=== PATIENT | female | born 1935 | race Caucasian/White ===

== ENCOUNTER → 2016-10-26 | Outpatient (CLI) | payer MEDICARE ==
[2016-10-26 09:16] LABS: Basophils # (A) 0.1 k/uL (0-0.2); Basophils % (A) 1 %; CH 28.6; CHCM 34.1; Eosinophils # (A) 0.2 k/uL (0-0.7); Eosinophils % (A) 4 %; HCT 35.1 % (34.0-46.0); HDW 2.93; Luc % (Auto) 4; Lymphocytes # (A) 0.8 k/uL (1.0-4.8); Lymphocytes % (A) 17 %; MCH 28.6 pg (25.0-35.0); MCHC 34.1 g/dL (31.0-37.0); Monocytes # (A) 0.3 k/uL (0-1.0); Monocytes % (A) 6 %; Neutrophils # (A) 3.3 k/uL (1.3-7.7); Neutrophils % (A) 68 %; RBC 4.18 m/uL (3.80-5.40); RDW 14.1 % (11.5-15.5); WBC 4.9 k/uL (3.8-10.6); WBC (Perox) 5.14
[2016-10-26 10:02] LABS: ALT 26 U/L (9-52); AST 24 U/L (14-36); Alkaline Phosphatase 62 U/L (38-126); Anion Gap 10 mmol/L; Blood Urea Nitrogen 30 mg/dL (7-17); Calcium 9.3 mg/dL (8.4-10.2); Carbon Dioxide 32 mmol/L (22-30); Chloride 98 mmol/L (98-107); Cholesterol 134 mg/dL (<200); Glucose 157 mg/dL (74-99); HDL Cholesterol 42 mg/dL (40-60); Non-African American GFR(MDRD) 50 (>60 ml/min/1.73 sqM); Potassium 3.7 mmol/L (3.5-5.1); Sodium 140 mmol/L (137-145); Total Bilirubin 0.8 mg/dL (0.2-1.3); Total Protein 6.8 g/dL (6.3-8.2); Triglycerides 137 mg/dL (<150)
[2016-10-26 13:01] LABS: Hemoglobin A1C 6.2 % (4.2-6.1)
== END ==
LOC: LABWHC1 08:35
PROVIDERS: ATTEND Internal Medicine Critical Care Medicine
DX: J45.909 Unspecified asthma, uncomplicated (principal)
CPT/HCPCS: 36415; 80053; 80061; 82306; 83036; 84439; 84443; 84481; 85025

== ENCOUNTER → 2016-12-30 | Outpatient (CLI) | payer MEDICARE ==
--- NOTE | 2016-12-30 17:18 | CT ---
EXAMINATION TYPE: CT brain wo/w con DATE OF EXAM: 12/30/2016 COMPARISON: 12/01/2015 HISTORY: Hearing loss and dizziness x [address] DLP: 2268.00 mGycm Automated exposure control for dose reduction was used. CONTRAST: CT scan of the head is performed with IV Contrast, patient injected with 80 mL of Visipaque 320. FINDINGS: There is a 2 cm wedge-shaped area of hypodensity in the right parietal lobe convexity. There is no ma ss effect nor midline shift. There is no sign of intracranial hemorrhage. There is no pathologic enha ncement. Ventricles of normal size. Calvarium is intact. 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 No acute intracranial abnormality. No change.
--- NOTE | 2016-12-30 17:24 | CT ---
EXAMINATION TYPE: CT iac w con DATE OF EXAM: 12/30/2016 COMPARISON: NONE HISTORY: Hearing loss and dizziness x [address] DLP: 217.03 mGycm Automated exposure control for dose reduction was used. CONTRAST: CT scan of the IACs is performed with IV Contrast, patient injected with 80 mL of Visipaque 320. FINDINGS: External auditory canals are within normal limits. There is normal aeration of the epitympa anderson recess bilaterally. There is normal aeration of the middle ear cavity. Semicircular canals appear normal. The cochlea appear normal. I see no focal bone destruction. There is fairly normal aeration of the mastoid air cells. Temporomandibular joints appear normal. Internal auditory canals appear normal. There is no sign of cerebellopontine angle mass. Fourth ventr icle appears normal. There is no pathologic enhancement. There is some atherosclerotic vascular calci fication. IMPRESSION: Negative CT scan of the temporal bones. No demonstrated abnormality.
== END | disposition home or self-care (01) ==
LOC: RADCTMAIN 15:05
PROVIDERS: ATTEND Otolaryngology
DX: I63.9 Cerebral infarction, unspecified (principal); H91.92 Unspecified hearing loss, left ear; H93.3X2 Disorders of left acoustic nerve
CPT/HCPCS: 82565; 84520; 70481; 70470; 36415; Q9967

== ENCOUNTER 2017-08-01 15:23 | Inpatient (IN) | payer MEDICARE ==
[2017-08-01] MEDS ORDERED: ASPIRIN 81 MG PO STA (15:35)
--- NOTE | 2017-08-01 15:56 | ED ---
Dizziness HPI - General Chief Complaint: Dizziness Stated Complaint: off balance Time Seen by Provider: 08/01/17 15:34 Source: patient Mode of arrival: wheelchair Limitations: no limitations - History of Present Illness Initial Comments: Patient complains of trouble walking. She states that she is having some episodes of walking sideways. She has no chest pain, shortness of breath, belly or back pain. She has no lightheadedness, dizziness, vertigo. She has no palpitations. She has no pain or swelling in the arms or legs. Nothing makes her symptoms better or worse. She was not doing anything when this began. Her symptoms are getting worse on their own. She has taken no medication for this. She has no loss of bowel or bladder continence. She has no urinary retention. - Related Data Home Medications Medication Instructions Recorded Confirmed Hydrochlorothiazide [Hydrodiuril] 25 mg PO BID 01/31/14 05/06/17 Montelukast [Singulair] 10 mg PO HS 01/31/14 05/06/17 Nitroglycerin Sl Tabs [Nitrostat] 0.4 mg SUBLINGUAL Q5M PRN 01/31/14 05/06/17 amLODIPine BESYLATE [Norvasc] 5 mg PO DAILY 01/31/14 05/06/17 hydrALAZINE HCL [Apresoline] 100 mg PO BID 12/25/14 05/06/17 ALPRAZolam [Xanax] 0.25 mg PO TID PRN 11/15/15 05/06/17 Metoprolol Tartrate [Lopressor] 50 mg PO BID 11/15/15 05/06/17 Apixaban [Eliquis] 2.5 mg PO BID 05/06/17 05/06/17 Levofloxacin [Levaquin] 250 mg PO DAILY 05/06/17 05/06/17 Lisinopril [Zestril] 10 mg PO QAM 05/06/17 05/06/17 Lisinopril [Zestril] 20 mg PO HS 05/06/17 05/06/17 Zolpidem Tartrate [Ambien Cr] 6.25 mg PO HS 05/06/17 05/06/17 Previous Rx's Medication Instructions Recorded Atorvastatin [Lipitor] 80 mg PO DAILY #30 tab 11/17/15 Allergies Allergy/AdvReac Type Severity Reaction Status Date / Time Penicillins Allergy Unknown Verified 05/06/17 16:32 Childhood Sulfa (Sulfonamide Allergy Unknown Verified 05/06/17 16:32 Antibiotics) Childhood Review of Systems ROS Statement: Those systems with pertinent positive or pertinent negative responses have been documented in the HPI. ROS Other: All systems not noted in ROS Statement are negative. Past Medical History Past Medical History: Atrial Fibrillation, Chest Pain / Angina, CVA/TIA, Hypertension, Osteoarthritis (OA) Additional Past Medical History / Comment(s): Atrial fibrillation, paroxysmal, sick sinus syndrome status post dual-chamber pacemaker insertion, hypertension, diverticulosis, borderline diabetes mellitus type 2, cataracts, degenerative arthritis History of Any Multi-Drug Resistant Organisms: None Reported Past Surgical History: Hysterectomy, Pacemaker Additional Past Surgical History / Comment(s): cataract surgery bilateral eyes. rhinoplasty. colonoscopy, d&c, rt wrist carpal tunnel, laser eye sx for cataracts Past Anesthesia/Blood Transfusion Reactions: No Reported Reaction Type of Cardiac Device: Permanent Pacemaker Device Placement Date:: 02/26/15 Past Psychological History: No Psychological Hx Reported Smoking Status: Never smoker Past Alcohol Use History: None Reported Past Drug Use History: None Reported - Past Family History Mother Family Medical History: CVA/TIA, Hypertension Additional Family Medical History / Comment(s): cataract surgery, of cardiac aneurysm Sister(s) Family Medical History: Cancer, Hypertension Additional Family Medical History / Comment(s): breast cancer General Exam Limitations: no limitations General appearance: alert, in no apparent distress Head exam: Present: atraumatic, normocephalic, normal inspection Eye exam: Present: normal appearance, PERRL, EOMI. Absent: scleral icterus, conjunctival injection, periorbital swelling ENT exam: Present: normal exam, mucous membranes moist Neck exam: Present: normal inspection. Absent: tenderness, meningismus, lymphadenopathy Respiratory exam: Present: normal lung sounds bilaterally. Absent: respiratory distress, wheezes, rales, rhonchi, stridor Cardiovascular Exam: Present: regular rate, normal rhythm, normal heart sounds. Absent: systolic murmur, diastolic murmur, rubs, gallop, clicks GI/Abdominal exam: Present: soft, normal bowel sounds. Absent: distended, tenderness, guarding, rebound, rigid Extremities exam: Present: normal inspection, full ROM, normal capillary refill. Absent: tenderness, pedal edema, joint swelling, calf tenderness Back exam: Present: normal inspection Neurological exam: Present: alert, oriented X3, CN II-XII intact, abnormal gait Psychiatric exam: Present: normal affect, normal mood Skin exam: Present: warm, dry, intact, normal color. Absent: rash Course Vital Signs 08/01/17 08/01/17 15:31 16:12 Temperature 99.0 F Pulse Rate 70 74 Respiratory 20 17 Rate Blood Pressure 128/73 116/61 O2 Sat by Pulse 98 97 Oximetry EKG Findings - EKG Comments: EKG Findings:: Twelve-lead EKG interpreted by me showing ventricular rate 74 bpm , there are atrial pacer spikes, with no P waves present, no ST elevation or depression, interpreted by me as atrial paced rhythm without acute ischemia. Medical Decision Making - Medical Decision Making Patient presents with trouble walking. I'm unable to get her to ambulate properly. Her CT does not show an acute stroke, but she has evidence of old infarct. Patient will be admitted to the hospital. I will consult neurology. - Lab Data Result diagrams: 08/01/17 15:50 08/01/17 15:50 Lab Results 08/01/17 08/01/17 08/01/17 Range/Units 15:50 15:50 15:50 WBC 7.1 (3.8-10.6) k/uL RBC 4.26 (3.80-5.40) m/uL Hgb 11.5 (11.4-16.0) gm/dL Hct 33.5 L (34.0-46.0) % MCV 78.7 L (80.0-100.0) fL MCH 27.1 (25.0-35.0) pg MCHC 34.4 (31.0-37.0) g/dL RDW 14.4 (11.5-15.5) % Plt Count 296 (150-450) k/uL Neutrophils % 74 % Lymphocytes % 13 % Monocytes % 5 % Eosinophils % 4 % Basophils % 1 % Neutrophils # 5.2 (1.3-7.7) k/uL Lymphocytes # 0.9 L (1.0-4.8) k/uL Monocytes # 0.4 (0-1.0) k/uL Eosinophils # 0.3 (0-0.7) k/uL Basophils # 0.1 (0-0.2) k/uL PT 9.9 (9.0-12.0) sec INR 1.0 (<1.2) APTT 33.6 H (22.0-30.0) sec Sodium 137 (137-145) mmol/L Potassium 3.8 (3.5-5.1) mmol/L Chloride 94 L (98-107) mmol/L Carbon Dioxide 32 H (22-30) mmol/L Anion Gap 11 mmol/L BUN 24 H (7-17) mg/dL Creatinine 1.01 (0.52-1.04) mg/dL Est GFR (CKD-EPI)AfAm 60 (>60 ml/min/1.73 sqM) Est GFR (CKD-EPI)NonAf 52 (>60 ml/min/1.73 sqM) Glucose 109 H (74-99) mg/dL Calcium 9.3 (8.4-10.2) mg/dL Magnesium 1.6 (1.6-2.3) mg/dL Total Bilirubin 0.6 (0.2-1.3) mg/dL AST 19 (14-36) U/L ALT 23 (9-52) U/L Alkaline Phosphatase 79 (38-126) U/L Total Protein 6.8 (6.3-8.2) g/dL Albumin 3.7 (3.5-5.0) g/dL Lipase 116 (23-300) U/L Disposition Clinical Impression: Dizziness Disposition: ADMITTED IP TO THIS [facility] Condition: Fair Referrals: Phoenix Manzo DO [Primary Care Provider] - 1-2 days Time of Disposition: 16:19
[2017-08-01 16:00] LABS: Basophils # (A) 0.1 k/uL (0-0.2); Basophils % (A) 1 %; Eosinophils # (A) 0.3 k/uL (0-0.7); Eosinophils % (A) 4 %; HCT 33.5 % (34.0-46.0); HGB 11.5 gm/dL (11.4-16.0); Lymphocytes # (A) 0.9 k/uL (1.0-4.8); Lymphocytes % (A) 13 %; MCH 27.1 pg (25.0-35.0); MCHC 34.4 g/dL (31.0-37.0); MCV 78.7 fL (80.0-100.0); Mean Platelet Volume 6.7; Monocytes # (A) 0.4 k/uL (0-1.0); Monocytes % (A) 5 %; Neutrophils # (A) 5.2 k/uL (1.3-7.7); Neutrophils % (A) 74 %; Platelet Count 296 k/uL (150-450); RBC 4.26 m/uL (3.80-5.40); RDW 14.4 % (11.5-15.5); WBC 7.1 k/uL (3.8-10.6)
[2017-08-01 16:06] LABS: Partial Thromboplastin Time 33.6 sec (22.0-30.0); Prothrombin Time 9.9 sec (9.0-12.0)
--- NOTE | 2017-08-01 16:06 | CT ---
EXAMINATION TYPE: CT brain wo con DATE OF EXAM: 08/01/2017 COMPARISON: Prior head CT 12/30/2016 HISTORY: Unsteady gait x3 days CT DLP: 973.4 mGycm Automated exposure control for dose reduction was used. Helical acquisition through the brain FINDINGS: Cerebral vascular calcifications are present. There is no hemorrhage or hydrocephalus. Mild cortical atrophy again noted. Periventricular white matter low-attenuation, brain density is stable. Calvarium is intact. Paranasal sinuses show only mild mucosal disease in the maxillary sinus. Some inflammator y change present in the mastoids on the left. IMPRESSION: STABLE EXAM, NO ACUTE ABNORMALITY. Suspect chronic small vessel ischemia, age related atrophy. Correl ate for mastoiditis, additional findings above.
--- NOTE | 2017-08-01 16:07 | XR ---
EXAMINATION TYPE: XR chest 2V DATE OF EXAM: 08/01/2017 COMPARISON: Prior chest x-ray 11/14/2015 HISTORY: Chest pain TECHNIQUE: Frontal and lateral views of the chest are obtained. FINDINGS: There is no focal air space opacity, pleural effusion, or pneumothorax seen. The cardiac silhouette size is stable. Pacemaker is unchanged, leads are present in the right atrium and ventricl e, generator in the left pectoral region, patient is rotated The osseous structures are intact. IMPRESSION: No acute cardiopulmonary process.
[2017-08-01 16:15] LABS: Albumin 3.7 g/dL (3.5-5.0); Calcium 9.3 mg/dL (8.4-10.2); Magnesium 1.6 mg/dL (1.6-2.3); Potassium 3.8 mmol/L (3.5-5.1); Total Bilirubin 0.6 mg/dL (0.2-1.3); Total Protein 6.8 g/dL (6.3-8.2)
[2017-08-01] MEDS ORDERED: NALOXONE 0.4 MG/ML 1 ML VIAL IV PRN (16:19)
[2017-08-01] MEDS ORDERED: ONDANSETRON 4 MG/2 ML VIAL IVP PRN (16:19)
[2017-08-01 18:28] VITALS: BMI 31.4
[2017-08-01] MEDS: LISINOPRIL 20 MG TAB PO SCH (19:59)
[2017-08-01] MEDS: HYDROCHLOROTHIAZIDE 25 MG TAB PO SCH (19:59)
[2017-08-01] MEDS: METOPROLOL TARTRATE 50 MG TAB PO SCH (19:59)
[2017-08-01] MEDS: APIXABAN 2.5 MG TABLET PO SCH (19:59)
[2017-08-01] MEDS: FAMOTIDINE 20 MG TAB PO SCH (20:00)
[2017-08-01] MEDS: MONTELUKAST 10 MG TAB PO SCH (20:00)
[2017-08-01] MEDS ORDERED: MECLIZINE 12.5 MG TAB PO PRN (20:10)
--- NOTE | 2017-08-01 20:11 | P.CNNES ---
History of Present Illness Consult date: 08/01/17 Reason for Consult: Patient admitted with gait dysfunction and dizziness. History of Present Illness: This patient is a pleasant 82-year-old right-handed white female who states that about 2 weeks ago she was outdoors and was attempting to remove a sign that was in the ground. 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 She struck the back of her head quite hard onto the rope. She was close to the edge of the driveway in the road when she had fell and had clearly fallen backwards and struck the back of her head. She was able to get up and slowly was able to get into her car and was able to return home. She did not experience any contusion or laceration to the scalp or head region. She does have a history of having suffered a right hemispheric stroke in 2010. She also has a history of underlying atrial fibrillation and is currently taking Eliquis for long-term anticoagulation. 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 Apparently on Monday she was having great deal of difficulty at home ambulating from room to room. She states that she had to hold onto the sung to get from place to place. She went into work this morning and her colleagues noticed that she was having a great deal of difficulty. She decided to go to the ENT clinic but did not have an appointment for 2 weeks. The patient was quite concerned with her symptoms as she was becoming worse in terms of her balance. She decided to go to the emergency room today for further evaluation. The patient was seen in the ER by Dr. Mtz. She apparently still was very unsteady in her gait. She required assistance to even come into the emergency room with the help of a security tech. The patient was evaluated and had evidence of unsteady gait and unable to ambulate. She was sent for a computed tomography scan of the brain which revealed stable exam with no acute abnormality. Suspect chronic small vessel ischemia and age-related atrophy. Correlation for mastoiditis was noted. There was no evidence of acute stroke. Due to her inability to ambulate she was admitted to hospital for further evaluation. Patient does have a history of atrial fibrillation and paroxysmal 6 sinus syndrome and has a dual-chamber pacemaker. Apparently she did not experience any abnormalities with her heart rate during this recent fall and subsequent symptoms. As noted she does take her anticoagulant medication on a daily basis. The patient states she did not experience any true vertigo or dizziness. She was subsequently admitted to the hospital today. She is examined today in her room and does not show any evidence of horizontal or vertical nystagmus. She has no focal motor weakness on exam. When attempt was made to have her stand she becomes very ataxic. The patient is unable to go for MRI of the brain as she does have the Rubio maker. Her clinical findings at this time suggest possibility of posterior fossa infarct. We have recommended a repeat CAT scan of the brain to be done tomorrow. We will also obtain a consultation with Dr. Mathews for ENT evaluation for postconcussive labyrinthitis. Once again she does seem to demonstrate evidence of truncal ataxia when standing. We will get a repeat computed tomography scan tomorrow to monitor for any changes. Would also recommend a physical therapy consultation as well as cardiology consultation. We'll obtain a carotid Doppler to rule out carotid artery stenosis as well. Depending on physical therapy's recommendations she may be a candidate for short -term rehabilitation with Dr. Warren. The patient states that she feels very unsteady even when trying to stand. We will await further evaluation from ENT for this patient. She does not appear to show evidence consistent with acute vertigo as there is no evidence of nystagmus on gaze testing. We will continue close neurological follow-up for this patient. Neurology is now been consulted for further evaluation and recommendations. Review of Systems Constitutional: Denies chills, Denies fever Eyes: denies blurred vision, denies pain, denies loss of vision Ears, nose, mouth and throat: Reports sinus pressure, Reports vertigo, Denies headache, Denies sore throat Cardiovascular: Reports irregular heart beat, Reports lightheadedness, Denies chest pain, Denies shortness of breath Respiratory: Denies cough Gastrointestinal: Denies abdominal pain, Denies diarrhea, Denies nausea, Denies vomiting Genitourinary: Denies dysuria, Denies hematuria Musculoskeletal: Denies myalgias Integumentary: Denies pruritus, Denies rash Neurological: Reports ataxia, Reports balance difficulties, Reports gait dysfunction, Reports lack of coordination, Reports motor disturbance, Reports vertigo, Denies numbness, Denies weakness Psychiatric: Denies anxiety, Denies depression Endocrine: Denies fatigue, Denies weight change Past Medical History Past Medical History: Atrial Fibrillation, Chest Pain / Angina, CVA/TIA, Hypertension, Osteoarthritis (OA) Additional Past Medical History / Comment(s): Atrial fibrillation, paroxysmal, sick sinus syndrome status post dual-chamber pacemaker insertion, hypertension, diverticulosis, borderline diabetes mellitus type 2, cataracts, degenerative arthritis History of Any Multi-Drug Resistant Organisms: None Reported Past Surgical History: Hysterectomy, Pacemaker Additional Past Surgical History / Comment(s): cataract surgery bilateral eyes. rhinoplasty. 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) Past Drug Use History: None Reported - Past Family History Mother Family Medical History: CVA/TIA, Hypertension Additional Family Medical History / Comment(s): cataract surgery, of cardiac aneurysm Sister(s) Family Medical History: Cancer, Hypertension Additional Family Medical History / Comment(s): breast cancer Medications and Allergies Home Medications Medication Instructions Recorded Confirmed Type Hydrochlorothiazide [Hydrodiuril] 25 mg PO BID 01/31/14 08/01/17 History Montelukast [Singulair] 10 mg PO HS 01/31/14 08/01/17 History Nitroglycerin Sl Tabs [Nitrostat] 0.4 mg SUBLINGUAL Q5M PRN 01/31/14 08/01/17 History amLODIPine BESYLATE [Norvasc] 5 mg PO DAILY 01/31/14 08/01/17 History hydrALAZINE HCL [Apresoline] 100 mg PO BID 12/25/14 08/01/17 History Metoprolol Tartrate [Lopressor] 50 mg PO BID 11/15/15 08/01/17 History Apixaban [Eliquis] 2.5 mg PO BID 05/06/17 08/01/17 History Lisinopril [Zestril] 10 mg PO QAM 05/06/17 08/01/17 History Lisinopril [Zestril] 20 mg PO HS 05/06/17 08/01/17 History Aspirin [Adult Low Dose Aspirin EC] 81 mg PO DAILY@1200 08/01/17 08/01/17 History Allergies Allergy/AdvReac Type Severity Reaction Status Date / Time Penicillins Allergy Unknown Verified 08/01/17 16:28 Childhood Sulfa (Sulfonamide Allergy Unknown Verified 08/01/17 16:28 Antibiotics) Childhood Physical Examination - Vital Signs Vital Signs: Vital Signs Temp Pulse Pulse Resp BP BP BP 08/01/17 18:31 73 16 08/01/17 17:14 98.7 F 70 17 146/69 08/01/17 16:50 97.6 F 73 18 151/75 151/75 08/01/17 16:12 74 17 116/61 08/01/17 15:31 99.0 F 70 20 128/73 BP BP Pulse Ox 08/01/17 18:31 08/01/17 17:14 100 08/01/17 16:50 149/91 121/62 95 08/01/17 16:12 97 08/01/17 15:31 98 Intake and Output 08/01/17 08/01/17 08/01/17 06:59 14:59 22:59 Other: Weight 91 kg Patient Weight 08/02/17 06:59 Weight 91 kg - Constitutional General appearance: average body habitus, cooperative - EENT EENT: PERRL, mucous membranes moist - Respiratory Respiratory: lungs clear, normal breath sounds - Cardiovascular Cardiovascular: normal S1, normal S2 Extremities: no peripheral edema bilaterally - Gastrointestinal Gastrointestinal: normoactive bowel sounds - Integumentary Integumentary: normal - Neurologic Cranial nerve examination: PERRL, EOMI, VFF, V1/V2/V3 grossly intact, face symmetric, tongue midline, intact gag reflex, intact corneal reflex, normal palatal elevation Speech examination: intact Sensorimotor examination: intact Motor examination - right side: 4/5: biceps, triceps, wrist flexion, wrist extension, animal assisted therapist, hip flexors, knee extensors, dorsiflexion, toe extension (EHL) , plantarflexion Motor examination - left side: 4/5: biceps, triceps, wrist flexion, wrist extension, animal assisted therapist, hip flexors, knee extensors, dorsiflexion, toe extension (EHL) , plantarflexion Detailed sensory examination: intact Posture: other (Patient has evidence of truncal ataxia when standing.) Reflex and gait examination: ataxic gate Reflexes: 1+: ankle, bicep, knee, tricep Cerebellar examination: ataxia (Patient has evidence of truncal ataxia when standing.) - Musculoskeletal Musculoskeletal: no pain - Psychiatric Psychiatric: mood/affect appropriate, cooperative Results - Laboratory Findings CBC and BMP: 08/01/17 15:50 08/01/17 15:50 Abnormal Lab Findings: Abnormal Labs 08/01/17 08/01/17 08/01/17 15:50 15:50 15:50 Hct 33.5 L MCV 78.7 L Lymphocytes # 0.9 L APTT 33.6 H Chloride 94 L Carbon Dioxide 32 H BUN 24 H Glucose 109 H Assessment and Plan (1) Truncal ataxia Current Visit: Yes Status: Acute Code(s): R27.8 - OTHER LACK OF COORDINATION SNOMED Code(s): 006303135 (2) History of stroke Current Visit: Yes Status: Acute Code(s): Z86.73 - PRSNL HX OF TIA (TIA), AND CEREB INFRC W/O RESID DEFICITS SNOMED Code(s): 086490103 (3) Dizziness Current Visit: Yes Status: Acute Code(s): R42 - DIZZINESS AND GIDDINESS SNOMED Code(s): 752833799 (4) Acute ischemic stroke Current Visit: No Status: Acute Onset Date: 11/14/15 Code(s): I63.9 - CEREBRAL INFARCTION, UNSPECIFIED SNOMED Code(s): 086022675 (5) Labyrinthitis Current Visit: Yes Status: Acute Code(s): H83.09 - LABYRINTHITIS, UNSPECIFIED EAR SNOMED Code(s): 12163446 (6) AF (paroxysmal atrial fibrillation) Current Visit: No Status: Acute Code(s): I48.0 - PAROXYSMAL ATRIAL FIBRILLATION SNOMED Code(s): 034983742 Plan: This patient is a pleasant 82-year-old right-handed white female who was admitted to hospital today with symptoms of unsteady gait and ataxia. She was unable to ambulate at home since Monday of this past week. She had sustained a fall 2 weeks prior on ice and struck the back of her head. She did not seek any medical attention as she seemed to recover from this. On Monday she was holding onto the sung to ambulate at home. 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 She was unable to walk very far without some assistance. Her colleague recommended she go to the emergency room. She was seen in the ER today by Dr. Mtz and subsequently admitted to Hospital. She underwent a computed tomography scan of the brain the results of which are noted above. The patient was unable to ambulate even in the emergency room. Her clinical history is shows evidence of truncal ataxia. This would suggest possibility of posterior circulation stroke. She is unable to go for MRI of the brain as she has a pacemaker. We will obtain a repeat computed tomography scan of the brain tomorrow. Would recommend ENT consultation for evaluation of postconcussive labyrinthitis for this patient as well. She has a history of previous stroke in 2010 and is currently being treated for paroxysmal atrial fibrillation. She is to be maintained on Eliquis was for long-term anticoagulation. We will obtain a routine carotid Doppler to rule out carotid artery stenosis. She will require PT OT consultation. The patient is being treated for TIA and stroke prevention with her current anticoagulant. As noted we will have a repeat CAT scan of the brain done for further assessment. Patient may also benefit from evaluation from Dr. Warren for possible more aggressive inpatient rehabilitation and therapy. Case was discussed at length today with the patient. All of her questions were answered. We will continue close neurological follow-up for the patient during this admission. Time with Patient: Greater than 30
[2017-08-02 04:18] LABS: Basophils # (A) 0.1 k/uL (0-0.2); Basophils % (A) 1 %; Eosinophils # (A) 0.3 k/uL (0-0.7); Eosinophils % (A) 5 %; HCT 29.9 % (34.0-46.0); Lymphocytes # (A) 0.9 k/uL (1.0-4.8); Lymphocytes % (A) 15 %; MCH 26.6 pg (25.0-35.0); MCHC 33.4 g/dL (31.0-37.0); MCV 79.7 fL (80.0-100.0); Monocytes # (A) 0.4 k/uL (0-1.0); Monocytes % (A) 7 %; Neutrophils # (A) 4.1 k/uL (1.3-7.7); Neutrophils % (A) 70 %; Platelet Count 249 k/uL (150-450); RBC 3.75 m/uL (3.80-5.40); RDW 14.5 % (11.5-15.5); WBC 5.9 k/uL (3.8-10.6)
--- NOTE | 2017-08-02 04:21 | HP ---
HISTORY AND PHYSICAL DATE OF SERVICE: 08/01/2017 CHIEF COMPLAINTS: Dizziness. HISTORY OF PRESENT ILLNESS: This 80-year-old woman with a past medical history of multiple medical problems , acute stroke, history of carotid stenosis, atrial fibrillation, history of sick sinus syndrome, CVA/TIA, DJD being followed by Dr. Manzo in the outpatient setting was complaining of dizziness today. The patient had some trouble walking and while the patient was walking, the patient was tending to fall to one side. The patient also history of falling on ice about 2 weeks ago and hitting the head on the posterior part of the head. The patient had a CT scan of the brain on admission which is stable and suspect chronic small vessel ischemia and age-related atrophy. Neurology evaluation in progress at this time. Otherwise, MRI could not be done because the patient had a pacemaker. Apparently could not be done because of pacemaker. The troponins are negative at this time. There is no history of fever, rigors or chills. No history of any headache, loss of consciousness or seizures at this time. PAST MEDICAL HISTORY: History of atrial fibrillation, CVA, TIA, hypertension, history of DJD, history of paroxysmal atrial fibrillation, history of hysterectomy, history of pacemaker. MEDICATIONS: Prior to admission include home medications: 1. Nitrostat 0.4 mg p.r.n. 2. Singulair 10 mg p.o. q.h.s. 3. Zestril 20 mg p.o. q.h.s. 4. Aspirin 81 mg. 6. Norvasc 5 mg. 7. Lopressor 50 mg p.o. daily. 8. HydroDIURIL 25 mg p.o. b.i.d. 9. Eliquis 2.5 mg p.o. b.i.d. ALLERGIES: PENICILLIN AND SULFA. FAMILY HISTORY: History of CVA, TIA, hypertension, cataract surgery, cardiac aneurysm. SOCIAL HISTORY: No history of smoking, no history of alcohol. REVIEW OF SYSTEMS: ENT as mentioned earlier. Cardiovascular: No angina or palpitations. Respiratory: There is no cough or hemoptysis. GI mentioned earlier. no dysuria. Nervous system: As mentioned earlier. Allergy/Immunology: No asthma or hayfever. Musculoskeletal as mentioned earlier. Hematology/Oncology: No history of anemia. Endocrine: No history of diabetes or hypothyroidism. Constitutional: As mentioned earlier. Dermatology: Negative. Rheumatology: Negative. Psychiatric: As mentioned earlier. PHYSICAL EXAM: Patient is alert, oriented x3. Pulse is 71, blood pressure 118/63, respiration 18, temperature 98.6, pulse ox 97% on room air. HEENT: Conjunctivae normal. Neck: No jugular venous distention. Cardiovascular system: S1, S2 muffled. Respiratory : Breath sounds diminished in the bases. No rhonchi. No crackles. ABDOMEN: Soft, nontender. No mass. Legs no edema no swelling. NERVOUS SYSTEM: Higher functions as mentioned earlier. Cranial nerves, there is no nystagmus, no diplopia. Otherwise the power is normal. Minimal incoordination of the left finger-nose noted. Otherwise some gait ataxia and also Romberg sign is positive. Otherwise, skin no ulcer, rash, bleeding. Lymphatics: No lymph nodes palpable in the neck, axillae or groin. Joints no active deforming arthropathy. LABS: WBC 7.8, hemoglobin 11.5, sodium 139, potassium 3.8 and glucose 109. ASSESSMENT: 1. Dizziness and gait ataxia, truncal ataxia for evaluation possibly. 2. Vertebrobasilar stroke versus transient ischemic attack. 3. History of previous stroke involving the right posterior temporal area and lacunar infarcts. 4. History of previous left carotid stenosis. 5. History of paroxysmal atrial fibrillation. 6. History of sick sinus syndrome bradycardia with dual-chamber pacemaker implantation. 7. Hypertension. 8. History of cerebrovascular accident, transient ischemic attack. 9. History of degenerative joint disease. 10.History of cardiomyopathy. 11.History of diverticulitis. 12.History of cataracts. 13.History of borderline diabetes type 2 previously. 14.History of colonoscopy. RECOMMENDATIONS AND DISCUSSION: In this 82-year-old woman who presented with multiple complex medical issues, we will monitor the patient closely, continue the current management. Neuro checks. Neurovascular workup. Neurology evaluation. I would also recommend Cardiology consultation as well. Otherwise resume the home medications, symptomatic treatment will be provided. Prognosis guarded. Discussed with the patient who understands and agrees. Further recommendations to follow. Blood pressure seems to be controlled at this time. We will monitor the patient closely. See orders for details. As mentioned earlier MRI could not be done. Discussed with Dr. Jean-Pierre Cobian who recommends repeat CT scan and continue monitoring. Further recommendations to follow. MMODL / IJN: [id number] / ILANA
[2017-08-02 04:36] LABS: Calcium 9.2 mg/dL (8.4-10.2); Potassium 3.6 mmol/L (3.5-5.1)
[2017-08-02 06:33] LABS: Appearance,Urine Clear (Clear); Bilirubin,Urine Negative (Negative); Blood,Urine Trace (Negative); Color,Urine Light Yellow; Glucose,Urine (UA) Negative (Negative); Ketones,Urine Negative (Negative); Leukocyte Esterase,Urine Negative (Negative); Nitrite,Urine Negative (Negative); Protein,Urine Negative (Negative); RBC,Urine 8 /hpf (0-5); Specific Gravity,Urine 1.009 (1.001-1.035); Urobilinogen,Urine <2.0 mg/dL (<2.0); WBC,Urine 1 /hpf (0-5)
--- NOTE | 2017-08-02 08:24 | CT ---
EXAMINATION TYPE: CT brain wo con DATE OF EXAM: 08/02/2017 COMPARISON: 08/01/2017 HISTORY: 82-year-old female Dizziness, truncal ataxia, rule out cerebellar stroke TECHNIQUE: Examination was done in axial plane without intravenous contrast. Coronal and sagittal r econstructions performed. CT DLP: 1017.9 mGycm Automated exposure control for dose reduction was used. FINDINGS: There is no evidence of acute intracranial hemorrhage, acute ischemic changes, mass, mass-effect, or extra-axial fluid collection. There is no effacement of cerebral sulci or basal subarachnoid cister ns. There is no hydrocephalus. There is no midline shift. Farley-white matter distinction is preserv ed. Old right parietal infarct. Moderate patchy white matter hypodensities in both cerebral hemispheres u nchanged. Similar partial opacification of the bilateral mastoid air cells. Paranasal sinuses well pneumatized. Orbits and globes appear intact. IMPRESSION: 1. No evident posterior cranial fossa infarct by CT. Skull base artifact limitations. Consider MRI fo r more sensitive evaluation. 2. Stable moderate patchy changes of chronic small vessel ischemic disease and old right parietal inf arct. 3. Similar fluid in the bilateral mastoid air cells. Correlate for any mastoid pain to exclude mastoi ditis.
[2017-08-02] MEDS: ASPIRIN 81 MG PO SCH (09:05)
[2017-08-02] MEDS: APIXABAN 2.5 MG TABLET PO SCH ×2 (09:05→20:42)
[2017-08-02] MEDS: MECLIZINE 12.5 MG TAB PO SCH ×3 (09:05→20:43)
[2017-08-02] MEDS: FAMOTIDINE 20 MG TAB PO SCH (09:05)
[2017-08-02] MEDS: amLODIPine 5 MG TAB PO SCH (09:05)
[2017-08-02] MEDS: ATORVASTATIN 80 MG TAB PO SCH (09:05)
[2017-08-02] MEDS: HYDROCHLOROTHIAZIDE 25 MG TAB PO SCH ×2 (09:06→20:42)
[2017-08-02] MEDS: METOPROLOL TARTRATE 50 MG TAB PO SCH ×2 (09:06→20:42)
[2017-08-02] MEDS: THIAMINE 100 MG TAB PO SCH (09:06)
[2017-08-02] MEDS: LISINOPRIL 10 MG TAB PO SCH (09:06)
[2017-08-02] MEDS: FOLIC ACID 1 MG TAB PO SCH (09:06)
[2017-08-02] MEDS: MULTIVITAMINS, THERA 1 EACH TAB PO SCH (09:06)
--- NOTE | 2017-08-02 10:03 | US ---
EXAMINATION TYPE: US carotid duplex BILAT DATE OF EXAM: 08/02/2017 COMPARISON: CLINICAL HISTORY: Patient with ataxia and history of stroke.. Hx of stroke 2011, HTN EXAM MEASUREMENTS: RIGHT: Peak Systolic Velocity (PSV) cm/sec ----- Right CCA: 64.7 ----- Right ICA: 81.4 ----- Right ECA: 74.1 ICA/CCA ratio: 1.3 RIGHT: End Diastole cm/sec ----- Right CCA: 13.1 ----- Right ICA: 21.9 ----- Right ECA: 5.1 LEFT: Peak Systolic Velocity (PSV) cm/sec ----- Left CCA: 69.2 ----- Left ICA: 64.7 ----- Left ECA: 112.9 ICA/CCA ratio: 0.9 LEFT: End Diastole cm/sec ----- Left CCA: 19.7 ----- Left ICA: 24.1 ----- Left ECA: 14.4 VERTEBRALS (direction of flow): Right Vertebral: Antegrade Left Vertebral: Antegrade Rhythm: Normal No significant stenosis or elevated velocity. Plaque seen in posterior right bulb. Bilateral wall t hickening. IMPRESSION: Mild atheromatous plaquing without significant flow-limiting stenosis. Criteria for Assigning % of Stenosis / Diameter reduction (Estimation based on the indirect measurements of the internal carotid artery velocities (ICA PSV). 1. Normal (no stenosis)=ICA PSV < 125 cm/s: ratio < 2.0: ICA EDV<40 cm/s. 2. Less than 50% stenosis=ICA PSV < 125 cm/s: ratio < 2.0: ICA EDV<40 cm/s. 3. 50 to 69% stenosis=ICA PSV of 125 to 230 cm/s: ration 2.0 ? 4.0: ICA EDV 40-100 cm/s. 4. Greater than 70% stenosis to near occlusion= ICA PSV > 230 cm/s: ratio > 4.0: ICA EDV > 100 cm/s. 5. Near occlusion= ICA PSV velocities may be low or undetectable: variable ratio and ICA EDV. 6. Total occlusion=unable to detect flow.
--- NOTE | 2017-08-02 11:08 | P.CRDCN ---
History of Present Illness History of present illness: Patient interviewed and examined. History of a recent fall and she hit the back of her head as she fell on her back on slippery ice. Since then she's had dizzy spells and ataxia. No subdural hematoma on CT of the head From a cardiac standpoint the pacemaker is functioning normally she is atrial paced. No bradycardia is noted. Blood pressure 124/70 mmHg heart sounds normal. From a cardiac standpoint is no further workup at this point. Further management per by al medical team and neurology and follow-up with Dr. Crocker as an outpatient See full dictation by nurse practitioner Past Medical History Past Medical History: Atrial Fibrillation, Chest Pain / Angina, CVA/TIA, Hypertension, Osteoarthritis (OA) Additional Past Medical History / Comment(s): Atrial fibrillation, paroxysmal, sick sinus syndrome status post dual-chamber pacemaker insertion, hypertension, diverticulosis, borderline diabetes mellitus type 2, cataracts, degenerative arthritis History of Any Multi-Drug Resistant Organisms: None Reported Past Surgical History: Hysterectomy, Pacemaker Additional Past Surgical History / Comment(s): cataract surgery bilateral eyes. rhinoplasty. 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) Past Drug Use History: None Reported - Past Family History Mother Family Medical History: CVA/TIA, Hypertension Additional Family Medical History / Comment(s): cataract surgery, of cardiac aneurysm Sister(s) Family Medical History: Cancer, Hypertension Additional Family Medical History / Comment(s): breast cancer Medications and Allergies Home Medications Medication Instructions Recorded Confirmed Type Hydrochlorothiazide [Hydrodiuril] 25 mg PO BID 01/31/14 08/01/17 History Montelukast [Singulair] 10 mg PO HS 01/31/14 08/01/17 History Nitroglycerin Sl Tabs [Nitrostat] 0.4 mg SUBLINGUAL Q5M PRN 01/31/14 08/01/17 History amLODIPine BESYLATE [Norvasc] 5 mg PO DAILY 01/31/14 08/01/17 History hydrALAZINE HCL [Apresoline] 100 mg PO BID 12/25/14 08/01/17 History Metoprolol Tartrate [Lopressor] 50 mg PO BID 11/15/15 08/01/17 History Apixaban [Eliquis] 2.5 mg PO BID 05/06/17 08/01/17 History Lisinopril [Zestril] 10 mg PO QAM 05/06/17 08/01/17 History Lisinopril [Zestril] 20 mg PO HS 05/06/17 08/01/17 History Aspirin [Adult Low Dose Aspirin EC] 81 mg PO DAILY@1200 08/01/17 08/01/17 History Allergies Allergy/AdvReac Type Severity Reaction Status Date / Time Penicillins Allergy Unknown Verified 08/01/17 16:28 Childhood Sulfa (Sulfonamide Allergy Unknown Verified 08/01/17 16:28 Antibiotics) Childhood Physical Exam Vitals: Vital Signs Temp Pulse Pulse Resp BP BP BP 08/02/17 04:00 98.1 F 70 18 08/01/17 23:56 71 18 08/01/17 23:53 98.6 F 71 18 08/01/17 20:00 97.7 F 70 18 08/01/17 18:31 73 16 08/01/17 17:14 98.7 F 70 17 146/69 08/01/17 16:50 97.6 F 73 18 151/75 151/75 08/01/17 16:12 74 17 116/61 08/01/17 15:31 99.0 F 70 20 128/73 BP BP Pulse Ox 08/02/17 04:00 124/70 08/01/17 23:56 08/01/17 23:53 118/66 08/01/17 20:00 134/69 96 08/01/17 18:31 08/01/17 17:14 100 08/01/17 16:50 149/91 121/62 95 08/01/17 16:12 97 08/01/17 15:31 98 Intake and Output 08/01/17 08/02/17 08/02/17 22:59 06:59 14:59 Intake Total 180 Output Total 700 Balance -700 180 Intake: Oral 180 Output: Urine 700 Other: # Voids 3 Weight 91 kg 99.5 kg Results 08/02/17 03:18 08/02/17 03:18 Cardiac Enzymes 08/01/17 08/01/17 08/01/17 Range/Units 15:50 15:50 22:04 AST 19 (14-36) U/L Troponin I <0.012 <0.012 (0.000-0.034) ng/mL 08/02/17 Range/Units 03:18 AST (14-36) U/L Troponin I <0.012 (0.000-0.034) ng/mL Coagulation 08/01/17 Range/Units 15:50 PT 9.9 (9.0-12.0) sec APTT 33.6 H (22.0-30.0) sec CBC 08/01/17 08/02/17 Range/Units 15:50 03:18 WBC 7.1 5.9 (3.8-10.6) k/uL RBC 4.26 3.75 L (3.80-5.40) m/uL Hgb 11.5 10.0 L D (11.4-16.0) gm/dL Hct 33.5 L 29.9 L (34.0-46.0) % Plt Count 296 249 (150-450) k/uL Comprehensive Metabolic Panel 08/01/17 08/02/17 Range/Units 15:50 03:18 Sodium 137 138 (137-145) mmol/L Potassium 3.8 3.6 (3.5-5.1) mmol/L Chloride 94 L 95 L (98-107) mmol/L Carbon Dioxide 32 H 33 H (22-30) mmol/L BUN 24 H 21 H (7-17) mg/dL Creatinine 1.01 0.98 (0.52-1.04) mg/dL Glucose 109 H 132 H (74-99) mg/dL Calcium 9.3 9.2 (8.4-10.2) mg/dL AST 19 (14-36) U/L ALT 23 (9-52) U/L Alkaline Phosphatase 79 (38-126) U/L Total Protein 6.8 (6.3-8.2) g/dL Albumin 3.7 (3.5-5.0) g/dL Current Medications Generic Name Dose Route Start Last Admin Trade Name Freq PRN Reason Stop Dose Admin Amlodipine Besylate 5 mg 08/02/17 09:00 08/02/17 09:05 Norvasc PO 5 mg DAILY LORI Administration Apixaban 2.5 mg 08/01/17 21:00 08/02/17 09:05 Eliquis PO 2.5 mg BID LORI Administration Aspirin 81 mg 08/02/17 09:00 08/02/17 09:05 Aspirin PO 81 mg DAILY LORI Administration Atorvastatin Calcium 80 mg 08/02/17 09:00 08/02/17 09:05 Lipitor PO 80 mg DAILY LORI Administration Famotidine 20 mg 08/01/17 21:00 08/02/17 09:05 Pepcid PO 20 mg BID LORI Administration Folic Acid 1 mg 08/02/17 12:00 08/02/17 09:06 Folic Acid PO 1 mg DAILY@1200 LORI Administration Hydrochlorothiazide 25 mg 08/01/17 21:00 08/02/17 09:06 Hydrodiuril PO 25 mg BID LORI Administration Lisinopril 10 mg 08/02/17 09:00 08/02/17 09:06 Zestril PO 10 mg QAM LORI Administration Lisinopril 20 mg 08/01/17 21:00 08/01/17 19:59 Zestril PO 20 mg HS LORI Administration Meclizine HCl 12.5 mg 08/02/17 09:00 08/02/17 09:05 Antivert PO 12.5 mg TID LORI Administration Metoprolol Tartrate 50 mg 08/01/17 21:00 08/02/17 09:06 Lopressor PO 50 mg BID LORI Administration Montelukast Sodium 10 mg 08/01/17 21:00 08/01/17 20:00 Singulair PO 10 mg HS LORI Administration Multivitamins 1 each 08/02/17 12:00 08/02/17 09:06 Theragran PO 1 each DAILY@1200 LORI Administration Naloxone HCl 0.2 mg 08/01/17 16:19 Narcan IV Q2M PRN Opioid Reversal Ondansetron HCl 4 mg 08/01/17 16:19 Zofran IVP Q8HR PRN Nausea And Vomiting Thiamine HCl 100 mg 08/02/17 12:00 08/02/17 09:06 Vitamin B-1 PO 100 mg DAILY@1200 LORI Administration Intake and Output 08/01/17 08/02/17 08/02/17 22:59 06:59 14:59 Intake Total 180 Output Total 700 Balance -700 180 Intake: Oral 180 Output: Urine 700 Other: # Voids 3 Weight 91 kg 99.5 kg 08/02/17 03:18 08/02/17 03:18
--- NOTE | 2017-08-02 12:41 | P.CNPUL ---
<Crystal Fuentes - Last Filed: 08/02/17 12:22> History of Present Illness Consult date: 08/02/17 Requesting physician: Aj Cobb Reason for consult: other Chief complaint: Unsteady gait History of present illness: This is a very pleasant 82-year-old female patient who follows with Dr. Manzo as her primary care physician. She has a history of atrial fibrillation status post dual-chamber permanent pacemaker implantation, anticoagulated with Eliquis. She has a history of previous CVA/TIA, diverticulosis, borderline diabetes mellitus type 2, angina, osteoarthritis. 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 The sign was deep in the snow and she stepped into some ice and fell backwards hitting her head on the pavement. She is unclear if she lost consciousness at that time. She was able to get herself up. She got an intercurrent dropped to the salon and had her hair done. After that she return to work and had no real difficulties until recently. 5 days ago she started noticing problems with her balance and had an unsteady gait. She felt that may be related to her years she recently gotten hearing aids. She was to be seen by ENT in 2 weeks. Yesterday however the unsteadiness was more noticeable even by her coworkers were encouraged her to come to the emergency room. A computed tomography scan of the brain revealed no cranial infarct or fractures. There is some moderate patchy changes of chronic small vessel ischemic disease and an old right parietal infarct. There is also some fluid in the bilateral mastoids suggestive of possible mastoiditis. Carotid Dopplers revealed no significant stenosis. Troponins are negative 3. No UTI noted. No underlying infection. No leukocytosis. Hemoglobin 10.0. The patient is seen today in consultation on the selective care unit. She is awake and alert in no acute distress. No chest pain, shortness of breath, cough or congestion. She denies any headache, dizziness, visual changes. No noted weakness on either side. No slurred speech. She has been up ambulating with assistance and is still unsteady on her feet and leaning somewhat towards the right. She is maintaining good O2 saturations in the mid 90s on room air. She's been afebrile. Hemodynamically stable. Review of Systems Constitutional: Reports weakness Eyes: denies blurred vision, denies decreased vision Ears: bilateral: decreased hearing, deny: tinnitus Ears, nose, mouth and throat: Denies headache, Denies sore throat Cardiovascular: Denies chest pain, Denies shortness of breath Respiratory: Denies cough Gastrointestinal: Denies abdominal pain, Denies diarrhea, Denies nausea, Denies vomiting Genitourinary: Denies dysuria, Denies hematuria Musculoskeletal: Reports muscle weakness Neurological: Reports balance difficulties, Reports gait dysfunction, Reports lack of coordination Psychiatric: Denies anxiety, Denies depression Endocrine: Denies fatigue, Denies weight change Past Medical History Past Medical History: Atrial Fibrillation, Chest Pain / Angina, CVA/TIA, Hypertension, Osteoarthritis (OA) Additional Past Medical History / Comment(s): Atrial fibrillation, paroxysmal, sick sinus syndrome status post dual-chamber pacemaker insertion, hypertension, diverticulosis, borderline diabetes mellitus type 2, cataracts, degenerative arthritis History of Any Multi-Drug Resistant Organisms: None Reported Past Surgical History: Hysterectomy, Pacemaker Additional Past Surgical History / Comment(s): cataract surgery bilateral eyes. rhinoplasty. 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) Past Drug Use History: None Reported - Past Family History Mother Family Medical History: CVA/TIA, Hypertension Additional Family Medical History / Comment(s): cataract surgery, of cardiac aneurysm Sister(s) Family Medical History: Cancer, Hypertension Additional Family Medical History / Comment(s): breast cancer Medications and Allergies Home Medications Medication Instructions Recorded Confirmed Type Hydrochlorothiazide [Hydrodiuril] 25 mg PO BID 01/31/14 08/01/17 History Montelukast [Singulair] 10 mg PO HS 01/31/14 08/01/17 History Nitroglycerin Sl Tabs [Nitrostat] 0.4 mg SUBLINGUAL Q5M PRN 01/31/14 08/01/17 History amLODIPine BESYLATE [Norvasc] 5 mg PO DAILY 01/31/14 08/01/17 History hydrALAZINE HCL [Apresoline] 100 mg PO BID 12/25/14 08/01/17 History Metoprolol Tartrate [Lopressor] 50 mg PO BID 11/15/15 08/01/17 History Apixaban [Eliquis] 2.5 mg PO BID 05/06/17 08/01/17 History Lisinopril [Zestril] 10 mg PO QAM 05/06/17 08/01/17 History Lisinopril [Zestril] 20 mg PO HS 05/06/17 08/01/17 History Aspirin [Adult Low Dose Aspirin EC] 81 mg PO DAILY@1200 08/01/17 08/01/17 History Allergies Allergy/AdvReac Type Severity Reaction Status Date / Time Penicillins Allergy Unknown Verified 08/01/17 16:28 Childhood Sulfa (Sulfonamide Allergy Unknown Verified 08/01/17 16:28 Antibiotics) Childhood Physical Exam Vitals: Vital Signs Temp Pulse Pulse Resp BP BP BP 08/02/17 11:28 98.5 F 71 18 08/02/17 08:00 98.7 F 77 18 08/02/17 04:00 98.1 F 70 18 08/01/17 23:56 71 18 08/01/17 23:53 98.6 F 71 18 08/01/17 20:00 97.7 F 70 18 08/01/17 18:31 73 16 08/01/17 17:14 98.7 F 70 17 146/69 08/01/17 16:50 97.6 F 73 18 151/75 151/75 08/01/17 16:12 74 17 116/61 08/01/17 15:31 99.0 F 70 20 128/73 BP BP Pulse Ox 08/02/17 11:28 119/59 95 08/02/17 08:00 122/75 95 08/02/17 04:00 124/70 08/01/17 23:56 08/01/17 23:53 118/66 08/01/17 20:00 134/69 96 08/01/17 18:31 08/01/17 17:14 100 08/01/17 16:50 149/91 121/62 95 08/01/17 16:12 97 03/06/18 15:31 98 Intake and Output 08/01/17 08/02/17 08/02/17 22:59 06:59 14:59 Intake Total 180 Output Total 700 Balance -700 180 Intake: Oral 180 Output: Urine 700 Other: # Voids 3 Weight 91 kg 99.5 kg GENERAL EXAM: Alert, active, comfortable in no apparent distress. HEAD: Normocephalic. EYES: Normal reaction of pupils, equal size. NOSE: Clear with pink turbinates. THROAT: No erythema or exudates. NECK: No masses, no JVD. CHEST: No chest wall deformity. LUNGS: Equal air entry with no crackles, wheeze, rhonchi or dullness. CVS: S1 and S2 normal with no audible murmur, regular rhythm. ABDOMEN: No hepatosplenomegaly, normal bowel sounds, no guarding or rigidity. SPINE: No scoliosis or deformity SKIN: No rashes CENTRAL NERVOUS SYSTEM: No focal deficits, tone is normal in all 4 extremities. Issues with gait dysfunction. EXTREMITIES: There is no peripheral edema. No clubbing, no cyanosis. Peripheral pulses are intact. Results - Laboratory Findings CBC and BMP: 08/02/17 03:18 08/02/17 03:18 PT/INR, D-dimer PT 9.9 sec (9.0-12.0) 08/01/17 15:50 INR 1.0 (<1.2) 08/01/17 15:50 Abnormal lab findings: Abnormal Labs 08/01/17 08/01/17 08/01/17 15:50 15:50 15:50 RBC Hgb Hct 33.5 L MCV 78.7 L Lymphocytes # 0.9 L APTT 33.6 H Chloride 94 L Carbon Dioxide 32 H BUN 24 H Glucose 109 H Urine Blood Urine RBC 08/02/17 08/02/17 08/02/17 03:18 03:18 05:52 RBC 3.75 L Hgb 10.0 L D Hct 29.9 L MCV 79.7 L Lymphocytes # 0.9 L APTT Chloride 95 L Carbon Dioxide 33 H BUN 21 H Glucose 132 H Urine Blood Trace H Urine RBC 8 H Assessment and Plan Assessment: Impression: #1 Gait dysfunction of unclear etiology. The patient did sustain a fall approximately 2 weeks ago hitting her head on the pavement and questionable loss of consciousness. Computed tomography scan of the brain revealed no evidence of infarct or fracture. There was stable moderate patchy changes of chronic small vessel ischemic disease and an old right parietal infarct. There is also fluid in the bilateral mastoids, mastoiditis in the differential. Posterior circulation stroke is within the differential. Repeat computed tomography scan is pending. Post concussive labyrinthitis is in the differential as well. ENT consult is pending. #2 Previous history of CVA/TIA. #3 Atrial fibrillation, status post permanent pacemaker implantation. Anticoagulated with Eliquis. #4 History of angina. #5 Hypertension. #6 Degenerative arthritis. #7 Borderline diabetes mellitus type 2. Plan: The patient was seen and evaluated by Dr. Ha. Her CT scan, labs and carotid Dopplers were reviewed. We'll await follow-up computed tomography scan results. Neurology has been consulted. ENT has been consulted. No pulmonary issues currently. We will increase her activity as tolerable with assistance. We'll continue to follow and make further recommendations based on her clinical status. I, the cosigning physician, performed a history & physical examination of the patient. Lungs sounds are clear. Maintaining good O2 saturations in the 90s on room air. I discussed the assessment and plan of care with my nurse practitioner, Crystal Fuentes. I attest to the above note as dictated by her. Time with Patient: Greater than 30 <Adan Ha - Last Filed: 08/02/17 16:47> Physical Exam Vitals: Vital Signs Temp Pulse Pulse Resp BP BP BP 08/02/17 15:44 98.6 F 139/74 08/02/17 15:43 98.6 F 70 18 08/02/17 11:28 98.5 F 71 18 08/02/17 08:00 98.7 F 77 18 08/02/17 04:00 98.1 F 70 18 08/01/17 23:56 71 18 08/01/17 23:53 98.6 F 71 18 08/01/17 20:00 97.7 F 70 18 08/01/17 18:31 73 16 08/01/17 17:14 98.7 F 70 17 146/69 08/01/17 16:50 97.6 F 73 18 151/75 151/75 BP BP Pulse Ox 08/02/17 15:44 152/76 131/78 08/02/17 15:43 131/78 96 08/02/17 11:28 119/59 95 08/02/17 08:00 122/75 95 08/02/17 04:00 124/70 08/01/17 23:56 08/01/17 23:53 118/66 08/01/17 20:00 134/69 96 08/01/17 18:31 08/01/17 17:14 100 08/01/17 16:50 149/91 121/62 95 Intake and Output 08/02/17 08/02/17 08/02/17 06:59 14:59 22:59 Intake Total 416 Output Total 700 Balance -700 416 Intake: Oral 416 Output: Urine 700 Other: # Voids 3 2 Weight 99.5 kg Results - Laboratory Findings CBC and BMP: 08/02/17 03:18 08/02/17 03:18 PT/INR, D-dimer PT 9.9 sec (9.0-12.0) 08/01/17 15:50 INR 1.0 (<1.2) 08/01/17 15:50 Abnormal lab findings: Abnormal Labs 08/01/17 08/01/17 08/01/17 15:50 15:50 15:50 RBC Hgb Hct 33.5 L MCV 78.7 L Lymphocytes # 0.9 L APTT 33.6 H Chloride 94 L Carbon Dioxide 32 H BUN 24 H Glucose 109 H Urine Blood Urine RBC 08/02/17 08/02/17 08/02/17 03:18 03:18 05:52 RBC 3.75 L Hgb 10.0 L D Hct 29.9 L MCV 79.7 L Lymphocytes # 0.9 L APTT Chloride 95 L Carbon Dioxide 33 H BUN 21 H Glucose 132 H Urine Blood Trace H Urine RBC 8 H Assessment and Plan Assessment: This is a joint evaluation that was done along with a nurse practitioner. I interviewed this patient. Milton the workup that some progress. Awaiting ENT evaluation regarding her gait dysfunction and dizziness. Continue anticoagulation. Fall precautions. Her current rhythm is sinus. No significant arrhythmias noted. Pacemaker has been implanted for sick sinus syndrome. The patient follows up with Dr. Crocker. We'll continue to follow.
--- NOTE | 2017-08-02 16:51 | ECHOF ---
Referral Reason:tia?? MEASUREMENTS -------- HEIGHT: 170.2 cm WEIGHT: 90.7 kg BP: 124/76 RVIDd: 3.5 cm (< 3.3) IVSd: 1.9 cm (0.6 - 1.1) LVIDd: 4.1 cm (3.9 - 5.3) LVPWd: 1.9 cm (0.6 - 1.1) IVSs: 2.2 cm LVIDs: 2.6 cm LVPWs: 2.0 cm LAESV Index (A-L): 45.63 ml/m Ao Diam: 3.0 cm (2.0 - 3.7) AV Cusp: 1.6 cm (1.5 - 2.6) LA Diam: 4.3 cm (2.7 - 3.8) MV E Thuan: 0.55 m/s MV DecT: 336 ms MV A Thuan: 0.85 m/s MV E/A Ratio: 0.65 RAP: 5.00 mmHg RVSP: 32.74 mmHg FINDINGS -------- Paced rhythm. This was a technically adequate study. The left ventricular size is normal. There is severe concentric left ventricular hypertrophy. Ove rall left ventricular systolic function is normal with, an EF between 55 - 60 %. The right ventricle is mildly enlarged. LA is severely dilated >40 ml/m2 Electronic pacemaker lead seen in the right ventricular cavity. RA appears enlarged. Aortic valve is trileaflet and is mildly thickened. There is no evidence of aortic regurgitation. There is no evidence of aortic stenosis. Mild mitral annular calcification present. Mild mitral regurgitation is present. Mild tricuspid regurgitation present. Right ventricular systolic pressure is normal at < 35 mmHg. There is no evidence of pulmonary hypertension. Trace/mild (physiologic) pulmonic regurgitation. The aortic root size is normal. IVC Not well visulized. There is a small pericardial effusion located near the left ventricle. CONCLUSIONS -------- 1. Paced rhythm. 2. This was a technically adequate study. 3. The left ventricular size is normal. 4. There is severe concentric left ventricular hypertrophy. 5. Overall left ventricular systolic function is normal with, an EF between 55 - 60 %. 6. The right ventricle is mildly enlarged. 7. LA is severely dilated >40 ml/m2 8. Electronic pacemaker lead seen in the right ventricular cavity. 9. RA appears enlarged. 10. Aortic valve is trileaflet and is mildly thickened. 11. Mild mitral annular calcification present. 12. Mild mitral regurgitation is present. 13. Mild tricuspid regurgitation present. 14. Right ventricular systolic pressure is normal at < 35 mmHg. 15. There is no evidence of pulmonary hypertension. 16. Trace/mild (physiologic) pulmonic regurgitation. 17. The aortic root size is normal. 18. IVC Not well visulized. 19. There is a small pericardial effusion located near the left ventricle. PEST CONTROL PILOT: Didier Lindsey RDCS
--- NOTE | 2017-08-02 17:07 | CONS ---
CONSULTATION DATE OF SERVICE: 08/02/2017. REASON FOR CONSULTATION: Vertigo. HISTORY: This is an 82-year-old white female who has had difficulties for 4 days with walking. She noticed when she was walking starting Monday acutely she would veer toward the right. She has had actually no other symptoms such as headache, spinning vertigo, focal neurologic symptoms, passing out or fainting, or visual changes. She does recall falling about 2 weeks ago, hitting the back of her head. She did have a CT scan in the ER, which did not show any acute changes, but was kept in the hospital due to her symptoms and previous medical history. She has not had symptoms like this previously. From last night to today, she is greatly improved already, including by this morning without meclizine, although she was placed on meclizine this morning. She has had neurology consultation, cardiology consultation, and pulmonary consultation. REVIEW OF SYSTEMS: She has had no chest pain or shortness of breath. She has had no hearing change or tinnitus, although does have hearing loss and does have binaural hearing aids through our office. She did have on her CT some mastoid fluid, but has no pain or change in hearing and no tenderness in the postauricular area. HOME MEDICATIONS: HydroDIURIL, singular, Nitrostat, Norvasc, Apresoline, Xanax, Lopressor, Eliquis, lisinopril, Ambien. ALLERGIES: PENICILLIN, SULFA. MEDICAL HISTORY: Positive for atrial fibrillation, angina, CVA/TIA, hypertension, osteoarthritis, sick sinus syndrome, hypertension, diverticulosis, arthritis. PAST SURGICAL HISTORY: Hysterectomy, pacemaker, rhinoplasty, cataract surgery, carpal tunnel surgery, colonoscopy, dilatation and curettage. SOCIAL HISTORY: She does not smoke or drink alcohol. FAMILY HISTORY: Noncontributory. REVIEW OF SYSTEMS: Noncontributory other than as above. PHYSICAL EXAMINATION: GENERAL: A well-developed adult white female in no acute distress. She is conversant. She is alert, awake, and oriented x3. HEENT. Head is normocephalic and atraumatic. Ears bilaterally canals have mild to moderate cerumen, but otherwise unremarkable. Tympanic membranes are well visualized and are unremarkable and mobile. Nose shows no drainage or obstruction. Mouth and throat show no abnormal masses or lesions. Neck is supple without adenopathy. No tenderness. Neurologic, cranial nerves 2-12 are grossly intact. Gait is steady, although does use a cane presently. Negative Jesús-Hallpike testing or nystagmus with rapid head turning. ASSESSMENT: Ataxia. PLAN: The patient does have some ataxia, which may be labyrinthine in nature, although due to the that other etiologies have been ruled out by neurology consult and CT scan, although is rapidly improving. Whether or not this has any anything to do with the previous head trauma is unknown, although it is certainly not classic for a benign positional vertigo as she has no symptomatology with head turning or rolling in bed. Would recommend current continued supportive treatment including with meclizine up to 3 times a day as needed, however, would taper this as soon as possible as, if she is improving spontaneously which it appear she is, this may slow compensation. Fall precautions reviewed with the patient today. She will follow up in our office for audiogram, hearing aid check, and possible ENG if she has persistent symptoms. I reviewed this with her today. If there are questions or concerns regarding this consultation, please feel free to contact me. 30 minutes were spent on consultation with over 50% of this on counseling. MMODL / IJN: [id number] /
--- NOTE | 2017-08-02 18:31 | P.PN ---
Subjective Progress Note Date: 08/02/17 Progress note being dictated for Dr. Cobb. Interval history: This is an 82-year-old female admitted with dizziness, gait ataxia, truncal ataxia, possible vertebrovasilar stroke versus tia, and multiple other medical issues, status post fall 2 weeks ago, hitting back of head. CT and repeat CT failed to report acute stroke. Patient has a pacemaker therefore MRI unable to be performed. Follow-up CT he reports similar fluid in the bilateral mastoid air cells, possible mastoiditis. Patient recently started using hearing aids but states even her hearing is worse. Neuro workup in progress as per Dr. Modi. Evaluation in progress as per ENT, Dr. Dickson. Denies chest pain, palpitations or increasing shortness of breath. Maintain on meclizine, reports improving but continues veering off when walking, to either side. Denies lightheadedness dizziness or focal deficits. Denies headache, blurred vision or focal deficits. Negative for orthostatic hypotension. Objective - Vital Signs Vital signs: Vital Signs Temp 98.6 F 08/02/17 15:44 Pulse 70 08/02/17 15:43 Resp 18 08/02/17 15:43 BP 131/78 08/02/17 15:44 Pulse Ox 96 08/02/17 15:43 Intake & Output 08/01/17 08/02/17 08/02/17 18:59 06:59 18:59 Intake Total 416 Output Total 700 Balance -700 416 Weight 91 kg 99.5 kg Intake: Oral 416 Output: Urine 700 Other: # Voids 3 1 - Exam PHYSICAL EXAM: VITAL SIGNS: As above GENERAL: Sitting up in bed, no acute distress HEENT: Conjunctivae normal. eyes normal. Oral mucosa moist NECK: No JVD. No thyroid enlargement. No LNs CARDIOVASCULAR: S1, S2 muffled. No murmur RESPIRATION: Breath sounds diminished in the bases. No rhonchi or crackles. No bronchial breathing. ABDOMEN: Soft, nontender . No guarding. no masses palpable. Bowel sounds heard. LEGS: No edema. no swelling PSYCHIATRY: Alert and oriented -3, mood and affect normal. NERVOUS SYSTEM: Cranial N 2-12 grossly normal. Moves all 4 limbs. Diffuse weakness, No focal deficits. Speech fluent and appropriate, no nystagmus, no diplopia, some gait ataxia present, positive Romberg sign,. Skin: no ulcer no rash Joints: No active swelling. No inflammation. Lymphatic system. No LN neck axilla or groin. - Labs CBC & Chem 7: 08/02/17 03:18 08/02/17 03:18 Labs: Abnormal Lab Results - Last 24 Hours (Table) 08/02/17 08/02/17 08/02/17 Range/Units 03:18 03:18 05:52 RBC 3.75 L (3.80-5.40) m/uL Hgb 10.0 L D (11.4-16.0) gm/dL Hct 29.9 L (34.0-46.0) % MCV 79.7 L (80.0-100.0) fL Lymphocytes # 0.9 L (1.0-4.8) k/uL Chloride 95 L (98-107) mmol/L Carbon Dioxide 33 H (22-30) mmol/L BUN 21 H (7-17) mg/dL Glucose 132 H (74-99) mg/dL Urine Blood Trace H (Negative) Urine RBC 8 H (0-5) /hpf Assessment and Plan Assessment: 1. Dizziness, gait Ataxia, truncal ataxia, for evaluation ,status post recent fall hitting head, 2. Vertebrobasilar stroke versus TIA, in a patient with history of prior stroke involving right posterior temporal area and lacunar infarcts. Possible Status post concussive labyrinthitis 3. Previous left carotid stenosis 4. Proximal atrial fibrillation, anticoagulated with Eliquis 5. History of sick sinus syndrome bradycardia with dual-chamber pacemaker implantation 6. Hypertension Plan: Continue on current medication regime ,monitoring and symptomatic treatment. PT/OT. Increase ambulation as tolerated with assistance. Orthostatic vital signs every shift. GI and DVT prophylaxis in place. Follow closely with multiple consults.Discharge planning in progress for tomorrow, pending clinical improvement. Further recommendations to follow. The impression and plan of care has been dictated as directed. : I performed a history and examination of this patient, discussed the same with the dictator. I agree with the dictator's note ,documented as a scribe. Any additional findings or plans will be noted.
[2017-08-02] MEDS: LISINOPRIL 20 MG TAB PO SCH (20:42)
[2017-08-02] MEDS: MONTELUKAST 10 MG TAB PO SCH (20:43)
[2017-08-02] MEDS ORDERED: BISACODYL 5 MG TABLET.DR PO PRN (20:43)
[2017-08-02] MEDS ORDERED: MELATONIN 5 MG TABLET PO SCH (21:00)
--- NOTE | 2017-08-03 00:45 | P.PN ---
Subjective Progress Note Date: 08/02/17 This patient is a 82-year-old female who was admitted to hospital yesterday for evaluation of unsteady gait and gait ataxia. Patient had sustained a fall 2 weeks ago and struck the back of her head. Following this she has been having increasing and worsening symptoms of truncal ataxia. She was seen in neurology consultation yesterday and there was concern for possibility of brainstem ischemia involving the posterior circulation. She did have a initial computed tomography scan yesterday which was negative for any acute findings for stroke. 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 She has a history of paroxysmal atrial fibrillation and is currently taking Elquis. She had a repeat computed tomography scan of the brain today which is also negative for any evidence of acute stroke. She is unable to have MRI of the brain as she has a pacemaker for treatment of sick sinus syndrome. Patient was seen by ENT today and recommendations have been noted. Patient had negative Jesús-Hallpike testing with no nystagmus. ENT feels her symptomatology and gait ataxia may be labyrinthine in nature. They have recommended supportive treatment for the patient and have prescribed meclizine which she is now taking and has noted some improvement today with her gait. Would recommend to continue with this treatment for at least 2 weeks with slow tapering. We reviewed the results of the CAT scan today with the patient. She does not show as much truncal ataxia today as yesterday. We will wait to see if she would require subacute rehab for gait training if necessary. We have reviewed all of the test results today with the patient. She is feeling somewhat better and may continue to show improvement over the next few days. We will continue to follow her progress closely. Objective - Vital Signs Vital signs: Vital Signs Temp 97.6 F 08/02/17 20:00 Pulse 73 08/02/17 20:00 Resp 18 08/02/17 20:00 BP 119/86 08/02/17 20:00 Pulse Ox 96 08/02/17 20:00 Intake & Output 08/02/17 08/02/17 08/03/17 06:59 18:59 06:59 Intake Total 652 Output Total 700 Balance -700 652 Weight 99.5 kg Intake: Oral 652 Output: Urine 700 Other: # Voids 3 1 - Exam Physical examination: PHYSICAL EXAMINATION: Patient is resting comfortably in bed. VITAL SIGNS: Blood pressure is [155/76]. Heart rate is [68]. Respiration is [17] . Temperature is [98.0]. HEENT: Head is atraumatic, neck is supple, there were no carotid bruits. CHEST: Lungs are clear to auscultation and percussion. CARDIAC: S1, S2 normal rate and rhythm. There is no murmur. ABDOMEN: Soft and nontender. Bowel sounds are present. EXTREMITIES: There is no pedal edema. Peripheral pulses are present. Neurological examination: Patient has a nonfocal neurological exam today. - Labs CBC & Chem 7: 08/02/17 03:18 08/02/17 03:18 Labs: Abnormal Lab Results - Last 24 Hours (Table) 08/02/17 08/02/17 08/02/17 Range/Units 03:18 03:18 05:52 RBC 3.75 L (3.80-5.40) m/uL Hgb 10.0 L D (11.4-16.0) gm/dL Hct 29.9 L (34.0-46.0) % MCV 79.7 L (80.0-100.0) fL Lymphocytes # 0.9 L (1.0-4.8) k/uL Chloride 95 L (98-107) mmol/L Carbon Dioxide 33 H (22-30) mmol/L BUN 21 H (7-17) mg/dL Glucose 132 H (74-99) mg/dL Urine Blood Trace H (Negative) Urine RBC 8 H (0-5) /hpf Assessment and Plan (1) Truncal ataxia Current Visit: Yes Status: Acute Code(s): R27.8 - OTHER LACK OF COORDINATION SNOMED Code(s): 528620202 (2) History of stroke Current Visit: Yes Status: Acute Code(s): Z86.73 - PRSNL HX OF TIA (TIA), AND CEREB INFRC W/O RESID DEFICITS SNOMED Code(s): 769118329 (3) Dizziness Current Visit: Yes Status: Acute Code(s): R42 - DIZZINESS AND GIDDINESS SNOMED Code(s): 459854466 (4) Acute ischemic stroke Current Visit: No Status: Acute Onset Date: 11/14/15 Code(s): I63.9 - CEREBRAL INFARCTION, UNSPECIFIED SNOMED Code(s): 378434036 (5) Labyrinthitis Current Visit: Yes Status: Acute Code(s): H83.09 - LABYRINTHITIS, UNSPECIFIED EAR SNOMED Code(s): 13364395 (6) AF (paroxysmal atrial fibrillation) Current Visit: No Status: Acute Code(s): I48.0 - PAROXYSMAL ATRIAL FIBRILLATION SNOMED Code(s): 155199731 Plan: This patient is a pleasant 82-year-old female who was admitted to hospital with increasing gait ataxia and truncal ataxia over the last several days at home. Patient had history of a fall about 2 weeks ago and struck the back of her head. Her symptoms suggest possibility of posttraumatic vertigo. She was seen by ENT today and Dr. Singh has given recommendations. She has been started on Antivert for a short course of treatment. She is feeling better on the medication and we have encouraged her to continue to increase activity as tolerates. She did have a repeat computed tomography scan of the brain today which is negative for any evidence of posterior fossa stroke. We will continue close neurological follow-up the patient. Anticipate discharge home in the next day or so. Patient may follow-up in the outpatient neurology clinic in 2- 3 weeks.
[2017-08-03 06:52] LABS: Basophils % (A) 1 %; Eosinophils # (A) 0.3 k/uL (0-0.7); Eosinophils % (A) 5 %; HCT 30.6 % (34.0-46.0); HGB 10.5 gm/dL (11.4-16.0); Lymphocytes % (A) 17 %; MCH 26.6 pg (25.0-35.0); MCHC 34.3 g/dL (31.0-37.0); MCV 77.6 fL (80.0-100.0); Mean Platelet Volume 6.8; Monocytes # (A) 0.4 k/uL (0-1.0); Monocytes % (A) 6 %; Neutrophils # (A) 4.1 k/uL (1.3-7.7); Neutrophils % (A) 69 %; Platelet Count 253 k/uL (150-450); RBC 3.94 m/uL (3.80-5.40); RDW 13.9 % (11.5-15.5)
[2017-08-03 07:19] LABS: Calcium 8.8 mg/dL (8.4-10.2); Potassium 3.4 mmol/L (3.5-5.1)
[2017-08-03] MEDS: amLODIPine 5 MG TAB PO SCH (08:31)
[2017-08-03] MEDS: APIXABAN 2.5 MG TABLET PO SCH (08:31)
[2017-08-03] MEDS: LISINOPRIL 10 MG TAB PO SCH (08:32)
[2017-08-03] MEDS: HYDROCHLOROTHIAZIDE 25 MG TAB PO SCH (08:32)
[2017-08-03] MEDS: ASPIRIN 81 MG PO SCH (08:32)
[2017-08-03] MEDS: MECLIZINE 12.5 MG TAB PO SCH ×2 (08:32→15:47)
[2017-08-03] MEDS: METOPROLOL TARTRATE 50 MG TAB PO SCH (08:32)
[2017-08-03] MEDS: ATORVASTATIN 80 MG TAB PO SCH (08:32)
--- NOTE | 2017-08-03 08:56 | CONS ---
CONSULTATION This is a very pleasant 82-year-old female, who follows regularly with Dr. Crocker in the office. She has a known history of paroxysmal atrial fibrillation, on Eliquis for anticoagulation. The patient also has history of permanent pacemaker implantation. History of prior CVA, borderline diabetes, hyperlipidemia, diverticulosis. Approximately 2 weeks ago, the patient was adjusting a yard sign. 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 She does feel that she blacked out after hitting her head for a brief period of time. She was able to get herself up from that. Subsequently, patient was able to return to work with no difficulties until approximately 5 days ago. She started noticing problems with her balance, she also had an unsteady gait. For this reason, she came to the emergency room for further evaluation. Patient denies having any dizziness or lightheadedness, no chest discomfort, no shortness of breath. Blood pressure on arrival here 119/59 with a heart rate in the 70s, respirations 18, she is 95% on room air. Carotid Doppler was performed which did not reveal any significant stenosis, troponins were negative x3. No UTI noted. No underlying infection. CT of the brain was performed which did not reveal any acute changes. REVIEW OF SYSTEMS: Constitutional, the patient reports weakness. Eyes: Denies blurred vision, denies decreased vision, ears bilateral decreased hearing, tinnitus. CARDIOVASCULAR: S1 and S2. No murmur or gallop heard. RESPIRATORY: Denies cough. GI denies abdominal pain. No diarrhea. No nausea, no vomiting. Musculoskeletal, reports generalized muscle weakness. PAST MEDICAL HISTORY: As listed. PHYSICAL EXAMINATION: General exam: Alert, active, comfortable, in no apparent distress. HEAD: Normocephalic. Eyes normal reaction. Pupils equal size. Nose clear with pink turbinates. Throat: No erythema or exudates. Neck no elevated jugular venous pressure. CHEST: Lungs are clear to auscultation with no evident crackles or wheezes noted. Cardiac S1, S2. No murmur or gallop heard. ABDOMEN: Soft. Bowel sounds heard. Extremities 2+ peripheral pulses with no evidence of any peripheral edema. LABORATORY DATA: Was reviewed, hemoglobin 10.0, white blood cell count normal, platelet count 249. Sodium 138, potassium 3.6, BUN 21, creatinine 0.9. Troponins negative x3. BNP level 946. His EKG on arrival here showed an atrial paced rhythm with underlying normal sinus rhythm. ASSESSMENT AND PLAN: IMPRESSION: 1. Gait dysfunction of unclear etiology. The patient did sustain a fall approximately 2 weeks ago, hitting her head on the pavement and questionable loss of consciousness. CT scan of the brain revealed no evidence of infarct or fracture. 2. History of cerebrovascular accident. 3. Paroxysmal atrial fibrillation. 4. Prior pacemaker implantation. 5. Hypertension. 6. Borderline diabetes. PLAN: From cardiology's perspective, we will follow this patient along with you on an as- needed basis only, no current cardiac issues. We will make a followup appointment for the patient to see Dr. Crocker in the office 1-2 weeks post discharge. Thank you for the consultation. I performed a History & Physical Examination of the patient and discussed their management with nurse practitioner. I reviewed the nurse practitioner's note and agree with the documented findings and plan of care. MMODL / CAMILLEN: [id number] /
[2017-08-03] MEDS ORDERED: FAMOTIDINE 20 MG TAB PO SCH (09:00)
[2017-08-03] MEDS ORDERED: Potassium Replacement Protocol 1 EACH MISC MISCELLANE PRN (09:15)
[2017-08-03] MEDS ORDERED: Magnesium Replacement Protocol 1 EACH MISC MISCELLANE PRN (09:15)
[2017-08-03 10:04] VITALS: RESP 16
[2017-08-03] MEDS: MULTIVITAMINS, THERA 1 EACH TAB PO SCH (12:55)
[2017-08-03] MEDS: THIAMINE 100 MG TAB PO SCH (12:55)
[2017-08-03] MEDS: FOLIC ACID 1 MG TAB PO SCH (12:55)
[2017-08-03 13:19] VITALS: BP 118/58; PULSE 67; TEMP 98
[2017-08-03 15:00] LABS: Cholesterol 73 mg/dL (<200); HDL Cholesterol 31 mg/dL (40-60); LDL Cholesterol,Calculated 27 mg/dL (0-99); Triglycerides 76 mg/dL (<150)
--- NOTE | 2017-08-03 20:50 | DS ---
DISCHARGE SUMMARY FINAL DIAGNOSES: 1. Dizziness and truncal ataxia, possibly transient ischemic attack of posterior circulation . 2. History of recent fall and possible concussion. 3. Previous history of right sided temporal lobe stroke and lacunar infarct. 4. Paroxysmally atrial fibrillation, anticoagulated with Eliquis. 5. History of sick sinus syndrome, bradycardia with dual chamber pacemaker implantation. 6. Hypertension. DISCHARGE DISPOSITION: The patient is being discharged in stable condition with guarded prognosis. Patient's discharge cleared by Neurology. HISTORY OF PRESENT ILLNESS: This 82-year-old with a past medical history of multiple medical problems is being followed by Dr. Manzo in the outpatient setting, was admitted with features of dizziness. The patient was treated symptomatically. Neuro workup was basically negative. Carotid Doppler did not show any acute abnormality. MRA could not be done because of pacemaker. Neurology, Dr. Wagner Cobian and Cardiology saw the patient and the patient improved significantly. On exam, vital signs are stable. Cardiovascular: S1, S2. Abdomen: Soft. Nervous system: No focal deficits. Minimal gait dysfunction present. Otherwise the home PT OT is being arranged at this time. DISCHARGE ADVICE: 1. Diet is cardiac. 2. Activity limited until followup. 3. Follow up with Dr. Manzo in 2-3 days. 4. Follow up with ENT and Dr. Cobian as advised. MEDICATIONS: 1. Norvasc 5 mg p.o. daily. 2. Eliquis 2.5 mg p.o. b.i.d. 3. Ecotrin 81 mg p.o. daily. 4. Lipitor 20 mg q.h.s. 5. Folic acid 1 mg p.o. daily. 6. HydroDIURIL 25 mg p.o. b.i.d. 7. Zestril 20 mg p.o. q.h.s. and 10 mg q.a.m. 8. Antivert 12.5 mg b.i.d. for 5 days and then p.r.n. 9. Lopressor 50 mg p.o. b.i.d. 10.Singular 10 mg q.h.s. 11.Multivitamins 1 p.o. daily. 12.Nitrostat 0.4 mg p.r.n. 13.Protonix 40 mg. 14.Thiamine 100 mg p.o. daily. 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 MMODL / IJN: [id number] / MTDWagner
== END 2017-08-03 16:30 | DRG 69 ==
LOC: EC 15:23 → OBSVTOIN 16:19 → 6SEL 16:19
PROVIDERS: ADMIT Hospitalist; ATTEND Hospitalist
DX: G45.9 Transient cerebral ischemic attack, unspecified (principal); I42.9 Cardiomyopathy, unspecified; H70.90 Unspecified mastoiditis, unspecified ear; I48.0 Paroxysmal atrial fibrillation; E11.9 Type 2 diabetes mellitus without complications; E78.5 Hyperlipidemia, unspecified; H83.09 Labyrinthitis, unspecified ear; I10 Essential (primary) hypertension; M19.90 Unspecified osteoarthritis, unspecified site; K57.90 Diverticulosis of intestine, part unspecified, without perforation or abscess without bleeding; Z79.01 Long term (current) use of anticoagulants; Z79.82 Long term (current) use of aspirin; Z79.899 Other long term (current) drug therapy; Z88.0 Allergy status to penicillin; Z88.2 Allergy status to sulfonamides; Z86.73 Personal history of transient ischemic attack (TIA), and cerebral infarction without residual deficits; Z90.710 Acquired absence of both cervix and uterus; Z95.0 Presence of cardiac pacemaker; Z91.81 History of falling; Z82.49 Family history of ischemic heart disease and other diseases of the circulatory system
CPT/HCPCS: 36415; 70450; 71046; 80048; 80053; 80061; 81001; 83690; 83735; 83880; 84484; 85025; 85610; 85730; 93005; 93306; 93880; 99285

== ENCOUNTER → 2017-08-08 | Outpatient (CLI) | payer MEDICARE ==
[2017-08-08 09:09] LABS: Calcium 8.8 mg/dL (8.4-10.2); Potassium 3.9 mmol/L (3.5-5.1)
[2017-08-08 09:19] LABS: Basophils # (A) 0.1 k/uL (0-0.2); Basophils % (A) 1 %; Eosinophils # (A) 0.2 k/uL (0-0.7); Eosinophils % (A) 2 %; HCT 34.2 % (34.0-46.0); HGB 11.6 gm/dL (11.4-16.0); Lymphocytes # (A) 0.9 k/uL (1.0-4.8); Lymphocytes % (A) 8 %; MCH 26.7 pg (25.0-35.0); MCV 78.7 fL (80.0-100.0); Mean Platelet Volume 6.6; Monocytes # (A) 0.6 k/uL (0-1.0); Monocytes % (A) 6 %; Neutrophils # (A) 9.2 k/uL (1.3-7.7); Neutrophils % (A) 82 %; Platelet Count 328 k/uL (150-450); RBC 4.34 m/uL (3.80-5.40); WBC 11.2 k/uL (3.8-10.6)
== END | disposition home or self-care (01) ==
LOC: LABWHC1 08:16
PROVIDERS: ATTEND Nurse Practitioner
DX: I48.0 Paroxysmal atrial fibrillation (principal); R42 Dizziness and giddiness
CPT/HCPCS: 36415; 80048; 85025

== ENCOUNTER → 2017-08-25 | Outpatient (CLI) | payer MEDICARE ==
[2017-08-25 11:42] LABS: Basophils # (A) 0.1 k/uL (0-0.2); Basophils % (A) 1 %; Eosinophils # (A) 0.3 k/uL (0-0.7); Eosinophils % (A) 5 %; HCT 32.7 % (34.0-46.0); HGB 10.7 gm/dL (11.4-16.0); Lymphocytes # (A) 0.8 k/uL (1.0-4.8); Lymphocytes % (A) 11 %; MCH 25.7 pg (25.0-35.0); MCHC 32.8 g/dL (31.0-37.0); MCV 78.4 fL (80.0-100.0); Mean Platelet Volume 7.2; Monocytes # (A) 0.3 k/uL (0-1.0); Monocytes % (A) 4 %; Neutrophils # (A) 5.1 k/uL (1.3-7.7); Neutrophils % (A) 75 %; Platelet Count 368 k/uL (150-450); Poikilocytosis Slight; RBC 4.17 m/uL (3.80-5.40); WBC 6.7 k/uL (3.8-10.6)
[2017-08-25 12:18] LABS: Calcium 9.2 mg/dL (8.4-10.2); Potassium 4.4 mmol/L (3.5-5.1)
== END | disposition home or self-care (01) ==
LOC: LABWHC1 11:20
PROVIDERS: ATTEND Internal Medicine Critical Care Medicine
DX: D64.9 Anemia, unspecified (principal); J45.909 Unspecified asthma, uncomplicated; I42.9 Cardiomyopathy, unspecified; I63.9 Cerebral infarction, unspecified
CPT/HCPCS: 36415; 80048; 85025

== ENCOUNTER → 2018-07-12 | Outpatient (CLI) | payer MEDICARE ==
[2018-07-12 10:24] LABS: Basophils # (A) 0.1 k/uL (0-0.2); Basophils % (A) 1 %; Eosinophils # (A) 0.3 k/uL (0-0.7); Eosinophils % (A) 6 %; Lymphocytes % (A) 19 %; MCH 28.4 pg (25.0-35.0); MCHC 33.3 g/dL (31.0-37.0); MCV 85.5 fL (80.0-100.0); Mean Platelet Volume 6.7; Monocytes # (A) 0.3 k/uL (0-1.0); Monocytes % (A) 6 %; Neutrophils # (A) 3.5 k/uL (1.3-7.7); Neutrophils % (A) 67 %; Platelet Count 194 k/uL (150-450); RBC 4.91 m/uL (3.80-5.40); RDW 13.5 % (11.5-15.5); WBC 5.3 k/uL (3.8-10.6)
[2018-07-12 16:19] LABS: Albumin 4.1 g/dL (3.80-4.90); Albumin/Globulin Ratio 2.16 (1.60-3.17); Anion Gap 9.4 mmol/L (4.00-12.00); Calcium 9.1 mg/dL (8.7-10.3); Carbon Dioxide 31.6 mmol/L (21.6-31.8); Globulin 1.9 g/dL (1.6-3.3); Potassium 4.1 mmol/L (3.5-5.5); Total Bilirubin 0.7 mg/dL (0.2-1.2)
[2018-07-12 16:26] LABS: T4, Free (Free Thyroxine) 1.2 ng/dL (0.80-1.80)
== END | disposition home or self-care (01) ==
LOC: LABWHC1 09:08
PROVIDERS: ATTEND Internal Medicine Critical Care Medicine
DX: I10 Essential (primary) hypertension (principal); J45.909 Unspecified asthma, uncomplicated; I49.5 Sick sinus syndrome; M19.90 Unspecified osteoarthritis, unspecified site; I42.9 Cardiomyopathy, unspecified; Z95.0 Presence of cardiac pacemaker
CPT/HCPCS: 36415; 80053; 80061; 82306; 83036; 84439; 84443; 85025

== ENCOUNTER → 2018-09-18 | Outpatient (CLI) | payer MEDICARE ==
[2018-09-18 14:19] VITALS: BMI 36.8
== END ==
LOC: LABWHC1 12:49
PROVIDERS: ATTEND Internal Medicine Critical Care Medicine
DX: R73.03 Prediabetes (principal)
CPT/HCPCS: 97802

== ENCOUNTER → 2020-04-07 | Outpatient (CLI) | payer MEDICARE ==
[2020-04-07 10:20] LABS: Basophils # (A) 0.1 k/uL (0-0.2); Basophils % (A) 1 %; Eosinophils # (A) 0.1 k/uL (0-0.7); Eosinophils % (A) 2 %; HCT 41.2 % (34.0-46.0); HGB 14.2 gm/dL (11.4-16.0); Lymphocytes # (A) 1.1 k/uL (1.0-4.8); Lymphocytes % (A) 20 %; MCH 30.1 pg (25.0-35.0); MCHC 34.4 g/dL (31.0-37.0); MCV 87.4 fL (80.0-100.0); Mean Platelet Volume 7.5; Monocytes # (A) 0.2 k/uL (0-1.0); Monocytes % (A) 5 %; Neutrophils # (A) 3.6 k/uL (1.3-7.7); Neutrophils % (A) 69 %; Platelet Count 188 k/uL (150-450); RBC 4.72 m/uL (3.80-5.40); RDW 12.8 % (11.5-15.5); WBC 5.2 k/uL (3.8-10.6)
[2020-04-07 15:42] LABS: African American GFR (CKD) 48.1 (60.0-200.0); Albumin 4.1 g/dL (3.80-4.90); Albumin/Globulin Ratio 2.16 (1.60-3.17); Anion Gap 10.6 mmol/L (4.00-12.00); BUN/Creat Ratio 23.33 Ratio (12.00-20.00); Calcium 8.8 mg/dL (8.7-10.3); Carbon Dioxide 27.4 mmol/L (21.6-31.8); Chol/HDL Ratio 4.18; Globulin 1.9 g/dL (1.6-3.3); LDL Cholesterol,Calculated 67.6 mg/dL (0.0-131.0); Non-African American GFR(CKD) 41.5 (60.0-200.0); Total Bilirubin 0.8 mg/dL (0.3-1.2); VLDL Calculation 40.4 mg/dL (5.00-40.00)
[2020-04-07 15:49] LABS: T4, Free (Free Thyroxine) 1.1 ng/dL (0.80-1.80)
[2020-04-07 16:16] LABS: Hemoglobin A1C 7.6 % (4.0-6.0)
== END | disposition home or self-care (01) ==
LOC: LABWHC1 08:21
PROVIDERS: ATTEND Internal Medicine Critical Care Medicine
DX: I42.9 Cardiomyopathy, unspecified (principal); I49.5 Sick sinus syndrome; I63.9 Cerebral infarction, unspecified; J45.909 Unspecified asthma, uncomplicated; M19.90 Unspecified osteoarthritis, unspecified site; Z95.0 Presence of cardiac pacemaker
CPT/HCPCS: 36415; 80053; 80061; 82306; 83036; 84439; 84443; 85025

== ENCOUNTER → 2020-08-25 | Outpatient (CLI) | payer MEDICARE ==
--- NOTE | 2020-08-26 14:49 | MM ---
Reason for exam: screening (asymptomatic). Last mammogram was performed 6 years and 3 months ago. History: Patient is postmenopausal. Family history of breast cancer in sister at age 82. Took estrogen for 10 years. Physical Findings: A clinical breast exam by your physician is recommended on an annual basis and results should be correlated with mammographic findings. MG 3D Screening Mammo W/Cad Bilateral CC and MLO view(s) were taken. Prior study comparison: June 11, 2014, mammogram, performed at [facility]. There are scattered fibroglandular densities. There is no discrete abnormality. No significant changes when compared with prior studies. ASSESSMENT: Negative, BI-RAD 1 RECOMMENDATION: Routine screening mammogram of both breasts in 1 year.
== END | disposition home or self-care (01) ==
LOC: RADMAMWWP 09:21
PROVIDERS: ATTEND Obstetrics & Gynecology
DX: Z12.31 Encounter for screening mammogram for malignant neoplasm of breast (principal)
CPT/HCPCS: 77063; 77067

== ENCOUNTER 2020-10-14 09:51 | Inpatient (IN) | payer MEDICARE ==
--- NOTE | 2020-10-14 10:15 | ED ---
General Adult HPI - General Chief complaint: Arrhythmia/Palpitations Stated complaint: altered mental status Time Seen by Provider: 10/14/20 10:01 Source: patient, family Mode of arrival: wheelchair Limitations: no limitations - History of Present Illness Initial comments: Dictation was produced using [employer] dictation software. please excuse any gr ammatical, word or spelling errors. This patient was cared for during a federal and state declared state of emergency secondary to Covid 19 Chief Complaint: 85-year-old female with past medical history of pacemaker, A. fib, hypertension presents to the emergency department for palpitations, generalized weakness and presyncope History of Present Illness: 85-year-old female she has past medical history of A. fib. She takes medications for this prescribed by her manager beauty. She has an AICD. She forgot to take her medications on Monday and Monday. She received a call from cardiology showing that patient was having abnormal findings on her AICD. Patient began taking her medications again. Today she felt very weak. She does not know the exact name of the medications she takes. She states that she is on and accordingly she medications. Chart review was performed. Patient takes metoprolol, apixaban, blood pressure meds. The ROS documented in this emergency department record has been reviewed and confirmed by me. Those systems with pertinent positive or negative responses have been documented in the HPI. All other systems are other negative and/or noncontributory. PHYSICAL EXAM: General Impression: Alert and oriented x3, not in acute distress HEENT: Normocephalic atraumatic, extra-ocular movements intact, pupils equal and reactive to light bilaterally, mucous membranes moist. Cardiovascular: Irregularly irregular Chest: Able to complete full sentences, no retractions, no tachypnea Abdomen: abdomen soft, non-tender, non-distended, no organomegaly Musculoskeletal: Pulses present and equal in all extremities, no peripheral edema Motor: no focal deficits noted Neurological: CN II-XII grossly intact, no focal motor or sensory deficits noted Skin: Intact with no visualized rashes Psych: Normal affect and mood ED course: 85-year-old male presents with dysrhythmia, weakness and presyncope. Upon arrival shows 92% on room air, rest of vital signs within acceptable limits. EKG interpretation: Ventricular rate 20, A. fib with RVR, QRS 110, QTc 519. No SC prolongation, no QTC prolongation, no ST or T-wave changes noted. EKG compared to 08/01/2017 showing no changes. Overall, this EKG is unremarkable EKG showed A. fib with RVR with rates measuring into the 130s. Patient's blood pressure is stable. Patient given metoprolol IV push is for rate control. Laboratory evaluation obtained. CBC is unremarkable. Coag panel is negative. Metabolic panel shows mild dehydration. Troponin is elevated at 0.049. Patient given a dose of aspirin. Slightly rate dependent cardiac ischemia. Repeat vital signs are improved after metoprolol. Patient given an oral dose. Patient be admitted with cardiology consultation. Case discussed with Dr. Duarte who will accept patient's care. - Related Data Home Medications Medication Instructions Recorded Confirmed Montelukast [Singulair] 10 mg PO HS 01/31/14 10/14/20 Nitroglycerin Sl Tabs [Nitrostat] 0.4 mg SUBLINGUAL Q5M PRN 01/31/14 10/14/20 amLODIPine BESYLATE [Norvasc] 5 mg PO DAILY 01/31/14 10/14/20 Apixaban [Eliquis] 2.5 mg PO BID 05/06/17 10/14/20 Aspirin [Adult Low Dose Aspirin EC] 81 mg PO DAILY 08/01/17 10/14/20 ALPRAZolam [Xanax] 0.25 mg PO BID PRN 10/14/20 10/14/20 Flecainide [Tambocor] 50 mg PO Q12HR 10/14/20 10/14/20 Metoprolol Succinate (ER) [Toprol 100 mg PO DAILY 10/14/20 10/14/20 Xl] lisinopriL 40 mg PO DAILY 10/14/20 10/14/20 Allergies Allergy/AdvReac Type Severity Reaction Status Date / Time Penicillins Allergy Unknown Verified 10/14/20 10:59 Childhood Sulfa (Sulfonamide Allergy Unknown Verified 10/14/20 10:59 Antibiotics) Childhood Review of Systems ROS Statement: Those systems with pertinent positive or pertinent negative responses have been documented in the HPI. ROS Other: All systems not noted in ROS Statement are negative. Past Medical History Past Medical History: Atrial Fibrillation, Chest Pain / Angina, CVA/TIA, Hypertension, Osteoarthritis (OA) Additional Past Medical History / Comment(s): Atrial fibrillation, paroxysmal, sick sinus syndrome status post dual-chamber pacemaker insertion, hypertension, diverticulosis, borderline diabetes mellitus type 2, cataracts, degenerative arthritis History of Any Multi-Drug Resistant Organisms: None Reported Past Surgical History: Hysterectomy, Pacemaker Additional Past Surgical History / Comment(s): cataract surgery bilateral eyes. rhinoplasty. colonoscopy, d&c, rt wrist carpal tunnel, laser eye sx for cataracts Past Anesthesia/Blood Transfusion Reactions: No Reported Reaction Type of Cardiac Device: Permanent Pacemaker Device Placement Date:: 02/26/15 Past Psychological History: No Psychological Hx Reported Smoking Status: Never smoker Past Alcohol Use History: None Reported Past Drug Use History: None Reported - Past Family History Mother Family Medical History: CVA/TIA, Hypertension Additional Family Medical History / Comment(s): cataract surgery, of cardiac aneurysm Sister(s) Family Medical History: Cancer, Hypertension Additional Family Medical History / Comment(s): breast cancer General Exam Limitations: no limitations Course Vital Signs 10/14/20 10/14/20 10/14/20 09:53 11:09 11:33 Temperature 98.3 F Pulse Rate 64 137 H 144 H Respiratory 18 20 20 Rate Blood Pressure 126/69 126/92 132/93 O2 Sat by Pulse 92 L 94 L Oximetry Medical Decision Making - Lab Data Result diagrams: 10/14/20 10:16 10/14/20 10:16 Lab Results 10/14/20 10/14/20 10/14/20 Range/Units 10:16 10:16 10:16 WBC 8.7 (3.8-10.6) k/uL RBC 4.74 (3.80-5.40) m/uL Hgb 13.4 (11.4-16.0) gm/dL Hct 40.9 (34.0-46.0) % MCV 86.2 (80.0-100.0) fL MCH 28.3 (25.0-35.0) pg MCHC 32.8 (31.0-37.0) g/dL RDW 13.9 (11.5-15.5) % Plt Count 249 (150-450) k/uL MPV 7.3 Neutrophils % 80 % Lymphocytes % 10 % Monocytes % 6 % Eosinophils % 2 % Basophils % 0 % Neutrophils # 7.0 (1.3-7.7) k/uL Lymphocytes # 0.8 L (1.0-4.8) k/uL Monocytes # 0.6 (0-1.0) k/uL Eosinophils # 0.1 (0-0.7) k/uL Basophils # 0.0 (0-0.2) k/uL PT 10.9 (9.0-12.0) sec INR 1.0 (<1.2) APTT 28.9 (22.0-30.0) sec Sodium 140 (137-145) mmol/L Potassium 3.8 (3.5-5.1) mmol/L Chloride 103 (98-107) mmol/L Carbon Dioxide 26 (22-30) mmol/L Anion Gap 11 mmol/L BUN 20 H (7-17) mg/dL Creatinine 0.90 (0.52-1.04) mg/dL Est GFR (CKD-EPI)AfAm 68 (>60 ml/min/1.73 sqM) Est GFR (CKD-EPI)NonAf 59 (>60 ml/min/1.73 sqM) Glucose 211 H (74-99) mg/dL Calcium 9.0 (8.4-10.2) mg/dL Magnesium 1.4 L (1.6-2.3) mg/dL Total Bilirubin 1.6 H (0.2-1.3) mg/dL AST 39 H (14-36) U/L ALT 71 H (4-34) U/L Alkaline Phosphatase 72 (38-126) U/L Troponin I (0.000-0.034) ng/mL Total Protein 6.1 L (6.3-8.2) g/dL Albumin 3.6 (3.5-5.0) g/dL 10/14/20 Range/Units 10:16 WBC (3.8-10.6) k/uL RBC (3.80-5.40) m/uL Hgb (11.4-16.0) gm/dL Hct (34.0-46.0) % MCV (80.0-100.0) fL MCH (25.0-35.0) pg MCHC (31.0-37.0) g/dL RDW (11.5-15.5) % Plt Count (150-450) k/uL MPV Neutrophils % % Lymphocytes % % Monocytes % % Eosinophils % % Basophils % % Neutrophils # (1.3-7.7) k/uL Lymphocytes # (1.0-4.8) k/uL Monocytes # (0-1.0) k/uL Eosinophils # (0-0.7) k/uL Basophils # (0-0.2) k/uL PT (9.0-12.0) sec INR (<1.2) APTT (22.0-30.0) sec Sodium (137-145) mmol/L Potassium (3.5-5.1) mmol/L Chloride (98-107) mmol/L Carbon Dioxide (22-30) mmol/L Anion Gap mmol/L BUN (7-17) mg/dL Creatinine (0.52-1.04) mg/dL Est GFR (CKD-EPI)AfAm (>60 ml/min/1.73 sqM) Est GFR (CKD-EPI)NonAf (>60 ml/min/1.73 sqM) Glucose (74-99) mg/dL Calcium (8.4-10.2) mg/dL Magnesium (1.6-2.3) mg/dL Total Bilirubin (0.2-1.3) mg/dL AST (14-36) U/L ALT (4-34) U/L Alkaline Phosphatase (38-126) U/L Troponin I 0.049 H* (0.000-0.034) ng/mL Total Protein (6.3-8.2) g/dL Albumin (3.5-5.0) g/dL Disposition Clinical Impression: Afib Disposition: ADMITTED IP TO THIS [facility] Condition: Fair Referrals: Phoenix Manzo DO [Primary Care Provider] - 1-2 days Decision Time: 11:44
[2020-10-14] MEDS ORDERED: SODIUM CHLORIDE 0.9% 1,000 ML IV STA (10:20)
[2020-10-14 10:46] LABS: Partial Thromboplastin Time 28.9 sec (22.0-30.0); Prothrombin Time 10.9 sec (9.0-12.0)
[2020-10-14 10:47] LABS: Basophils % (A) 0 %; Eosinophils # (A) 0.1 k/uL (0-0.7); Eosinophils % (A) 2 %; HCT 40.9 % (34.0-46.0); HGB 13.4 gm/dL (11.4-16.0); Lymphocytes # (A) 0.8 k/uL (1.0-4.8); Lymphocytes % (A) 10 %; MCH 28.3 pg (25.0-35.0); MCHC 32.8 g/dL (31.0-37.0); MCV 86.2 fL (80.0-100.0); Mean Platelet Volume 7.3; Monocytes # (A) 0.6 k/uL (0-1.0); Monocytes % (A) 6 %; Neutrophils % (A) 80 %; Platelet Count 249 k/uL (150-450); RBC 4.74 m/uL (3.80-5.40); RDW 13.9 % (11.5-15.5); WBC 8.7 k/uL (3.8-10.6)
--- NOTE | 2020-10-14 10:47 | XR ---
EXAMINATION TYPE: XR chest 2V DATE OF EXAM: 10/14/2020 COMPARISON: 08/01/2017 HISTORY: Dysrhythmia TECHNIQUE: Frontal and lateral views of the chest are obtained. FINDINGS: Low lung volumes. Left infraclavicular generator device with 2 leads. Heart size is enlarg ed. Atherosclerotic aorta. Perihilar and right basilar interstitial airspace opacities suggestive of edema or developing pneumonia. Probable trace pleural effusions. No pneumothorax. IMPRESSION: 1. Patchy perihilar and right basilar interstitial airspace opacities may represent developing pneumo rajendra or edema. Probable trace pleural effusions. 2. Cardiomegaly.
[2020-10-14 10:50] LABS: Albumin 3.6 g/dL (3.5-5.0); Magnesium 1.4 mg/dL (1.6-2.3); Potassium 3.8 mmol/L (3.5-5.1); Total Bilirubin 1.6 mg/dL (0.2-1.3); Total Protein 6.1 g/dL (6.3-8.2)
[2020-10-14] MEDS: METOPROLOL TARTRATE 5 MG/5 ML VIAL IVP SCH ×3 (10:50→11:34)
[2020-10-14] MEDS ORDERED: ASPIRIN 81 MG PO STA (11:17)
[2020-10-14] MEDS ORDERED: NALOXONE 0.4 MG/ML 1 ML VIAL IV PRN (11:27)
[2020-10-14] MEDS ORDERED: ONDANSETRON 4 MG/2 ML VIAL IVP PRN (11:27)
[2020-10-14] MEDS ORDERED: NITROGLYCERIN SL TABS 0.4 MG TAB SUBLINGUAL PRN (11:37)
[2020-10-14] MEDS ORDERED: METOPROLOL TARTRATE 25 MG TAB PO STA (11:42)
[2020-10-14] MEDS: SODIUM CHLORIDE 0.9% 1,000 ML IV SCH (12:18)
[2020-10-14] MEDS: MAGNESIUM SULFATE-D5W PMX 1 GM in DEXTROSE/WATER 1 100ML.BAG IVPB SCH ×3 (12:24→15:58)
--- NOTE | 2020-10-14 15:09 | P.CNPUL ---
History of Present Illness Consult date: 10/14/20 Requesting physician: Phoenix Manzo Reason for consult: dyspnea, chest pain, hypoxemia, abnormal CXR/CT Chief complaint: Rapid heartbeat, dizziness, shortness of breath. History of present illness: Pulmonary consult dated 10/14/2020. 85-year-old female, well-known to me, as I service her primary care physician, with a past medical history of status post pacemaker insertion, chronic atrial fibrillation, asthma, and hypertension. The patient states that she forgot to take her medications for the last 2 days beginning on Monday and Monday. On Monday, she started not feeling well, including shortness of breath, heaviness in her chest, palpitations, and dizziness. She continued to work, and finally decided to go to the doctor today, October 14, at 9:00 in the morning. She was seen by Dr. Saravia, in the emergency room. She was found have atrial fibrillation with rapid ventricular response, and also congestive heart failure. She complained of weakness, and dizziness, and lightheadedness. She also had some pressure in her chest. She denies any fever or chills. Her medical history includes atrial fibrillation, angina, CVA, hypertension, DJD, and asthma. She also has type 2 diabetes, cataracts, arthritis, and status post dual-chamber pacemaker insertion for sick sinus syndrome. She is a lifelong nonsmoker. Laboratory data includes a white count 8.7, hemoglobin 13.4, hematocrit 40.9, platelet count 249,000. PT INR and PTT are all normal. Electrolytes look normal as well. Her troponin is 0.049, and her N-terminal proBNP is elevated at 6430. Chest x-ray in my opinion shows cardiomegaly with trace pleural effusions and fluid overload. Review of Systems REVIEW OF SYSTEMS: CONSTITUTIONAL: Weakness. NEUROLOGIC: Lightheadedness, dizziness. HEENT: [ Negative.] CARDIAC: Chest pressure, palpitations, rapid heartbeat. PULMONARY: Shortness of breath. GI: [Negative.] : [Negative.] RHEUMATOLOGIC: [ Negative.] IMMUNOLOGIC: [ Negative.] ENDOCRINE: [Negative. ] DERMATOLOGIC: [Negative.] Past Medical History Past Medical History: Atrial Fibrillation, Chest Pain / Angina, CVA/TIA, Hypertension, Osteoarthritis (OA) Additional Past Medical History / Comment(s): Atrial fibrillation, paroxysmal, sick sinus syndrome status post dual-chamber pacemaker insertion, hypertension, diverticulosis, borderline diabetes mellitus type 2, cataracts, degenerative arthritis History of Any Multi-Drug Resistant Organisms: None Reported Past Surgical History: Hysterectomy, Pacemaker Additional Past Surgical History / Comment(s): cataract surgery bilateral eyes. rhinoplasty. colonoscopy, d&c, rt wrist carpal tunnel, laser eye sx for cataracts Past Anesthesia/Blood Transfusion Reactions: No Reported Reaction Type of Cardiac Device: Permanent Pacemaker Device Placement Date:: 02/26/15 Past Psychological History: No Psychological Hx Reported Smoking Status: Never smoker Past Alcohol Use History: None Reported Past Drug Use History: None Reported - Past Family History Mother Family Medical History: CVA/TIA, Hypertension Additional Family Medical History / Comment(s): cataract surgery, of cardiac aneurysm Sister(s) Family Medical History: Cancer, Hypertension Additional Family Medical History / Comment(s): breast cancer Medications and Allergies Home Medications Medication Instructions Recorded Confirmed Type Montelukast [Singulair] 10 mg PO HS 01/31/14 10/14/20 History Nitroglycerin Sl Tabs [Nitrostat] 0.4 mg SUBLINGUAL Q5M PRN 01/31/14 10/14/20 History amLODIPine BESYLATE [Norvasc] 5 mg PO DAILY 01/31/14 10/14/20 History Apixaban [Eliquis] 2.5 mg PO BID 05/06/17 10/14/20 History Aspirin [Adult Low Dose Aspirin EC] 81 mg PO DAILY 08/01/17 10/14/20 History ALPRAZolam [Xanax] 0.25 mg PO BID PRN 10/14/20 10/14/20 History Flecainide [Tambocor] 50 mg PO Q12HR 10/14/20 10/14/20 History Metoprolol Succinate (ER) [Toprol 100 mg PO DAILY 10/14/20 10/14/20 History Xl] lisinopriL 40 mg PO DAILY 10/14/20 10/14/20 History Allergies Allergy/AdvReac Type Severity Reaction Status Date / Time Penicillins Allergy Unknown Verified 10/14/20 10:59 Childhood Sulfa (Sulfonamide Allergy Unknown Verified 10/14/20 10:59 Antibiotics) Childhood Physical Exam Osteopathic Statement: *. No significant issues noted on an osteopathic structural exam other than those noted in the History and Physical/Consult. Vitals: Vital Signs Temp Pulse Resp BP Pulse Ox 10/14/20 13:53 120 H 22 101/78 95 10/14/20 12:31 123 H 20 135/89 93 L 10/14/20 11:33 144 H 20 132/93 94 L 10/14/20 11:09 137 H 20 126/92 10/14/20 09:53 98.3 F 64 18 126/69 92 L Intake and Output 10/13/20 10/14/20 10/14/20 22:59 06:59 14:59 Other: Weight 100.698 kg No acute distress, oriented 3. Saturations are 95% on 3 L. HEENT examination is grossly unremarkable. Neck supple. Full range of motion. No adenopathy thyromegaly or neck vein distention. Cardiovascular examination reveals an irregular rhythm and rate. S1-S2 normal. No S3 or S4. No discernible murmur noted. Heart rate is 123 bpm. Lungs reveal scattered rhonchi and basilar crackles. Breath sounds equal bilaterally. No wheezes. Abdomen soft bowel sounds are heard. No masses or tenderness. Extremities are intact. No cyanosis clubbing or edema. Skin is without rash or lesion. Neurologic examination is brief but nonfocal. Results - Laboratory Findings CBC and BMP: 10/14/20 10:16 10/14/20 10:16 PT/INR, D-dimer PT 10.9 sec (9.0-12.0) 10/14/20 10:16 INR 1.0 (<1.2) 10/14/20 10:16 Abnormal lab findings: Abnormal Labs 10/14/20 10/14/20 10/14/20 10:16 10:16 10:16 Lymphocytes # 0.8 L BUN 20 H Glucose 211 H Magnesium 1.4 L Total Bilirubin 1.6 H AST 39 H ALT 71 H Troponin I 0.049 H* Total Protein 6.1 L - Diagnostic Findings Chest x-ray: image reviewed Assessment and Plan Assessment: Shortness of breath, and chest pressure, secondary to atrial fibrillation with rapid ventricular response. Elevated troponin, rule out myocardial ischemia, versus supply/demand mismatch secondary to A. fib/RVR. History of diabetes mellitus. History of CVA. History of mild chronic bronchial asthma. Status post dual-chamber pacemaker insertion for sick sinus syndrome. History of cataracts. History of arthritis. History of diverticulosis. History of hypertension. Plan: Plan dated 10/14/2020. Currently, the patient is on flecainide, metoprolol, sublingual nitroglycerin, saline IV at 20 mL an hour, Eliquis, and Xanax. Her asthma is inactive. Her chest x-ray shows findings of CHF. Cardiology has been consulted. The patient is counseled about the importance of taking her medications as prescribed. She apparently did not take any of her medications on Monday or Monday. Her daughters in the room with her. Additional recommendations and suggestions are forthcoming. We will continue to follow. Time with Patient: Greater than 30
--- NOTE | 2020-10-14 16:25 | P.HPIM ---
History of Present Illness 85-year-old female came in with complaints of generalized weakness tiredness and lightheadedness and found to have atrial fibrillation patient also has an AICD. Patient did miss metoprolol last few days. She also takes flecainide and patient is on Eliquis. Patient denied any fever chills, chest x-ray was read as a right basilar interstitial airspace of pastries patient doesn't have any cough doesn't have any leukocytosis no fever. No evidence of any other infection at this time. Patient blood glucoses bit elevated Review of Systems REVIEW OF SYSTEMS: CONSTITUTIONAL: No fever. HEENT: No recent visual problems or hearing problems. Denied any sore throat. CARDIOVASCULAR: No chest pain, orthopnea, PND, no palpitations, no syncope. PULMONARY: No shortness of breath, no cough, no hemoptysis. GASTROINTESTINAL: No diarrhea, no nausea, no vomiting, no abdominal pain. NEUROLOGICAL: No headaches, no weakness, no numbness. HEMATOLOGICAL: Denies any bleeding or petechiae. GENITOURINARY: Denies any burning micturition, frequency, or urgency. MUSCULOSKELETAL/RHEUMATOLOGICAL: Denies any joint pain, swelling, or any muscle pain. ENDOCRINE: Denies any polyuria or polydipsia. The rest of the 14-point review of systems is negative. Past Medical History Past Medical History: Atrial Fibrillation, Chest Pain / Angina, CVA/TIA, Hypertension, Osteoarthritis (OA) Additional Past Medical History / Comment(s): Atrial fibrillation, paroxysmal, sick sinus syndrome status post dual-chamber pacemaker insertion, hypertension, diverticulosis, borderline diabetes mellitus type 2, cataracts, degenerative arthritis History of Any Multi-Drug Resistant Organisms: None Reported Past Surgical History: Hysterectomy, Pacemaker Additional Past Surgical History / Comment(s): cataract surgery bilateral eyes. rhinoplasty. colonoscopy, d&c, rt wrist carpal tunnel, laser eye sx for cataracts Past Anesthesia/Blood Transfusion Reactions: No Reported Reaction Additional Past Anesthesia/Blood Transfusion Reaction / Comment(s): Clausterphobia Type of Cardiac Device: Permanent Pacemaker Device Placement Date:: 02/26/15 Past Psychological History: No Psychological Hx Reported Smoking Status: Never smoker Past Alcohol Use History: None Reported Past Drug Use History: None Reported - Past Family History Mother Family Medical History: CVA/TIA, Hypertension Additional Family Medical History / Comment(s): cataract surgery, of cardiac aneurysm Sister(s) Family Medical History: Cancer, Hypertension Additional Family Medical History / Comment(s): breast cancer Medications and Allergies Home Medications Medication Instructions Recorded Confirmed Type Montelukast [Singulair] 10 mg PO HS 01/31/14 10/14/20 History Nitroglycerin Sl Tabs [Nitrostat] 0.4 mg SUBLINGUAL Q5M PRN 01/31/14 10/14/20 History amLODIPine BESYLATE [Norvasc] 5 mg PO DAILY 01/31/14 10/14/20 History Apixaban [Eliquis] 2.5 mg PO BID 05/06/17 10/14/20 History Aspirin [Adult Low Dose Aspirin EC] 81 mg PO DAILY 08/01/17 10/14/20 History ALPRAZolam [Xanax] 0.25 mg PO BID PRN 10/14/20 10/14/20 History Flecainide [Tambocor] 50 mg PO Q12HR 10/14/20 10/14/20 History Metoprolol Succinate (ER) [Toprol 100 mg PO DAILY 10/14/20 10/14/20 History Xl] lisinopriL 40 mg PO DAILY 10/14/20 10/14/20 History Allergies Allergy/AdvReac Type Severity Reaction Status Date / Time Penicillins Allergy Unknown Verified 10/14/20 10:59 Childhood Sulfa (Sulfonamide Allergy Unknown Verified 10/14/20 10:59 Antibiotics) Childhood Physical Exam Vitals: Vital Signs Temp Pulse Pulse Resp BP BP Pulse Ox 10/14/20 15:26 97.0 F L 111 H 18 133/84 95 10/14/20 13:53 120 H 22 101/78 95 10/14/20 12:31 123 H 20 135/89 93 L 10/14/20 11:33 144 H 20 132/93 94 L 10/14/20 11:09 137 H 20 126/92 10/14/20 09:53 98.3 F 64 18 126/69 92 L Intake and Output 10/14/20 10/14/20 10/14/20 06:59 14:59 22:59 Other: Weight 100.698 kg 100.698 kg PHYSICAL EXAMINATION: GENERAL: The patient is alert and oriented x3, not in any acute distress. Well developed, well nourished. HEENT: Pupils are round and equally reacting to light. EOMI. No scleral icterus. No conjunctival pallor. Normocephalic, atraumatic. No pharyngeal erythema. No thyromegaly. CARDIOVASCULAR: S1 and S2 present. No murmurs, rubs, or gallops. Irregularly irregular rhythm PULMONARY: Chest is clear to auscultation, no wheezing or crackles. ABDOMEN: Soft, nontender, nondistended, normoactive bowel sounds. No palpable organomegaly. MUSCULOSKELETAL: No joint swelling or deformity. EXTREMITIES: No cyanosis, clubbing, or pedal edema. NEUROLOGICAL: Gross neurological examination did not reveal any focal deficits. SKIN: No rashes. Results CBC & Chem 7: 10/14/20 10:16 10/14/20 10:16 Labs: Abnormal Lab Results - Last 24 Hours (Table) 10/14/20 10/14/20 10/14/20 Range/Units 10:16 10:16 10:16 Lymphocytes # 0.8 L (1.0-4.8) k/uL BUN 20 H (7-17) mg/dL Glucose 211 H (74-99) mg/dL Magnesium 1.4 L (1.6-2.3) mg/dL Total Bilirubin 1.6 H (0.2-1.3) mg/dL AST 39 H (14-36) U/L ALT 71 H (4-34) U/L Troponin I 0.049 H* (0.000-0.034) ng/mL Total Protein 6.1 L (6.3-8.2) g/dL Thrombosis Risk Factor Assmnt - Choose All That Apply Any of the Below Risk Factors Present?: Yes Each Factor Represents 1 point: Obesity (BMI >25) Other Risk Factors: Yes Each Risk Factor Represents 3 Points: Age 75 years or older Other congenital or acquired thrombophilia - If yes, enter type in comment: No Thrombosis Risk Factor Assessment Total Risk Factor Score: 4 Thrombosis Risk Factor Assessment Level: Moderate Risk Assessment and Plan Plan: -Atrial fibrillation with rapid ventricular rate: Patient will be continued on anticoagulation patient was given 3 doses of IV metoprolol in ER patient was resumed on metoprolol sustained release heart rate doesn't come down may need to be started on Cardizem patient had a normal ejection fraction the past. Patient dizziness and generalized tiredness and weakness is secondary to A. fib no evidence of pneumonia clinically. -Mildly elevated troponin secondary to atrial fibrillation with rapid unclear rate -Type 2 diabetes mellitus -6 has another syndrome for which patient has a dual-chamber pacemaker -Hypertension -History of CVA in the past. -Hypomagnesemia magnesium will be replaced
[2020-10-14 17:22] LABS: Glucose,Whole Blood 200 mg/dL (75-99)
[2020-10-14 20:19] LABS: Glucose,Whole Blood 275 mg/dL (75-99)
[2020-10-14] MEDS: APIXABAN 2.5 MG TABLET PO SCH (20:56)
[2020-10-14] MEDS: FLECAINIDE 50 MG TAB PO SCH (20:56)
[2020-10-14] MEDS: ALPRAZolam 0.25 MG TAB PO PRN (21:06)
[2020-10-15 01:47] LABS: Potassium 3.8 mmol/L (3.5-5.1)
[2020-10-15] MEDS ORDERED: METOPROLOL TARTRATE 5 MG/5 ML VIAL IVP ONE (04:45)
[2020-10-15 06:52] LABS: Glucose,Whole Blood 178 mg/dL (75-99)
[2020-10-15 07:44] LABS: Albumin 3.5 g/dL (3.5-5.0); Calcium 8.4 mg/dL (8.4-10.2); Potassium 3.7 mmol/L (3.5-5.1); Total Bilirubin 1.2 mg/dL (0.2-1.3); Total Protein 5.9 g/dL (6.3-8.2)
[2020-10-15 08:32] LABS: Magnesium 1.9 mg/dL (1.6-2.3)
[2020-10-15] MEDS: METOPROLOL SUCCINATE (ER) 100 MG TAB.ER.24H PO SCH (08:40)
[2020-10-15] MEDS: FUROSEMIDE 10 MG/ML 4 ML VIAL IV SCH ×2 (08:40→21:23)
[2020-10-15] MEDS: APIXABAN 2.5 MG TABLET PO SCH (08:40)
[2020-10-15] MEDS: FLECAINIDE 50 MG TAB PO SCH (08:40)
[2020-10-15] MEDS ORDERED: HEPARIN SODIUM 1,000 UN/ML (10ML VL) IV ONE (08:42)
[2020-10-15] MEDS ORDERED: HEPARIN SODIUM 1,000 UN/ML (10ML VL) IV PRN (08:42)
[2020-10-15] MEDS ORDERED: HEPARIN SOD,PORK IN 0.45% NACL 25,000 UNIT in 0.45% NACL 1 250ML.BAG IV SCH (08:45)
--- NOTE | 2020-10-15 10:01 | ECHOF ---
Referral Reason:cp, sob MEASUREMENTS -------- HEIGHT: 170.2 cm WEIGHT: 103.9 kg BP: RVIDd: 3.4 cm (< 3.3) IVSd: 2.0 cm (0.6 - 1.1) LVIDd: 4.0 cm (3.9 - 5.3) LVPWd: 1.7 cm (0.6 - 1.1) IVSs: 2.4 cm LVIDs: 2.6 cm LVPWs: 2.2 cm LAESV Index (A-L): 55.19 ml/m Ao Diam: 3.2 cm (2.0 - 3.7) AV Cusp: 2.0 cm (1.5 - 2.6) LA Diam: 4.1 cm (2.7 - 3.8) RAP: 5.00 mmHg RVSP: 32.45 mmHg FINDINGS -------- Atrial fibrillation. This was a technically good study. The left ventricular size is normal. There is moderate concentric left ventricular hypertrophy. O verall left ventricular systolic function is low-normal with, an EF between 50 - 55 %. Left ventric ular fillimg pressure cannot be estimated due to Atrial fibrillation. The right ventricle is normal in size. LA is severely dilated >40 ml/m2 The right atrial size is normal. The aortic valve is trileaflet and appears structurally normal. The mitral valve is normal. There is trace mitral regurgitation. The tricuspid valve appears structurally normal. Trace tricuspid regurgitation present. Right jeffrey tricular systolic pressure is normal at < 35 mmHg. There is no pulmonic regurgitation present. The aortic root size is normal. Normal inferior vena cava with normal inspiratory collapse consistent with estimated right atrial pre ssure of 5 mmHg. There is no pericardial effusion. CONCLUSIONS -------- 1. The left ventricular size is normal. 2. There is moderate concentric left ventricular hypertrophy. 3. Overall left ventricular systolic function is low-normal with, an EF between 50 - 55 %. 4. Left ventricular fillimg pressure cannot be estimated due to Atrial fibrillation. 5. LA is severely dilated >40 ml/m2 6. There is trace mitral regurgitation. 7. Trace tricuspid regurgitation present. 8. There is no pericardial effusion. QA SOFTWARE TEST ENGINEER: Sophie Mg RDCS
--- NOTE | 2020-10-15 10:14 | P.CRDCN ---
History of Present Illness History of present illness: HISTORY OF PRESENTING ILLNESS This is a pleasant 85-year-old female past medical history significant for paroxysmal atrial fibrillation on long-term anticoagulation, permanent pace maker implantation secondary to complete heart block, history of CVA status post thrombolytic therapy 2010, hypertension and diabetes mellitus. She follows in the office with Dr. Crocker. We have been asked to see in consultation for afib with RVR and elevated troponin. She states over the weekend she had not taken her medications Monday morning or evening. She just forgot because they weren't in the usual place in her house. She did start taking them again on Monday. The office did get a notification that she was having frequent episodes of afib with RVR. They made contact with her and discussed what was going on with her medications. She initially said she didn't have any specific symptoms. On Monday evening she started noticing she was more weak and fatigued than usual. 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 However, on Monday she started noticing she was also feeling some shortness of breath and chest tightness at times. She was having difficulty getting comfortable and couldn't sleep. She denies feeling dizzy or having any significant palpitations. DIAGNOSTICS EKG reveals atrial fibrillation with rapid ventricular response, right axis and non-specific changes. Telemetry tracings indicate atrial fibrillation with runs of aberrantly conducted beats. Chest xray patchy perihilar alert interstitial airspace opacity is with underlying edema. Laboratory reviewed, CBC unremarkable, sodium 140, potassium 3.7, creatinine 0.9, magnesium on admission 1. 4 repeat today 1.9, troponin 0.049, 0.026, 0.019, NT proBNP 6430 and TSH 2.97. Current cardiac medications include Eliquis 2.5 mg twice a day, aspirin 81 mg daily, flecainide 50 mg twice a day, Toprol 100 mg daily, amlodipine 5 mg daily and lisinopril 40 mg daily. Recent echocardiogram obtained in the office July 2019 reveals preserved LV systolic function with ejection fraction 55%, severe concentric LVH, normal diastolic function, mild to moderate tricuspid regurgitation with an RVSP of 30 mmHg. Most recent stress test performed in the office July 2019 revealed a small motion artifact defect in the mid lateral wall, no evidence of reversibility. She underwent cardiac catheterization 2011 revealing normal coronary arteries. REVIEW OF SYSTEMS At the time of my exam: CONSTITUTIONAL: Denies fever or chills. CARDIOVASCULAR: Complains of shortness of breath, PND and orthopnea. Denies chest pain or palpitations. RESPIRATORY: Denies cough. GASTROINTESTINAL: Denies abdominal pain, diarrhea, constipation, nausea or vomiting. MUSCULOSKELETAL: Denies myalgias. NEUROLOGIC: Denies numbness, tingling, headacbe or weakness. ENDOCRINE: Denies fatigue, weight change, polydipsia or polyurina. GENITOURINARY: Denies burning, hematuria or urgency with micturation. HEMATOLOGIC: Denies history of anemia or bleeding. PHYSICAL EXAMINATION Blood pressure 119/58 heart rate 110 afebrile and maintaining oxygen saturation on nasal cannula. CONSTITUTIONAL: No apparent distress. HEENT: Head is normocephalic. Pupils are equal, round. Sclerae anicteric. Mucous membranes of the mouth are moist. No JVD. No carotid bruit. CHEST EXAMINATION: Faint bibasilar rales. No wheezes or rhonchi. No chest wall tenderness is noted on palpation or with deep breathing. HEART EXAMINATION: Irregular rate and rhythm. S1, S2 heard. No murmurs, gallops or rub. ABDOMEN: Soft, nontender. Positive bowel sounds. EXTREMITIES: 2+ peripheral pulses, no lower extremity edema and no calf tenderness. NEUROLOGIC EXAMINATION: Patient is awake, alert and oriented x3. ASSESSMENT Paroxysmal atrial fibrillation with rapid ventricular rate Acute diastolic heart failure Hypomagnesemia Troponin leak secondary to A. fib with RVR Hypertension Permanent pacemaker secondary to complete heart block Diabetes mellitus, currently diet controlled PLAN Heart failure likely secondary to afib, will attempt cardioversion after 24 hours of diuresis. Repeat 2D echocardigram and doppler study to assess cardiac structure and function. Magnesium replaced per protocol. Initiate diuresis, lasix 40 mg IV BID. Document accurate intake and output along with daily weights. Follow renal function and electrolytes in the morning. Continue eliquis. Plan for cardioversion tomorrow morning with Dr. Crocker. Further recommendations to follow based on clinical course. Thank you kindly for this consultation. Nurse Practitioner note has been reviewed, I agree with a documented findings and plan of care. Patient was seen and examined. Past Medical History Past Medical History: Atrial Fibrillation, Chest Pain / Angina, CVA/TIA, Hypertension, Osteoarthritis (OA) Additional Past Medical History / Comment(s): Atrial fibrillation, paroxysmal, sick sinus syndrome status post dual-chamber pacemaker insertion, hypertension, diverticulosis, borderline diabetes mellitus type 2, cataracts, degenerative arthritis History of Any Multi-Drug Resistant Organisms: None Reported Past Surgical History: Hysterectomy, Pacemaker Additional Past Surgical History / Comment(s): cataract surgery bilateral eyes. rhinoplasty. colonoscopy, d&c, rt wrist carpal tunnel, laser eye sx for cataracts Past Anesthesia/Blood Transfusion Reactions: No Reported Reaction Additional Past Anesthesia/Blood Transfusion Reaction / Comment(s): Clausterphobia Type of Cardiac Device: Permanent Pacemaker Device Placement Date:: 02/26/15 Past Psychological History: No Psychological Hx Reported Smoking Status: Never smoker Past Alcohol Use History: None Reported Past Drug Use History: None Reported - Past Family History Mother Family Medical History: CVA/TIA, Hypertension Additional Family Medical History / Comment(s): cataract surgery, of cardiac aneurysm Sister(s) Family Medical History: Cancer, Hypertension Additional Family Medical History / Comment(s): breast cancer Medications and Allergies Home Medications Medication Instructions Recorded Confirmed Type Montelukast [Singulair] 10 mg PO HS 01/31/14 10/14/20 History Nitroglycerin Sl Tabs [Nitrostat] 0.4 mg SUBLINGUAL Q5M PRN 01/31/14 10/14/20 History amLODIPine BESYLATE [Norvasc] 5 mg PO DAILY 01/31/14 10/14/20 History Apixaban [Eliquis] 2.5 mg PO BID 05/06/17 10/14/20 History Aspirin [Adult Low Dose Aspirin EC] 81 mg PO DAILY 08/01/17 10/14/20 History ALPRAZolam [Xanax] 0.25 mg PO BID PRN 10/14/20 10/14/20 History Flecainide [Tambocor] 50 mg PO Q12HR 10/14/20 10/14/20 History Metoprolol Succinate (ER) [Toprol 100 mg PO DAILY 10/14/20 10/14/20 History Xl] lisinopriL 40 mg PO DAILY 10/14/20 10/14/20 History Allergies Allergy/AdvReac Type Severity Reaction Status Date / Time Penicillins Allergy Unknown Verified 10/14/20 10:59 Childhood Sulfa (Sulfonamide Allergy Unknown Verified 10/14/20 10:59 Antibiotics) Childhood Physical Exam Vitals: Vital Signs Temp Pulse Pulse Resp BP BP Pulse Ox 10/15/20 04:00 98.3 F 107 H 20 128/75 98 10/15/20 02:00 109 H 16 10/15/20 00:00 98.1 F 109 H 16 167/90 93 L 10/14/20 20:00 97.6 F 104 H 20 125/78 95 10/14/20 15:26 97.0 F L 111 H 18 133/84 95 10/14/20 13:53 120 H 22 101/78 95 10/14/20 12:31 123 H 20 135/89 93 L 10/14/20 11:33 144 H 20 132/93 94 L 10/14/20 11:09 137 H 20 126/92 10/14/20 09:53 98.3 F 64 18 126/69 92 L Intake and Output 10/14/20 10/15/20 10/15/20 22:59 06:59 14:59 Intake Total 780 Output Total 500 Balance 280 Intake: Oral 780 Output: Urine 500 Other: Voiding Method Toilet Toilet # Voids 3 Weight 100.698 kg 104.2 kg Results 10/14/20 10:16 10/15/20 06:24 Cardiac Enzymes 10/14/20 10/14/20 10/14/20 Range/Units 10:16 10:16 17:04 AST 39 H (14-36) U/L Troponin I 0.049 H* 0.026 (0.000-0.034) ng/mL 10/14/20 10/15/20 Range/Units 19:54 06:24 AST 28 (14-36) U/L Troponin I 0.019 (0.000-0.034) ng/mL Coagulation 10/14/20 Range/Units 10:16 PT 10.9 (9.0-12.0) sec APTT 28.9 (22.0-30.0) sec CBC 10/14/20 Range/Units 10:16 WBC 8.7 (3.8-10.6) k/uL RBC 4.74 (3.80-5.40) m/uL Hgb 13.4 (11.4-16.0) gm/dL Hct 40.9 (34.0-46.0) % Plt Count 249 (150-450) k/uL Comprehensive Metabolic Panel 10/14/20 10/15/20 10/15/20 Range/Units 10:16 00:51 06:24 Sodium 140 140 (137-145) mmol/L Potassium 3.8 3.8 3.7 (3.5-5.1) mmol/L Chloride 103 103 (98-107) mmol/L Carbon Dioxide 26 28 (22-30) mmol/L BUN 20 H 19 H (7-17) mg/dL Creatinine 0.90 0.90 (0.52-1.04) mg/dL Glucose 211 H 172 H (74-99) mg/dL Calcium 9.0 8.4 (8.4-10.2) mg/dL AST 39 H 28 (14-36) U/L ALT 71 H 59 H (4-34) U/L Alkaline Phosphatase 72 67 (38-126) U/L Total Protein 6.1 L 5.9 L (6.3-8.2) g/dL Albumin 3.6 3.5 (3.5-5.0) g/dL Current Medications Generic Name Dose Route Start Last Admin Trade Name Freq PRN Reason Stop Dose Admin Alprazolam 0.25 mg 10/14/20 11:37 10/14/20 21:06 Alprazolam 0.25 Mg Tab PO 0.25 mg BID PRN Administration Anxiety Apixaban 2.5 mg 10/14/20 21:00 10/14/20 20:56 Apixaban 2.5 Mg Tablet PO 2.5 mg BID LORI Administration Flecainide Acetate 50 mg 10/14/20 21:00 10/14/20 20:56 Flecainide 50 Mg Tab PO 50 mg Q12HR LORI Administration Sodium Chloride 1,000 mls @ 20 mls/hr 10/14/20 11:30 10/14/20 12:18 Saline 0.9% IV 20 mls/hr .Q24H LORI Administration Metoprolol Succinate 100 mg 10/15/20 09:00 Metoprolol Succinate (Er) 100 Mg Tab.Er.24h PO DAILY LORI Naloxone HCl 0.2 mg 10/14/20 11:27 Naloxone 0.4 Mg/Ml 1 Ml Vial IV Q2M PRN Opioid Reversal Nitroglycerin 0.4 mg 10/14/20 11:37 Nitroglycerin Sl Tabs 0.4 Mg Tab SUBLINGUAL Q5M PRN Chest Pain Ondansetron HCl 4 mg 10/14/20 11:27 Ondansetron 4 Mg/2 Ml Vial IVP Q8HR PRN Nausea And Vomiting Intake and Output 10/14/20 10/15/20 10/15/20 22:59 06:59 14:59 Intake Total 780 Output Total 500 Balance 280 Intake: Oral 780 Output: Urine 500 Other: Voiding Method Toilet Toilet # Voids 3 Weight 100.698 kg 104.2 kg 10/14/20 10:16 10/15/20 06:24
[2020-10-15 11:43] LABS: Glucose,Whole Blood 248 mg/dL (75-99)
--- NOTE | 2020-10-15 12:35 | P.PN ---
Subjective Progress Note Date: 10/15/20 Principal diagnosis: Atrial fibrillation with rapid ventricular response 85-year-old female, well-known to me, as I service her primary care physician, with a past medical history of status post pacemaker insertion, chronic atrial fibrillation, asthma, and hypertension. The patient states that she forgot to take her medications for the last 2 days beginning on Monday and Monday. On Monday, she started not feeling well, including shortness of breath, heaviness in her chest, palpitations, and dizziness. She continued to work, and finally decided to go to the doctor today, October 14, at 9:00 in the morning. She was seen by Dr. Saravia, in the emergency room. She was found have atrial fibrillation with rapid ventricular response, and also congestive heart failure. She complained of weakness, and dizziness, and lightheadedness. She also had some pressure in her chest. She denies any fever or chills. Her medical history includes atrial fibrillation, angina, CVA, hypertension, DJD, and asthma. She also has type 2 diabetes, cataracts, arthritis, and status post dual-chamber pacemaker insertion for sick sinus syndrome. She is a lifelong nonsmoker. Laboratory data includes a white count 8.7, hemoglobin 13.4, hematocrit 40.9, platelet count 249,000. PT INR and PTT are all normal. Electrolytes look normal as well. Her troponin is 0.049, and her N-terminal proBNP is elevated at 6430. Chest x-ray in my opinion shows cardiomegaly with trace pleural effusions and fluid overload. The patient is seen today 10/15/2020 in follow-up on the selective care unit. She is currently sitting up in a chair at the bedside. Awake and alert in no acute distress. She denies any worsening shortness of breath, cough or congestion. Maintaining O2 saturations in the high 90s on 3 L/m per nasal cannula. No chest pain or palpitations. She does remain in atrial fibrillation with varying ventricular response. Sodium 140. Potassium 3.7. Chloride 103. Bicarb 28. Creatinine 0.90. Glucose 172. TSH 2.97. She remains on Lasix 40 IV every 12 hours, beta blockers, Eliquis. Echocardiogram reveals preserved left ventricular systolic function with ejection fraction 50-55%. Objective - Vital Signs Vital signs: Vital Signs Temp 97.7 F 10/15/20 08:00 Pulse 93 10/15/20 11:33 Resp 18 10/15/20 11:33 BP 137/75 10/15/20 11:33 Pulse Ox 93 L 10/15/20 11:33 Intake & Output 10/14/20 10/15/20 10/15/20 18:59 06:59 18:59 Intake Total 180 600 780 Output Total 500 400 Balance 180 100 380 Weight 100.698 kg 104.2 kg Intake: Oral 180 600 780 Output: Urine 500 400 Other: Voiding Method Toilet # Voids 3 - Exam GENERAL EXAM: Alert, active, very pleasant 85-year-old female, on 3 L nasal cannula, comfortable in no apparent distress. HEAD: Normocephalic. EYES: Normal reaction of pupils, equal size. NOSE: Clear with pink turbinates. THROAT: No erythema or exudates. NECK: No masses, no JVD. CHEST: No chest wall deformity. LUNGS: Equal air entry with faint crackles in the posterior bases. CVS: S1 and S2 normal with no audible murmur, irregular rhythm. ABDOMEN: No hepatosplenomegaly, normal bowel sounds, no guarding or rigidity. SPINE: No scoliosis or deformity SKIN: No rashes CENTRAL NERVOUS SYSTEM: No focal deficits, tone is normal in all 4 extremities. EXTREMITIES: There is no peripheral edema. No clubbing, no cyanosis. Peripheral pulses are intact. - Labs CBC & Chem 7: 10/14/20 10:16 10/15/20 06:24 Labs: Abnormal Lab Results - Last 24 Hours (Table) 10/14/20 10/14/20 10/15/20 Range/Units 16:58 20:15 06:24 BUN 19 H (7-17) mg/dL Glucose 172 H (74-99) mg/dL POC Glucose (mg/dL) 200 H 275 H (75-99) mg/dL ALT 59 H (4-34) U/L Total Protein 5.9 L (6.3-8.2) g/dL 10/15/20 10/15/20 Range/Units 06:50 11:39 BUN (7-17) mg/dL Glucose (74-99) mg/dL POC Glucose (mg/dL) 178 H 248 H (75-99) mg/dL ALT (4-34) U/L Total Protein (6.3-8.2) g/dL Assessment and Plan Assessment: 1 Acute hypoxic respiratory failure, and chest pressure, secondary to atrial fibrillation with rapid ventricular response. 2 Elevated troponin, rule out myocardial ischemia, versus supply/demand mismatch secondary to A. fib/RVR. 3 History of diabetes mellitus. 4 History of CVA. 5 History of mild chronic bronchial asthma. 6 Status post dual-chamber pacemaker insertion for sick sinus syndrome. 7 History of cataracts. 8 History of arthritis. 9 History of diverticulosis. 10 History of hypertension. Plan: The patient was seen and evaluated by Dr. Manzo Currently stable from the pulmonary standpoint Continue the current treatment plan Possible cardioversion tomorrow We will continue to follow I, the cosigning physician, performed a history & physical examination of the patient. Lungs sounds with faint crackles in the posterior bases. Maintaining good O2 saturations in the 90s on 3 L/m per nasal cannula. I discussed the assessment and plan of care with my nurse practitioner, Crystal Fuentes. I attest to the above note as dictated by her.
[2020-10-15] MEDS: SODIUM CHLORIDE 0.9% 1,000 ML IV SCH (13:28)
--- NOTE | 2020-10-15 13:49 | P.PN ---
Subjective 85-year-old female came in with complaints of generalized weakness tiredness and lightheadedness and found to have atrial fibrillation patient also has an AICD. Patient did miss metoprolol last few days. She also takes flecainide and patient is on Eliquis. Patient denied any fever chills, chest x-ray was read as a right basilar interstitial airspace of pastries patient doesn't have any cough doesn't have any leukocytosis no fever. No evidence of any other infection at this time. Patient blood glucoses bit elevated. 10/15/2020 Patient converted to sinus rhythm patient is presently on Toprol-XL 100 by mouth daily, Eliquis. chest x-ray showing pulmonary edema patient was started on IV Lasix patient had a normal ejection fraction. Constitutional: Denied any fatigue denied any fever. Cardio vascular: denied any chest pain, palpitations Gastrointestinal denied any nausea vomiting Pulmonary: Denied any shortness of breath cough Neurologic denied any new focal deficits All inpatient medications were reviewed and appropriate changes in these medications as dictated in the interval history and assessment and plan. Objective - Vital Signs Vital signs: Vital Signs Temp 97.7 F 10/15/20 08:00 Pulse 93 10/15/20 11:33 Resp 18 10/15/20 11:33 BP 137/75 10/15/20 11:33 Pulse Ox 93 L 10/15/20 11:33 Intake & Output 10/14/20 10/15/20 10/15/20 18:59 06:59 18:59 Intake Total 180 600 780 Output Total 500 400 Balance 180 100 380 Weight 100.698 kg 104.2 kg Intake: Oral 180 600 780 Output: Urine 500 400 Other: Voiding Method Toilet # Voids 3 - Exam PHYSICAL EXAMINATION: GENERAL: The patient is alert and oriented x3, not in any acute distress. Well developed, well nourished. HEENT: Pupils are round and equally reacting to light. EOMI. No scleral icterus. No conjunctival pallor. Normocephalic, atraumatic. No pharyngeal erythema. No thyromegaly. CARDIOVASCULAR: S1 and S2 present. No murmurs, rubs, or gallops. PULMONARY: Chest is clear to auscultation, no wheezing or crackles. ABDOMEN: Soft, nontender, nondistended, normoactive bowel sounds. No palpable organomegaly. MUSCULOSKELETAL: No joint swelling or deformity. EXTREMITIES: No cyanosis, clubbing, or pedal edema. NEUROLOGICAL: Gross neurological examination did not reveal any focal deficits. SKIN: No rashes. - Labs CBC & Chem 7: 10/14/20 10:16 10/15/20 06:24 Labs: Abnormal Lab Results - Last 24 Hours (Table) 10/14/20 10/14/20 10/15/20 Range/Units 16:58 20:15 06:24 BUN 19 H (7-17) mg/dL Glucose 172 H (74-99) mg/dL POC Glucose (mg/dL) 200 H 275 H (75-99) mg/dL ALT 59 H (4-34) U/L Total Protein 5.9 L (6.3-8.2) g/dL 10/15/20 10/15/20 Range/Units 06:50 11:39 BUN (7-17) mg/dL Glucose (74-99) mg/dL POC Glucose (mg/dL) 178 H 248 H (75-99) mg/dL ALT (4-34) U/L Total Protein (6.3-8.2) g/dL Assessment and Plan Plan: -Atrial fibrillation with rapid ventricular rate: Patient will be continued on anticoagulation. Patient presently converted to sinus rhythm -Cut his heart failure chronic diastolic dysfunction with acute exacerbation CHF exacerbation is probably secondary to A. fib patient was started on IV Lasix. -Mildly elevated troponin secondary to atrial fibrillation with rapid unclear rate -Type 2 diabetes mellitus -sick sinus syndrome for which patient has a dual-chamber pacemaker -Hypertension -History of CVA in the past. -Hypomagnesemia magnesium was replaced
[2020-10-15] MEDS ORDERED: AMIODARONE 360 MG in DEXTROSE 5% IN WATER 200 ML IV ONE ×2 (14:32)
[2020-10-15] MEDS ORDERED: DEXTROSE 5% IN WATER 100 ML with AMIODARONE 150 MG IV ONE (14:32)
[2020-10-15 16:46] LABS: Glucose,Whole Blood 252 mg/dL (75-99)
[2020-10-15 19:59] LABS: Glucose,Whole Blood 203 mg/dL (75-99)
[2020-10-15] MEDS: APIXABAN 5 MG TAB PO SCH (21:23)
[2020-10-15] MEDS: AMIODARONE 450 MG in DEXTROSE 5% IN WATER 250 ML IV SCH ×2 (22:33)
[2020-10-15] MEDS: ALPRAZolam 0.25 MG TAB PO PRN (23:16)
[2020-10-16 06:10] LABS: Glucose,Whole Blood 196 mg/dL (75-99)
[2020-10-16 08:23] LABS: Basophils % (A) 1 %; Eosinophils # (A) 0.2 k/uL (0-0.7); Eosinophils % (A) 4 %; HCT 37.9 % (34.0-46.0); HGB 12.8 gm/dL (11.4-16.0); Lymphocytes # (A) 0.9 k/uL (1.0-4.8); Lymphocytes % (A) 14 %; MCH 28.7 pg (25.0-35.0); MCHC 33.7 g/dL (31.0-37.0); MCV 84.9 fL (80.0-100.0); Mean Platelet Volume 7.2; Monocytes # (A) 0.5 k/uL (0-1.0); Monocytes % (A) 8 %; Neutrophils # (A) 4.4 k/uL (1.3-7.7); Neutrophils % (A) 71 %; Platelet Count 218 k/uL (150-450); RBC 4.46 m/uL (3.80-5.40); RDW 13.6 % (11.5-15.5); WBC 6.2 k/uL (3.8-10.6)
[2020-10-16] MEDS: METOPROLOL SUCCINATE (ER) 100 MG TAB.ER.24H PO SCH (08:23)
[2020-10-16] MEDS: APIXABAN 5 MG TAB PO SCH ×2 (08:23→20:10)
[2020-10-16] MEDS: FUROSEMIDE 10 MG/ML 4 ML VIAL IV SCH ×2 (08:25→20:10)
[2020-10-16 08:30] LABS: INR 1.1 (<1.2); Prothrombin Time 11.6 sec (9.0-12.0)
[2020-10-16 08:37] LABS: Calcium 8.3 mg/dL (8.4-10.2); Magnesium 1.4 mg/dL (1.6-2.3); Potassium 3.2 mmol/L (3.5-5.1)
[2020-10-16] MEDS: lisinopriL 20 MG TAB PO SCH (09:51)
[2020-10-16] MEDS: SODIUM CHLORIDE 0.9% 1,000 ML IV SCH (09:51)
[2020-10-16] MEDS: amLODIPine 5 MG TAB PO SCH (09:51)
[2020-10-16] MEDS ORDERED: Magnesium Replacement Protocol 1 EACH MISC MISCELLANE PRN (10:20)
[2020-10-16] MEDS ORDERED: POTASSIUM CHLORIDE ER 20 MEQ TAB.ER PO STA (10:23)
[2020-10-16] MEDS: MAGNESIUM SULFATE-D5W PMX 1 GM in DEXTROSE/WATER 1 100ML.BAG IVPB SCH ×3 (11:00→13:37)
[2020-10-16] MEDS: AMIODARONE 450 MG in DEXTROSE 5% IN WATER 250 ML IV SCH ×2 (11:29)
[2020-10-16 11:55] LABS: Glucose,Whole Blood 230 mg/dL (75-99)
--- NOTE | 2020-10-16 11:56 | P.PN ---
Subjective HISTORY OF PRESENTING ILLNESS This is a pleasant 85-year-old female past medical history significant for paroxysmal atrial fibrillation on long-term anticoagulation, permanent pacemaker implantation secondary to complete heart block, history of CVA status post thrombolytic therapy 2010, hypertension and diabetes mellitus. She follows in the office with Dr. Crocker. We have been asked to see in consultation for afib with RVR and elevated troponin. She states over the weekend she had not taken her medications Monday morning or evening. She just forgot because they weren't in the usual place in her house. She did start taking them again on Monday. The office did get a notification that she was having frequent episodes of afib with RVR. They made contact with her and discussed what was going on with her medications. She initially said she didn't have any specific symptoms. On Monday evening she started noticing she was more weak and fatigued than usual. 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 However, on Monday she started noticing she was also feeling some shortness of breath and chest tightness at times. She was having difficulty getting comfortable and couldn't sleep. She denies feeling dizzy or having any significant palpitations. 10/16/2020 Patient seen and examined resting comfortably lying flat in bed in no acute distress. Yesterday afternoon she converted spontaneously to sinus mechanism. She states her symptoms of shortness of breath and chest discomfort seemed to have spontaneously resolved when she converted. Amiodarone infusion was i nitiated to hopefully help her maintain sinus rhythm. However last evening around 2:30 in the morning she went back into A. fib with RVR heart rates in the 140s. She states she instantly started feeling uneasy, short of breath, uncomfortable and unable to sit still. This morning she was seen and examined resting comfortably in bed in no acute distress in sinus rhythm. However shortly thereafter nursing staff called and indicated she again went back into A. fib with RVR. Current rates 100-130. Echocardiogram obtained reveals preserved LV systolic function with ejection fraction 50-55%, severely dilated left atrium. Blood pressure 167/79. Laboratory data reviewed, CBC unremarkable, sodium 140, potassium 3.2, creatinine 0.96 and magnesium 1.4. PHYSICAL EXAMINATION CONSTITUTIONAL: No apparent distress. HEENT: Head is normocephalic. Pupils are equal, round. Sclerae anicteric. Mucous membranes of the mouth are moist. No JVD. No carotid bruit. CHEST EXAMINATION: Faint bibasilar rales. No wheezes or rhonchi. No chest wall tenderness is noted on palpation or with deep breathing. HEART EXAMINATION: Irregular rate and rhythm. S1, S2 heard. No murmurs, gallops or rub. EXTREMITIES: 2+ peripheral pulses, no lower extremity edema and no calf tenderness. ASSESSMENT Paroxysmal atrial fibrillation with rapid ventricular rate Acute diastolic heart failure Hypomagnesemia Hypokalemia Troponin leak secondary to A. fib with RVR Hypertension Permanent pacemaker secondary to complete heart block Diabetes mellitus, currently diet controlled PLAN Continue amiodarone infusion. Consult requested with Dr. Boogie for recommendations regarding possible ablation. Replace magnesium and potassium. Continue eliquis for thromboembolic protection. Further recommendations to follow based on clinical course. Nurse Practitioner note has been reviewed, I agree with a documented findings and plan of care. Patient was seen and examined. Objective - Vital Signs Vital signs: Vital Signs Temp 97.5 F L 10/16/20 08:00 Pulse 73 10/16/20 08:00 Resp 20 10/16/20 08:00 BP 167/79 10/16/20 08:00 Pulse Ox 92 L 10/16/20 08:00 Intake & Output 10/15/20 10/16/20 10/16/20 18:59 06:59 18:59 Intake Total 1680 0 Output Total 1000 Balance 680 0 Weight 98.5 kg Intake: Oral 1680 0 Output: Urine 1000 Other: Voiding Method Toilet Toilet # Voids 4 - Labs CBC & Chem 7: 10/16/20 08:01 10/16/20 08:01 Labs: Abnormal Lab Results - Last 24 Hours (Table) 10/15/20 10/15/20 10/15/20 Range/Units 11:39 16:45 19:58 Lymphocytes # (1.0-4.8) k/uL Potassium (3.5-5.1) mmol/L Carbon Dioxide (22-30) mmol/L BUN (7-17) mg/dL Glucose (74-99) mg/dL POC Glucose (mg/dL) 248 H 252 H 203 H (75-99) mg/dL Calcium (8.4-10.2) mg/dL Magnesium (1.6-2.3) mg/dL 10/16/20 10/16/20 10/16/20 Range/Units 06:08 08:01 08:01 Lymphocytes # 0.9 L (1.0-4.8) k/uL Potassium 3.2 L (3.5-5.1) mmol/L Carbon Dioxide 32 H (22-30) mmol/L BUN 21 H (7-17) mg/dL Glucose 208 H (74-99) mg/dL POC Glucose (mg/dL) 196 H (75-99) mg/dL Calcium 8.3 L (8.4-10.2) mg/dL Magnesium 1.4 L (1.6-2.3) mg/dL
--- NOTE | 2020-10-16 13:05 | P.PN ---
Subjective Progress Note Date: 10/16/20 Principal diagnosis: Atrial fibrillation with rapid ventricular response 85-year-old female, well-known to me, as I service her primary care physician, with a past medical history of status post pacemaker insertion, chronic atrial fibrillation, asthma, and hypertension. The patient states that she forgot to take her medications for the last 2 days beginning on Monday and Monday. On Monday, she started not feeling well, including shortness of breath, heaviness in her chest, palpitations, and dizziness. She continued to work, and finally decided to go to the doctor today, October 14, at 9:00 in the morning. She was seen by Dr. Saravia, in the emergency room. She was found have atrial fibrillation with rapid ventricular response, and also congestive heart failure. She complained of weakness, and dizziness, and lightheadedness. She also had some pressure in her chest. She denies any fever or chills. Her medical history includes atrial fibrillation, angina, CVA, hypertension, DJD, and asthma. She also has type 2 diabetes, cataracts, arthritis, and status post dual-chamber pacemaker insertion for sick sinus syndrome. She is a lifelong nonsmoker. Laboratory data includes a white count 8.7, hemoglobin 13.4, hematocrit 40.9, platelet count 249,000. PT INR and PTT are all normal. Electrolytes look normal as well. Her troponin is 0.049, and her N-terminal proBNP is elevated at 6430. Chest x-ray in my opinion shows cardiomegaly with trace pleural effusions and fluid overload. The patient is seen today 10/15/2020 in follow-up on the selective care unit. She is currently sitting up in a chair at the bedside. Awake and alert in no acute distress. She denies any worsening shortness of breath, cough or congestion. Maintaining O2 saturations in the high 90s on 3 L/m per nasal cannula. No chest pain or palpitations. She does remain in atrial fibrillation with varying ventricular response. Sodium 140. Potassium 3.7. Chloride 103. Bicarb 28. Creatinine 0.90. Glucose 172. TSH 2.97. She remains on Lasix 40 IV every 12 hours, beta blockers, Eliquis. Echocardiogram reveals preserved left ventricular systolic function with ejection fraction 50-55%. Patient is seen today 10/16/2020 in follow-up on the selective care unit. She is currently sitting up in bed. Awake and alert in no acute distress. She is maintaining O2 saturations in the 80s on room air. She is feeling quite weak and tired today. She was to undergo cardioversion but that was canceled due to her intermittent episodes of sinus rhythm. She is quite sensitive to the atrial fibrillation. She gets anxious and short of breath and an uneasy feeling. She is currently on amiodarone drip at 0.5 mg/m. She is anticoagulated with Eliquis. Magnesium and potassium are being replaced. She remains on Lasix 40 mg IV every 12 hours. White count 6.2. Hemoglobin 12.8. Sodium 140. Potassium 3.2. Creatinine 0.96. Objective - Vital Signs Vital signs: Vital Signs Temp 97.6 F 10/16/20 11:03 Pulse 95 10/16/20 11:03 Resp 18 10/16/20 11:03 BP 137/94 10/16/20 11:03 Pulse Ox 93 L 10/16/20 11:03 Intake & Output 10/15/20 10/16/20 10/16/20 18:59 06:59 18:59 Intake Total 1680 215.56 Output Total 1000 Balance 680 215.56 Weight 98.5 kg Intake: Intake, IV Titration 215.56 Amount Amiodarone 450 mg In 215.56 Dextrose 5% in Water 250 ml @ 0.5 MG/MIN 16.667 mls/hr IV .Q15H [facility] Rx#: [id number] Oral 1680 0 Output: Urine 1000 Other: Voiding Method Toilet Toilet # Voids 4 - Exam GENERAL EXAM: Alert, active, very pleasant 85-year-old female, comfortable in no apparent distress. HEAD: Normocephalic. EYES: Normal reaction of pupils, equal size. NOSE: Clear with pink turbinates. THROAT: No erythema or exudates. NECK: No masses, no JVD. CHEST: No chest wall deformity. LUNGS: Equal air entry with faint crackles in the posterior bases. CVS: S1 and S2 normal with no audible murmur, irregular rhythm. ABDOMEN: No hepatosplenomegaly, normal bowel sounds, no guarding or rigidity. SPINE: No scoliosis or deformity SKIN: No rashes CENTRAL NERVOUS SYSTEM: No focal deficits, tone is normal in all 4 extremities. EXTREMITIES: There is no peripheral edema. No clubbing, no cyanosis. Peripheral pulses are intact. - Labs CBC & Chem 7: 10/16/20 08:01 10/16/20 08:01 Labs: Abnormal Lab Results - Last 24 Hours (Table) 10/15/20 10/15/20 10/16/20 Range/Units 16:45 19:58 06:08 Lymphocytes # (1.0-4.8) k/uL Potassium (3.5-5.1) mmol/L Carbon Dioxide (22-30) mmol/L BUN (7-17) mg/dL Glucose (74-99) mg/dL POC Glucose (mg/dL) 252 H 203 H 196 H (75-99) mg/dL Calcium (8.4-10.2) mg/dL Magnesium (1.6-2.3) mg/dL 10/16/20 10/16/20 10/16/20 Range/Units 08:01 08:01 11:54 Lymphocytes # 0.9 L (1.0-4.8) k/uL Potassium 3.2 L (3.5-5.1) mmol/L Carbon Dioxide 32 H (22-30) mmol/L BUN 21 H (7-17) mg/dL Glucose 208 H (74-99) mg/dL POC Glucose (mg/dL) 230 H (75-99) mg/dL Calcium 8.3 L (8.4-10.2) mg/dL Magnesium 1.4 L (1.6-2.3) mg/dL Assessment and Plan Assessment: 1 Acute hypoxic respiratory failure, and chest pressure, secondary to atrial fibrillation with rapid ventricular response with acute diastolic congestive heart failure 2 Elevated troponin, rule out myocardial ischemia, versus supply/demand mismatch secondary to A. fib/RVR. 3 History of diabetes mellitus. 4 History of CVA. 5 History of mild chronic bronchial asthma. 6 Status post dual-chamber pacemaker insertion for sick sinus syndrome. 7 History of cataracts. 8 History of arthritis. 9 History of diverticulosis. 10 History of hypertension. Plan: The patient was seen and evaluated by Dr. Manzo Cardioversion canceled today Having breakthrough sinus rhythm but currently in A. fib Initiated on amiodarone drip Remains on Eliquis Remains on IV diuretics EP consult pending Follow up chest x-ray in a.m. We will continue to follow I, the cosigning physician, performed a history & physical examination of the patient. Lungs sounds with faint crackles in the posterior bases. Maintaining good O2 saturations in the 90s on room air. I discussed the assessment and plan of care with my nurse practitioner, Crystal Fuentes. I attest to the above note as dictated by her.
--- NOTE | 2020-10-16 13:06 | P.PN ---
Subjective 85-year-old female came in with complaints of generalized weakness tiredness and lightheadedness and found to have atrial fibrillation patient also has an AICD. Patient did miss metoprolol last few days. She also takes flecainide and patient is on Eliquis. Patient denied any fever chills, chest x-ray was read as a right basilar interstitial airspace of pastries patient doesn't have any cough doesn't have any leukocytosis no fever. No evidence of any other infection at this time. Patient blood glucoses bit elevated. 10/15/2020 Patient converted to sinus rhythm patient is presently on Toprol-XL 100 by mouth daily, Eliquis. chest x-ray showing pulmonary edema patient was started on IV Lasix patient had a normal ejection fraction. 10/16/2020 Patient is in and out of A. fib because of which etiology is according evaluation by EP. A she remains on IV Lasix patient is fairly euvolemic at this time. Patient's potassium and magnesium are are low which are being replaced at this time. Constitutional: Denied any fatigue denied any fever. Cardio vascular: denied any chest pain, palpitations Gastrointestinal denied any nausea vomiting Pulmonary: Denied any shortness of breath cough Neurologic denied any new focal deficits All inpatient medications were reviewed and appropriate changes in these medications as dictated in the interval history and assessment and plan. Objective - Vital Signs Vital signs: Vital Signs Temp 97.6 F 10/16/20 11:03 Pulse 95 10/16/20 11:03 Resp 18 10/16/20 11:03 BP 137/94 10/16/20 11:03 Pulse Ox 93 L 10/16/20 11:03 Intake & Output 10/15/20 10/16/20 10/16/20 18:59 06:59 18:59 Intake Total 1680 215.56 Output Total 1000 Balance 680 215.56 Weight 98.5 kg Intake: Intake, IV Titration 215.56 Amount Amiodarone 450 mg In 215.56 Dextrose 5% in Water 250 ml @ 0.5 MG/MIN 16.667 mls/hr IV .Q15H [facility] Rx#: [id number] Oral 1680 0 Output: Urine 1000 Other: Voiding Method Toilet Toilet # Voids 4 - Exam PHYSICAL EXAMINATION: GENERAL: The patient is alert and oriented x3, not in any acute distress. Well developed, well nourished. HEENT: Pupils are round and equally reacting to light. EOMI. No scleral icterus. No conjunctival pallor. Normocephalic, atraumatic. No pharyngeal erythema. No thyromegaly. CARDIOVASCULAR: S1 and S2 present. No murmurs, rubs, or gallops. She is tachycardic irregularly irregular rhythm PULMONARY: Chest is clear to auscultation, no wheezing or crackles. ABDOMEN: Soft, nontender, nondistended, normoactive bowel sounds. No palpable o rganomegaly. MUSCULOSKELETAL: No joint swelling or deformity. EXTREMITIES: No cyanosis, clubbing, or pedal edema. NEUROLOGICAL: Gross neurological examination did not reveal any focal deficits. SKIN: No rashes. - Labs CBC & Chem 7: 10/16/20 08:01 10/16/20 08:01 Labs: Abnormal Lab Results - Last 24 Hours (Table) 10/15/20 10/15/20 10/16/20 Range/Units 16:45 19:58 06:08 Lymphocytes # (1.0-4.8) k/uL Potassium (3.5-5.1) mmol/L Carbon Dioxide (22-30) mmol/L BUN (7-17) mg/dL Glucose (74-99) mg/dL POC Glucose (mg/dL) 252 H 203 H 196 H (75-99) mg/dL Calcium (8.4-10.2) mg/dL Magnesium (1.6-2.3) mg/dL 10/16/20 10/16/20 10/16/20 Range/Units 08:01 08:01 11:54 Lymphocytes # 0.9 L (1.0-4.8) k/uL Potassium 3.2 L (3.5-5.1) mmol/L Carbon Dioxide 32 H (22-30) mmol/L BUN 21 H (7-17) mg/dL Glucose 208 H (74-99) mg/dL POC Glucose (mg/dL) 230 H (75-99) mg/dL Calcium 8.3 L (8.4-10.2) mg/dL Magnesium 1.4 L (1.6-2.3) mg/dL Assessment and Plan Plan: -Atrial fibrillation with rapid ventricular rate: Patient will be continued on anticoagulation. Patient isn't in and out of atrial fibrillation did possible EP evaluation for ablation. -Congestive heart failure chronic diastolic dysfunction with acute exacerbation CHF exacerbation is probably secondary to A. fib patient continues to be on IV Lasix -Mildly elevated troponin secondary to atrial fibrillation with rapid unclear rate -Type 2 diabetes mellitus -sick sinus syndrome for which patient has a dual-chamber pacemaker -Hypertension -History of CVA in the past. -Hypomagnesemia magnesium was replaced
[2020-10-16] MEDS ORDERED: SENNOSIDES 8.6 MG TAB PO PRN (14:04)
[2020-10-16 17:04] LABS: Glucose,Whole Blood 190 mg/dL (75-99)
[2020-10-16 20:08] LABS: Glucose,Whole Blood 240 mg/dL (75-99)
[2020-10-16] MEDS ORDERED: AMIODARONE 200 MG TAB PO SCH (21:00)
[2020-10-16] MEDS: ALPRAZolam 0.25 MG TAB PO PRN (21:15)
[2020-10-17] MEDS ORDERED: AMIODARONE 360 MG in DEXTROSE 5% IN WATER 200 ML IV ONE ×2 (00:21)
[2020-10-17 06:11] LABS: Glucose,Whole Blood 236 mg/dL (75-99)
[2020-10-17] MEDS ORDERED: AMIODARONE 450 MG in DEXTROSE 5% IN WATER 250 ML IV SCH ×2 (06:30)
[2020-10-17 08:13] LABS: Calcium 8.4 mg/dL (8.4-10.2); Potassium 3.5 mmol/L (3.5-5.1)
[2020-10-17] MEDS: METOPROLOL SUCCINATE (ER) 100 MG TAB.ER.24H PO SCH (08:14)
[2020-10-17] MEDS: APIXABAN 5 MG TAB PO SCH ×2 (08:17→21:16)
[2020-10-17] MEDS: POTASSIUM CHLORIDE ER 20 MEQ TAB.ER PO SCH (08:17)
[2020-10-17] MEDS: amLODIPine 5 MG TAB PO SCH (08:17)
[2020-10-17] MEDS: lisinopriL 20 MG TAB PO SCH (10:09)
[2020-10-17] MEDS: FUROSEMIDE 10 MG/ML 4 ML VIAL IV SCH (11:04)
[2020-10-17] MEDS: SODIUM CHLORIDE 0.9% 1,000 ML IV SCH (11:58)
--- NOTE | 2020-10-17 12:09 | P.PN ---
Subjective Progress Note Date: 10/17/20 Principal diagnosis: Atrial fibrillation with rapid ventricular response 85-year-old female, well-known to me, as I service her primary care physician, with a past medical history of status post pacemaker insertion, chronic atrial fibrillation, asthma, and hypertension. The patient states that she forgot to take her medications for the last 2 days beginning on Monday and Monday. On Monday, she started not feeling well, including shortness of breath, heaviness in her chest, palpitations, and dizziness. She continued to work, and finally decided to go to the doctor today, October 14, at 9:00 in the morning. She was seen by Dr. Saravia, in the emergency room. She was found have atrial fibrillation with rapid ventricular response, and also congestive heart failure. She complained of weakness, and dizziness, and lightheadedness. She also had some pressure in her chest. She denies any fever or chills. Her medical history includes atrial fibrillation, angina, CVA, hypertension, DJD, and asthma. She also has type 2 diabetes, cataracts, arthritis, and status post dual-chamber pacemaker insertion for sick sinus syndrome. She is a lifelong nonsmoker. Laboratory data includes a white count 8.7, hemoglobin 13.4, hematocrit 40.9, platelet count 249,000. PT INR and PTT are all normal. Electrolytes look normal as well. Her troponin is 0.049, and her N-terminal proBNP is elevated at 6430. Chest x-ray in my opinion shows cardiomegaly with trace pleural effusions and fluid overload. The patient is seen today 10/15/2020 in follow-up on the selective care unit. She is currently sitting up in a chair at the bedside. Awake and alert in no acute distress. She denies any worsening shortness of breath, cough or congestion. Maintaining O2 saturations in the high 90s on 3 L/m per nasal cannula. No chest pain or palpitations. She does remain in atrial fibrillation with varying ventricular response. Sodium 140. Potassium 3.7. Chloride 103. Bicarb 28. Creatinine 0.90. Glucose 172. TSH 2.97. She remains on Lasix 40 IV every 12 hours, beta blockers, Eliquis. Echocardiogram reveals preserved left ventricular systolic function with ejection fraction 50-55%. Patient is seen today 10/16/2020 in follow-up on the selective care unit. She is currently sitting up in bed. Awake and alert in no acute distress. She is maintaining O2 saturations in the 80s on room air. She is feeling quite weak and tired today. She was to undergo cardioversion but that was canceled due to her intermittent episodes of sinus rhythm. She is quite sensitive to the atrial fibrillation. She gets anxious and short of breath and an uneasy feeling. She is currently on amiodarone drip at 0.5 mg/m. She is anticoagulated with Eliquis. Magnesium and potassium are being replaced. She remains on Lasix 40 mg IV every 12 hours. White count 6.2. Hemoglobin 12.8. Sodium 140. Potassium 3.2. Creatinine 0.96. Patient is seen today 10/17/2020 in follow-up on the selective care unit. She is awake and alert in no acute distress. Resting comfortably in bed. Ma intaining O2 saturations in the mid 90s on room air. She's afebrile. She had converted back to sinus rhythm again yesterday approximately 3 PM and amiodarone drip was discontinued. She is having ongoing issues with A. fib RVR. Current rate 110. She is back on amiodarone at 0.5 mg/m. 0.9 normal saline at 20 ML's per hour. Sodium 139. Potassium 3.5. Bicarb 33. Creatinine 1.14. Glucose 209. Magnesium 1.8. Anticoagulated with Eliquis. Remains on IV diuretics. Objective - Vital Signs Vital signs: Vital Signs Temp 96.8 F L 10/17/20 07:57 Pulse 110 H 10/17/20 10:08 Resp 18 10/17/20 07:57 BP 121/81 10/17/20 10:08 Pulse Ox 96 10/17/20 07:57 Intake & Output 10/16/20 10/17/20 10/17/20 18:59 06:59 18:59 Intake Total 848.56 Balance 848.56 Weight 101.5 kg Intake: IV 515 0.9 80 Amiodarone 450 mg In 135 Dextrose 5% in Water 250 ml @ 0.5 MG/MIN 16.667 mls/hr IV .Q15H [facility] Rx#: [id number] Magnesium Sulfate-D5w Pmx 300 1 gm In Dextrose/Water 1 100ml.bag @ 100 mls/hr IVPB Q1H [facility] Rx#: [id number] Intake, IV Titration 215.56 Amount Amiodarone 450 mg In 215.56 Dextrose 5% in Water 250 ml @ 0.5 MG/MIN 16.667 mls/hr IV .Q15H [facility] Rx#: [id number] Oral 118 Other: Voiding Method Toilet Toilet Toilet - Exam GENERAL EXAM: Alert, active, very pleasant 85-year-old female, on room air, comfortable in no apparent distress. HEAD: Normocephalic. EYES: Normal reaction of pupils, equal size. NOSE: Clear with pink turbinates. THROAT: No erythema or exudates. NECK: No masses, no JVD. CHEST: No chest wall deformity. LUNGS: Equal air entry with faint crackles in the posterior bases. CVS: S1 and S2 normal with no audible murmur, irregular rhythm. ABDOMEN: No hepatosplenomegaly, normal bowel sounds, no guarding or rigidity. SPINE: No scoliosis or deformity SKIN: No rashes CENTRAL NERVOUS SYSTEM: No focal deficits, tone is normal in all 4 extremities. EXTREMITIES: There is no peripheral edema. No clubbing, no cyanosis. Peripheral pulses are intact. - Labs CBC & Chem 7: 10/16/20 08:01 10/17/20 07:30 Labs: Abnormal Lab Results - Last 24 Hours (Table) 10/16/20 10/16/20 10/17/20 Range/Units 17:03 20:07 06:10 Chloride (98-107) mmol/L Carbon Dioxide (22-30) mmol/L BUN (7-17) mg/dL Creatinine (0.52-1.04) mg/dL Glucose (74-99) mg/dL POC Glucose (mg/dL) 190 H 240 H 236 H (75-99) mg/dL 10/17/20 Range/Units 07:30 Chloride 97 L (98-107) mmol/L Carbon Dioxide 33 H (22-30) mmol/L BUN 28 H (7-17) mg/dL Creatinine 1.14 H (0.52-1.04) mg/dL Glucose 209 H (74-99) mg/dL POC Glucose (mg/dL) (75-99) mg/dL Assessment and Plan Assessment: 1 Acute hypoxic respiratory failure, and chest pressure, secondary to atrial fibrillation with rapid ventricular response with acute diastolic congestive heart failure 2 Elevated troponin, rule out myocardial ischemia, versus supply/demand mismatch secondary to A. fib/RVR. 3 History of diabetes mellitus. 4 History of CVA. 5 History of mild chronic bronchial asthma. 6 Status post dual-chamber pacemaker insertion for sick sinus syndrome. 7 History of cataracts. 8 History of arthritis. 9 History of diverticulosis. 10 History of hypertension. Plan: The patient was seen and evaluated by Dr. Jovany Godinez from the pulmonary standpoint, on room air Remains on amiodarone drip Remains on Eliquis We will discontinue IV diuretics and placed on by mouth EP consult pending Follow up chest x-ray in a.m. We will continue to follow I, the cosigning physician, performed a history & physical examination of the patient. Lungs sounds with faint crackles in the posterior bases. Maintaining good O2 saturations in the 90s on room air. I discussed the assessment and plan of care with my nurse practitioner, Crystal Fuentes. I attest to the above note as dictated by her.
[2020-10-17 12:24] LABS: Glucose,Whole Blood 175 mg/dL (75-99)
[2020-10-17] MEDS: DILTIAZEM ORAL 30 MG TAB PO SCH ×2 (13:05→21:15)
--- NOTE | 2020-10-17 13:08 | P.PN ---
Subjective Progress Note Date: 10/17/20 HISTORY OF PRESENT ILLNESS: This is a pleasant 85-year-old female past medical history significant for paroxysmal atrial fibrillation on long-term anticoagulation, permanent pacemaker implantation secondary to complete heart block, history of CVA status post thrombolytic therapy 2010, hypertension and diabetes mellitus. She follows in the office with Dr. Crocker. We have been asked to see in consultation for afib with RVR and elevated troponin. She states over the weekend she had not taken her medications Monday morning or evening. She just forgot because they weren't in the usual place in her house. She did start taking them again on Monday. The office did get a notification that she was having frequent episodes of afib with RVR. They made contact with her and discussed what was going on with her medications. She initially said she didn't have any specific symptoms. On Monday evening she started noticing she was more weak and fatigued than usual. 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 However, on Monday she started noticing she was also feeling some shortness of breath and chest tightness at times. She was having difficulty getting comfortable and couldn't sleep. She denies feeling diz zy or having any significant palpitations. 10/16/2020 Patient seen and examined resting comfortably lying flat in bed in no acute distress. Yesterday afternoon she converted spontaneously to sinus mechanism. She states her symptoms of shortness of breath and chest discomfort seemed to have spontaneously resolved when she converted. Amiodarone infusion was initiated to hopefully help her maintain sinus rhythm. However last evening around 2:30 in the morning she went back into A. fib with RVR heart rates in the 140s. She states she instantly started feeling uneasy, short of breath, uncom fortable and unable to sit still. This morning she was seen and examined resting comfortably in bed in no acute distress in sinus rhythm. However shortly thereafter nursing staff called and indicated she again went back into A. fib with RVR. Current rates 100-130. Echocardiogram obtained reveals preserved LV systolic function with ejection fraction 50-55%, severely dilated left atrium. Blood pressure 167/79. Laboratory data reviewed, CBC unremarkable, sodium 140, potassium 3.2, creatinine 0.96 and magnesium 1.4. 10/17/2020 Patient examined this morning at the bedside. Patient went back into A. fib with RVR overnight. She was started on an amiodarone drip. Heart rates remain mildly uncontrolled. She reports feeling palpitations. She denies shortness of breath. She denies chest pain or pressure. PHYSICAL EXAM: VITAL SIGNS: Reviewed. GENERAL: Well-developed in no acute distress. NECK: Supple. No JVD or thyromegaly LUNGS: Respirations even and unlabored. Lungs essentially clear to auscultation bilaterally. HEART: Tachycardic. Irregular rate and rhythm. S1 and S2 heard. EXTREMITIES: Normal range of motion. No clubbing or cyanosis. Peripheral pulses intact. No lower extremity edema ASSESSMENT: Paroxysmal atrial fibrillation with rapid ventricular rate Acute diastolic heart failure Hypomagnesemia Hypokalemia Troponin leak secondary to A. fib with RVR Hypertension Permanent pacemaker secondary to complete heart block Diabetes mellitus, currently diet controlled PLAN: Discontinue IV amiodarone Begin oral amiodarone 400 mg twice a day Discontinue Norvasc Begin Cardizem oral 30 mg 3 times a day Continue metoprolol Continue anticoagulation with Eliquis Patient transitioned to oral Lasix per pulmonary Dr. Boogie consulted for possible ablation. Await evaluation Nurse practitioner note has been reviewed by physician. Signing provider agrees with the documented findings, assessment, and plan of care. Objective - Vital Signs Vital signs: Vital Signs Temp 96.8 F L 10/17/20 07:57 Pulse 118 H 10/17/20 12:27 Resp 18 10/17/20 12:27 BP 123/71 10/17/20 12:27 Pulse Ox 95 10/17/20 12:27 Intake & Output 10/16/20 10/17/20 10/17/20 18:59 06:59 18:59 Intake Total 848.56 Balance 848.56 Weight 101.5 kg Intake: IV 515 0.9 80 Amiodarone 450 mg In 135 Dextrose 5% in Water 250 ml @ 0.5 MG/MIN 16.667 mls/hr IV .Q15H [facility] Rx#: [id number] Magnesium Sulfate-D5w Pmx 300 1 gm In Dextrose/Water 1 100ml.bag @ 100 mls/hr IVPB Q1H [facility] Rx#: [id number] Intake, IV Titration 215.56 Amount Amiodarone 450 mg In 215.56 Dextrose 5% in Water 250 ml @ 0.5 MG/MIN 16.667 mls/hr IV .Q15H [facility] Rx#: [id number] Oral 118 Other: Voiding Method Toilet Toilet Toilet - Labs CBC & Chem 7: 10/16/20 08:01 10/17/20 07:30 Labs: Abnormal Lab Results - Last 24 Hours (Table) 10/16/20 10/16/20 10/17/20 Range/Units 17:03 20:07 06:10 Chloride (98-107) mmol/L Carbon Dioxide (22-30) mmol/L BUN (7-17) mg/dL Creatinine (0.52-1.04) mg/dL Glucose (74-99) mg/dL POC Glucose (mg/dL) 190 H 240 H 236 H (75-99) mg/dL 10/17/20 10/17/20 Range/Units 07:30 12:01 Chloride 97 L (98-107) mmol/L Carbon Dioxide 33 H (22-30) mmol/L BUN 28 H (7-17) mg/dL Creatinine 1.14 H (0.52-1.04) mg/dL Glucose 209 H (74-99) mg/dL POC Glucose (mg/dL) 175 H (75-99) mg/dL
[2020-10-17] MEDS: AMIODARONE 200 MG TAB PO SCH ×2 (14:50→21:16)
--- NOTE | 2020-10-17 15:45 | P.PN ---
Subjective Progress Note Date: 10/17/20 85-year-old female came in with complaints of generalized weakness tiredness and lightheadedness and found to have atrial fibrillation patient also has an AICD. Patient did miss metoprolol last few days. She also takes flecainide and patient is on Eliquis. Patient denied any fever chills, chest x-ray was read as a right basilar interstitial airspace of pastries patient doesn't have any cough doesn't have any leukocytosis no fever. No evidence of any other infection at this time. Patient blood glucoses bit elevated. 10/15/2020 Patient converted to sinus rhythm patient is presently on Toprol-XL 100 by mouth daily, Eliquis. chest x-ray showing pulmonary edema patient was started on IV Lasix patient had a normal ejection fraction. 10/16/2020 Patient is in and out of A. fib because of which etiology is according evaluation by EP. A she remains on IV Lasix patient is fairly euvolemic at this time. Patient's potassium and magnesium are are low which are being replaced at this time. 10/17/2020 Patient seen on follow-up, creatinine 1.1 for today, Lasix is being held. Blood pressure is stable. Patient is a bit forgetful, unable to recall details from conversation she hadn't attending physician yesterday, but is not outright confused. Heart rate is currently in the 110s, blood pressure 124/71. Potassium 3.5, being replaced. Constitutional: Denied any fatigue denied any fever. Cardio vascular: denied any chest pain, palpitations Gastrointestinal denied any nausea vomiting Pulmonary: Denied any shortness of breath cough Neurologic denied any new focal deficits Objective - Vital Signs Vital signs: Vital Signs Temp 96.8 F L 10/17/20 07:57 Pulse 118 H 10/17/20 12:27 Resp 18 10/17/20 12:27 BP 123/71 10/17/20 12:27 Pulse Ox 95 10/17/20 12:27 Intake & Output 10/16/20 10/17/20 10/17/20 18:59 06:59 18:59 Intake Total 848.56 Balance 848.56 Weight 101.5 kg Intake: IV 515 0.9 80 Amiodarone 450 mg In 135 Dextrose 5% in Water 250 ml @ 0.5 MG/MIN 16.667 mls/hr IV .Q15H LORI Rx#: [id number] Magnesium Sulfate-D5w Pmx 300 1 gm In Dextrose/Water 1 100ml.bag @ 100 mls/hr IVPB Q1H LORI Rx#: [id number] Intake, IV Titration 215.56 Amount Amiodarone 450 mg In 215.56 Dextrose 5% in Water 250 ml @ 0.5 MG/MIN 16.667 mls/hr IV .Q15H LORI Rx#: [id number] Oral 118 Other: Voiding Method Toilet Toilet Toilet - Exam PHYSICAL EXAMINATION: GENERAL: The patient is alert and oriented x3, not in any acute distress. Well developed, well nourished. HEENT: Pupils are round and equally reacting to light. EOMI. No scleral icterus. No conjunctival pallor. Normocephalic, atraumatic. No pharyngeal erythema. No thyromegaly. CARDIOVASCULAR: S1 and S2 present. No murmurs, rubs, or gallops. She is tachycardic irregularly irregular rhythm PULMONARY: Chest is clear to auscultation, no wheezing or crackles. ABDOMEN: Soft, nontender, nondistended, normoactive bowel sounds. No palpable organomegaly. MUSCULOSKELETAL: No joint swelling or deformity. EXTREMITIES: No cyanosis, clubbing, or pedal edema. NEUROLOGICAL: A&Ox 3, short term memory deficits, no focal deficits SKIN: No rashes. - Labs CBC & Chem 7: 10/16/20 08:01 10/17/20 07:30 Labs: Abnormal Lab Results - Last 24 Hours (Table) 10/16/20 10/16/20 10/17/20 Range/Units 17:03 20:07 06:10 Chloride (98-107) mmol/L Carbon Dioxide (22-30) mmol/L BUN (7-17) mg/dL Creatinine (0.52-1.04) mg/dL Glucose (74-99) mg/dL POC Glucose (mg/dL) 190 H 240 H 236 H (75-99) mg/dL 10/17/20 10/17/20 Range/Units 07:30 12:01 Chloride 97 L (98-107) mmol/L Carbon Dioxide 33 H (22-30) mmol/L BUN 28 H (7-17) mg/dL Creatinine 1.14 H (0.52-1.04) mg/dL Glucose 209 H (74-99) mg/dL POC Glucose (mg/dL) 175 H (75-99) mg/dL Assessment and Plan Assessment: -Atrial fibrillation with rapid ventricular rate: Patient will be continued on anticoagulation. Patient is in and out of atrial fibrillation EP consulted for possible ablation. -Congestive heart failure chronic diastolic dysfunction with acute exacerbation CHF exacerbation is probably secondary to A. fib: Holding Lasix today -Acute kidney injury: Most probably prerenal secondary to diuresis, holding Lasix today -Mildly elevated troponin secondary to atrial fibrillation with rapid unclear rate -Type 2 diabetes mellitus -sick sinus syndrome for which patient has a dual-chamber pacemaker -Hypertension -History of CVA in the past. -Hypomagnesemia magnesium was replaced
[2020-10-17] MEDS: FUROSEMIDE 40 MG TAB PO SCH (16:12)
[2020-10-17 17:21] LABS: Glucose,Whole Blood 228 mg/dL (75-99)
[2020-10-17 20:12] LABS: Glucose,Whole Blood 173 mg/dL (75-99)
[2020-10-17] MEDS: ALPRAZolam 0.25 MG TAB PO PRN (23:22)
[2020-10-18 06:04] LABS: Glucose,Whole Blood 181 mg/dL (75-99)
--- NOTE | 2020-10-18 07:01 | XR ---
EXAMINATION TYPE: XR chest 1V portable DATE OF EXAM: 10/18/2020 CLINICAL HISTORY: Difficulty breathing and CHF progress study. TECHNIQUE: Single AP portable upright view of the chest is obtained. COMPARISON: Chest x-ray from 4 days earlier and older studies FINDINGS: Persistent cardiomegaly with dual lead pacemaker. Chronic parenchymal changes with improve d aeration right lung. No new focal airspace opacity, pleural effusion, or pneumothorax seen bilatera lly. Degenerative changes left glenohumeral joint. IMPRESSION: Cardiomegaly and chronic parenchymal changes with improved aeration right central lung. N o new infiltrates seen.
[2020-10-18] MEDS: APIXABAN 5 MG TAB PO SCH ×2 (07:57→21:32)
[2020-10-18] MEDS: AMIODARONE 200 MG TAB PO SCH ×2 (07:57→21:32)
[2020-10-18 07:58] LABS: Calcium 8.7 mg/dL (8.4-10.2); Potassium 4.1 mmol/L (3.5-5.1)
[2020-10-18] MEDS: DILTIAZEM ORAL 30 MG TAB PO SCH ×3 (07:58→21:32)
[2020-10-18] MEDS: METOPROLOL SUCCINATE (ER) 100 MG TAB.ER.24H PO SCH (07:58)
[2020-10-18] MEDS: lisinopriL 20 MG TAB PO SCH (07:58)
[2020-10-18] MEDS: FUROSEMIDE 40 MG TAB PO SCH (07:58)
[2020-10-18] MEDS: POTASSIUM CHLORIDE ER 20 MEQ TAB.ER PO SCH (07:58)
--- NOTE | 2020-10-18 08:18 | P.EPCON ---
Electrophysiology Consult - EP Consult Electrophysiology Consult: This is Dr. Boogie dictating a consult on this patient The patient was interviewed and examined IMPRESSION / ASSESSMENT: Recurrent paroxysmal atrial fibrillation, very symptomatic with tiredness and fatigue Breakthrough episodes on flecainide Hypertension Sick sinus syndrome status post permanent pacemaker Left ventricular hypertrophy Severe LAE PLAN: As a detailed discussion with the patient regarding further management of atrial fibrillation. She is now on oral amiodarone and she is having less episodes of atrial fibrillation However she continues to have A. fib with RVR. She was treated with IV amiodarone and now is on 400 mg twice daily Plan is to proceed with an A. fib ablation. I discussed atrial fibrillation with her and her daughter I will schedule her for procedure tomorrow on Monday with PVI of the pulmonary veins and possible linear ablation HPI the patient was admitted because of shortness of breath and weakness and inability to function for the last several days However on more detailed questioning she says that this been going on for about a month While she does not describe palpitations she doesn't describe being short of breath and fatigued and having to stop doing what she is doing because she feels somewhat disoriented and short of breath and is unable to function Interrogation of the pacemaker wires Jody had revealed a recurrent episodes of A. fib with RVR despite flecainide 50 mg twice daily ROS: No fever chills or rigors, no cough, phlegm or expectoration, no nausea, vomiting or diarrhea, no hematuria, dysuria, no musculoskeletal complaints, no strokes or seizures, no skin lesions. 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
[2020-10-18] MEDS: SODIUM CHLORIDE 0.9% 1,000 ML IV SCH ×2 (09:14→09:15)
--- NOTE | 2020-10-18 11:18 | P.PN ---
Subjective Progress Note Date: 10/18/20 HISTORY OF PRESENT ILLNESS: This is a pleasant 85-year-old female past medical history significant for paroxysmal atrial fibrillation on long-term anticoagulation, permanent pacemaker implantation secondary to complete heart block, history of CVA status post thrombolytic therapy 2010, hypertension and diabetes mellitus. She follows in the office with Dr. Crocker. We have been asked to see in consultation for afib with RVR and elevated troponin. She states over the weekend she had not taken her medications Monday morning or evening. She just forgot because they weren't in the usual place in her house. She did start taking them again on Monday. The office did get a notification that she was having frequent episodes of afib with RVR. They made contact with her and discussed what was going on with her medications. She initially said she didn't have any specific symptoms. On Monday evening she started noticing she was more weak and fatigued than usual. 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 However, on Monday she started noticing she was also feeling some shortness of breath and chest tightness at times. She was having difficulty getting comfortable and couldn't sleep. She denies feeling diz zy or having any significant palpitations. 10/16/2020 Patient seen and examined resting comfortably lying flat in bed in no acute distress. Yesterday afternoon she converted spontaneously to sinus mechanism. She states her symptoms of shortness of breath and chest discomfort seemed to have spontaneously resolved when she converted. Amiodarone infusion was initiated to hopefully help her maintain sinus rhythm. However last evening around 2:30 in the morning she went back into A. fib with RVR heart rates in the 140s. She states she instantly started feeling uneasy, short of breath, uncom fortable and unable to sit still. This morning she was seen and examined resting comfortably in bed in no acute distress in sinus rhythm. However shortly thereafter nursing staff called and indicated she again went back into A. fib with RVR. Current rates 100-130. Echocardiogram obtained reveals preserved LV systolic function with ejection fraction 50-55%, severely dilated left atrium. Blood pressure 167/79. Laboratory data reviewed, CBC unremarkable, sodium 140, potassium 3.2, creatinine 0.96 and magnesium 1.4. 10/17/2020 Patient examined this morning at the bedside. Patient went back into A. fib with RVR overnight. She was started on an amiodarone drip. Heart rates remain mildly uncontrolled. She reports feeling palpitations. She denies shortness of breath. She denies chest pain or pressure. 10/18/2020 Patient was evaluated by Dr. Boogie this morning. She is scheduled for cardiac ablation tomorrow. She remains in atrial fibrillation with controlled ventricular rate. She denies chest pain or pressure. Denies shortness of breath. She is anticoagulated with Eliquis. Blood pressure 130/90. She is on room air with oxygen saturations greater than 92%. PHYSICAL EXAM: VITAL SIGNS: Reviewed. GENERAL: Well-developed in no acute distress. NECK: Supple. No JVD or thyromegaly LUNGS: Respirations even and unlabored. Lungs essentially clear to auscultation bilaterally. HEART: Irregular rate and rhythm. S1 and S2 heard. EXTREMITIES: Normal range of motion. No clubbing or cyanosis. Peripheral pulses intact. No lower extremity edema ASSESSMENT: Paroxysmal atrial fibrillation with rapid ventricular rate Acute diastolic heart failure Hypomagnesemia, resolved Hypokalemia, resolved Troponin leak secondary to A. fib with RVR Hypertension Permanent pacemaker secondary to complete heart block Diabetes mellitus, currently diet controlled PLAN: Continue current cardiac medications including amiodarone, Eliquis, Cardizem, Lasix, lisinopril, and metoprolol Continue telemetry monitoring Patient scheduled for a. fib ablation tomorrow with Dr. Boogie Further recommendations pending patient course Nurse practitioner note has been reviewed by physician. Signing provider agrees with the documented findings, assessment, and plan of care. Objective - Vital Signs Vital signs: Vital Signs Temp 97.4 F L 10/18/20 04:00 Pulse 60 10/18/20 08:00 Resp 18 10/18/20 08:00 BP 130/90 10/18/20 07:47 Pulse Ox 100 10/18/20 07:47 Intake & Output 10/17/20 10/18/20 10/18/20 18:59 06:59 18:59 Intake Total 250 360 Balance 250 360 Weight 97.5 kg Intake: Oral 250 360 Other: Voiding Method Toilet Toilet Toilet # Voids 1 - Labs CBC & Chem 7: 10/16/20 08:01 10/18/20 07:08 Labs: Abnormal Lab Results - Last 24 Hours (Table) 10/17/20 10/17/20 10/17/20 Range/Units 12:01 16:57 20:10 Chloride (98-107) mmol/L Carbon Dioxide (22-30) mmol/L BUN (7-17) mg/dL Creatinine (0.52-1.04) mg/dL Glucose (74-99) mg/dL POC Glucose (mg/dL) 175 H 228 H 173 H (75-99) mg/dL 10/18/20 10/18/20 Range/Units 06:03 07:08 Chloride 97 L (98-107) mmol/L Carbon Dioxide 36 H (22-30) mmol/L BUN 34 H (7-17) mg/dL Creatinine 1.32 H (0.52-1.04) mg/dL Glucose 191 H (74-99) mg/dL POC Glucose (mg/dL) 181 H (75-99) mg/dL
[2020-10-18 12:07] LABS: Glucose,Whole Blood 230 mg/dL (75-99)
--- NOTE | 2020-10-18 13:41 | P.PN ---
Subjective Progress Note Date: 10/18/20 Principal diagnosis: Atrial fibrillation with rapid ventricular response 85-year-old female, well-known to me, as I service her primary care physician, with a past medical history of status post pacemaker insertion, chronic atrial fibrillation, asthma, and hypertension. The patient states that she forgot to take her medications for the last 2 days beginning on Monday and Monday. On Monday, she started not feeling well, including shortness of breath, heaviness in her chest, palpitations, and dizziness. She continued to work, and finally decided to go to the doctor today, October 14, at 9:00 in the morning. She was seen by Dr. Saravia, in the emergency room. She was found have atrial fibrillation with rapid ventricular response, and also congestive heart failure. She complained of weakness, and dizziness, and lightheadedness. She also had some pressure in her chest. She denies any fever or chills. Her medical history includes atrial fibrillation, angina, CVA, hypertension, DJD, and asthma. She also has type 2 diabetes, cataracts, arthritis, and status post dual-chamber pacemaker insertion for sick sinus syndrome. She is a lifelong nonsmoker. Laboratory data includes a white count 8.7, hemoglobin 13.4, hematocrit 40.9, platelet count 249,000. PT INR and PTT are all normal. Electrolytes look normal as well. Her troponin is 0.049, and her N-terminal proBNP is elevated at 6430. Chest x-ray in my opinion shows cardiomegaly with trace pleural effusions and fluid overload. The patient is seen today 10/15/2020 in follow-up on the selective care unit. She is currently sitting up in a chair at the bedside. Awake and alert in no acute distress. She denies any worsening shortness of breath, cough or congestion. Maintaining O2 saturations in the high 90s on 3 L/m per nasal cannula. No chest pain or palpitations. She does remain in atrial fibrillation with varying ventricular response. Sodium 140. Potassium 3.7. Chloride 103. Bicarb 28. Creatinine 0.90. Glucose 172. TSH 2.97. She remains on Lasix 40 IV every 12 hours, beta blockers, Eliquis. Echocardiogram reveals preserved left ventricular systolic function with ejection fraction 50-55%. Patient is seen today 10/16/2020 in follow-up on the selective care unit. She is currently sitting up in bed. Awake and alert in no acute distress. She is maintaining O2 saturations in the 80s on room air. She is feeling quite weak and tired today. She was to undergo cardioversion but that was canceled due to her intermittent episodes of sinus rhythm. She is quite sensitive to the atrial fibrillation. She gets anxious and short of breath and an uneasy feeling. She is currently on amiodarone drip at 0.5 mg/m. She is anticoagulated with Eliquis. Magnesium and potassium are being replaced. She remains on Lasix 40 mg IV every 12 hours. White count 6.2. Hemoglobin 12.8. Sodium 140. Potassium 3.2. Creatinine 0.96. Patient is seen today 10/17/2020 in follow-up on the selective care unit. She is awake and alert in no acute distress. Resting comfortably in bed. Ma intaining O2 saturations in the mid 90s on room air. She's afebrile. She had converted back to sinus rhythm again yesterday approximately 3 PM and amiodarone drip was discontinued. She is having ongoing issues with A. fib RVR. Current rate 110. She is back on amiodarone at 0.5 mg/m. 0.9 normal saline at 20 ML's per hour. Sodium 139. Potassium 3.5. Bicarb 33. Creatinine 1.14. Glucose 209. Magnesium 1.8. Anticoagulated with Eliquis. Remains on IV diuretics. The patient is seen today 10/18/2020 in follow-up on the selective care unit. She is currently sitting up in a chair at the bedside. Awake and alert in no acute distress. Maintaining good O2 saturations in the 90s on room air. Chest x-ray reveals cardiomegaly with chronic parenchymal changes with improved aeration of the right central lung. No new infiltrates. Sodium 140. Potassium 4.1. Creatinine 1.32. Glucose 191. She remains on metoprolol, Cardizem and Cordarone. Anticoagulated with Eliquis. Heart rate well controlled. Plan is for EP studies and possible ablation tomorrow. Objective - Vital Signs Vital signs: Vital Signs Temp 97.8 F 10/18/20 12:00 Pulse 74 10/18/20 12:00 Resp 18 10/18/20 12:00 BP 131/97 10/18/20 12:00 Pulse Ox 97 10/18/20 12:00 Intake & Output 10/17/20 10/18/20 10/18/20 18:59 06:59 18:59 Intake Total 250 600 Balance 250 600 Weight 97.5 kg Intake: Oral 250 600 Other: Voiding Method Toilet Toilet Toilet # Voids 1 - Exam GENERAL EXAM: Alert, active, very pleasant 85-year-old female, on room air, comfortable in no apparent distress. HEAD: Normocephalic. EYES: Normal reaction of pupils, equal size. NOSE: Clear with pink turbinates. THROAT: No erythema or exudates. NECK: No masses, no JVD. CHEST: No chest wall deformity. LUNGS: Equal air entry with faint crackles in the posterior bases. CVS: S1 and S2 normal with no audible murmur, irregular rhythm. ABDOMEN: No hepatosplenomegaly, normal bowel sounds, no guarding or rigidity. SPINE: No scoliosis or deformity SKIN: No rashes CENTRAL NERVOUS SYSTEM: No focal deficits, tone is normal in all 4 extremities. EXTREMITIES: There is no peripheral edema. No clubbing, no cyanosis. Peripheral pulses are intact. - Labs CBC & Chem 7: 10/16/20 08:01 10/18/20 07:08 Labs: Abnormal Lab Results - Last 24 Hours (Table) 10/17/20 10/17/20 10/18/20 Range/Units 16:57 20:10 06:03 Chloride (98-107) mmol/L Carbon Dioxide (22-30) mmol/L BUN (7-17) mg/dL Creatinine (0.52-1.04) mg/dL Glucose (74-99) mg/dL POC Glucose (mg/dL) 228 H 173 H 181 H (75-99) mg/dL 10/18/20 10/18/20 Range/Units 07:08 11:53 Chloride 97 L (98-107) mmol/L Carbon Dioxide 36 H (22-30) mmol/L BUN 34 H (7-17) mg/dL Creatinine 1.32 H (0.52-1.04) mg/dL Glucose 191 H (74-99) mg/dL POC Glucose (mg/dL) 230 H (75-99) mg/dL Assessment and Plan Assessment: 1 Acute hypoxic respiratory failure, and chest pressure, secondary to atrial fibrillation with rapid ventricular response with acute diastolic congestive heart failure 2 Elevated troponin, rule out myocardial ischemia, versus supply/demand mismatch secondary to A. fib/RVR. 3 History of diabetes mellitus. 4 History of CVA. 5 History of mild chronic bronchial asthma. 6 Status post dual-chamber pacemaker insertion for sick sinus syndrome. 7 History of cataracts. 8 History of arthritis. 9 History of diverticulosis. 10 History of hypertension. Plan: The patient was seen and evaluated by Dr. Manzo Chest x-ray and labs reviewed Stable from the pulmonary standpoint, on room air Remains on amiodarone, metoprolol, Cardizem Remains on Eliquis Plan is for EPS and possible ablation tomorrow We will continue to follow I, the cosigning physician, performed a history & physical examination of the patient. Lungs sounds with faint crackles in the posterior bases. Maintaining good O2 saturations in the 90s on room air. I discussed the assessment and plan of care with my nurse practitioner, Crystal Fuentes. I attest to the above note as dictated by her.
--- NOTE | 2020-10-18 14:50 | P.PN ---
Subjective Progress Note Date: 10/18/20 85-year-old female came in with complaints of generalized weakness tiredness and lightheadedness and found to have atrial fibrillation patient also has an AICD. Patient did miss metoprolol last few days. She also takes flecainide and patient is on Eliquis. Patient denied any fever chills, chest x-ray was read as a right basilar interstitial airspace of pastries patient doesn't have any cough doesn't have any leukocytosis no fever. No evidence of any other infection at this time. Patient blood glucoses bit elevated. 10/15/2020 Patient converted to sinus rhythm patient is presently on Toprol-XL 100 by mouth daily, Eliquis. chest x-ray showing pulmonary edema patient was started on IV Lasix patient had a normal ejection fraction. 10/16/2020 Patient is in and out of A. fib because of which etiology is according evaluation by EP. A she remains on IV Lasix patient is fairly euvolemic at this time. Patient's potassium and magnesium are are low which are being replaced at this time. 10/17/2020 Patient seen on follow-up, creatinine 1.1 for today, Lasix is being held. Blood pressure is stable. Patient is a bit forgetful, unable to recall details from conversation she hadn't attending physician yesterday, but is not outright confused. Heart rate is currently in the 110s, blood pressure 124/71. Potassium 3.5, being replaced. 10/18/2020 Patient seen on reevaluation, heart rate is currently controlled rate in the 70s. Lab work today shows creatinine up to 1.3 she did receive a.m. dose of Lasix which we have since discontinued. She is continued on oral Cardizem, metoprolol, amiodarone and anticoagulated with Eliquis. Chest x-ray today showing chronic changes with improved aeration right central lung. Currently on room air saturating above 90%. Constitutional: Denied any fatigue denied any fever. Cardio vascular: denied any chest pain, palpitations Gastrointestinal denied any nausea vomiting Pulmonary: Denied any shortness of breath cough Neurologic denied any new focal deficits Objective - Vital Signs Vital signs: Vital Signs Temp 97.8 F 10/18/20 12:00 Pulse 74 10/18/20 12:00 Resp 18 10/18/20 12:00 BP 131/97 10/18/20 12:00 Pulse Ox 97 10/18/20 12:00 Intake & Output 10/17/20 10/18/20 10/18/20 18:59 06:59 18:59 Intake Total 250 600 Balance 250 600 Weight 97.5 kg Intake: Oral 250 600 Other: Voiding Method Toilet Toilet Toilet # Voids 1 - Exam PHYSICAL EXAMINATION: GENERAL: The patient is alert and oriented x3, not in any acute distress. Well developed, well nourished. HEENT: Pupils are round and equally reacting to light. EOMI. No scleral icterus. No conjunctival pallor. Normocephalic, atraumatic. No pharyngeal erythema. No thyromegaly. CARDIOVASCULAR: S1 and S2 present. No murmurs, rubs, or gallops. irregularly irregular rhythm PULMONARY: Chest is clear to auscultation, no wheezing or crackles. ABDOMEN: Soft, nontender, nondistended, normoactive bowel sounds. No palpable organomegaly. MUSCULOSKELETAL: No joint swelling or deformity. EXTREMITIES: No cyanosis, clubbing, or pedal edema. NEUROLOGICAL: A&Ox 3, short term memory deficits, no focal deficits SKIN: No rashes. - Labs CBC & Chem 7: 10/16/20 08:01 10/18/20 07:08 Labs: Abnormal Lab Results - Last 24 Hours (Table) 10/17/20 10/17/20 10/18/20 Range/Units 16:57 20:10 06:03 Chloride (98-107) mmol/L Carbon Dioxide (22-30) mmol/L BUN (7-17) mg/dL Creatinine (0.52-1.04) mg/dL Glucose (74-99) mg/dL POC Glucose (mg/dL) 228 H 173 H 181 H (75-99) mg/dL 10/18/20 10/18/20 Range/Units 07:08 11:53 Chloride 97 L (98-107) mmol/L Carbon Dioxide 36 H (22-30) mmol/L BUN 34 H (7-17) mg/dL Creatinine 1.32 H (0.52-1.04) mg/dL Glucose 191 H (74-99) mg/dL POC Glucose (mg/dL) 230 H (75-99) mg/dL Assessment and Plan Assessment: -Atrial fibrillation with rapid ventricular rate: In and out of atrial fibrillation continued on metoprolol, oral amiodarone, and Cardizem, EP is following possible ablation tomorrow. -Congestive heart failure chronic diastolic dysfunction with acute exacerbation CHF exacerbation is probably secondary to A. fib: Holding Lasix today -Acute kidney injury: Most probably prerenal secondary to diuresis, creatinine 1.3 to we will discontinue Lasix -Mildly elevated troponin secondary to atrial fibrillation with rapid unclear rate -Type 2 diabetes mellitus -sick sinus syndrome for which patient has a dual-chamber pacemaker -Hypertension -History of CVA in the past. -Hypomagnesemia magnesium was replaced
[2020-10-18 17:00] LABS: Glucose,Whole Blood 203 mg/dL (75-99)
[2020-10-18 20:52] LABS: Glucose,Whole Blood 244 mg/dL (75-99)
[2020-10-18] MEDS: ALPRAZolam 0.25 MG TAB PO PRN (21:32)
[2020-10-19 06:24] LABS: Glucose,Whole Blood 189 mg/dL (75-99)
[2020-10-19 08:05] LABS: Calcium 8.5 mg/dL (8.4-10.2); Potassium 3.9 mmol/L (3.5-5.1)
[2020-10-19] MEDS: AMIODARONE 200 MG TAB PO SCH (08:19)
[2020-10-19] MEDS: POTASSIUM CHLORIDE ER 20 MEQ TAB.ER PO SCH (08:19)
[2020-10-19] MEDS: lisinopriL 20 MG TAB PO SCH (08:19)
[2020-10-19] MEDS: DILTIAZEM ORAL 30 MG TAB PO SCH (08:19)
[2020-10-19] MEDS: METOPROLOL SUCCINATE (ER) 100 MG TAB.ER.24H PO SCH (08:19)
[2020-10-19] MEDS: APIXABAN 5 MG TAB PO SCH ×2 (08:19→20:57)
[2020-10-19 08:25] VITALS: TEMP 97.4
[2020-10-19 12:19] LABS: Glucose,Whole Blood 149 mg/dL (75-99)
--- NOTE | 2020-10-19 12:38 | P.PN ---
Subjective Progress Note Date: 10/19/20 85-year-old female, well-known to me, as I service her primary care physician, with a past medical history of status post pacemaker insertion, chronic atrial fibrillation, asthma, and hypertension. The patient states that she forgot to take her medications for the last 2 days beginning on Monday and Monday. On Monday, she started not feeling well, including shortness of breath, heaviness in her chest, palpitations, and dizziness. She continued to work, and finally decided to go to the doctor today, October 14, at 9:00 in the morning. She was seen by Dr. Saravia, in the emergency room. She was found have atrial fibrillation with rapid ventricular response, and also congestive heart failure. She complained of weakness, and dizziness, and lightheadedness. She also had some pressure in her chest. She denies any fever or chills. Her medical history includes atrial fibrillation, angina, CVA, hypertension, DJD, and asthma. She also has type 2 diabetes, cataracts, arthritis, and status post dual-chamber pacemaker insertion for sick sinus syndrome. She is a lifelong nonsmoker. Laboratory data includes a white count 8.7, hemoglobin 13.4, hematocrit 40.9, platelet count 249,000. PT INR and PTT are all normal. Electrolytes look normal as well. Her troponin is 0.049, and her N-terminal proBNP is elevated at 6430. Chest x-ray in my opinion shows cardiomegaly with trace pleural effusions and fluid overload. The patient is seen today 10/15/2020 in follow-up on the selective care unit. She is currently sitting up in a chair at the bedside. Awake and alert in no acute distress. She denies any worsening shortness of breath, cough or congestion. Maintaining O2 saturations in the high 90s on 3 L/m per nasal cannula. No chest pain or palpitations. She does remain in atrial fibrillation with varying ventricular response. Sodium 140. Potassium 3.7. Chloride 103. Bicarb 28. Creatinine 0.90. Glucose 172. TSH 2.97. She remains on Lasix 40 IV every 12 hours, beta blockers, Eliquis. Echocardiogram reveals preserved left ventricular systolic function with ejection fraction 50-55%. Patient is seen today 10/16/2020 in follow-up on the selective care unit. She is currently sitting up in bed. Awake and alert in no acute distress. She is maintaining O2 saturations in the 80s on room air. She is feeling quite weak and tired today. She was to undergo cardioversion but that was canceled due to her intermittent episodes of sinus rhythm. She is quite sensitive to the atrial fibrillation. She gets anxious and short of breath and an uneasy feeling. She is currently on amiodarone drip at 0.5 mg/m. She is anticoagulated with Eliquis. Magnesium and potassium are being replaced. She remains on Lasix 40 mg IV every 12 hours. White count 6.2. Hemoglobin 12.8. Sodium 140. Potassium 3.2. Creatinine 0.96. Patient is seen today 10/17/2020 in follow-up on the selective care unit. She is awake and alert in no acute distress. Resting comfortably in bed. Maintaining O2 saturations in the mid 90s on room air. She's afebrile. She had converted back to sinus rhythm again yesterday approximately 3 PM and amiodarone drip was discontinued. She is having ongoing issues with A. fib RVR. Current rate 110. She is back on amiodarone at 0.5 mg/m. 0.9 normal saline at 20 ML's per hour. Sodium 139. Potassium 3.5. Bicarb 33. Creatinine 1.14. Glucose 20 9. Magnesium 1.8. Anticoagulated with Eliquis. Remains on IV diuretics. The patient is seen today 10/18/2020 in follow-up on the selective care unit. She is currently sitting up in a chair at the bedside. Awake and alert in no acute distress. Maintaining good O2 saturations in the 90s on room air. Chest x-ray reveals cardiomegaly with chronic parenchymal changes with improved aeration of the right central lung. No new infiltrates. Sodium 140. Potassium 4.1. Creatinine 1.32. Glucose 191. She remains on metoprolol, Cardizem and Cordarone. Anticoagulated with Eliquis. Heart rate well controlled. Plan is for EP studies and possible ablation tomorrow. 2020, the patient is comfortable, sitting up on a chair, nevertheless she has failed cardioversion and the patient is still nature fibrillation with a heart rate ranging between 83-120, irregular rhythm consistent with atrial fibrillation. Creatinine is stable at 1.1. Electrolytes are normal. Potassium level is at 3.9. She remains on amiodarone at a dose of 400 mg by mouth twice a day. The patient is also on Cardizem 30 mg 3 times a day and the patient is also on metoprolol 100 mg by mouth daily. The plan is to proceed with ablation of atrial fibrillation today. She is on room air oxygen. She denies having any other new complaints for now. Objective - Vital Signs Vital signs: Vital Signs Temp 97.4 F L 10/19/20 08:00 Pulse 139 H 10/19/20 08:00 Resp 16 10/19/20 08:00 BP 158/93 10/19/20 08:00 Pulse Ox 92 L 10/19/20 08:00 Intake & Output 10/18/20 10/19/20 10/19/20 18:59 06:59 18:59 Intake Total 840 Balance 840 Intake: Oral 840 Other: Voiding Method Toilet Toilet Toilet # Voids 3 - Exam GENERAL EXAM: Alert, active, very pleasant 85-year-old female, on room air, comfortable in no apparent distress. HEAD: Normocephalic. EYES: Normal reaction of pupils, equal size. NOSE: Clear with pink turbinates. THROAT: No erythema or exudates. NECK: No masses, no JVD. CHEST: No chest wall deformity. LUNGS: Equal air entry with faint crackles in the posterior bases. CVS: S1 and S2 normal with no audible murmur, irregular rhythm. ABDOMEN: No hepatosplenomegaly, normal bowel sounds, no guarding or rigidity. SPINE: No scoliosis or deformity SKIN: No rashes CENTRAL NERVOUS SYSTEM: No focal deficits, tone is normal in all 4 extremities. EXTREMITIES: There is no peripheral edema. No clubbing, no cyanosis. Peripheral pulses are intact. - Labs CBC & Chem 7: 10/16/20 08:01 10/19/20 07:21 Labs: Abnormal Lab Results - Last 24 Hours (Table) 10/18/20 10/18/20 10/19/20 Range/Units 16:54 20:51 06:22 Carbon Dioxide (22-30) mmol/L BUN (7-17) mg/dL Creatinine (0.52-1.04) mg/dL Glucose (74-99) mg/dL POC Glucose (mg/dL) 203 H 244 H 189 H (75-99) mg/dL Hemoglobin A1c (4.0-6.0) % 10/19/20 10/19/20 10/19/20 Range/Units 07:21 07:21 11:41 Carbon Dioxide 33 H (22-30) mmol/L BUN 31 H (7-17) mg/dL Creatinine 1.19 H (0.52-1.04) mg/dL Glucose 201 H (74-99) mg/dL POC Glucose (mg/dL) 149 H (75-99) mg/dL Hemoglobin A1c 7.4 H (4.0-6.0) % Assessment and Plan Plan: 1 Acute hypoxic respiratory failure, and chest pressure, secondary to atrial fibrillation with rapid ventricular response with acute diastolic congestive heart failure 2 Elevated troponin, rule out myocardial ischemia, versus supply/demand mismatch secondary to A. fib/RVR. 3 History of diabetes mellitus. 4 History of CVA. 5 History of mild chronic bronchial asthma. 6 Status post dual-chamber pacemaker insertion for sick sinus syndrome. 7 History of cataracts. 8 History of arthritis. 9 History of diverticulosis. 10 History of hypertension. Plan: Patient continues to have difficult to control atrial fibrillation. Failed cardioversion. Being considered for EP studies and possible ablation of atrial fibrillation today. Continue from the pulmonary standpoint, on room air Remains on amiodarone, metoprolol, Cardizem Remains on Eliquis We will continue to follow
[2020-10-19] MEDS ORDERED: PROPOFOL 10 MG/ML 20 ML VIAL IV ONE (12:57)
[2020-10-19] MEDS ORDERED: GLYCOPYRROLATE 0.2 MG/ML 2 ML VIAL ONE (12:57)
[2020-10-19] MEDS ORDERED: MIDAZOLAM 2 MG/2 ML VIAL ONE (12:57)
[2020-10-19] MEDS ORDERED: SUCCINYLCHOLINE CHLORIDE 100 MG/5 ML SYR IV ONE (12:57)
[2020-10-19] MEDS ORDERED: HEPARIN SODIUM,PORCINE 10,000 UNIT/ML 1 ML VIAL ONE (12:57)
[2020-10-19] MEDS ORDERED: IV FLUID CONTINUATION 1,000 ML IV ONE (12:57)
[2020-10-19] MEDS ORDERED: LIDOCAINE 1% INJ 10MG/ML (20 ML MDV) ONE ×3 (12:57→13:10)
[2020-10-19] MEDS ORDERED: fentaNYL (PF) 50 MCG/ML 2 ML AMP ONE (12:57)
[2020-10-19] MEDS ORDERED: PROTAMINE SULFATE 10 MG/ML 5 ML VIAL IV ONE ×2 (12:57→15:32)
[2020-10-19] MEDS ORDERED: NEOSTIGMINE 1 MG/ML 10 ML VIAL ONE (12:57)
[2020-10-19] MEDS ORDERED: ROCURONIUM 10 MG/ML (5 ML VIAL) IV ONE (12:57)
[2020-10-19] MEDS ORDERED: PHENYLEPHRINE-0.9% NACL SYG 1,000 MCG/10 ML SYRINGE ONE (12:57)
[2020-10-19] MEDS: CLINDAMYCIN 600 MG in DEXTROSE 5% IN WATER 50 ML IVPB STA ×4 (13:26→13:28)
[2020-10-19] MEDS ORDERED: LIDOCAINE 1% INJ 10MG/ML (20 ML MDV) SQ ONE (13:37)
[2020-10-19] MEDS ORDERED: HEPARIN SOD,PORK IN 0.45% NACL 25,000 UNIT in 0.45% NACL 1 250ML.BAG IV ONE (13:38)
--- NOTE | 2020-10-19 15:19 | P.PN ---
Subjective 85-year-old female came in with complaints of generalized weakness tiredness and lightheadedness and found to have atrial fibrillation patient also has an AICD. Patient did miss metoprolol last few days. She also takes flecainide and patient is on Eliquis. Patient denied any fever chills, chest x-ray was read as a right basilar interstitial airspace of pastries patient doesn't have any cough doesn't have any leukocytosis no fever. No evidence of any other infection at this time. Patient blood glucoses bit elevated. 10/15/2020 Patient converted to sinus rhythm patient is presently on Toprol-XL 100 by mouth daily, Eliquis. chest x-ray showing pulmonary edema patient was started on IV Lasix patient had a normal ejection fraction. 10/16/2020 Patient is in and out of A. fib because of which etiology is according evaluation by EP. A she remains on IV Lasix patient is fairly euvolemic at this time. Patient's potassium and magnesium are are low which are being replaced at this time. 10/19/2020 Patient will undergo EP procedure and ablation. Patient is otherwise clinically doing well since her creatinine has come down to 1.19. Patient is off Lasix. Constitutional: Denied any fatigue denied any fever. Cardio vascular: denied any chest pain, palpitations Gastrointestinal denied any nausea vomiting Pulmonary: Denied any shortness of breath cough Neurologic denied any new focal deficits All inpatient medications were reviewed and appropriate changes in these medications as dictated in the interval history and assessment and plan. Objective - Vital Signs Vital signs: Vital Signs Temp 97.4 F L 10/19/20 08:00 Pulse 139 H 10/19/20 08:00 Resp 16 10/19/20 08:00 BP 158/93 10/19/20 08:00 Pulse Ox 92 L 10/19/20 08:00 Intake & Output 10/18/20 10/19/20 10/19/20 18:59 06:59 18:59 Intake Total 840 Balance 840 Intake: Oral 840 Other: Voiding Method Toilet Toilet Toilet # Voids 3 - Exam PHYSICAL EXAMINATION: GENERAL: The patient is alert and oriented x3, not in any acute distress. Well developed, well nourished. HEENT: Pupils are round and equally reacting to light. EOMI. No scleral icterus. No conjunctival pallor. Normocephalic, atraumatic. No pharyngeal erythema. No thyromegaly. CARDIOVASCULAR: S1 and S2 present. No murmurs, rubs, or gallops. She is tachycardic irregularly irregular rhythm PULMONARY: Chest is clear to auscultation, no wheezing or crackles. ABDOMEN: Soft, nontender, nondistended, normoactive bowel sounds. No palpable organomegaly. MUSCULOSKELETAL: No joint swelling or deformity. EXTREMITIES: No cyanosis, clubbing, or pedal edema. NEUROLOGICAL: Gross neurological examination did not reveal any focal deficits. SKIN: No rashes. - Labs CBC & Chem 7: 10/16/20 08:01 10/19/20 07:21 Labs: Abnormal Lab Results - Last 24 Hours (Table) 10/18/20 10/18/20 10/19/20 Range/Units 16:54 20:51 06:22 Carbon Dioxide (22-30) mmol/L BUN (7-17) mg/dL Creatinine (0.52-1.04) mg/dL Glucose (74-99) mg/dL POC Glucose (mg/dL) 203 H 244 H 189 H (75-99) mg/dL Hemoglobin A1c (4.0-6.0) % 10/19/20 10/19/20 10/19/20 Range/Units 07:21 07:21 11:41 Carbon Dioxide 33 H (22-30) mmol/L BUN 31 H (7-17) mg/dL Creatinine 1.19 H (0.52-1.04) mg/dL Glucose 201 H (74-99) mg/dL POC Glucose (mg/dL) 149 H (75-99) mg/dL Hemoglobin A1c 7.4 H (4.0-6.0) % Assessment and Plan Plan: -Atrial fibrillation with rapid ventricular rate: Patient will be continued on anticoagulation. Patient will undergo ablation procedure today -Congestive heart failure chronic diastolic dysfunction with acute exacerbation CHF exacerbation is probably secondary to A. fib she is off Lasix. -Acute renal failure secondary to excessive diuresis which is Lasix is being held. -Mildly elevated troponin secondary to atrial fibrillation with rapid unclear ra te -Type 2 diabetes mellitus -sick sinus syndrome for which patient has a dual-chamber pacemaker -Hypertension -History of CVA in the past. -Hypomagnesemia magnesium was replaced
[2020-10-19] MEDS ORDERED: IOPAMIDOL-300 50ML BTL INJ ONE (15:29)
[2020-10-19] MEDS ORDERED: SODIUM CHLORIDE 0.9% 1,000 ML IV ONE (15:30)
[2020-10-19] MEDS ORDERED: ACETAMINOPHEN TAB 325 MG TAB PO PRN (15:40)
[2020-10-19] MEDS ORDERED: HYDROcodone/APAP 5-325MG 1 EACH TAB PO PRN (15:40)
--- NOTE | 2020-10-19 15:48 | P.EPPROC ---
- EP Procedure Note Electrophysiology Procedure Note: PROCEDURE A. fib ablation/pulmonary vein isolation with cryoablation DIAGNOSIS Atrial fibrillation, symptomatic, refractory to therapy with 50 mrem of flecainide twice daily RESULT No left atrial appendage mass seen on intracardiac echo Successful A. fib ablation/pulmonary vein isolation of all veins using cryo- ablation Complete entrance block in all 4 veins confirmed No evidence for phrenic nerve injury Esophageal deflection YES Electrical cardioversion with a synchronized shock across the chest NO PROCEDURE DETAILS Patient was brought to the EP lab in a fasting state. Written informed consent was obtained prior to the procedure. Procedure performed under general anesthesia After initial muscle relaxant use, muscle relaxants were not given thereafter in order to assess phrenic nerve during procedure. Patient prepped and draped as per protocol Full cryo-set up with standard preparation of the cryoablation tools done. Femoral Venous access obtained on the right and left groins Venous and arterial Sheaths placed. Diagnostic catheters for the high right atrium, phrenic nerve stimulation and pacing, His bundle, RV and coronary sinus placed Intracardiac echo catheter placed. Long sheath placed in the right atrium Left and right transseptal catheterization performed under intracardiac echo guidance. Intravenous heparin with aCT above 300 Later, catheter positioning and balloon positioning in the left atrium, under intracardiac echo guidance Diagnostic EP study with Coronary sinus pacing and recording Baseline measurements NV interval 193 ms, QRS 120 ms, QT 45 ms AH 78 and HV 52 ms Transseptal catheterization performed RA pressure 13/6/10 LA pressure 19/5/11 Transseptal catheterization performed with standard sheath. Mechanical termination of atrial fibrillation to sinus rhythm with the transseptal needing when it was in the upper in the atrial septum at or above the upper limbus of the fossa ovalis The cryoablation sheath was then placed with an over the wire exchange without any acute complications. All 4 pulmonary veins were isolated in the following sequence: Left superior followed by left inferior followed by right superior followed by right inferior The cryo-ablation balloon was placed at the os of each vein 1.5 mL of IV dye was injected to confirm an occluded vein Goal during cryoablation was to achieve complete occlusion of the pulmonary vein, achieve -30 degrees C at 30 seconds and achieve -40 degrees C at 60 seconds and a time to effect of less than 60-90 seconds, . If not the balloon was repositioned to obtain this result After completion of Cryoblation with durations from 180-240 seconds, entrance block was confirmed with the Attain circular catheter in a roving fashion around the antrum of the pulmonary veins Phrenic nerve pacing was performed from the SVC, right innominate vein area and diaphragm voltage was monitored. Diaphragmatic contractions were also monitored manually for strength of contraction. Parameter goals for each cryo freeze Complete occlusion of the appropriate vein -30 degrees C by 30 seconds -40 degrees C by 60 seconds Minimum between minus 40-55 degrees C Thaw time greater than 10 seconds Balloon visualized by intracardiac echo The esophagus was intubated. Esophageal Temperature monitoring with a CIRCA catheter formed. Esophageal deflection for hypothermia of the esophagus below 30 degrees C Left superior pulmonary vein Complete isolation, entrance block Left inferior pulmonary vein Complete isolation, entrance block Right superior pulmonary vein, during phrenic nerve pacing Complete isolation, entrance block Right inferior pulmonary vein, during phrenic nerve pacing Complete isolation, entrance block At the end of the procedure the Achieve catheter was once again used to check for entrance block Phrenic nerve stimulation was performed to confirm diaphragmatic stimulation the end of the procedure Cine fluoroscopy was performed at the very end of the procedure to confirm movement of both diaphragms with inspiration and expiration At the end of the procedure the patient was extubated Heparin was reversed Venous sheaths were removed and hemostasis assured PROCEDURES PERFORMED Diagnostic EP study CS pacing and recording Left and right transseptal catheterization Catheter the mapping of the tachycardia (NOT 3D mapping) Intracardiac echocardiography Pulmonary vein isolation with transseptal and comprehensive EPS, [id number]
[2020-10-19] MEDS ORDERED: ACETAMINOPHEN IV (For NPO) 1,000 MG in EMPTY BAG 1 BAG IVPB ONE (16:00)
--- NOTE | 2020-10-19 16:04 | P.PCN ---
Preoperative Diagnosis: Pacemaker was interrogated prior to the study Impedances were noted for atrial and ventricular leads The device was reprogrammed. DDDR 50 PPM Cinefluoroscopy of the leads was performed This was repeated again at the end of the procedure Leads were in stable position at the end of the procedure While transseptal catheterization, care was taken to avoid displacing the atrial lead with the transseptal sheath in the [place] view At the end of the procedure the device was reprogrammed to DDDR 50 to 1:30 bpm Impedances were remeasured and were found to be stable
[2020-10-19 19:58] LABS: Glucose,Whole Blood 211 mg/dL (75-99)
[2020-10-19] MEDS: METOPROLOL SUCCINATE (ER) 50 MG TAB.ER.24H PO SCH (20:57)
[2020-10-19] MEDS: FLECAINIDE 50 MG TAB PO SCH (20:57)
[2020-10-19] MEDS: ALPRAZolam 0.25 MG TAB PO PRN (21:41)
[2020-10-19] MEDS: SODIUM CHLORIDE 0.9% 1,000 ML IV SCH ×2 (21:54)
[2020-10-20 05:58] LABS: Glucose,Whole Blood 273 mg/dL (75-99)
[2020-10-20] MEDS: lisinopriL 20 MG TAB PO SCH (08:37)
[2020-10-20] MEDS: POTASSIUM CHLORIDE ER 20 MEQ TAB.ER PO SCH (08:37)
[2020-10-20] MEDS: METOPROLOL SUCCINATE (ER) 50 MG TAB.ER.24H PO SCH (08:37)
[2020-10-20] MEDS: METOPROLOL SUCCINATE (ER) 100 MG TAB.ER.24H PO SCH (08:38)
[2020-10-20] MEDS: APIXABAN 5 MG TAB PO SCH (08:38)
[2020-10-20] MEDS: FLECAINIDE 50 MG TAB PO SCH (08:38)
[2020-10-20 08:41] VITALS: RESP 16
[2020-10-20] MEDS ORDERED: amLODIPine 5 MG TAB PO SCH (09:15)
--- NOTE | 2020-10-20 09:39 | XR ---
EXAMINATION TYPE: XR chest 1V DATE OF EXAM: 10/20/2020 COMPARISON: Chest x-ray 10/18/2020 HISTORY: Congestive heart failure TECHNIQUE: Single frontal view of the chest is obtained. FINDINGS: There is no focal air space opacity, pleural effusion, or pneumothorax seen. The cardiac silhouette size is stable, likely enlarged. There is a generator in left pectoral region, lead in the right atrium and ventricle. Patient is rotated. The osseous structures are intact. IMPRESSION: No acute process.
--- NOTE | 2020-10-20 11:57 | P.DS ---
Providers Date of admission: 10/14/20 11:27 Attending physician: Jp Duarte Consults: 10/14/20 11:22 Consult Physician Routine Consulting Provider: Macrina Crocker Consult Reason/Comments: afib rvr, positive troponin Do you want consulting provider notified?: Yes 10/16/20 10:19 Consult Physician Routine Consulting Provider: Az Boogie Consult Reason/Comments: afib Do you want consulting provider notified?: Already Contacted Primary care physician: [facility] Course: 85-year-old female came in with complaints of generalized weakness tiredness and lightheadedness and found to have atrial fibrillation patient also has an AICD. Patient did miss metoprolol last few days. She also takes flecainide and patient is on Eliquis. Patient denied any fever chills, chest x-ray was read as a right basilar interstitial airspace of pastries patient doesn't have any cough doesn't have any leukocytosis no fever. No evidence of any other infection at this time. Patient blood glucoses bit elevated. 10/15/2020 Patient converted to sinus rhythm patient is presently on Toprol-XL 100 by mouth daily, Eliquis. chest x-ray showing pulmonary edema patient was started on IV Lasix patient had a normal ejection fraction. 10/16/2020 Patient is in and out of A. fib because of which etiology is according evaluation by EP. A she remains on IV Lasix patient is fairly euvolemic at this time. Patient's potassium and magnesium are are low which are being replaced at this time. 10/19/2020 Patient will undergo EP procedure and ablation. Patient is otherwise clinically doing well since her creatinine has come down to 1.19. Patient is off Lasix. 10/15/2020 Patient is in sinus rhythm patient is status post a cryoablation. Patient is clinically doing well except for some tiredness patient artery disease in 50s patient does have a pacemaker as well. She will not require any Lasix patient doesn't have any pulmonary edema can he function improved after discontinue a dditional for Lasix. PHYSICAL EXAMINATION: GENERAL: The patient is alert and oriented x3, not in any acute distress. Well developed, well nourished. HEENT: Pupils are round and equally reacting to light. EOMI. No scleral icterus. No conjunctival pallor. Normocephalic, atraumatic. No pharyngeal erythema. No thyromegaly. CARDIOVASCULAR: S1 and S2 present. No murmurs, rubs, or gallops. PULMONARY: Chest is clear to auscultation, no wheezing or crackles. ABDOMEN: Soft, nontender, nondistended, normoactive bowel sounds. No palpable organomegaly. MUSCULOSKELETAL: No joint swelling or deformity. EXTREMITIES: No cyanosis, clubbing, or pedal edema. NEUROLOGICAL: Gross neurological examination did not reveal any focal deficits. SKIN: No rashes. Assessment and Plan Plan: -Atrial fibrillation with rapid ventricular rate: Patient will be continued on anticoagulation. Patient had ablation, heart rate is sinus rhythm at this time -Congestive heart failure chronic diastolic dysfunction with acute exacerbation CHF exacerbation is probably secondary to A. fib patient went into renal failure because of Lasix which was discontinued patient most probably will not require Lasix upon discharge. -Acute renal failure secondary to excessive diuresis proved no -Mildly elevated troponin secondary to atrial fibrillation with rapid ventricular rate on admission -Type 2 diabetes mellitus -sick sinus syndrome for which patient has a dual-chamber pacemaker -Hypertension -History of CVA in the past. Patient Condition at Discharge: Fair Plan - Discharge Summary Discharge Rx Participant: No New Discharge Prescriptions: New Metoprolol Succinate [Toprol XL] 50 mg PO DAILY #90 tab Apixaban [Eliquis] 5 mg PO BID #180 tab amLODIPine [Norvasc] 5 mg PO DAILY #30 tab Flecainide [Tambocor] 100 mg PO DAILY #180 tablet Continue Nitroglycerin Sl Tabs [Nitrostat] 0.4 mg SUBLINGUAL Q5M PRN PRN Reason: Chest Pain Montelukast [Singulair] 10 mg PO HS Aspirin [Adult Low Dose Aspirin EC] 81 mg PO DAILY ALPRAZolam [Xanax] 0.25 mg PO BID PRN PRN Reason: Anxiety Metoprolol Succinate (ER) [Toprol XL] 100 mg PO DAILY lisinopriL 40 mg PO DAILY Discontinued amLODIPine BESYLATE [Norvasc] 5 mg PO DAILY Apixaban [Eliquis] 2.5 mg PO BID Flecainide [Tambocor] 50 mg PO Q12HR Discharge Medication List Montelukast [Singulair] 10 mg PO HS 01/31/14 [History] Nitroglycerin Sl Tabs [Nitrostat] 0.4 mg SUBLINGUAL Q5M PRN 01/31/14 [History] Aspirin [Adult Low Dose Aspirin EC] 81 mg PO DAILY 08/01/17 [History] ALPRAZolam [Xanax] 0.25 mg PO BID PRN 10/14/20 [History] Metoprolol Succinate (ER) [Toprol XL] 100 mg PO DAILY 10/14/20 [History] lisinopriL 40 mg PO DAILY 10/14/20 [History] Apixaban [Eliquis] 5 mg PO BID #180 tab 10/19/20 [Rx] Flecainide [Tambocor] 100 mg PO DAILY #180 tablet 10/19/20 [Rx] Metoprolol Succinate [Toprol XL] 50 mg PO DAILY #90 tab 10/19/20 [Rx] amLODIPine [Norvasc] 5 mg PO DAILY #30 tab 10/20/20 [Rx] Follow up Appointment(s)/Referral(s): Phoenix Manzo DO [Primary Care Provider] - 11/13/20 9:15 am Macrina Crocker MD [Family Provider] - 10/27/20 2:30 pm Patient Instructions/Handouts: Cardiac Ablation (DC) Activity/Diet/Wound Care/Special Instructions: Post EP study - Ablation instructions 1. Keep access sites dry for 2 days. 2. No heavy lifting or straining for 2 days. 3. Avoid bending the hips repeatedly for 2 days. 4. You may go up and down stairs slowly Call if the following is noted 1. Bleeding, increasing swelling or pain at the access sites. 2. Increasing chest discomfort, especially upon taking a deep breath. 3. Increasing shortness of breath, at rest or with exertion. 4. Undue cough / phlegm 5. Difficulty or pain while swallowing. 6. Pain or change in color in the extremities. 7. Fever, chills, rigors. 8. Increasing headache or neurologic symptoms. 9. Dizziness, fainting, palpitations Increase flecainide to 100 mg twice daily Increase metoprolol to 100 mg in the morning and 50 mrem in the evening Increase ELIQUIS to 5 mg twice daily Continue other medications Discharge Disposition: HOME SELF-CARE
--- NOTE | 2020-10-20 11:59 | P.PN ---
Subjective HISTORY OF PRESENTING ILLNESS This is a pleasant 85-year-old female past medical history significant for paroxysmal atrial fibrillation on long-term anticoagulation, permanent pacemaker implantation secondary to complete heart block, history of CVA status post thrombolytic therapy 2010, hypertension and diabetes mellitus. She follows in the office with Dr. Crocker. We have been asked to see in consultation for afib with RVR and elevated troponin. She states over the weekend she had not taken her medications Monday morning or evening. She just forgot because they weren't in the usual place in her house. She did start taking them again on Monday. The office did get a notification that she was having frequent episodes of afib with RVR. They made contact with her and discussed what was going on with her medications. She initially said she didn't have any specific symptoms. On Monday evening she started noticing she was more weak and fatigued than usual. 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 However, on Monday she started noticing she was also feeling some shortness of breath and chest tightness at times. She was having difficulty getting comfortable and couldn't sleep. She denies feeling dizzy or having any significant palpitations. 10/16/2020 Patient seen and examined resting comfortably lying flat in bed in no acute distress. She underwent a successful A. fib ablation with pulmonary vein isolation with cryoablation yesterday with Dr. Boogie. She is currently in a paced rhythm. No further evidence of atrial fibrillation on telemetry. Blood pressure 160/80 heart rate 51 afebrile maintaining oxygen saturation on room air. Bilateral groin access sites soft, non-tender PHYSICAL EXAMINATION CONSTITUTIONAL: No apparent distress. HEENT: Head is normocephalic. Pupils are equal, round. Sclerae anicteric. Mucous membranes of the mouth are moist. No JVD. No carotid bruit. CHEST EXAMINATION: Clear to auscultation. No rales, wheezes or rhonchi. No chest wall tenderness is noted on palpation or with deep breathing. HEART EXAMINATION: Regular rate and rhythm. S1, S2 heard. No murmurs, gallops or rub. EXTREMITIES: 2+ peripheral pulses, no lower extremity edema and no calf tenderness. Bilateral groin access sites soft and non-tender. ASSESSMENT Paroxysmal atrial fibrillation with rapid ventricular rate, currently in SR Acute diastolic heart failure, improved Hypomagnesemia Hypokalemia Troponin leak secondary to A. fib with RVR Hypertension Permanent pacemaker secondary to complete heart block Diabetes mellitus, currently diet controlled PLAN Stable for discharge on current medical regimen. Follow up with Dr. Crocker in 1-week. Nurse Practitioner note has been reviewed, I agree with a documented findings and plan of care. Patient was seen and examined. Objective - Vital Signs Vital signs: Vital Signs Temp 97.4 F L 10/19/20 19:36 Pulse 51 L 10/20/20 08:00 Resp 16 10/20/20 08:00 BP 160/80 10/20/20 08:00 Pulse Ox 97 10/20/20 08:00 Intake & Output 10/19/20 10/20/20 10/20/20 18:59 06:59 18:59 Intake Total 878 250 Balance 878 250 Weight 100.834 kg Intake: IV 878 Oral 250 Other: Voiding Method Toilet Toilet Toilet - Labs CBC & Chem 7: 10/16/20 08:01 10/19/20 07:21 Labs: Abnormal Lab Results - Last 24 Hours (Table) 10/19/20 10/19/20 10/19/20 Range/Units 07:21 11:41 19:56 POC Glucose (mg/dL) 149 H 211 H (75-99) mg/dL Hemoglobin A1c 7.4 H (4.0-6.0) % 10/20/20 Range/Units 05:56 POC Glucose (mg/dL) 273 H (75-99) mg/dL Hemoglobin A1c (4.0-6.0) %
[2020-10-20 12:00] LABS: Glucose,Whole Blood 191 mg/dL (75-99)
--- NOTE | 2020-10-20 12:16 | P.PN ---
Subjective Progress Note Date: 10/20/20 85-year-old female, well-known to me, as I service her primary care physician, with a past medical history of status post pacemaker insertion, chronic atrial fibrillation, asthma, and hypertension. The patient states that she forgot to take her medications for the last 2 days beginning on Monday and Monday. On Monday, she started not feeling well, including shortness of breath, heaviness in her chest, palpitations, and dizziness. She continued to work, and finally decided to go to the doctor today, October 14, at 9:00 in the morning. She was seen by Dr. Saravia, in the emergency room. She was found have atrial fibrillation with rapid ventricular response, and also congestive heart failure. She complained of weakness, and dizziness, and lightheadedness. She also had some pressure in her chest. She denies any fever or chills. Her medical history includes atrial fibrillation, angina, CVA, hypertension, DJD, and asthma. She also has type 2 diabetes, cataracts, arthritis, and status post dual-chamber pacemaker insertion for sick sinus syndrome. She is a lifelong nonsmoker. Laboratory data includes a white count 8.7, hemoglobin 13.4, hematocrit 40.9, platelet count 249,000. PT INR and PTT are all normal. Electrolytes look normal as well. Her troponin is 0.049, and her N-terminal proBNP is elevated at 6430. Chest x-ray in my opinion shows cardiomegaly with trace pleural effusions and fluid overload. The patient is seen today 10/15/2020 in follow-up on the selective care unit. She is currently sitting up in a chair at the bedside. Awake and alert in no acute distress. She denies any worsening shortness of breath, cough or congestion. Maintaining O2 saturations in the high 90s on 3 L/m per nasal cannula. No chest pain or palpitations. She does remain in atrial fibrillation with varying ventricular response. Sodium 140. Potassium 3.7. Chloride 103. Bicarb 28. Creatinine 0.90. Glucose 172. TSH 2.97. She remains on Lasix 40 IV every 12 hours, beta blockers, Eliquis. Echocardiogram reveals preserved left ventricular systolic function with ejection fraction 50-55%. Patient is seen today 10/16/2020 in follow-up on the selective care unit. She is currently sitting up in bed. Awake and alert in no acute distress. She is maintaining O2 saturations in the 80s on room air. She is feeling quite weak and tired today. She was to undergo cardioversion but that was canceled due to her intermittent episodes of sinus rhythm. She is quite sensitive to the atrial fibrillation. She gets anxious and short of breath and an uneasy feeling. She is currently on amiodarone drip at 0.5 mg/m. She is anticoagulated with Eliquis. Magnesium and potassium are being replaced. She remains on Lasix 40 mg IV every 12 hours. White count 6.2. Hemoglobin 12.8. Sodium 140. Potassium 3.2. Creatinine 0.96. Patient is seen today 10/17/2020 in follow-up on the selective care unit. She is awake and alert in no acute distress. Resting comfortably in bed. Maintaining O2 saturations in the mid 90s on room air. She's afebrile. She had converted back to sinus rhythm again yesterday approximately 3 PM and amiodarone drip was discontinued. She is having ongoing issues with A. fib RVR. Current rate 110. She is back on amiodarone at 0.5 mg/m. 0.9 normal saline at 20 ML's per hour. Sodium 139. Potassium 3.5. Bicarb 33. Creatinine 1.14. Glucose 20 9. Magnesium 1.8. Anticoagulated with Eliquis. Remains on IV diuretics. The patient is seen today 10/18/2020 in follow-up on the selective care unit. She is currently sitting up in a chair at the bedside. Awake and alert in no acute distress. Maintaining good O2 saturations in the 90s on room air. Chest x-ray reveals cardiomegaly with chronic parenchymal changes with improved aeration of the right central lung. No new infiltrates. Sodium 140. Potassium 4.1. Creatinine 1.32. Glucose 191. She remains on metoprolol, Cardizem and Cordarone. Anticoagulated with Eliquis. Heart rate well controlled. Plan is for EP studies and possible ablation tomorrow. 2020, the patient is comfortable, sitting up on a chair, nevertheless she has failed cardioversion and the patient is still nature fibrillation with a heart rate ranging between 83-120, irregular rhythm consistent with atrial fibrillation. Creatinine is stable at 1.1. Electrolytes are normal. Potassium level is at 3.9. She remains on amiodarone at a dose of 400 mg by mouth twice a day. The patient is also on Cardizem 30 mg 3 times a day and the patient is also on metoprolol 100 mg by mouth daily. The plan is to proceed with ablation of atrial fibrillation today. She is on room air oxygen. She denies having any other new complaints for now. On today's evaluation of 10/19/2020, the patient is post cardiac ablation. The patient underwent A. fib ablation with pulmonary vein isolation and cardio ablation. Currently back into paced rhythm and she is doing well. No complications related to the procedure. The patient is currently on room air oxygen with a pulse ox of 97%. BP is 160/80. Chest x-ray that was done following the procedure and from this morning shows no acute process. No evidence of any airspace disease or any complications related to the procedure. The patient is currently on flecainide 100 mg by mouth twice a day and she is also on metoprolol 100 mg XL once a day and 50 mg once a day. She is on long- term articulation with Eliquis 5 mg by mouth daily. Objective - Vital Signs Vital signs: Vital Signs Temp 97.4 F L 10/19/20 19:36 Pulse 51 L 10/20/20 08:00 Resp 16 10/20/20 08:00 BP 160/80 10/20/20 08:00 Pulse Ox 97 10/20/20 08:00 Intake & Output 10/19/20 10/20/20 10/20/20 18:59 06:59 18:59 Intake Total 878 250 Balance 878 250 Weight 100.834 kg Intake: IV 878 Oral 250 Other: Voiding Method Toilet Toilet Toilet - Exam GENERAL EXAM: Alert, active, very pleasant 85-year-old female, on room air, comfortable in no apparent distress. HEAD: Normocephalic. EYES: Normal reaction of pupils, equal size. NOSE: Clear with pink turbinates. THROAT: No erythema or exudates. NECK: No masses, no JVD. CHEST: No chest wall deformity. LUNGS: Equal air entry with faint crackles in the posterior bases. CVS: S1 and S2 normal with no audible murmur, irregular rhythm. ABDOMEN: No hepatosplenomegaly, normal bowel sounds, no guarding or rigidity. SPINE: No scoliosis or deformity SKIN: No rashes CENTRAL NERVOUS SYSTEM: No focal deficits, tone is normal in all 4 extremities. EXTREMITIES: There is no peripheral edema. No clubbing, no cyanosis. Peripheral pulses are intact. - Labs CBC & Chem 7: 10/16/20 08:01 10/19/20 07:21 Labs: Abnormal Lab Results - Last 24 Hours (Table) 10/19/20 10/19/20 10/19/20 Range/Units 07:21 11:41 19:56 POC Glucose (mg/dL) 149 H 211 H (75-99) mg/dL Hemoglobin A1c 7.4 H (4.0-6.0) % 10/20/20 10/20/20 Range/Units 05:56 11:49 POC Glucose (mg/dL) 273 H 191 H (75-99) mg/dL Hemoglobin A1c (4.0-6.0) % Assessment and Plan Plan: 1 Acute hypoxic respiratory failure, and chest pressure, secondary to atrial f ibrillation with rapid ventricular response with acute diastolic congestive heart failure, this has recovered and the patient is currently on room air oxygen and the chest x-ray is not showing any acute abnormalities. 2 A. fib/RVR post ablation 3 History of diabetes mellitus. 4 History of CVA. 5 History of mild chronic bronchial asthma. 6 Status post dual-chamber pacemaker insertion for sick sinus syndrome. 7 History of cataracts. 8 History of arthritis. 9 History of diverticulosis. 10 History of hypertension. Plan: Patient continues to have difficult to control atrial fibrillation. Failed cardioversion. She is currently post A. fib ablation and she is having a paced rhythm. She is on flecainide. She is on beta blockers with metoprolol and she is also on long-term articulation with Eliquis. Continue from the pulmonary standpoint, on room air Discharge the patient home today We will continue to follow
[2020-10-20 12:54] VITALS: BP 128/68; PULSE 50
--- NOTE | 2020-10-22 09:52 | CDI ---
Documentation Clarification Form Date: 10/22/20 From: Therese Christiansen Admit Date: 10/14/2020 11:27:00 AM Patient Name: Alissa Bergeron Visit Number: [id number] Discharge Date: 10/20/2020 02:08:00 PM ATTENTION: The Clinical Documentation Specialists (CDI) and [facility] Coding Staff appreciate your assistance in clarifying documentation. Please respond to the clarification below the line at the bottom and electronically sign. The CDI & [facility] Coding staff will review the response and follow-up if needed. Please note: Queries are made part of the Legal Health Record. If you have any questions, please contact the author of this message via ITS. Dr. Mac Abarca, Your patient has Troponin level(s) of: 0.049 on 10/14 Please clarify if there is an additional diagnosis and/or clinical significance related to this value. 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 Per your consult "troponin leak secondary to A. fib w RVR". Treatment: Diuresis, 2D echo and Doppler, I&O & daily weights, follow renal function and electrolytes In morning, continue Eliquis, plan cardioversion Is there an additional diagnosis and/or clinical significance related to the above lab result/information? [ ] NSTEMI type 1 [ ] STEMI type 1 [ x] Type 2 [place] due to (specify cause ____) [ ] Troponemia, not clinically significant [ ] Other, please specify [ ] Unable to determine MTDD
== END 2020-10-20 14:08 | disposition home or self-care (01) | DRG 273 ==
LOC: EC 09:51 → 3SCARD 11:27
PROVIDERS: ADMIT Internal Medicine; ATTEND Internal Medicine
PROC: 4A0234Z Measurement of Cardiac Electrical Activity, Percutaneous Approach (ICD-10-PCS; principal; 2020-10-19 12:50)
PROC: 4A023FZ Measurement of Cardiac Rhythm, Percutaneous Approach (ICD-10-PCS; principal; 2020-10-19 12:50)
PROC: 02583ZZ Destruction of Conduction Mechanism, Percutaneous Approach (ICD-10-PCS; principal; 2020-10-19 12:50)
PROC: 02K83ZZ Map Conduction Mechanism, Percutaneous Approach (ICD-10-PCS; principal; 2020-10-19 12:50)
PROC: B24BYZZ Ultrasonography of Heart with Aorta using Other Contrast (ICD-10-PCS; principal; 2020-10-19 12:50)
PROC: 4B02XSZ Measurement of Cardiac Pacemaker, External Approach (ICD-10-PCS; 2020-10-19 12:50)
DX: I48.0 Paroxysmal atrial fibrillation (principal); I50.33 Acute on chronic diastolic (congestive) heart failure; J96.01 Acute respiratory failure with hypoxia; I21.A1 Myocardial infarction type 2; N17.9 Acute kidney failure, unspecified; I44.2 Atrioventricular block, complete; I11.0 Hypertensive heart disease with heart failure; I49.5 Sick sinus syndrome; E11.9 Type 2 diabetes mellitus without complications; Z20.822 Contact with and (suspected) exposure to COVID-19; E83.42 Hypomagnesemia; E86.0 Dehydration; K57.90 Diverticulosis of intestine, part unspecified, without perforation or abscess without bleeding; J45.909 Unspecified asthma, uncomplicated; M19.90 Unspecified osteoarthritis, unspecified site; E87.6 Hypokalemia; I25.9 Chronic ischemic heart disease, unspecified; T50.2X5A Adverse effect of carbonic-anhydrase inhibitors, benzothiadiazides and other diuretics, initial encounter; R77.8 Other specified abnormalities of plasma proteins; Z79.01 Long term (current) use of anticoagulants; Z79.82 Long term (current) use of aspirin; Z79.899 Other long term (current) drug therapy; Z95.810 Presence of automatic (implantable) cardiac defibrillator; Z90.710 Acquired absence of both cervix and uterus; Z98.42 Cataract extraction status, left eye; Z98.41 Cataract extraction status, right eye; Z87.09 Personal history of other diseases of the respiratory system; Z86.73 Personal history of transient ischemic attack (TIA), and cerebral infarction without residual deficits; Z95.0 Presence of cardiac pacemaker; Z98.890 Other specified postprocedural states; Z88.0 Allergy status to penicillin; Z88.2 Allergy status to sulfonamides; Z82.49 Family history of ischemic heart disease and other diseases of the circulatory system; Z80.3 Family history of malignant neoplasm of breast; Z82.3 Family history of stroke; Z83.518 Family history of other specified eye disorder
CPT/HCPCS: 36415; 71045; 71046; 80048; 80053; 83036; 83735; 83880; 84132; 84443; 84484; 85025; 85610; 85730; 87635; 93005; 93306; 93656; 93662; 96361; 96374; 99285

== ENCOUNTER → 2021-05-04 | Outpatient (CLI) | payer MEDICARE ==
[2021-05-04 15:58] LABS: African American GFR (CKD) 59.9 (60.0-200.0); Albumin 4.2 g/dL (3.8-4.9); Albumin/Globulin Ratio 1.95 (1.60-3.17); Anion Gap 13.1 mmol/L (10.00-18.00); BUN/Creat Ratio 19.3 Ratio (12.00-20.00); Blood Urea Nitrogen 19.2 mg/dL (9.0-27.0); Calcium 9.5 mg/dL (8.7-10.3); Carbon Dioxide 28.6 mmol/L (20.0-27.5); Globulin 2.2 g/dL (1.6-3.3); Magnesium 1.7 mg/dL (1.5-2.4); Non-African American GFR(CKD) 51.6 (60.0-200.0); Potassium 3.8 mmol/L (3.5-5.5); Total Bilirubin 0.7 mg/dL (0.30-1.20); Total Protein 6.4 g/dL (6.2-8.2)
== END | disposition home or self-care (01) ==
LOC: LABWHC1 08:28
PROVIDERS: ATTEND Internal Medicine Cardiovascular Disease
DX: I11.0 Hypertensive heart disease with heart failure (principal); I50.9 Heart failure, unspecified
CPT/HCPCS: 36415; 80053; 83735; 83880

== ENCOUNTER → 2021-12-27 | Outpatient (CLI) | payer MEDICARE ==
--- NOTE | 2021-12-28 08:43 | MM ---
Reason for Exam: Screening (asymptomatic). Last mammogram was performed 1 year(s) and 5 month(s) ago. Patient History: Menarche at age 13. First Full-Term at age 24. Left ovary removed at age 38. Right ovary removed at age 38. Hysterectomy at age 38. Postmenopausal. Patient used Estrogen for 10 years. Sister had breast cancer, age 82. Risk Values: Sherice 5 year model risk: 2.5%. NCI Lifetime model risk: 2.5%. Prior Study Comparison: 06/11/2014 Screening Mammogram, [facility]. 08/25/2020 Bilateral Screening Mammogram, [facility]. Tissue Density: The breast tissue is almost entirely fat. Findings: Analyzed By CAD. Benign-appearing calcifications in the rest breast. There is no suspicious group of microcalcifications or new suspicious mass in either breast. Overall Assessment: Negative, BI-RAD 1 Management: Screening Mammogram of both breasts in 1 year. A clinical breast exam by your physician is recommended on an annual basis and results should be correlated with mammographic findings. Electronically signed and approved by: Phoenix Roldan DO
== END | disposition home or self-care (01) ==
LOC: RADMAMWWP 13:58
PROVIDERS: ATTEND Obstetrics & Gynecology
DX: Z12.31 Encounter for screening mammogram for malignant neoplasm of breast (principal)
CPT/HCPCS: 77063; 77067

== ENCOUNTER 2022-08-15 05:46 | Day surgery (SDC) | payer MEDICARE ==
[2022-08-12 09:40] VITALS: BMI 31.6
[2022-08-15] MEDS ORDERED: SODIUM CHLORIDE 0.9% 1,000 ML IV SCH ×2 (05:50)
[2022-08-15] MEDS ORDERED: SODIUM CHLORIDE 0.9% 1,000 ML IV ONE (06:16)
[2022-08-15 06:54] VITALS: RESP 16; TEMP 98.3
[2022-08-15] MEDS ORDERED: CLINDAMYCIN 900 MG in DEXTROSE 5% IN WATER 50 ML IVPB PRN ×2 (07:00)
[2022-08-15] MEDS ORDERED: CLINDAMYCIN 600 MG in SODIUM CHLORIDE 0.9% 250 ML IRRIGATION PRN (07:00)
[2022-08-15] MEDS ORDERED: fentaNYL (PF) 50 MCG/ML 2 ML AMP ONE (07:22)
[2022-08-15] MEDS ORDERED: MIDAZOLAM 2 MG/2 ML VIAL ONE (07:22)
[2022-08-15] MEDS ORDERED: LIDOCAINE 1% INJ 10MG/ML (20 ML MDV) ONE ×2 (07:46)
[2022-08-15] MEDS ORDERED: LIDOCAINE 1% INJ 10MG/ML (20 ML MDV) SQ ONE ×2 (07:55→08:07)
[2022-08-15] MEDS: VANCOMYCIN 1,500 MG in SODIUM CHLORIDE 0.9% 500 ML 500 ML IVPB STA ×2 (08:05→08:08)
--- NOTE | 2022-08-15 08:37 | P.EPPROC ---
- EP Procedure Note Electrophysiology Procedure Note: Diagnosis Bradycardia Atrial fibrillation Status post dual-chamber pacemaker itches on advisory for rapid battery depletion, [employer] Procedure Patient was brought to the EP lab in a fasting state. Written informed consent was obtained prior to the procedure. Cine fluoroscopy of the leads was performed Atrial lead in the right atrial appendage RV lead in the RV apex No fractures or breaks IV antibiotics given. Incision made and carried down to the level of the generator. Generator explanted, [employer] dual-chamber model number L321 serial #[id number] Partial capsulectomy performed New generator implanted Dual-chamber pacemaker model number [id number] [address] DR MIXON Wound closed in 3 layers and dressed per protocol Antibiotic pouch placed in the pocket Result Successful dual-chamber pacemaker implantation for device on advisory from [employer] secondary to rapid artery depletion Underlying bradycardia Persistent atrial fibrillation Cinefluoroscopy did not reveal any fractures or breaks, atrial and ventricular leads in stable position chronic
[2022-08-15] MEDS ORDERED: ACETAMINOPHEN TAB 325 MG TAB PO PRN (08:38)
[2022-08-15] MEDS ORDERED: ACETAMINOPHEN IV (For NPO) 1,000 MG in EMPTY BAG 1 BAG IVPB ONE (08:38)
[2022-08-15] MEDS ORDERED: POTASSIUM CHLORIDE 8 MEQ PO SCH (09:00)
[2022-08-15] MEDS ORDERED: NON FORMULARY DRUG (Aspirin [Adult Low Dose Aspirin Ec] 81 MG Tablet.Dr) PO SCH (09:00)
[2022-08-15] MEDS ORDERED: DILTIAZEM ORAL 60 MG TAB PO SCH (09:00)
[2022-08-15 12:15] VITALS: BP 158/90; PULSE 90
[2022-08-15] MEDS ORDERED: APIXABAN 5 MG TAB PO SCH (21:00)
[2022-08-15] MEDS ORDERED: MONTELUKAST 10 MG TAB PO SCH (21:00)
[2022-08-15] MEDS ORDERED: lisinopriL 20 MG TAB PO SCH (21:00)
[2022-08-16] MEDS ORDERED: METOPROLOL SUCCINATE (ER) 100 MG TAB.ER.24H PO SCH (09:00)
== END 2022-08-15 12:34 | disposition home or self-care (01) ==
LOC: CATHEP 05:46
PROVIDERS: ATTEND Internal Medicine Clinical Cardiac Electrophysiology
DX: I48.19 Other persistent atrial fibrillation (principal)
CPT/HCPCS: 33208; J2250; J3370; J2001; J3010; 33228

== ENCOUNTER 2022-08-27 05:44 | Inpatient (IN) | payer MEDICARE ==
[2022-08-27] MEDS ORDERED: DILTIAZEM 5 MG/ML 5 ML VIAL IVP STA (06:19)
[2022-08-27 06:34] LABS: Basophils % (A) 1 %; Eosinophils # (A) 0.2 k/uL (0-0.7); Eosinophils % (A) 3 %; HCT 39.4 % (34.0-46.0); HGB 13.1 gm/dL (11.4-16.0); Lymphocytes # (A) 0.8 k/uL (1.0-4.8); Lymphocytes % (A) 13 %; MCH 29.3 pg (25.0-35.0); MCHC 33.3 g/dL (31.0-37.0); Mean Platelet Volume 7.9; Monocytes # (A) 0.4 k/uL (0-1.0); Monocytes % (A) 7 %; Neutrophils # (A) 4.5 k/uL (1.3-7.7); Neutrophils % (A) 74 %; Platelet Count 220 k/uL (150-450); RBC 4.48 m/uL (3.80-5.40); RDW 14.5 % (11.5-15.5)
[2022-08-27 06:44] LABS: INR 1.2 (<1.2)
[2022-08-27] MEDS ORDERED: IPRATROPIUM-ALBUTEROL 3 ML NEB INHALATION STA (06:54)
--- NOTE | 2022-08-27 06:56 | ED ---
General Adult HPI - General Chief complaint: Shortness of Breath Stated complaint: AFIB & SOB Time Seen by Provider: 08/27/22 06:00 Source: patient, RN notes reviewed Mode of arrival: wheelchair Limitations: no limitations - History of Present Illness Initial comments: 87-year-old female presents emergency Department with chief complaint of shortness of breath. Patient had a pacemaker placed 2 weeks ago. Patient states that she's been having increasing dyspnea states that her heart has been racing. Patient does have A. fib is on eliquis. Patient was on a diuretic for CHF is not currently on it. They've noticed increasing swelling of the lower extremities, unable to lay flat. Patient denies any back pain states she feels like her abdomen is swollen. - Related Data Home Medications Medication Instructions Recorded Confirmed Montelukast [Singulair] 10 mg PO HS 01/31/14 08/15/22 Nitroglycerin Sl Tabs [Nitrostat] 0.4 mg SUBLINGUAL Q5M PRN 01/31/14 08/15/22 Aspirin [Adult Low Dose Aspirin EC] 81 mg PO DAILY 08/01/17 08/15/22 Metoprolol Succinate (ER) [Toprol 100 mg PO DAILY 10/14/20 08/15/22 XL] lisinopriL 20 mg PO BID 10/14/20 08/15/22 Potassium Chloride [Klor-Con 8] 8 meq PO DAILY 07/23/22 08/15/22 Magnesium Citrate 250 mg PO DAILY 08/12/22 08/15/22 Metformin (New Script) 1 dose PO DAILY 08/12/22 08/15/22 dilTIAZem HCL 60 mg PO TID 08/12/22 08/15/22 Previous Rx's Medication Instructions Recorded Apixaban [Eliquis] 5 mg PO BID #180 tab 10/19/20 Allergies Allergy/AdvReac Type Severity Reaction Status Date / Time Penicillins Allergy Unknown Verified 08/27/22 05:56 Childhood Sulfa (Sulfonamide Allergy Unknown Verified 08/27/22 05:56 Antibiotics) Childhood EKG PATCHES AdvReac Unknown skin red Uncoded 08/27/22 05:56 and sore Review of Systems ROS Statement: Those systems with pertinent positive or pertinent negative responses have been documented in the HPI. ROS Other: All systems not noted in ROS Statement are negative. Past Medical History Past Medical History: Atrial Fibrillation, Chest Pain / Angina, CVA/TIA, Hypertension, Osteoarthritis (OA) Additional Past Medical History / Comment(s): Atrial fibrillation, paroxysmal, sick sinus syndrome status post dual-chamber pacemaker insertion, diverticulosis, borderline diabetes mellitus type 2, degenerative arthritis, legionnaires disease History of Any Multi-Drug Resistant Organisms: None Reported Past Surgical History: Hysterectomy, Pacemaker Additional Past Surgical History / Comment(s): cataract surgery bilateral eyes. rhinoplasty. colonoscopy, d&c, rt wrist carpal tunnel, laser eye sx for cataracts Past Anesthesia/Blood Transfusion Reactions: No Reported Reaction Additional Past Anesthesia/Blood Transfusion Reaction / Comment(s): Clausterphobia Type of Cardiac Device: Permanent Pacemaker Device Placement Date:: 02/26/15 Past Psychological History: No Psychological Hx Reported Smoking Status: Never smoker Past Alcohol Use History: None Reported Past Drug Use History: None Reported - Past Family History Mother Family Medical History: CVA/TIA, Hypertension Additional Family Medical History / Comment(s): of cardiac aneurysm Sister(s) Family Medical History: Cancer, Hypertension Additional Family Medical History / Comment(s): breast cancer General Exam General appearance: alert, in no apparent distress Head exam: Present: atraumatic, normocephalic, normal inspection Eye exam: Present: normal appearance, PERRL, EOMI. Absent: scleral icterus, conjunctival injection, periorbital swelling ENT exam: Present: normal exam, normal oropharynx, mucous membranes moist Neck exam: Present: normal inspection, full ROM. Absent: tenderness, meningismus, lymphadenopathy Respiratory exam: Present: wheezes, rales. Absent: normal lung sounds bilaterally, respiratory distress, rhonchi, stridor Cardiovascular Exam: Present: tachycardia, irregular rhythm, normal heart so unds. Absent: regular rate, normal rhythm, systolic murmur, diastolic murmur, rubs, gallop, clicks Neurological exam: Present: alert, oriented X3, CN II-XII intact, reflexes normal. Absent: motor sensory deficit Course Vital Signs 08/27/22 08/27/22 08/27/22 05:50 06:17 06:20 Temperature 97.7 F Pulse Rate 87 130 H 121 H Respiratory 18 11 L 17 Rate Blood Pressure 151/85 155/93 O2 Sat by Pulse 93 L 94 L 95 Oximetry 04/06/2008/27/22 08/27/22 06:30 06:40 06:45 Temperature Pulse Rate 111 H 92 111 H Respiratory 23 23 12 Rate Blood Pressure 144/96 139/95 151/95 O2 Sat by Pulse 94 L 94 L 95 Oximetry 08/27/22 07:27 Temperature Pulse Rate 93 Respiratory 22 Rate Blood Pressure 156/118 O2 Sat by Pulse 97 Oximetry EKG Findings - EKG Comments: EKG Findings:: EKG performed at 6:06 A. fib with RVR rate of 117 QRS 98 QT/QTC 342/413 - EKG Results: EKG: interpreted by [facility] Medical Decision Making - Medical Decision Making Was pt. sent in by a medical professional or institution (, PA, ENVIRONMENTAL COMPLIANCE OFFICER, urgent care, hospital, or [facility]...) When possible be specific @ -No Did you speak to anyone other than the patient for history (EMS, parent, family, police, friend...)? What history was obtained from this source @ -Family regarding recent past medical history Did you review nursing and triage notes (agree or disagree)? Why? @ -I reviewed and agree with nursing and triage notes Were old charts reviewed (outside hosp., previous admission, EMS record, old EKG, old radiological studies, urgent care reports/EKG's, [facility] records)? Report findings @ -All laboratory studies, recent pacemaker placement Differential Diagnosis (chest pain, altered mental status, abdominal pain women, abdominal pain men, vaginal bleeding, weakness, fever, dyspnea, syncope, headache, dizziness, GI bleed, back pain, seizure, CVA, palpatations, mental health, musculoskeletal)? @ -Differential Dyspnea: Coronary syndrome, arrhythmia, tamponade, asthma, COPD, pulmonary embolism, pneumonia, pneumothorax, pulmonary effusion, anaphylaxis, diabetic ketoacidosis, flailed chest, pulmonary contusion, diaphragmatic rupture, anemia, neuromuscular, this is not meant to be an all-inclusive list. EKG interpreted by me (3pts min.). @ -As above X-rays interpreted by me (1pt min.). @ -Chest x-ray shows pulmonary edema or CHF CT interpreted by me (1pt min.). @ -None done U/S interpreted by me (1pt. min.). @ -None done What testing was considered but not performed or refused? (CT, X-rays, U/S, labs)? Why? @ -None What meds were considered but not given or refused? Why? @ -None Did you discuss the management of the patient with other professionals (professionals i.e. , PA, ENVIRONMENTAL COMPLIANCE OFFICER, lab, RT, psych nurse, social media campaign manager, storage architect, teacher, deck officer, top case assembler)? Give summary @ -[facility] for admission with cardiology consult. Was smoking cessation discussed for >3mins.? @ -No Was critical care preformed (if so, how long)? @ -yes 35 min Were there social determinants of health that impacted care today? How? (Homelessness, low income, unemployed, alcoholism, drug addiction, transportation, low edu. Level, literacy, decrease access to med. care, long term, rehab)? @ -No Was there de-escalation of care discussed even if they declined (Discuss DNR or withdrawal of care, Hospice)? DNR status @ -No What co-morbidities impacted this encounter? (DM, HTN, Smoking, COPD, CAD, Cancer, CVA, ARF, Chemo, Hep., AIDS, mental health diagnosis, sleep apnea, morbid obesity)? @ -None Was patient admitted / discharged? Hospital course, mention meds given and route, prescriptions, significant lab abnormalities, going to OR and other pertinent info. @ -Admitted patient has acute CHF exacerbation, A. fib with. Patient was given Cardizem, Lasix. Patient will be continued on close monitoring, medications. Patient cardiology consult. Undiagnosed new problem with uncertain prognosis? @ -No Drug Therapy requiring intensive monitoring for toxicity (Heparin, Nitro, Insulin, Cardizem)? @ -No Were any procedures done? @ -No Diagnosis/symptom? @ -Acute CHF exacerbation Acute, or Chronic, or Acute on Chronic? @ -Acute Uncomplicated (without systemic symptoms) or Complicated (systemic symptoms)? @ -Complicated Side effects of treatment? @ -No Exacerbation, Progression, or Severe Exacerbation? @ -Exacerbation Poses a threat to life or bodily function? How? (Chest pain, USA, ID, pneumonia, PE, COPD, DKA, ARF, appy, cholecystitis, CVA, Diverticulitis, Homicidal, Suicidal, threat to staff... and all critical care pts) @ -Yes patient is respiratory distress, CHF any respiratory failure, cardiac Diagnosis/symptom? @ -A. fib RVR Acute, or Chronic, or Acute on Chronic? @ -Acute chronic Uncomplicated (without systemic symptoms) or Complicated (systemic symptoms)? @ -Complicated Side effects of treatment? @ -none Exacerbation, Progression, or Severe Exacerbation @ -no Poses a threat to life or bodily function? @ -Yes] - Lab Data Result diagrams: 08/27/22 06:13 08/27/22 06:13 Lab Results 08/27/22 08/27/22 08/27/22 Range/Units 06:13 06:13 06:13 WBC 6.0 (3.8-10.6) k/uL RBC 4.48 (3.80-5.40) m/uL Hgb 13.1 (11.4-16.0) gm/dL Hct 39.4 (34.0-46.0) % MCV 88.0 (80.0-100.0) fL MCH 29.3 (25.0-35.0) pg MCHC 33.3 (31.0-37.0) g/dL RDW 14.5 (11.5-15.5) % Plt Count 220 (150-450) k/uL MPV 7.9 Neutrophils % 74 % Lymphocytes % 13 % Monocytes % 7 % Eosinophils % 3 % Basophils % 1 % Neutrophils # 4.5 (1.3-7.7) k/uL Lymphocytes # 0.8 L (1.0-4.8) k/uL Monocytes # 0.4 (0-1.0) k/uL Eosinophils # 0.2 (0-0.7) k/uL Basophils # 0.0 (0-0.2) k/uL PT 12.0 (9.0-12.0) sec INR 1.2 H (<1.2) APTT 29.0 (22.0-30.0) sec Sodium 144 (137-145) mmol/L Potassium 4.1 (3.5-5.1) mmol/L Chloride 107 (98-107) mmol/L Carbon Dioxide 27 (22-30) mmol/L Anion Gap 10 mmol/L BUN 30 H (7-17) mg/dL Creatinine 1.02 (0.52-1.04) mg/dL Est GFR (CKD-EPI)AfAm 58 (>60 ml/min/1.73 sqM) Est GFR (CKD-EPI)NonAf 50 (>60 ml/min/1.73 sqM) Glucose 190 H (74-99) mg/dL Plasma Lactic Acid Thom (0.7-2.0) mmol/L Calcium 9.5 (8.4-10.2) mg/dL Magnesium 1.7 (1.6-2.3) mg/dL Total Bilirubin 1.3 (0.2-1.3) mg/dL AST 41 H (14-36) U/L ALT 55 H (4-34) U/L Alkaline Phosphatase 68 (38-126) U/L Troponin I (0.000-0.034) ng/mL NT-Pro-B Natriuret Pep pg/mL Total Protein 6.2 L (6.3-8.2) g/dL Albumin 3.8 (3.5-5.0) g/dL 08/27/22 08/27/22 08/27/22 Range/Units 06:13 06:13 06:35 WBC (3.8-10.6) k/uL RBC (3.80-5.40) m/uL Hgb (11.4-16.0) gm/dL Hct (34.0-46.0) % MCV (80.0-100.0) fL MCH (25.0-35.0) pg MCHC (31.0-37.0) g/dL RDW (11.5-15.5) % Plt Count (150-450) k/uL MPV Neutrophils % % Lymphocytes % % Monocytes % % Eosinophils % % Basophils % % Neutrophils # (1.3-7.7) k/uL Lymphocytes # (1.0-4.8) k/uL Monocytes # (0-1.0) k/uL Eosinophils # (0-0.7) k/uL Basophils # (0-0.2) k/uL PT (9.0-12.0) sec INR (<1.2) APTT (22.0-30.0) sec Sodium (137-145) mmol/L Potassium (3.5-5.1) mmol/L Chloride (98-107) mmol/L Carbon Dioxide (22-30) mmol/L Anion Gap mmol/L BUN (7-17) mg/dL Creatinine (0.52-1.04) mg/dL Est GFR (CKD-EPI)AfAm (>60 ml/min/1.73 sqM) Est GFR (CKD-EPI)NonAf (>60 ml/min/1.73 sqM) Glucose (74-99) mg/dL Plasma Lactic Acid Thom 1.3 (0.7-2.0) mmol/L Calcium (8.4-10.2) mg/dL Magnesium (1.6-2.3) mg/dL Total Bilirubin (0.2-1.3) mg/dL AST (14-36) U/L ALT (4-34) U/L Alkaline Phosphatase (38-126) U/L Troponin I <0.012 (0.000-0.034) ng/mL NT-Pro-B Natriuret Pep 5090 pg/mL Total Protein (6.3-8.2) g/dL Albumin (3.5-5.0) g/dL Disposition Clinical Impression: Atrial fibrillation with RVR, CHF exacerbation Disposition: ADMITTED IP TO THIS HOSP Condition: Fair Referrals: Phoenix Manzo DO [Primary Care Provider] - 1-2 days Time of Disposition: 07:26
[2022-08-27 07:02] LABS: Albumin 3.8 g/dL (3.5-5.0); Calcium 9.5 mg/dL (8.4-10.2); Magnesium 1.7 mg/dL (1.6-2.3); Potassium 4.1 mmol/L (3.5-5.1); Total Bilirubin 1.3 mg/dL (0.2-1.3); Total Protein 6.2 g/dL (6.3-8.2)
--- NOTE | 2022-08-27 07:05 | XR ---
EXAMINATION TYPE: XR chest 2V DATE OF EXAM: 08/27/2022 COMPARISON: Chest x-ray July 23, 2022 HISTORY: Difficulty in breathing. TECHNIQUE: Frontal and lateral views of the chest are obtained. FINDINGS: Cardiomegaly with dual lead pacemaker is redemonstrated. New mild to moderate central vascu lar congestion and small to tiny bilateral pleural effusions. Underlying scoliotic curvature is prese nt. IMPRESSION: Findings consistent with CHF exacerbation are present as detailed above.
[2022-08-27] MEDS ORDERED: FUROSEMIDE 10 MG/ML 4 ML VIAL IV STA (07:10)
[2022-08-27] MEDS: DILTIAZEM 125 MG in SODIUM CHLORIDE 0.9% 100 ML IV SCH ×2 (08:14→20:31)
[2022-08-27 12:20] LABS: Glucose,Whole Blood 153 mg/dL (70-110)
[2022-08-27] MEDS ORDERED: NITROGLYCERIN SL TABS 0.4 MG TAB SUBLINGUAL PRN (13:00)
--- NOTE | 2022-08-27 13:14 | P.HPIM ---
History of Present Illness This is a pleasant 87 years old female with past medical history of diabetes mellitus, hypertension, atrial fibrillation on a blood thinner, history of CVA/TIA, osteoarthritis, status post pacemaker She was in the hospital about one month ago for A. 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 She followed up with Dr. Caceres, it looks LIKE flecainide discontinued and Cardizem dose was increased to [address] Caceres last Monday or Monday for routine follow-up and she states there was no change in her medication. Then over the last 3 days she started having worsening shortness of breath, with no associated cough and or chest pain. No change in urine or bowel habits. No fever. No headache dizziness weakness or numbness On admission patient is tachycardic around 114 and tachypneic at 22 breaths per minute Blood pressure is slightly elevated and patient is afebrile. She has unremarkable CBC, INR, BMP, Liver enzymes slightly elevated with AST 41 and ALT 55. Bilirubin is normal. Troponin are negative less than 0.012. chest x-ray: Pulmonary congestion suspicious for CHF ProBNP is elevated 5090. Echocardiogram from 07/23/2022 showing ejection fraction of 50% with moderate pulmonary hypertension In the emergency room patient received IV Lasix 40 mg twice daily and continue the Cardizem drip also she saw her PCP Dr. Gonzalez who started her on metformin Review of Systems Review of systems CONSTITUTIONAL: No fever, no malaise, no fatigue. HEENT: No recent visual problems or hearing problems. Denied any sore throat. CARDIOVASCULAR: No orthopnea, PND, no palpitations, no syncope. PULMONARY: No chest wall tenderness, no hemoptysis. GASTROINTESTINAL: No diarrhea, no nausea, no vomiting, no abdominal pain. Normoactive bowel sounds. NEUROLOGICAL: No headaches, no weakness, no numbness. HEMATOLOGICAL: Denies any bleeding or petechiae. GENITOURINARY: Denies any burning micturition, frequency, or urgency. MUSCULOSKELETAL/RHEUMATOLOGICAL: Denies any joint pain, swelling, or any muscle pain. ENDOCRINE: Denies any polyuria or polydipsia. Chest wall tenderness Past Medical History Past Medical History: Atrial Fibrillation, Chest Pain / Angina, CVA/TIA, Hypertension, Osteoarthritis (OA) Additional Past Medical History / Comment(s): . History of Any Multi-Drug Resistant Organisms: None Reported Past Surgical History: Hysterectomy, Pacemaker Additional Past Surgical History / Comment(s): . Past Anesthesia/Blood Transfusion Reactions: No Reported Reaction Additional Past Anesthesia/Blood Transfusion Reaction / Comment(s): . Type of Cardiac Device: Permanent Pacemaker Device Placement Date:: 02/26/15 Past Psychological History: No Psychological Hx Reported Additional Psychological History / Comment(s): .. 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) Past Drug Use History: None Reported - Past Family History Mother Family Medical History: CVA/TIA, Hypertension Additional Family Medical History / Comment(s): of cardiac aneurysm Sister(s) Family Medical History: Cancer, Hypertension Additional Family Medical History / Comment(s): breast cancer Medications and Allergies Home Medications Medication Instructions Recorded Confirmed Type Montelukast [Singulair] 10 mg PO HS 01/31/14 08/27/22 History Nitroglycerin Sl Tabs [Nitrostat] 0.4 mg SUBLINGUAL Q5M PRN 01/31/14 08/27/22 History Aspirin [Adult Low Dose Aspirin EC] 81 mg PO DAILY 08/01/17 08/27/22 History Metoprolol Succinate (ER) [Toprol 100 mg PO DAILY 10/14/20 08/27/22 History XL] lisinopriL 20 mg PO BID 10/14/20 08/27/22 History Apixaban [Eliquis] 5 mg PO BID #180 tab 10/19/20 08/27/22 Rx Potassium Chloride [Klor-Con 8] 8 meq PO DAILY 07/23/22 08/27/22 History Magnesium Citrate 250 mg PO DAILY 08/12/22 08/27/22 History dilTIAZem HCL 60 mg PO TID 08/12/22 08/27/22 History ALPRAZolam [Xanax] 0.25 mg PO BID PRN 08/27/22 08/27/22 History metFORMIN HCL 500 mg PO DAILY 08/27/22 08/27/22 History Allergies Allergy/AdvReac Type Severity Reaction Status Date / Time Penicillins Allergy Unknown Verified 08/27/22 11:54 Childhood Sulfa (Sulfonamide Allergy Unknown Verified 08/27/22 11:54 Antibiotics) Childhood EKG PATCHES AdvReac Unknown skin red Uncoded 08/27/22 05:56 and sore Physical Exam Vitals: Vital Signs Temp Pulse Pulse Resp BP BP Pulse Ox 08/27/22 12:00 104 H 16 153/107 95 08/27/22 08:14 114 H 18 144/116 97 08/27/22 07:27 93 22 156/118 97 08/27/22 06:45 111 H 12 151/95 95 08/27/22 06:40 92 23 139/95 94 L 08/27/22 06:30 111 H 23 144/96 94 L 08/27/22 06:20 121 H 17 155/93 95 08/27/22 06:17 130 H 11 L 94 L 08/27/22 05:50 97.7 F 87 18 151/85 93 L Intake and Output 08/26/22 08/27/22 08/27/22 22:59 06:59 14:59 Output Total 1100 Balance -1100 Output: Urine 1100 Other: Weight 92.986 kg 92.986 kg GENERAL: The patient is alert and oriented x3, not in any acute distress. Well developed, well nourished. HEENT: Pupils are round and equally reacting to light. EOMI. No scleral icterus. No conjunctival pallor. Normocephalic, atraumatic. No pharyngeal erythema. No thyromegaly. CARDIOVASCULAR: S1 and S2 present. No murmurs, rubs, or gallops. -PULMONARY: Chest is clear to auscultation, no wheezing bilateral basal crepitation Abdomen: Soft, nontender, nondistended, normoactive bowel sounds. No palpable organomegaly. MUSCULOSKELETAL: No joint swelling or deformity. -EXTREMITIES: No cyanosis, clubbing, , bilateral pitting like edema NEUROLOGICAL: Gross neurological examination did not reveal any focal deficits. SKIN: No rashes. no petechiae. Results CBC & Chem 7: 08/27/22 06:13 08/27/22 06:13 Labs: Abnormal Lab Results - Last 24 Hours (Table) 08/27/22 08/27/22 08/27/22 Range/Units 06:13 06:13 06:13 Lymphocytes # 0.8 L (1.0-4.8) k/uL INR 1.2 H (<1.2) BUN 30 H (7-17) mg/dL Glucose 190 H (74-99) mg/dL POC Glucose (mg/dL) (70-110) mg/dL AST 41 H (14-36) U/L ALT 55 H (4-34) U/L Total Protein 6.2 L (6.3-8.2) g/dL 08/27/22 Range/Units 12:19 Lymphocytes # (1.0-4.8) k/uL INR (<1.2) BUN (7-17) mg/dL Glucose (74-99) mg/dL POC Glucose (mg/dL) 153 H (70-110) mg/dL AST (14-36) U/L ALT (4-34) U/L Total Protein (6.3-8.2) g/dL Assessment and Plan Assessment: A. fib with RVR on Eliquis at home History of sick sinus syndrome status post dual-chamber pacemaker Acute and chronic CHF Hypertension Hyperlipidemia History of CVA/TIA History of osteoarthritis Moderate pulmonary hypertension Plan: continue with IV Lasix Monitor input and output and creatinin Cardiology team consult Resume metoprolol (she confirms she did not take it on the day of admission ) Labs and medication were reviewed.. Continue same treatment. Continue with symptomatic treatment. Resume home medication. Monitor labs and vitals. DVT and GI prophylaxis. Further recommendations as per clinical course of the patie nt DVT prophylaxis: Eliquis GI Prophylaxis: Pepcid PT/OT: Pending Prognosis is guarded
[2022-08-27] MEDS: METOPROLOL SUCCINATE (ER) 100 MG TAB.ER.24H PO SCH (16:37)
[2022-08-27 16:53] LABS: Glucose,Whole Blood 240 mg/dL (70-110)
[2022-08-27] MEDS ORDERED: DEXTROSE 50% SYRINGE 50 ML IVP PRN ×2 (17:18)
[2022-08-27] MEDS: INSULIN ASPART (NovoLOG) 100 UNIT/ML VIAL SQ SCH ×2 (18:32→20:23)
[2022-08-27] MEDS ORDERED: ACETAMINOPHEN TAB 325 MG TAB PO PRN (19:15)
[2022-08-27 20:22] LABS: Glucose,Whole Blood 152 mg/dL (70-110)
[2022-08-27] MEDS: MONTELUKAST 10 MG TAB PO SCH (20:32)
[2022-08-27] MEDS: lisinopriL 20 MG TAB PO SCH (20:33)
[2022-08-27] MEDS: FUROSEMIDE 10 MG/ML 4 ML VIAL IV SCH (20:33)
[2022-08-27] MEDS: APIXABAN 5 MG TAB PO SCH (20:33)
[2022-08-28] MEDS: FUROSEMIDE 10 MG/ML 4 ML VIAL IV SCH (06:11)
[2022-08-28 06:27] LABS: Glucose,Whole Blood 170 mg/dL (70-110)
[2022-08-28] MEDS: INSULIN ASPART (NovoLOG) 100 UNIT/ML VIAL SQ SCH ×4 (06:30→20:06)
[2022-08-28] MEDS: ASPIRIN 81 MG PO SCH (07:51)
[2022-08-28] MEDS: METOPROLOL SUCCINATE (ER) 100 MG TAB.ER.24H PO SCH ×2 (07:51→20:08)
[2022-08-28] MEDS: APIXABAN 5 MG TAB PO SCH ×2 (07:51→20:09)
[2022-08-28] MEDS: lisinopriL 20 MG TAB PO SCH ×2 (07:51→20:08)
[2022-08-28] MEDS: DILTIAZEM 125 MG in SODIUM CHLORIDE 0.9% 100 ML IV SCH (07:52)
[2022-08-28] MEDS: metFORMIN 500 MG TAB PO SCH (08:01)
[2022-08-28 09:04] LABS: Basophils # (A) 0.1 k/uL (0-0.2); Basophils % (A) 1 %; Eosinophils # (A) 0.2 k/uL (0-0.7); Eosinophils % (A) 3 %; HCT 39.8 % (34.0-46.0); HGB 13.6 gm/dL (11.4-16.0); Lymphocytes # (A) 0.9 k/uL (1.0-4.8); Lymphocytes % (A) 14 %; MCH 29.4 pg (25.0-35.0); MCHC 34.1 g/dL (31.0-37.0); MCV 86.2 fL (80.0-100.0); Mean Platelet Volume 8.4; Monocytes # (A) 0.4 k/uL (0-1.0); Monocytes % (A) 6 %; Neutrophils # (A) 4.6 k/uL (1.3-7.7); Neutrophils % (A) 72 %; Platelet Count 211 k/uL (150-450); RBC 4.62 m/uL (3.80-5.40); RDW 14.7 % (11.5-15.5); WBC 6.4 k/uL (3.8-10.6)
[2022-08-28 09:31] LABS: African American GFR (CKD) 53 (>60 ml/min/1.73 sqM); Anion Gap 7 mmol/L; Blood Urea Nitrogen 26 mg/dL (7-17); Calcium 8.9 mg/dL (8.4-10.2); Carbon Dioxide 36 mmol/L (22-30); Chloride 96 mmol/L (98-107); Glucose 238 mg/dL (74-99); Non-African American GFR(CKD) 46 (>60 ml/min/1.73 sqM); Potassium 3.2 mmol/L (3.5-5.1); Sodium 139 mmol/L (137-145)
[2022-08-28] MEDS ORDERED: POTASSIUM CHLORIDE ER 20 MEQ TAB.ER PO STA (09:39)
[2022-08-28] MEDS: SPIRONOLACTONE 25 MG TAB PO SCH (10:55)
[2022-08-28] MEDS: AMIODARONE 200 MG TAB PO SCH (10:55)
--- NOTE | 2022-08-28 11:34 | P.CRDCN ---
History of Present Illness Consult date: 08/28/22 Consult reason: atrial fibrillation History of present illness: The patient is an 87-year-old female with extensive cardiac history who follows in the office with Dr. Caceres. The patient has a history of atrial fibrillation ablation as well as failed class I antiarrhythmic drug therapy. The patient presented to the hospital with increased shortness of breath, weakness, and fatigue. She was found to be in A. fib with RVR on arrival. She was started on diltiazem drip. The patient recently underwent pacemaker generator change with Dr. Boogie, which she tolerated well. DIAGNOSTICS: EKG shows A. fib with RVR Chest x-ray shows mild to moderate central vascular congestion with small bilateral pleural effusions Echocardiogram from 07/23/22 shows percent LV function with moderate pulmonary hypertension WBC 6.4, hemoglobin 13.6, hematocrit 39.8, platelet 211, sodium 139, potassium 3.9, BUN 26, creatinine 1.10, hemoglobin A1c 8.0, TSH 1.57 Blood pressure 148/71, pulse 103, respiratory rate 18, SpO2 97% on room air REVIEW OF SYSTEMS: No fever or chills. No cough or expectoration. No diaphoresis. Patient denies headache, dizziness, blurred vision, double vision. Patient denies any stomach discomfort. No nausea, vomiting. No hematochezia. No hematemesis. Denies any black stools or blood in his stools. Denies dysuria or hematuria. No muscle weakness or numbness. Positive for shortness of breath with exertional activity. Positive for weakness and fatigue. PHYSICAL EXAMINATION: This is a 87-year-old female in no apparent distress at the time of my examination. HEENT: Head is atraumatic, normocephalic. Pupils are equal, round. Sclerae anicteric. Conjunctivae are clear. Mucous membranes of the mouth are moist. Neck is supple. There is no jugular venous distention. No carotid bruit is heard. CHEST EXAMINATION: Lungs are diminished to auscultation. No chest wall tenderness is noted on palpation or with deep breathing. HEART EXAMINATION: Irregular rate and rhythm. S1, S2 heard. No murmurs, gallops or rub. ABDOMEN: Soft, nontender. Bowel sounds are heard. No organomegaly noted. EXTREMITIES: 2+ peripheral pulses with no evidence of peripheral edema and no calf tenderness noted. NEUROLOGIC EXAMINATION: Patient is awake, alert and oriented x3. FINAL ASSESSMENT AND PLAN: ALyssa veloz with RVR Previously failed cardioversion and Class I antiarrhythmic therapy Congestive heart failure exacerbation, secondary to the above Recent upper respiratory infection, on antibiotics and steroids Hypertension Hypokalemia Sick sinus syndrome status post permanent pacemaker PLAN: Transition to oral Lasix Maximize beta katelyn Start amiodarone 400 mg daily Cardioversion with primary supervisor beet end Dr. Caceres in 1 month Further recommendations to be based on clinical course I am dictating on behalf of Dr Az Boogie's history/physical and assessment/plan. Past Medical History Past Medical History: Atrial Fibrillation, Chest Pain / Angina, CVA/TIA, Hypertension, Osteoarthritis (OA) Additional Past Medical History / Comment(s): . History of Any Multi-Drug Resistant Organisms: None Reported Past Surgical History: Hysterectomy, Pacemaker Additional Past Surgical History / Comment(s): . Past Anesthesia/Blood Transfusion Reactions: No Reported Reaction Additional Past Anesthesia/Blood Transfusion Reaction / Comment(s): . Type of Cardiac Device: Permanent Pacemaker Device Placement Date:: 02/26/15 Past Psychological History: No Psychological Hx Reported Additional Psychological History / Comment(s): .. 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) Past Drug Use History: None Reported - Past Family History Mother Family Medical History: CVA/TIA, Hypertension Additional Family Medical History / Comment(s): of cardiac aneurysm Sister(s) Family Medical History: Cancer, Hypertension Additional Family Medical History / Comment(s): breast cancer Medications and Allergies Home Medications Medication Instructions Recorded Confirmed Type Montelukast [Singulair] 10 mg PO HS 01/31/14 08/27/22 History Nitroglycerin Sl Tabs [Nitrostat] 0.4 mg SUBLINGUAL Q5M PRN 01/31/14 08/27/22 History Aspirin [Adult Low Dose Aspirin EC] 81 mg PO DAILY 08/01/17 08/27/22 History Metoprolol Succinate (ER) [Toprol 100 mg PO DAILY 10/14/20 08/27/22 History XL] lisinopriL 20 mg PO BID 10/14/20 08/27/22 History Apixaban [Eliquis] 5 mg PO BID #180 tab 10/19/20 08/27/22 Rx Potassium Chloride [Klor-Con 8] 8 meq PO DAILY 07/23/22 08/27/22 History Magnesium Citrate 250 mg PO DAILY 08/12/22 08/27/22 History dilTIAZem HCL 60 mg PO TID 08/12/22 08/27/22 History ALPRAZolam [Xanax] 0.25 mg PO BID PRN 08/27/22 08/27/22 History metFORMIN HCL 500 mg PO DAILY 08/27/22 08/27/22 History Allergies Allergy/AdvReac Type Severity Reaction Status Date / Time Penicillins Allergy Unknown Verified 08/27/22 11:54 Childhood Sulfa (Sulfonamide Allergy Unknown Verified 08/27/22 11:54 Antibiotics) Childhood EKG PATCHES AdvReac Unknown skin red Uncoded 08/27/22 05:56 and sore Physical Exam Vitals: Vital Signs Temp Pulse Resp BP Pulse Ox 08/28/22 08:00 98.2 F 103 H 18 148/71 97 08/28/22 03:52 83 18 133/81 95 08/27/22 23:24 98.1 F 89 18 146/81 96 08/27/22 19:46 97.9 F 84 18 149/83 96 08/27/22 16:00 111 H 16 149/101 97 08/27/22 12:00 104 H 16 153/107 95 Intake and Output 08/27/22 08/28/22 08/28/22 22:59 06:59 14:59 Intake Total 362.833 791.333 Output Total 1100 1100 Balance -737.167 -1100 791.333 Intake: Intake, IV Titration 122.833 131.333 Amount Diltiazem 125 mg In 122.833 131.333 Sodium Chloride 0.9% 100 ml @ 10 MG/HR 10 mls/hr IV .[id number] [facility] Rx#: [id number] Oral 240 660 Output: Urine 1100 1100 Other: Voiding Method Toilet Toilet Toilet # Voids 2 Weight 94.3 kg Results 08/28/22 08:29 08/28/22 08:29 Cardiac Enzymes 08/27/22 Range/Units 12:07 Troponin I <0.012 (0.000-0.034) ng/mL CBC 08/28/22 Range/Units 08:29 WBC 6.4 (3.8-10.6) k/uL RBC 4.62 (3.80-5.40) m/uL Hgb 13.6 (11.4-16.0) gm/dL Hct 39.8 (34.0-46.0) % Plt Count 211 (150-450) k/uL Comprehensive Metabolic Panel 08/28/22 Range/Units 08:29 Sodium 139 (137-145) mmol/L Potassium 3.2 L (3.5-5.1) mmol/L Chloride 96 L (98-107) mmol/L Carbon Dioxide 36 H (22-30) mmol/L BUN 26 H (7-17) mg/dL Creatinine 1.10 H (0.52-1.04) mg/dL Glucose 238 H (74-99) mg/dL Calcium 8.9 (8.4-10.2) mg/dL Current Medications Generic Name Dose Route Start Last Admin Trade Name Freq PRN Reason Stop Dose Admin Acetaminophen 650 mg 08/27/22 19:15 08/28/22 06:10 Acetaminophen Tab 325 Mg Tab PO 650 mg Q4HR PRN Administration Fever and/ or Pain Amiodarone HCl 400 mg 08/28/22 09:45 08/28/22 10:55 Amiodarone 200 Mg Tab PO 400 mg DAILY [facility] Administration Apixaban 5 mg 08/27/22 21:00 08/28/22 07:51 Apixaban 5 Mg Tab PO 5 mg BID [facility] Administration Protocol Aspirin 81 mg 08/28/22 09:00 08/28/22 07:51 Aspirin 81 Mg PO 81 mg DAILY [facility] Administration Dextrose/Water 25 ml 08/27/22 17:18 Dextrose 50% Syringe 50 Ml IVP PER PROTOCOL PRN Hypoglycemia Protocol Dextrose/Water 50 ml 08/27/22 17:18 Dextrose 50% Syringe 50 Ml IVP PER PROTOCOL PRN Hypoglycemia Protocol Furosemide 40 mg 08/29/22 09:00 Furosemide 40 Mg Tab PO DAILY [facility] Diltiazem HCl 125 mg/ Sodium 125 mls @ 5 mls/hr 08/27/22 07:45 08/28/22 09:39 Chloride IV 5 mg/hr .Q24H [facility] 5 mls/hr Infusion 5 MG/HR Insulin Aspart 0 unit 08/27/22 17:30 08/28/22 06:30 Insulin Aspart (Novolog) 100 Unit/Ml Vial SQ Not Given ACHS [facility] Protocol Lisinopril 20 mg 08/27/22 21:00 08/28/22 07:51 Lisinopril 20 Mg Tab PO 20 mg BID [facility] Administration Metformin HCl 500 mg 08/28/22 09:00 08/28/22 08:01 Metformin 500 Mg Tab PO 500 mg DAILY [facility] Administration Metoprolol Succinate 100 mg 08/28/22 21:00 Metoprolol Succinate (Er) 100 Mg Tab.Er.24h PO BID [facility] Montelukast Sodium 10 mg 08/27/22 21:00 08/27/22 20:32 Montelukast 10 Mg Tab PO 10 mg HS [facility] Administration Nitroglycerin 0.4 mg 08/27/22 13:00 Nitroglycerin Sl Tabs 0.4 Mg Tab SUBLINGUAL Q5M PRN Chest Pain Spironolactone 25 mg 08/28/22 09:45 08/28/22 10:55 Spironolactone 25 Mg Tab PO 25 mg DAILY [facility] Administration Intake and Output 08/27/22 08/28/22 08/28/22 22:59 06:59 14:59 Intake Total 362.833 791.333 Output Total 1100 1100 Balance -737.167 -1100 791.333 Intake: Intake, IV Titration 122.833 131.333 Amount Diltiazem 125 mg In 122.833 131.333 Sodium Chloride 0.9% 100 ml @ 10 MG/HR 10 mls/hr IV .[id number] [facility] Rx#: [id number] Oral 240 660 Output: Urine 1100 1100 Other: Voiding Method Toilet Toilet Toilet # Voids 2 Weight 94.3 kg 08/28/22 08:29 08/28/22 08:29
[2022-08-28 12:03] LABS: Glucose,Whole Blood 163 mg/dL (70-110)
[2022-08-28] MEDS ORDERED: Potassium Replacement Protocol 1 EACH MISC MISCELLANE PRN (13:56)
--- NOTE | 2022-08-28 13:59 | P.PN ---
Subjective This is a pleasant 87 years old female with past medical history of diabetes mellitus, hypertension, atrial fibrillation on a blood thinner, history of CVA/TIA, osteoarthritis, status post pacemaker She was in the hospital about one month ago for A. 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 She followed up with Dr. Caceres, it looks LIKE flecainide discontinued and Cardizem dose was increased to [address] Caceres last Monday or Monday for routine follow-up and she states there was no change in her medication. Then over the last 3 days she started having worsening shortness of breath, with no associated cough and or chest pain. No change in urine or bowel habits. No fever. No headache dizziness weakness or numbness On admission patient is tachycardic around 114 and tachypneic at 22 breaths per minute Blood pressure is slightly elevated and patient is afebrile. She has unremarkable CBC, INR, BMP, Liver enzymes slightly elevated with AST 41 and ALT 55. Bilirubin is normal. Troponin are negative less than 0.012. chest x-ray: Pulmonary congestion suspicious for CHF ProBNP is elevated 5090. Echocardiogram from 07/23/2022 showing ejection fraction of 50% with moderate pulmonary hypertension In the emergency room patient received IV Lasix 40 mg twice daily and continue the Cardizem drip also she saw her PCP Dr. Gonzalez who started her on metformin 08/28/2022 is clinically improving, she sitting up in bed and looks comfortable with no chest pain or dyspnea. She is hemodynamically stable. Still mildly tachycardic around 102 Creatinine slightly worse at 1.1 today. Accu-Chek showing sugar is controlled. She remains on Eliquis 5 mg. IV lysis wished oral dose 40 mg today. Also she is on metoprolol 100 mg and amiodarone 400 mg daily. We'll keep monitoring. Objective - Vital Signs Vital signs: Vital Signs Temp 97.5 F L 08/28/22 11:55 Pulse 102 H 08/28/22 11:55 Resp 18 08/28/22 11:55 BP 119/76 08/28/22 11:55 Pulse Ox 94 L 08/28/22 11:55 FiO2 Intake & Output 08/27/22 08/28/22 08/28/22 18:59 06:59 18:59 Intake Total 240 242.833 791.333 Output Total 1100 2200 Balance -860 -1957.167 791.333 Weight 92.986 kg 94.3 kg Intake: Intake, IV Titration 122.833 131.333 Amount Diltiazem 125 mg In 122.833 131.333 Sodium Chloride 0.9% 100 ml @ 5 MG/HR 5 mls/hr IV .Q24H [facility] Rx#:[id number] Oral 240 120 660 Output: Urine 1100 2200 Other: Voiding Method Toilet Toilet # Voids 2 - Exam GENERAL: The patient is alert and oriented x3, not in any acute distress. Well developed, well nourished. HEENT: Pupils are round and equally reacting to light. EOMI. No scleral icterus. No conjunctival pallor. Normocephalic, atraumatic. No pharyngeal erythema. No thyromegaly. CARDIOVASCULAR: S1 and S2 present. No murmurs, rubs, or gallops. PULMONARY: Chest is clear to auscultation, no wheezing or crackles. ABDOMEN: Soft, nontender, nondistended, normoactive bowel sounds. No palpable organomegaly. MUSCULOSKELETAL: No joint swelling or deformity. EXTREMITIES: No cyanosis, clubbing, or pedal edema. NEUROLOGICAL: Gross neurological examination did not reveal any focal deficits. SKIN: No rashes. no petechiae. - Labs CBC & Chem 7: 08/28/22 08:29 08/28/22 08:29 Labs: Abnormal Lab Results - Last 24 Hours (Table) 08/27/22 08/27/22 08/28/22 Range/Units 16:51 20:20 06:26 Lymphocytes # (1.0-4.8) k/uL Potassium (3.5-5.1) mmol/L Chloride (98-107) mmol/L Carbon Dioxide (22-30) mmol/L BUN (7-17) mg/dL Creatinine (0.52-1.04) mg/dL Glucose (74-99) mg/dL POC Glucose (mg/dL) 240 H 152 H 170 H (70-110) mg/dL Hemoglobin A1c (0.0-6.0) % 08/28/22 08/28/2208/28/23 Range/Units 08:29 08:29 08:29 Lymphocytes # 0.9 L (1.0-4.8) k/uL Potassium 3.2 L (3.5-5.1) mmol/L Chloride 96 L (98-107) mmol/L Carbon Dioxide 36 H (22-30) mmol/L BUN 26 H (7-17) mg/dL Creatinine 1.10 H (0.52-1.04) mg/dL Glucose 238 H (74-99) mg/dL POC Glucose (mg/dL) (70-110) mg/dL Hemoglobin A1c 8.0 H (0.0-6.0) % 08/28/22 Range/Units 12:01 Lymphocytes # (1.0-4.8) k/uL Potassium (3.5-5.1) mmol/L Chloride (98-107) mmol/L Carbon Dioxide (22-30) mmol/L BUN (7-17) mg/dL Creatinine (0.52-1.04) mg/dL Glucose (74-99) mg/dL POC Glucose (mg/dL) 163 H (70-110) mg/dL Hemoglobin A1c (0.0-6.0) % Assessment and Plan Assessment: A. fib with RVR on Eliquis at home History of sick sinus syndrome status post dual-chamber pacemaker Acute and chronic CHF Hypertension Hyperlipidemia History of CVA/TIA History of osteoarthritis Moderate pulmonary hypertension Plan: continue with IV Lasix Monitor input and output and creatinin Cardiology team consult Resume metoprolol, continue with amiodarone Labs and medication were reviewed.. Continue same treatment. Continue with symptomatic treatment. Resume home medication. Monitor labs and vitals. DVT and GI prophylaxis. Further recommendations as per clinical course of the patient DVT prophylaxis: Eliquis GI Prophylaxis: Pepcid PT/OT: Pending Prognosis is guarded Oral
[2022-08-28 16:43] LABS: Glucose,Whole Blood 206 mg/dL (70-110)
[2022-08-28 20:02] LABS: Glucose,Whole Blood 181 mg/dL (70-110)
[2022-08-28] MEDS: MONTELUKAST 10 MG TAB PO SCH (20:08)
[2022-08-29 06:16] LABS: Glucose,Whole Blood 185 mg/dL (70-110)
[2022-08-29] MEDS: INSULIN ASPART (NovoLOG) 100 UNIT/ML VIAL SQ SCH ×5 (06:19→20:23)
[2022-08-29] MEDS: DILTIAZEM 125 MG in SODIUM CHLORIDE 0.9% 100 ML IV SCH (06:56)
[2022-08-29 09:25] LABS: Magnesium 1.5 mg/dL (1.6-2.3); Potassium 3.6 mmol/L (3.5-5.1)
[2022-08-29] MEDS ORDERED: Magnesium Replacement Protocol 1 EACH MISC MISCELLANE PRN (09:37)
[2022-08-29] MEDS: AMIODARONE 200 MG TAB PO SCH (09:51)
[2022-08-29] MEDS: METOPROLOL SUCCINATE (ER) 100 MG TAB.ER.24H PO SCH ×2 (09:51→20:24)
[2022-08-29] MEDS: ASPIRIN 81 MG PO SCH (09:51)
[2022-08-29] MEDS: metFORMIN 500 MG TAB PO SCH (09:51)
[2022-08-29] MEDS: lisinopriL 20 MG TAB PO SCH ×2 (09:51→20:24)
[2022-08-29] MEDS: SPIRONOLACTONE 25 MG TAB PO SCH (09:51)
[2022-08-29] MEDS: FUROSEMIDE 40 MG TAB PO SCH (09:51)
[2022-08-29] MEDS: APIXABAN 5 MG TAB PO SCH ×2 (09:51→20:23)
[2022-08-29] MEDS: DILTIAZEM ORAL 60 MG TAB PO SCH ×3 (10:25→21:19)
[2022-08-29] MEDS: MAGNESIUM SULFATE-D5W PMX 1 GM in DEXTROSE/WATER 1 100ML.BAG IVPB SCH ×2 (10:25→11:51)
[2022-08-29 11:48] LABS: Glucose,Whole Blood 209 mg/dL (70-110)
--- NOTE | 2022-08-29 12:26 | P.PN ---
Subjective Progress Note Date: 08/29/22 HISTORY OF PRESENT ILLNESS: The patient is an 87-year-old female with extensive cardiac history who follows in the office with Dr. Caceres. The patient has a history of atrial fibrillation ablation as well as failed class I antiarrhythmic drug therapy. The patient presented to the hospital with increased shortness of breath, weakness, and fatigue. She was found to be in A. fib with RVR on arrival. She was started on diltiazem drip. The patient recently underwent pacemaker generator change with Dr. Boogie, which she tolerated well. DIAGNOSTICS: EKG shows A. fib with RVR Chest x-ray shows mild to moderate central vascular congestion with small bilateral pleural effusions Echocardiogram from 07/23/22 shows percent LV function with moderate pulmonary hypertension WBC 6.4, hemoglobin 13.6, hematocrit 39.8, platelet 211, sodium 139, potassium 3.9, BUN 26, creatinine 1.10, hemoglobin A1c 8.0, TSH 1.57 Blood pressure 148/71, pulse 103, respiratory rate 18, SpO2 97% on room air 08/29/2022 Patient examined this morning at the bedside. She currently denies chest pain or pressure. She denies shortness of breath. Telemetry reveals atrial fibrillation with a heart rate in the 90s. She has been started on oral amiodarone yesterday. Patient was also transitioned to oral Lasix yesterday. PHYSICAL EXAM: VITAL SIGNS: Reviewed. GENERAL: Well-developed in no acute distress. NECK: Supple. No JVD or thyromegaly LUNGS: Respirations even and unlabored. Lungs essentially clear to auscultation bilaterally. HEART: Irregular rate and rhythm. S1 and S2 heard. EXTREMITIES: Normal range of motion. No clubbing or cyanosis. Peripheral pulses intact. No lower extremity edema ASSESSMENT: Persistent atrial fibrillation with RVR History of atrial fibrillation ablation, 2020 Sick sinus syndrome with previous permanent pacemaker implantation Acute on chronic heart failure with preserved ejection fraction Hypertension Hypokalemia PLAN: Continue current cardiac medications Discontinue IV Cardizem Plan for cardioversion in 3-4 weeks Patient to follow up outpatient with Dr. Caceres Nurse practitioner note has been reviewed by physician. Signing provider agrees with the documented findings, assessment, and plan of care. Objective - Vital Signs Vital signs: Vital Signs Temp 97.9 F 08/29/22 12:00 Pulse 103 H 08/29/22 12:00 Resp 18 08/29/22 12:00 BP 129/81 08/29/22 12:00 Pulse Ox 96 08/29/22 12:00 FiO2 Intake & Output 08/28/22 08/29/22 08/29/22 18:59 06:59 18:59 Intake Total 1821.333 106.417 240 Output Total 600 Balance 1221.333 106.417 240 Weight 93.9 kg Intake: Intake, IV Titration 131.333 106.417 Amount Diltiazem 125 mg In 131.333 106.417 Sodium Chloride 0.9% 100 ml @ 5 MG/HR 5 mls/hr IV .Q24H [facility] Rx#:[id number] Oral 1690 240 Output: Urine 600 Other: Voiding Method Toilet Toilet Toilet # Voids 1 1 1 - Labs CBC & Chem 7: 08/28/22 08:29 08/30/22 07:45 Labs: Abnormal Lab Results - Last 24 Hours (Table) 08/28/22 08/28/22 08/29/22 Range/Units 16:41 20:01 06:14 Carbon Dioxide (22-30) mmol/L BUN (7-17) mg/dL Creatinine (0.52-1.04) mg/dL Glucose (74-99) mg/dL POC Glucose (mg/dL) 206 H 181 H 185 H (70-110) mg/dL Magnesium (1.6-2.3) mg/dL 08/29/22 08/29/22 Range/Units 08:46 11:46 Carbon Dioxide 33 H (22-30) mmol/L BUN 31 H (7-17) mg/dL Creatinine 1.07 H (0.52-1.04) mg/dL Glucose 171 H (74-99) mg/dL POC Glucose (mg/dL) 209 H (70-110) mg/dL Magnesium 1.5 L (1.6-2.3) mg/dL
[2022-08-29 16:37] LABS: Glucose,Whole Blood 217 mg/dL (70-110)
--- NOTE | 2022-08-29 16:47 | P.PN ---
Subjective Progress Note Date: 08/29/22 This is a pleasant 87 years old female with past medical history of diabetes mellitus, hypertension, atrial fibrillation on a blood thinner, history of CVA/TIA, osteoarthritis, status post pacemaker She was in the hospital about one month ago for A. 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 She followed up with Dr. Caceres, it looks LIKE flecainide discontinued and Cardizem dose was increased to [address] Caceres last Monday or Monday for routine follow-up and she states there was no change in her medication. Then over the last 3 days she started having worsening shortness of breath, with no associated cough and or chest pain. No change in urine or bowel habits. No fever. No headache dizziness weakness or numbness On admission patient is tachycardic around 114 and tachypneic at 22 breaths per minute Blood pressure is slightly elevated and patient is afebrile. She has unremarkable CBC, INR, BMP, Liver enzymes slightly elevated with AST 41 and ALT 55. Bilirubin is normal. Troponin are negative less than 0.012. chest x-ray: Pulmonary congestion suspicious for CHF ProBNP is elevated 5090. Echocardiogram from 07/23/2022 showing ejection fraction of 50% with moderate pulmonary hypertension In the emergency room patient received IV Lasix 40 mg twice daily and continue the Cardizem drip also she saw her PCP Dr. Gonzalez who started her on metformin 08/28/2022 is clinically improving, she sitting up in bed and looks comfortable with no chest pain or dyspnea. She is hemodynamically stable. Still mildly tachycardic around 102 Creatinine slightly worse at 1.1 today. Accu-Chek showing sugar is controlled. She remains on Eliquis 5 mg. IV lysis wished oral dose 40 mg today. Also she is on metoprolol 100 mg and amiodarone 400 mg daily. We'll keep monitoring. 08/29/2022 Patient is evaluated on stepdown unit. Continues on oral amiodarine and oral metoprolol. Started on oral cardizem today. Heart rate in the low 100s. Has been ambulating, felt her balance was off. Creatinine today of 1.07. Blood glucose in the 200s. Magnesium 1.5 which has been supplemented. Review of Systems Constitutional: Denied any fatigue denied any fever. Cardio vascular: denied any chest pain, palpitations Gastrointestinal: denied any nausea, vomiting, diarrhea Pulmonary: Denied any shortness of breath cough Neurologic denied any new focal deficits All inpatient medications were reviewed and appropriate changes in these medications as dictated in the interval history and assessment and plan. PHYSICAL EXAMINATION: GENERAL: The patient is alert and oriented x3, not in any acute distress. Well developed, well nourished. HEENT: Pupils are round and equally reacting to light. EOMI. No scleral icterus. No conjunctival pallor. Normocephalic, atraumatic. No pharyngeal erythema. No thyromegaly. CARDIOVASCULAR: S1 and S2 present. No murmurs, rubs, or gallops. PULMONARY: Chest is clear to auscultation, no wheezing or crackles. ABDOMEN: Soft, nontender, nondistended, normoactive bowel sounds. No palpable organomegaly. MUSCULOSKELETAL: No joint swelling or deformity. EXTREMITIES: No cyanosis, clubbing, or pedal edema. NEUROLOGICAL: Gross neurological examination did not reveal any focal deficits. SKIN: No rashes. Assessment and Plan Assessment A. fib with RVR on Eliquis at home History of sick sinus syndrome status post dual-chamber pacemaker Acute and chronic CHF Hypertension Hyperlipidemia History of CVA/TIA History of osteoarthritis Moderate pulmonary hypertension GI prophylaxis DVT prophylaxis Plan Continue oral amiodarone, toprol. Started on oral cardizem Continue oral anticoagulation Continue all other supportive care D/C home when cleared by cardiology and heart rate staying below 100 The impression and plan of care has been dictated by Lou Mccarty, Nurse Practitioner as directed. Dr. Felicia MD I have performed a history and physical examination and medical decision making of this patient, discussed the same with the dictator, and agree with the dictators assessment and plan as written, documented as a scribe. Based on total visit time, I have performed more than 50% of this visit. Objective - Vital Signs Vital signs: Vital Signs Temp 97.9 F 08/29/22 12:00 Pulse 103 H 08/29/22 14:00 Resp 18 08/29/22 14:00 BP 129/81 08/29/22 12:00 Pulse Ox 96 08/29/22 12:00 FiO2 Intake & Output 08/28/22 08/29/22 08/29/22 18:59 06:59 18:59 Intake Total 1821.333 106.417 240 Output Total 600 Balance 1221.333 106.417 240 Weight 93.9 kg Intake: Intake, IV Titration 131.333 106.417 Amount Diltiazem 125 mg In 131.333 106.417 Sodium Chloride 0.9% 100 ml @ 5 MG/HR 5 mls/hr IV .Q24H [facility] Rx#:[id number] Oral 1690 240 Output: Urine 600 Other: Voiding Method Toilet Toilet Toilet # Voids 1 1 1 - Labs CBC & Chem 7: 08/28/22 08:29 08/29/22 08:46 Labs: Abnormal Lab Results - Last 24 Hours (Table) 08/28/22 08/28/22 08/29/22 Range/Units 16:41 20:01 06:14 Carbon Dioxide (22-30) mmol/L BUN (7-17) mg/dL Creatinine (0.52-1.04) mg/dL Glucose (74-99) mg/dL POC Glucose (mg/dL) 206 H 181 H 185 H (70-110) mg/dL Magnesium (1.6-2.3) mg/dL 08/29/22 08/29/22 08/29/22 Range/Units 08:46 11:46 16:35 Carbon Dioxide 33 H (22-30) mmol/L BUN 31 H (7-17) mg/dL Creatinine 1.07 H (0.52-1.04) mg/dL Glucose 171 H (74-99) mg/dL POC Glucose (mg/dL) 209 H 217 H (70-110) mg/dL Magnesium 1.5 L (1.6-2.3) mg/dL Assessment and Plan Time with Patient: Less than 30
[2022-08-29] MEDS ORDERED: ALPRAZolam 0.25 MG TAB PO PRN (17:15)
[2022-08-29] MEDS ORDERED: DOCUSATE 100 MG CAP PO SCH (20:00)
[2022-08-29 20:16] LABS: Glucose,Whole Blood 173 mg/dL (70-110)
[2022-08-29] MEDS: MONTELUKAST 10 MG TAB PO SCH (20:24)
[2022-08-29] MEDS ORDERED: INSULIN DETEMIR (LEVEMIR) 100 UNIT/ML SYR SQ SCH (21:00)
[2022-08-29] MEDS: NYSTATIN 100,000 UNIT/GM POWD 15 GM TOPICAL SCH (21:19)
[2022-08-30] MEDS: INSULIN ASPART (NovoLOG) 100 UNIT/ML VIAL SQ SCH ×4 (06:17→12:23)
[2022-08-30 06:18] LABS: Glucose,Whole Blood 125 mg/dL (70-110)
[2022-08-30] MEDS ORDERED: HYDROCORTISONE 1% OINT 28.35 GM TUBE TOPICAL SCH (09:00)
[2022-08-30 09:12] LABS: Calcium 8.7 mg/dL (8.4-10.2); Potassium 3.6 mmol/L (3.5-5.1)
[2022-08-30] MEDS ORDERED: POTASSIUM CHLORIDE ER 20 MEQ TAB.ER PO STA (09:31)
[2022-08-30] MEDS: AMIODARONE 200 MG TAB PO SCH (10:58)
[2022-08-30] MEDS: APIXABAN 5 MG TAB PO SCH (10:58)
[2022-08-30] MEDS: DILTIAZEM ORAL 60 MG TAB PO SCH ×2 (10:59→15:51)
[2022-08-30] MEDS: ASPIRIN 81 MG PO SCH (10:59)
[2022-08-30] MEDS: FUROSEMIDE 40 MG TAB PO SCH (10:59)
[2022-08-30] MEDS: metFORMIN 500 MG TAB PO SCH (11:00)
[2022-08-30] MEDS: lisinopriL 20 MG TAB PO SCH (11:00)
[2022-08-30] MEDS: NYSTATIN 100,000 UNIT/GM POWD 15 GM TOPICAL SCH (11:01)
[2022-08-30] MEDS: METOPROLOL SUCCINATE (ER) 100 MG TAB.ER.24H PO SCH (11:01)
[2022-08-30] MEDS: SPIRONOLACTONE 25 MG TAB PO SCH (11:02)
--- NOTE | 2022-08-30 11:23 | P.PN ---
Subjective Progress Note Date: 08/30/22 HISTORY OF PRESENT ILLNESS: The patient is an 87-year-old female with extensive cardiac history who follows in the office with Dr. Caceres. The patient has a history of atrial fibrillation ablation as well as failed class I antiarrhythmic drug therapy. The patient presented to the hospital with increased shortness of breath, weakness, and fatigue. She was found to be in A. fib with RVR on arrival. She was started on diltiazem drip. The patient recently underwent pacemaker generator change with Dr. Boogie, which she tolerated well. DIAGNOSTICS: EKG shows A. fib with RVR Chest x-ray shows mild to moderate central vascular congestion with small bilateral pleural effusions Echocardiogram from 07/23/22 shows percent LV function with moderate pulmonary hypertension WBC 6.4, hemoglobin 13.6, hematocrit 39.8, platelet 211, sodium 139, potassium 3.9, BUN 26, creatinine 1.10, hemoglobin A1c 8.0, TSH 1.57 Blood pressure 148/71, pulse 103, respiratory rate 18, SpO2 97% on room air 08/29/2022 Patient examined this morning at the bedside. She currently denies chest pain or pressure. She denies shortness of breath. Telemetry reveals atrial fibrillation with a heart rate in the 90s. She has been started on oral amiodarone yesterday. Patient was also transitioned to oral Lasix yesterday. 08/30/2022 Patient examined this morning at bedside. Patient denies chest pain or pressure. She denies shortness of breath. Telemetry reveals atrial fibrill ation with controlled ventricular rate. Vital signs are stable. PHYSICAL EXAM: VITAL SIGNS: Reviewed. GENERAL: Well-developed in no acute distress. NECK: Supple. No JVD or thyromegaly LUNGS: Respirations even and unlabored. Lungs essentially clear to auscultation bilaterally. HEART: Irregular rate and rhythm. S1 and S2 heard. EXTREMITIES: Normal range of motion. No clubbing or cyanosis. Peripheral pulses intact. No lower extremity edema ASSESSMENT: Persistent atrial fibrillation with RVR History of atrial fibrillation ablation, 2020 Sick sinus syndrome with previous permanent pacemaker implantation Acute on chronic heart failure with preserved ejection fraction Hypertension Hypokalemia PLAN: Continue current cardiac medications Plan for cardioversion in 3-4 weeks Patient is stable for discharge home today from a cardiac standpoint Patient to follow up outpatient with Dr. Caceres Nurse practitioner note has been reviewed by physician. Signing provider agrees with the documented findings, assessment, and plan of care. Objective - Vital Signs Vital signs: Vital Signs Temp 98.0 F 08/30/22 08:00 Pulse 93 08/30/22 08:00 Resp 18 08/30/22 08:00 BP 129/91 08/30/22 08:00 Pulse Ox 95 08/30/22 08:47 FiO2 Intake & Output 08/29/22 08/30/22 08/30/22 18:59 06:59 18:59 Intake Total 240 540 240 Balance 240 540 240 Weight 93.7 kg Intake: Oral 240 540 240 Other: Voiding Method Toilet Toilet Toilet # Voids 1 2 - Labs CBC & Chem 7: 08/28/22 08:29 08/30/22 07:45 Labs: Abnormal Lab Results - Last 24 Hours (Table) 08/29/22 08/29/22 08/29/22 Range/Units 11:46 16:35 20:15 Carbon Dioxide (22-30) mmol/L BUN (7-17) mg/dL Creatinine (0.52-1.04) mg/dL Glucose (74-99) mg/dL POC Glucose (mg/dL) 209 H 217 H 173 H (70-110) mg/dL 08/30/22 08/30/22 Range/Units 06:16 07:45 Carbon Dioxide 32 H (22-30) mmol/L BUN 29 H (7-17) mg/dL Creatinine 1.18 H (0.52-1.04) mg/dL Glucose 196 H (74-99) mg/dL POC Glucose (mg/dL) 125 H (70-110) mg/dL
[2022-08-30 11:32] LABS: Glucose,Whole Blood 154 mg/dL (70-110)
[2022-08-30 15:51] VITALS: BP 113/69; PULSE 88; RESP 18; TEMP 98
--- NOTE | 2022-08-30 21:49 | P.DS ---
Providers Date of admission: 08/27/22 07:52 Attending physician: Aj Cobb Consults: 08/27/22 07:26 Consult Physician Routine Consulting Provider: Az Boogie Consult Reason/Comments: afib, chf Do you want consulting provider notified?: Yes Primary care physician: Phoenix Manzo Hospital Course: Final Diagnosis A. fib with RVR now rate controlled anticoagulated with eliquis History of sick sinus syndrome status post dual-chamber pacemaker Acute and chronic CHF with preserved ejection fraction Hypertension Hyperlipidemia Skin excoriation under left breast History of CVA/TIA History of osteoarthritis Moderate pulmonary hypertension Diabetes Mellitus type 2 A1C of 8.0 recently started on metformin outpatient. Discharge Disposition Patient is stable for discharge. Cardiology recommending 1 week follow up. Cardioversion recommended in 3 to 4 weeks. Patient to repeat labs in 2 to 3 days. Recommend to see PCP Dr. Manzo within 5 to 7 days of discharge. Januvia has been added for glycemic control. Hospital Course This is a pleasant 87 years old female with past medical history of diabetes mellitus, hypertension, atrial fibrillation on eliquis, history of CVA/TIA, osteoarthritis, status post pacemaker. She was in the hospital about one month ago for A. fib and RVR. Currently on combination of metoprolol and cardizem outpatient. Had been on flecainide in the past. Patient saw her multiple pressure riveter operator and the three days following that appointment she started having worsening shortness of breath, with no associated cough and or chest pain. No change in urine or bowel habits. No fever. No headache dizziness weakness or numbness. Patient was also recently started on metformin outpatient. Initial work up reveals heart rate of around 114. Chest xray showing pulmonary congestion suspicious for CHF. ProBNP is 5090 on admission. Echocardiogram from 07/23/2022 showing ejection fraction of 50% with moderate pulmonary hypertension. Patient received IV cardizem. She was started on IV lasix. She was monitored. Cardiology evaluated the patient. Patient resumed on home cardiac medications. Heart rate has improved. Cleared for discharge. 08/29/2022 Patient is evaluated today sitting up in bed, No acute events overnight. Has been up ambulating. No shortness of breath reported and no chest pain. Heart rate has improved, lungs are clear. S1 S2 auscultated irregular rhythm. Patient cleared by cardiology. Labs today reveals creatinine of 1.18. Recommend following up with labs outpatient. Patient is afebrile, heart rate 88, blood pressure 113/69, 94% on room air. Please see medication reconciliation for a list of current medication. Thank you for allowing us to participate in the care of this patient. The impression and plan of care has been dictated by Lou Mccarty, Nurse Practitioner as directed. Dr. Felicia MD I have performed a history and physical examination and medical decision making of this patient, discussed the same with the dictator, and agree with the dictators assessment and plan as written, documented as a scribe. Based on total visit time, I have performed more than 50% of this visit. Patient Condition at Discharge: Stable Plan - Discharge Summary Discharge Rx Participant: No New Discharge Prescriptions: New Docusate [Colace] 100 mg PO DAILY@1999 #30 cap sitaGLIPtin [Januvia] 25 mg PO DAILY #30 tablet Hydrocortisone Oint [Hydrocortisone 1% Oint] 1 applic TOPICAL BID each Continue Nitroglycerin Sl Tabs [Nitrostat] 0.4 mg SUBLINGUAL Q5M PRN PRN Reason: Chest Pain Montelukast [Singulair] 10 mg PO HS Aspirin [Adult Low Dose Aspirin EC] 81 mg PO DAILY Metoprolol Succinate (ER) [Toprol XL] 100 mg PO DAILY Apixaban [Eliquis] 5 mg PO BID #180 tab Potassium Chloride [Klor-Con 8] 8 meq PO DAILY dilTIAZem HCL 60 mg PO TID ALPRAZolam [Xanax] 0.25 mg PO BID PRN PRN Reason: Anxiety lisinopriL 20 mg PO BID Magnesium Citrate 250 mg PO DAILY metFORMIN HCL 500 mg PO DAILY Discharge Medication List Montelukast [Singulair] 10 mg PO HS 01/31/14 [History] Nitroglycerin Sl Tabs [Nitrostat] 0.4 mg SUBLINGUAL Q5M PRN 01/31/14 [History] Aspirin [Adult Low Dose Aspirin EC] 81 mg PO DAILY 08/01/17 [History] Metoprolol Succinate (ER) [Toprol XL] 100 mg PO DAILY 10/14/20 [History] lisinopriL 20 mg PO BID 10/14/20 [History] Apixaban [Eliquis] 5 mg PO BID #180 tab 10/19/20 [Rx] Potassium Chloride [Klor-Con 8] 8 meq PO DAILY 07/23/22 [History] Magnesium Citrate 250 mg PO DAILY 08/12/22 [History] dilTIAZem HCL 60 mg PO TID 08/12/22 [History] ALPRAZolam [Xanax] 0.25 mg PO BID PRN 08/27/22 [History] metFORMIN HCL 500 mg PO DAILY 08/27/22 [History] Docusate [Colace] 100 mg PO DAILY@1999 #30 cap 08/30/22 [Rx] Hydrocortisone Oint [Hydrocortisone 1% Oint] 1 applic TOPICAL BID each 08/30/22 [Rx] sitaGLIPtin [Januvia] 25 mg PO DAILY #30 tablet 08/30/22 [Rx] Follow up Appointment(s)/Referral(s): Haely Caceres MD [STAFF PHYSICIAN] - 09/12/22 3:15 pm (Monday ) Phoenix Manzo DO [Primary Care Provider] - 09/20/22 10:00 am (Will put you on cancelation list. Monday ) [facility] Visiting Nurse, [NON-STAFF] - 1 Week (Already has been set up by the patient ) Ambulatory/Diagnostic Orders: Basic Metabolic Panel [LAB.AMB] Time Frame: 3 Days, Location: None Selected Activity/Diet/Wound Care/Special Instructions: Cleared for discharge Cardiology recommendations to follow up with Dr. Caceres in the office and Cardioversion in 3 to 4 weeks. Repeat labs in 2 to 3 days and follow up with Dr. Manzo Discharge Disposition: HOME SELF-CARE
== END 2022-08-30 17:20 | disposition home or self-care (01) | DRG 308 ==
LOC: EC 05:44 → 3SCARD 07:52
PROVIDERS: ADMIT Hospitalist; ATTEND Hospitalist
DX: I48.19 Other persistent atrial fibrillation (principal); I50.33 Acute on chronic diastolic (congestive) heart failure; Z79.01 Long term (current) use of anticoagulants; I49.5 Sick sinus syndrome; I11.0 Hypertensive heart disease with heart failure; E78.5 Hyperlipidemia, unspecified; S20.112A Abrasion of breast, left breast, initial encounter; Z20.822 Contact with and (suspected) exposure to COVID-19; Z86.73 Personal history of transient ischemic attack (TIA), and cerebral infarction without residual deficits; I27.20 Pulmonary hypertension, unspecified; R00.0 Tachycardia, unspecified; M19.90 Unspecified osteoarthritis, unspecified site; D64.9 Anemia, unspecified; E87.6 Hypokalemia; Z79.82 Long term (current) use of aspirin; K57.90 Diverticulosis of intestine, part unspecified, without perforation or abscess without bleeding; Z79.899 Other long term (current) drug therapy; Z95.0 Presence of cardiac pacemaker; Z79.84 Long term (current) use of oral hypoglycemic drugs; Z90.710 Acquired absence of both cervix and uterus; Z88.0 Allergy status to penicillin; Z88.2 Allergy status to sulfonamides; Z98.42 Cataract extraction status, left eye; Z98.41 Cataract extraction status, right eye
CPT/HCPCS: 36415; 71046; 80048; 80053; 83036; 83605; 83735; 83880; 84443; 84484; 85025; 85610; 85730; 87635; 93005; 94760; 96365; 96375; 99291

== ENCOUNTER 2022-09-09 16:00 | Inpatient (IN) | payer MEDICARE ==
[2022-09-09] MEDS ORDERED: SODIUM CHLORIDE 0.9% 500 ML 500 ML IV STA (17:22)
[2022-09-09] MEDS ORDERED: METOPROLOL TARTRATE 5 MG/5 ML VIAL IVP STA (17:23)
--- NOTE | 2022-09-09 17:25 | ED ---
General Adult HPI - General Chief complaint: Arrhythmia/Palpitations Stated complaint: AFIB/SOB Time Seen by Provider: 09/09/22 17:00 Source: patient Mode of arrival: wheelchair Limitations: no limitations - History of Present Illness Initial comments: Dictation was produced using [employer] dictation software. please excuse any grammatical, word or spelling errors. Chief Complaint: 87-year-old female presents emergency department for p alpitations shortness of breath History of Present Illness: Is 87-year-old female she has past medical history. She takes and a coagulation medications. Patient states she had acute shortness of breath today. States that she gets short of breath from being anxious. She tried taking some of her anxiety medications but this time it didn't seem to improve her breathing. Patient has history of A. fib. Her heart rates been running along the high side mostly today The ROS documented in this emergency department record has been reviewed and confirmed by me. Those systems with pertinent positive or negative responses have been documented in the HPI. All other systems are other negative and/or noncontributory. - Related Data Home Medications Medication Instructions Recorded Confirmed Montelukast [Singulair] 10 mg PO HS 01/31/14 09/09/22 Nitroglycerin Sl Tabs [Nitrostat] 0.4 mg SUBLINGUAL Q5M PRN 01/31/14 09/09/22 Aspirin [Adult Low Dose Aspirin EC] 81 mg PO DAILY 08/01/17 09/09/22 Metoprolol Succinate (ER) [Toprol 100 mg PO DAILY 10/14/20 09/09/22 XL] lisinopriL 20 mg PO BID 10/14/20 09/09/22 Potassium Chloride [Klor-Con 8] 8 meq PO DAILY 07/23/22 09/09/22 Magnesium Citrate 250 mg PO DAILY 08/12/22 09/09/22 dilTIAZem HCL 60 mg PO TID 08/12/22 09/09/22 ALPRAZolam [Xanax] 0.25 mg PO BID PRN 08/27/22 09/09/22 metFORMIN HCL 500 mg PO DAILY 08/27/22 09/09/22 Previous Rx's Medication Instructions Recorded Apixaban [Eliquis] 5 mg PO BID #180 tab 10/19/20 Docusate [Colace] 100 mg PO DAILY@1999 #30 cap 08/30/22 Hydrocortisone Oint 1 applic TOPICAL BID each 08/30/22 [Hydrocortisone 1% Oint] Allergies Allergy/AdvReac Type Severity Reaction Status Date / Time Penicillins Allergy Unknown Verified 09/09/22 17:16 Childhood Sulfa (Sulfonamide Allergy Unknown Verified 09/09/22 17:16 Antibiotics) Childhood EKG PATCHES AdvReac Unknown skin red Uncoded 09/09/22 16:27 and sore Review of Systems ROS Statement: Those systems with pertinent positive or pertinent negative responses have been documented in the HPI. ROS Other: All systems not noted in ROS Statement are negative. Past Medical History Past Medical History: Atrial Fibrillation, Chest Pain / Angina, CVA/TIA, Hypertension, Osteoarthritis (OA) Additional Past Medical History / Comment(s): . History of Any Multi-Drug Resistant Organisms: None Reported Past Surgical History: Hysterectomy, Pacemaker Additional Past Surgical History / Comment(s): . Past Anesthesia/Blood Transfusion Reactions: No Reported Reaction Additional Past Anesthesia/Blood Transfusion Reaction / Comment(s): . Type of Cardiac Device: Permanent Pacemaker Device Placement Date:: 02/26/15 Past Psychological History: No Psychological Hx Reported Smoking Status: Never smoker Past Alcohol Use History: None Reported Past Drug Use History: None Reported - Past Family History Mother Family Medical History: CVA/TIA, Hypertension Additional Family Medical History / Comment(s): of cardiac aneurysm Sister(s) Family Medical History: Cancer, Hypertension Additional Family Medical History / Comment(s): breast cancer General Exam Limitations: no limitations Course Vital Signs 09/09/22 09/09/22 09/09/22 16:23 16:38 17:00 Temperature 97.3 F L Pulse Rate 63 112 H 100 Respiratory 22 24 14 Rate Blood Pressure 165/111 157/130 O2 Sat by Pulse 97 Oximetry 09/09/22 09/09/22 17:30 18:00 Temperature Pulse Rate 106 H Respiratory 22 Rate Blood Pressure 158/128 159/127 O2 Sat by Pulse Oximetry Medical Decision Making - Medical Decision Making Was pt. sent in by a medical professional or institution (, PA, FLEXOGRAPHIC PRESS OPERATOR, urgent care, hospital, or half-way...) When possible be specific @ -No Did you speak to anyone other than the patient for history (EMS, parent, family, police, friend...)? What history was obtained from this source @ -Daughter at the bedside Did you review nursing and triage notes (agree or disagree)? Why? @ -I reviewed and agree with nursing and triage notes Were old charts reviewed (outside hosp., previous admission, EMS record, old EKG, old radiological studies, urgent care reports/EKG's, half-way records)? Report findings @ -Previous echocardiogram was reviewed showing 50% ejection fraction. Cardiology consultation notes reviewed Differential Diagnosis (chest pain, altered mental status, abdominal pain women, abdominal pain men, vaginal bleeding, musculoskeletal, weakness, fever, dyspnea, syncope, headache, dizziness, GI bleed, back pain, seizure, CVA, palpatations, mental health)? @ - Differential Palpitations: Ventricular arrhythmias, atrial arrhythmias, myocardial infarction, anemia, thyrotoxicosis, electrolyte imbalance, hypokalemia, pulmonary embolism, pulmonary disease, drugs, alcohol, anxiety, stress.... This is not meant to be an all-inclusive list. EKG interpreted by me (3pts min.). @ My EKG interpretation: Ventricular rate 113, A. fib with rapid ventricular response, QRS 101, QTC 400. no QTC prolongation, no ST or T-wave changes noted. X-rays interpreted by me (1pt min.). @ -Chest x-ray shows mild pulmonary vascular congestion CT interpreted by me (1pt min.). @ -None done U/S interpreted by me (1pt. min.). @ -None done What testing was considered but not performed or refused? (CT, X-rays, U/S, labs)? Why? @ -None What meds were considered but not given or refused? Why? @ -None Did you discuss the management of the patient with other professionals (professionals i.e. , PA, FLEXOGRAPHIC PRESS OPERATOR, lab, RT, psych nurse, case management social worker, fish and wildlife warden, teacher, electrical engineering drafting officer, case fitter)? Give summary @ -Case discussed with chief for admission Was smoking cessation discussed for >3mins.? @ -No Was critical care preformed (if so, how long)? @ -33 minutes Were there social determinants of health that impacted care today? How? (Homelessness, low income, unemployed, alcoholism, drug addiction, transportation, low edu. Level, literacy, decrease access to med. care, halfway, rehab)? @ -No Was there de-escalation of care discussed even if they declined (Discuss DNR or withdrawal of care, Hospice)? DNR status @ -No What co-morbidities impacted this encounter? (DM, HTN, Smoking, COPD, CAD, Cancer, CVA, ARF, Chemo, Hep., AIDS, mental health diagnosis, sleep apnea, mo rbid obesity)? @ -None Was patient admitted / discharged? Hospital course, mention meds given and route, prescriptions, significant lab abnormalities, going to OR and other pertinent info. @ -87-year-old female presents emergency Department with shortness of breath. Patient has features of heart failure. She also appears to be in atrial f ibrillation with rapid ventricular rate. Patient tried with just metoprolol pushes however she still continued to be significantly tachycardic. Patient given Lasix for heart failure. Patient ultimately placed on Cardizem drip. She will be admitted with consultation to cardiology. Undiagnosed new problem with uncertain prognosis? @ -No Drug Therapy requiring intensive monitoring for toxicity (Heparin, Nitro, Insulin, Cardizem)? @ -No Were any procedures done? @ -No Diagnosis/symptom? Acute, or Chronic, or Acute on Chronic? Uncomplicated (without systemic symptoms) or Complicated (systemic symptoms)? @ -1. Acute heart failure, 2. A. fib with RVR Side effects of treatment? @ -No Exacerbation, Progression, or Severe Exacerbation? @ -No Poses a threat to life or bodily function? How? (Chest pain, [place], [place], pneumonia, PE, COPD, DKA, ARF, appy, cholecystitis, CVA, Diverticulitis, Homicidal, Suicidal, threat to staff... and all critical care pts) @ -yes - Lab Data Result diagrams: 09/09/22 17:38 09/09/22 17:38 Lab Results 09/09/22 09/09/22 09/09/22 Range/Units 17:38 17:38 17:38 WBC 5.3 (3.8-10.6) k/uL RBC 4.58 (3.80-5.40) m/uL Hgb 13.4 (11.4-16.0) gm/dL Hct 40.2 (34.0-46.0) % MCV 87.8 (80.0-100.0) fL MCH 29.3 (25.0-35.0) pg MCHC 33.4 (31.0-37.0) g/dL RDW 14.8 (11.5-15.5) % Plt Count 206 (150-450) k/uL MPV 8.2 Neutrophils % 65 % Lymphocytes % 20 % Monocytes % 7 % Eosinophils % 4 % Basophils % 1 % Neutrophils # 3.4 (1.3-7.7) k/uL Lymphocytes # 1.1 (1.0-4.8) k/uL Monocytes # 0.4 (0-1.0) k/uL Eosinophils # 0.2 (0-0.7) k/uL Basophils # 0.0 (0-0.2) k/uL Sodium 142 (137-145) mmol/L Potassium 4.3 (3.5-5.1) mmol/L Chloride 108 H (98-107) mmol/L Carbon Dioxide 26 (22-30) mmol/L Anion Gap 8 mmol/L BUN 33 H (7-17) mg/dL Creatinine 1.08 H (0.52-1.04) mg/dL Est GFR (CKD-EPI)AfAm 54 (>60 ml/min/1.73 sqM) Est GFR (CKD-EPI)NonAf 47 (>60 ml/min/1.73 sqM) Glucose 136 H (74-99) mg/dL Calcium 9.2 (8.4-10.2) mg/dL Magnesium 1.7 (1.6-2.3) mg/dL Total Bilirubin 1.5 H (0.2-1.3) mg/dL AST 35 (14-36) U/L ALT 47 H (4-34) U/L Alkaline Phosphatase 64 (38-126) U/L Troponin I <0.012 (0.000-0.034) ng/mL NT-Pro-B Natriuret Pep pg/mL Total Protein 6.3 (6.3-8.2) g/dL Albumin 3.7 (3.5-5.0) g/dL 09/09/22 Range/Units 17:38 WBC (3.8-10.6) k/uL RBC (3.80-5.40) m/uL Hgb (11.4-16.0) gm/dL Hct (34.0-46.0) % MCV (80.0-100.0) fL MCH (25.0-35.0) pg MCHC (31.0-37.0) g/dL RDW (11.5-15.5) % Plt Count (150-450) k/uL MPV Neutrophils % % Lymphocytes % % Monocytes % % Eosinophils % % Basophils % % Neutrophils # (1.3-7.7) k/uL Lymphocytes # (1.0-4.8) k/uL Monocytes # (0-1.0) k/uL Eosinophils # (0-0.7) k/uL Basophils # (0-0.2) k/uL Sodium (137-145) mmol/L Potassium (3.5-5.1) mmol/L Chloride (98-107) mmol/L Carbon Dioxide (22-30) mmol/L Anion Gap mmol/L BUN (7-17) mg/dL Creatinine (0.52-1.04) mg/dL Est GFR (CKD-EPI)AfAm (>60 ml/min/1.73 sqM) Est GFR (CKD-EPI)NonAf (>60 ml/min/1.73 sqM) Glucose (74-99) mg/dL Calcium (8.4-10.2) mg/dL Magnesium (1.6-2.3) mg/dL Total Bilirubin (0.2-1.3) mg/dL AST (14-36) U/L ALT (4-34) U/L Alkaline Phosphatase (38-126) U/L Troponin I (0.000-0.034) ng/mL NT-Pro-B Natriuret Pep 5660 pg/mL Total Protein (6.3-8.2) g/dL Albumin (3.5-5.0) g/dL Disposition Clinical Impression: Atrial fibrillation with RVR, Heart failure Disposition: ADMITTED IP TO THIS HOSP Condition: Serious Referrals: Phoenix Manzo DO [Primary Care Provider] - 1-2 days Decision Time: 20:00
[2022-09-09 18:00] LABS: Basophils % (A) 1 %; Eosinophils # (A) 0.2 k/uL (0-0.7); Eosinophils % (A) 4 %; HCT 40.2 % (34.0-46.0); HGB 13.4 gm/dL (11.4-16.0); Lymphocytes # (A) 1.1 k/uL (1.0-4.8); Lymphocytes % (A) 20 %; MCH 29.3 pg (25.0-35.0); MCHC 33.4 g/dL (31.0-37.0); MCV 87.8 fL (80.0-100.0); Mean Platelet Volume 8.2; Monocytes # (A) 0.4 k/uL (0-1.0); Monocytes % (A) 7 %; Neutrophils # (A) 3.4 k/uL (1.3-7.7); Neutrophils % (A) 65 %; Platelet Count 206 k/uL (150-450); RBC 4.58 m/uL (3.80-5.40); RDW 14.8 % (11.5-15.5); WBC 5.3 k/uL (3.8-10.6)
[2022-09-09 18:16] LABS: Albumin 3.7 g/dL (3.5-5.0); Calcium 9.2 mg/dL (8.4-10.2); Magnesium 1.7 mg/dL (1.6-2.3); Potassium 4.3 mmol/L (3.5-5.1); Total Bilirubin 1.5 mg/dL (0.2-1.3); Total Protein 6.3 g/dL (6.3-8.2)
--- NOTE | 2022-09-09 18:53 | XR ---
EXAMINATION TYPE: XR chest 2V DATE OF EXAM: 09/09/2022 6:04 PM COMPARISON: Chest radiographs from 08/27/2022 TECHNIQUE: XR chest 2V Frontal and lateral views of the chest. CLINICAL INDICATION:Female, 87 years old with history of dyspnea; FINDINGS: Lungs/Pleura: There is no evidence of pleural effusion, focal consolidation, or pneumothorax. Pulmonary vascularity: Pulmonary vascular congestion. Heart/mediastinum: Cardiomediastinal silhouette is enlarged and stable. Two lead cardiac conduction d evice overlying the left hemithorax with lead tips projecting over the right ventricle and right atri um. Musculoskeletal: No acute osseous pathology. IMPRESSION: Cardiomegaly and mild pulmonary vascular congestion. Correlate with BNP for congestive heart failure.
[2022-09-09] MEDS ORDERED: FUROSEMIDE 10 MG/ML 4 ML VIAL IV STA (20:29)
[2022-09-09] MEDS ORDERED: NALOXONE 0.4 MG/ML 1 ML VIAL IV PRN (20:34)
[2022-09-09] MEDS: SODIUM CHLORIDE 0.9% 1,000 ML IV SCH (20:52)
[2022-09-09] MEDS ORDERED: DILTIAZEM 125 MG in SODIUM CHLORIDE 0.9% 100 ML IV SCH (21:00)
[2022-09-10 01:21] VITALS: RESP 18
[2022-09-10] MEDS ORDERED: NITROGLYCERIN SL TABS 0.4 MG TAB SUBLINGUAL PRN (08:13)
[2022-09-10] MEDS ORDERED: ACETAMINOPHEN TAB 325 MG TAB PO PRN (08:58)
[2022-09-10] MEDS ORDERED: METOPROLOL SUCCINATE (ER) 100 MG TAB.ER.24H PO SCH (09:00)
[2022-09-10] MEDS ORDERED: DILTIAZEM ORAL 60 MG TAB PO SCH (09:00)
[2022-09-10] MEDS: APIXABAN 5 MG TAB PO SCH ×2 (10:50→21:34)
[2022-09-10] MEDS: POTASSIUM CHLORIDE ER 10 MEQ TAB.ER.PRT PO SCH (10:50)
[2022-09-10] MEDS: metFORMIN 500 MG TAB PO SCH (10:50)
[2022-09-10] MEDS: lisinopriL 20 MG TAB PO SCH ×2 (10:51→21:34)
[2022-09-10] MEDS: ASPIRIN 81 MG PO SCH (10:51)
[2022-09-10] MEDS: ALPRAZolam 0.25 MG TAB PO PRN ×2 (11:01→21:34)
--- NOTE | 2022-09-10 14:06 | P.HPIM ---
History of Present Illness H&P Date: 09/10/22 History of present illness; This is a pleasant 87 years old female with past medical history of diabetes mellitus, hypertension, atrial fibrillation on eliquis, history of CVA/TIA, osteoarthritis, status post pacemaker who presented to the ER because of shortness of breath that started yesterday. Patient has history of A. fib and heart failure with preserved ejection presented was only recently in the hospital a week ago and was discharged after her medications were adjusted by cardiology. Patient stated that she got short of breath suddenly and shortness of breath was present on rest as well as exertion. She was complaining of swelling of legs as well. Denied any chest pain at time. Was complaining of palpitations. Initial lab work in the ER showed white count of 5.3, hemoglobin 13.4, patient count 206, sodium 142, potassium 4.3, BUN 33, creatinine 1.08, EKG done in the ER showed patient to be in A. fib with RVR. She was admitted for further evaluation and treatment REVIEW OF SYSTEMS: CONSTITUTIONAL: No fever, no malaise, no fatigue. HEENT: No recent visual problems or hearing problems. Denied any sore throat. CARDIOVASCULAR: No chest pain, orthopnea, PND, as mentioned in HPI, complaining of swelling of legs PULMONARY: No cough, no hemoptysis. GASTROINTESTINAL: No diarrhea, no nausea, no vomiting, no abdominal pain. NEUROLOGICAL: No headaches, no weakness, no numbness. HEMATOLOGICAL: Denies any bleeding or petechiae. GENITOURINARY: Denies any burning micturition, frequency, or urgency. MUSCULOSKELETAL/RHEUMATOLOGICAL: Denies any joint pain, swelling, or any muscle pain. ENDOCRINE: Denies any polyuria or polydipsia. The rest of the 14-point review of systems is negative. PHYSICAL EXAMINATION: GENERAL: The patient is alert and oriented x3, not in any acute distress. Well developed, well nourished. HEENT: Pupils are round and equally reacting to light. EOMI. No scleral icterus. No conjunctival pallor. Normocephalic, atraumatic. No pharyngeal erythema. No thyromegaly. CARDIOVASCULAR: S1 and S2 present. No murmurs, rubs, or gallops. Tachycardic PULMONARY: Chest is clear to auscultation, no wheezing or crackles. ABDOMEN: Soft, nontender, nondistended, normoactive bowel sounds. No palpable organomegaly. MUSCULOSKELETAL: No joint swelling or deformity. EXTREMITIES: No cyanosis, clubbing, or pedal edema. NEUROLOGICAL: Gross neurological examination did not reveal any focal deficits. SKIN: No rashes. Assessment and plan A. fib with RVR currrently anticoagulated with eliquis History of sick sinus syndrome status post dual-chamber pacemaker Acute on chronic CHF with preserved ejection fraction Hypertension Hyperlipidemia History of CVA/TIA History of osteoarthritis Moderate pulmonary hypertension Diabetes Mellitus type 2 A1C of 8.0 recently started on metformin outpatient. Plan; Monitor vital signs monitor CBC Continue telemetry Continue Cardizem drip Continue Eliquis Continue metoprolol 100 milligrams daily Resume home meds Cardiology consulted Past Medical History Past Medical History: Atrial Fibrillation, Chest Pain / Angina, CVA/TIA, Hypertension, Osteoarthritis (OA) Additional Past Medical History / Comment(s): . History of Any Multi-Drug Resistant Organisms: None Reported Past Surgical History: Hysterectomy, Pacemaker Additional Past Surgical History / Comment(s): . Past Anesthesia/Blood Transfusion Reactions: No Reported Reaction Additional Past Anesthesia/Blood Transfusion Reaction / Comment(s): . Type of Cardiac Device: Permanent Pacemaker Device Placement Date:: 02/26/15 Past Psychological History: No Psychological Hx Reported Additional Psychological History / Comment(s): .. 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) Past Drug Use History: None Reported - Past Family History Mother Family Medical History: CVA/TIA, Hypertension Additional Family Medical History / Comment(s): of cardiac aneurysm Sister(s) Family Medical History: Cancer, Hypertension Additional Family Medical History / Comment(s): breast cancer Medications and Allergies Home Medications Medication Instructions Recorded Confirmed Type Montelukast [Singulair] 10 mg PO HS 01/31/14 09/09/22 History Nitroglycerin Sl Tabs [Nitrostat] 0.4 mg SUBLINGUAL Q5M PRN 01/31/14 09/09/22 History Aspirin [Adult Low Dose Aspirin EC] 81 mg PO DAILY 08/01/17 09/09/22 History Metoprolol Succinate (ER) [Toprol 100 mg PO DAILY 10/14/20 09/09/22 History XL] lisinopriL 20 mg PO BID 10/14/20 09/09/22 History Apixaban [Eliquis] 5 mg PO BID #180 tab 10/19/20 09/09/22 Rx Potassium Chloride [Klor-Con 8] 8 meq PO DAILY 07/23/22 09/09/22 History Magnesium Citrate 250 mg PO DAILY 08/12/22 09/09/22 History dilTIAZem HCL 60 mg PO TID 08/12/22 09/09/22 History ALPRAZolam [Xanax] 0.25 mg PO BID PRN 08/27/22 09/09/22 History metFORMIN HCL 500 mg PO DAILY 08/27/22 09/09/22 History Docusate [Colace] 100 mg PO DAILY@1999 #30 cap 08/30/22 09/09/22 Rx Hydrocortisone Oint 1 applic TOPICAL BID each 08/30/22 09/09/22 Rx [Hydrocortisone 1% Oint] Allergies Allergy/AdvReac Type Severity Reaction Status Date / Time Penicillins Allergy Unknown Verified 09/09/22 17:16 Childhood Sulfa (Sulfonamide Allergy Unknown Verified 09/09/22 17:16 Antibiotics) Childhood EKG PATCHES AdvReac Unknown skin red Uncoded 09/09/22 16:27 and sore Physical Exam Vitals: Vital Signs Temp Pulse Pulse Resp BP BP Pulse Ox 09/10/22 08:00 97 09/10/22 04:00 97.9 F 97 18 124/73 99 09/10/22 00:00 98.4 F 91 18 136/84 98 09/09/22 22:50 105 H 14 119/80 98 09/09/22 22:30 120 H 21 135/117 09/09/22 22:00 111 H 12 137/122 09/09/22 21:30 108 H 23 158/134 09/09/22 21:00 108 H 22 131/108 97 09/09/22 20:30 88 23 131/118 97 09/09/22 20:00 107 H 10 L 172/140 98 09/09/22 19:30 109 H 26 H 148/79 97 09/09/22 19:00 129 H 15 179/120 97 09/09/22 18:30 130 H 14 156/120 97 09/09/22 18:00 159/127 09/09/22 17:30 106 H 22 158/128 09/09/22 17:00 100 14 157/130 09/09/22 16:38 112 H 24 09/09/22 16:23 97.3 F L 63 22 165/111 97 Intake and Output 09/09/22 09/10/22 09/10/22 22:59 06:59 14:59 Intake Total 5.25 Balance 5.25 Intake: Intake, IV Titration 5.25 Amount Diltiazem 125 mg In 5.25 Sodium Chloride 0.9% 100 ml @ 5 MG/HR 5 mls/hr IV .Q24H [facility] Rx#:[id number] Other: Voiding Method Toilet # Voids 2 4 Weight 92.986 kg 95 kg Results CBC & Chem 7: 09/09/22 17:38 09/09/22 17:38 Labs: Abnormal Lab Results - Last 24 Hours (Table) 09/09/22 Range/Units 17:38 Chloride 108 H (98-107) mmol/L BUN 33 H (7-17) mg/dL Creatinine 1.08 H (0.52-1.04) mg/dL Glucose 136 H (74-99) mg/dL Total Bilirubin 1.5 H (0.2-1.3) mg/dL ALT 47 H (4-34) U/L Thrombosis Risk Factor Assmnt - Choose All That Apply Each Factor Represents 1 point: Obesity (BMI >25) Each Risk Factor Represents 3 Points: Age 75 years or older Thrombosis Risk Factor Assessment Total Risk Factor Score: 4 Thrombosis Risk Factor Assessment Level: Moderate Risk
--- NOTE | 2022-09-10 14:15 | P.CRDCN ---
History of Present Illness Consult date: 09/10/22 Consult reason: atrial fibrillation, shortness of breath History of present illness: History of present illness: Patient is a pleasant 87 field female with significant past medical history of hypertension, paroxysmal atrial fibrillation, status post-A. fib ablation, permanent pacemaker with recent gen change 08/15/22, diabetes who presented to the emergency department with worsening shortness of breath. She follows with Dr. Caceres in the office. She presented to the emergency department with complaints of worsening shortness of breath. She was recently admitted 08/28/22 with similar complaints and plan was for outpatient cardioversion in the next 3- 4 weeks. EKG shows A. fib with RVR, 113 bpm. Chest x-ray shows cardiomegaly and mild pulmonary vascular congestion. Echo from 07/23/22 with EF 50%, mild mitral regurgitation, moderate pulmonary hypertension, RVSP 51.6. Absence reviewed: Troponin negative 1, BNP 5660, creatinine 1.08, potassium 4.3, mag 1.7. She was started on a Cardizem drip. She is on Eliquis for anticoagulation and denies any bleeding issues. This morning she reports that her breathing is feeling better, she is feeling cold and has a mild headache. She states that her swelling has improved. Denies any chest pain or pressure, dizziness or syncope. REVIEW OF SYSTEMS: No fever or chills. No cough or expectoration. No diaphoresis. Patient denies dizziness, blurred vision, double vision. Mld headache. Patient denies any stomach discomfort. No nausea, vomiting. No hematochezia. No hematemesis. Denies any black stools or blood in his stools. Denies dysuria or hematuria. No muscle weakness or numbness. No chest pain or pressure. Mild SOB. PHYSICAL EXAMINATION: This is a 87 year-old female in no apparent distress at the time of my examination. HEENT: Head is atraumatic, normocephalic. Pupils are equal, round. Sclerae anicteric. Conjunctivae are clear. Mucous membranes of the mouth are moist. Neck is supple. There is no jugular venous distention. No carotid bruit is heard. CHEST EXAMINATION: Lungs are clear to auscultation. No chest wall tenderness is noted on palpation or with deep breathing. HEART EXAMINATION: irregular rate and rhythm. S1, S2 heard. No murmurs, gallops or rub. ABDOMEN: Soft, nontender. Bowel sounds are heard. No organomegaly noted. EXTREMITIES: 2+ peripheral pulses with trace peripheral edema BLE and no calf tenderness noted. NEUROLOGIC EXAMINATION: Patient is awake, alert and oriented x3. IMPRESSION AND PLAN: Atrial fibrillation Sick sinus syndrome status post pacemaker Diabetes CHF Dyspnea PLAN: Breathing has improved with IV Lasix, she is not currently on any diuretics at home. We will continue with diuresis, IV Lasix 40 mg daily. We will start amiodarone 400 mg twice a day 1 week, then 200 mg twice a day 1 week, then 200 mg daily. DC Cardizem drip, stop po diltiazem. Increase metoprolol to 150mg po daily. We will follow. I am dictating on behalf of Dr. Alejandro Mortensen's history/physical and assessment/plan. Past Medical History Past Medical History: Atrial Fibrillation, Chest Pain / Angina, CVA/TIA, Hypertension, Osteoarthritis (OA) Additional Past Medical History / Comment(s): . History of Any Multi-Drug Resistant Organisms: None Reported Past Surgical History: Hysterectomy, Pacemaker Additional Past Surgical History / Comment(s): . Past Anesthesia/Blood Transfusion Reactions: No Reported Reaction Additional Past Anesthesia/Blood Transfusion Reaction / Comment(s): . Type of Cardiac Device: Permanent Pacemaker Device Placement Date:: 02/26/15 Past Psychological History: No Psychological Hx Reported Additional Psychological History / Comment(s): .. 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) Past Drug Use History: None Reported - Past Family History Mother Family Medical History: CVA/TIA, Hypertension Additional Family Medical History / Comment(s): of cardiac aneurysm Sister(s) Family Medical History: Cancer, Hypertension Additional Family Medical History / Comment(s): breast cancer Medications and Allergies Home Medications Medication Instructions Recorded Confirmed Type Montelukast [Singulair] 10 mg PO HS 01/31/14 09/09/22 History Nitroglycerin Sl Tabs [Nitrostat] 0.4 mg SUBLINGUAL Q5M PRN 01/31/14 09/09/22 History Aspirin [Adult Low Dose Aspirin EC] 81 mg PO DAILY 08/01/17 09/09/22 History Metoprolol Succinate (ER) [Toprol 100 mg PO DAILY 10/14/20 09/09/22 History XL] lisinopriL 20 mg PO BID 10/14/20 09/09/22 History Apixaban [Eliquis] 5 mg PO BID #180 tab 10/19/20 09/09/22 Rx Potassium Chloride [Klor-Con 8] 8 meq PO DAILY 07/23/22 09/09/22 History Magnesium Citrate 250 mg PO DAILY 08/12/22 09/09/22 History dilTIAZem HCL 60 mg PO TID 08/12/22 09/09/22 History ALPRAZolam [Xanax] 0.25 mg PO BID PRN 08/27/22 09/09/22 History metFORMIN HCL 500 mg PO DAILY 08/27/22 09/09/22 History Docusate [Colace] 100 mg PO DAILY@2000 #30 cap 08/30/22 09/09/22 Rx Hydrocortisone Oint 1 applic TOPICAL BID each 08/30/22 09/09/22 Rx [Hydrocortisone 1% Oint] Allergies Allergy/AdvReac Type Severity Reaction Status Date / Time Penicillins Allergy Unknown Verified 09/09/22 17:16 Childhood Sulfa (Sulfonamide Allergy Unknown Verified 09/09/22 17:16 Antibiotics) Childhood EKG PATCHES AdvReac Unknown skin red Uncoded 09/09/22 16:27 and sore Physical Exam Vitals: Vital Signs Temp Pulse Pulse Resp BP BP Pulse Ox 09/10/22 08:00 97 09/10/22 04:00 97.9 F 97 18 124/73 99 09/10/22 00:00 98.4 F 91 18 136/84 98 09/09/22 22:50 105 H 14 119/80 98 09/09/22 22:30 120 H 21 135/117 09/09/22 22:00 111 H 12 137/122 09/09/22 21:30 108 H 23 158/134 09/09/22 21:00 108 H 22 131/108 97 09/09/22 20:30 88 23 131/118 97 09/09/22 20:00 107 H 10 L 172/140 98 09/09/22 19:30 109 H 26 H 148/79 97 09/09/22 19:00 129 H 15 179/120 97 09/09/22 18:30 130 H 14 156/120 97 09/09/22 18:00 159/127 09/09/22 17:30 106 H 22 158/128 09/09/22 17:00 100 14 157/130 09/09/22 16:38 112 H 24 09/09/22 16:23 97.3 F L 63 22 165/111 97 Intake and Output 09/09/22 09/10/22 09/10/22 22:59 06:59 14:59 Intake Total 5.25 Balance 5.25 Intake: Intake, IV Titration 5.25 Amount Diltiazem 125 mg In 5.25 Sodium Chloride 0.9% 100 ml @ 5 MG/HR 5 mls/hr IV .Q24H [facility] [place] Rx#:[id number] Other: Voiding Method Toilet # Voids 2 4 Weight 92.986 kg 95 kg Results 09/09/22 17:38 09/09/22 17:38 Cardiac Enzymes 09/09/22 09/09/22 Range/Units 17:38 17:38 AST 35 (14-36) U/L Troponin I <0.012 (0.000-0.034) ng/mL CBC 09/09/22 Range/Units 17:38 WBC 5.3 (3.8-10.6) k/uL RBC 4.58 (3.80-5.40) m/uL Hgb 13.4 (11.4-16.0) gm/dL Hct 40.2 (34.0-46.0) % Plt Count 206 (150-450) k/uL Comprehensive Metabolic Panel 09/09/22 Range/Units 17:38 Sodium 142 (137-145) mmol/L Potassium 4.3 (3.5-5.1) mmol/L Chloride 108 H (98-107) mmol/L Carbon Dioxide 26 (22-30) mmol/L BUN 33 H (7-17) mg/dL Creatinine 1.08 H (0.52-1.04) mg/dL Glucose 136 H (74-99) mg/dL Calcium 9.2 (8.4-10.2) mg/dL AST 35 (14-36) U/L ALT 47 H (4-34) U/L Alkaline Phosphatase 64 (38-126) U/L Total Protein 6.3 (6.3-8.2) g/dL Albumin 3.7 (3.5-5.0) g/dL Current Medications Generic Name Dose Route Start Last Admin Trade Name Freq PRN Reason Stop Dose Admin Acetaminophen 325 mg 09/10/22 08:58 Acetaminophen Tab 325 Mg Tab PO Q6HR PRN Fever and/ or Pain Alprazolam 0.25 mg 09/10/22 08:13 Alprazolam 0.25 Mg Tab PO BID PRN Anxiety Apixaban 5 mg 09/10/22 09:00 Apixaban 5 Mg Tab PO BID [facility] Protocol Aspirin 81 mg 09/10/22 09:00 Aspirin 81 Mg PO DAILY [facility] [place] Diltiazem HCl 60 mg 09/10/22 09:00 Diltiazem Oral 60 Mg Tab PO TID [facility] [place] Docusate Sodium 100 mg 09/10/22 20:00 Docusate 100 Mg Cap PO DAILY@2000 [facility] [place] Diltiazem HCl 125 mg/ Sodium 125 mls @ 5 mls/hr 09/09/22 21:00 09/09/22 22:37 Chloride IV 10 mg/hr .Q24H [facility] [place] 10 mls/hr Infusion 5 MG/HR Sodium Chloride 1,000 mls @ 20 mls/hr 09/09/22 20:45 09/09/22 20:52 Saline 0.9% IV Not Given .Q24H [facility] [place] Lisinopril 20 mg 09/10/22 09:00 Lisinopril 20 Mg Tab PO BID [facility] [place] Metformin HCl 500 mg 09/10/22 09:00 Metformin 500 Mg Tab PO DAILY [facility] [place] Metoprolol Succinate 100 mg 09/10/22 09:00 Metoprolol Succinate (Er) 100 Mg Tab.Er.24h PO DAILY [facility] [place] Montelukast Sodium 10 mg 09/10/22 21:00 Montelukast 10 Mg Tab PO HS [facility] [place] Naloxone HCl 0.2 mg 09/09/22 20:34 Naloxone 0.4 Mg/Ml 1 Ml Vial IV Q2M PRN Opioid Reversal Nitroglycerin 0.4 mg 09/10/22 08:13 Nitroglycerin Sl Tabs 0.4 Mg Tab SUBLINGUAL Q5M PRN Chest Pain Potassium Chloride 10 meq 09/10/22 09:00 Potassium Chloride Er 10 Meq Tab.Er.Prt PO DAILY [facility] [place] Intake and Output 09/09/22 09/10/22 09/10/22 22:59 06:59 14:59 Intake Total 5.25 Balance 5.25 Intake: Intake, IV Titration 5.25 Amount Diltiazem 125 mg In 5.25 Sodium Chloride 0.9% 100 ml @ 5 MG/HR 5 mls/hr IV .Q24H [facility] [place] Rx#:[id number] Other: Voiding Method Toilet # Voids 2 4 Weight 92.986 kg 95 kg 09/09/22 17:38 09/09/22 17:38
[2022-09-10] MEDS: FUROSEMIDE 10 MG/ML 4 ML VIAL IV SCH (17:35)
[2022-09-10] MEDS ORDERED: DOCUSATE 100 MG CAP PO SCH (20:00)
[2022-09-10] MEDS ORDERED: MONTELUKAST 10 MG TAB PO SCH (21:00)
[2022-09-10] MEDS: AMIODARONE 200 MG TAB PO SCH (21:34)
[2022-09-10] MEDS: SODIUM CHLORIDE 0.9% 1,000 ML IV SCH (21:36)
[2022-09-11 04:17] VITALS: TEMP 97.9
[2022-09-11] MEDS ORDERED: MAGNESIUM CITRATE 125 MG PO SCH (09:00)
[2022-09-11] MEDS ORDERED: METOPROLOL SUCCINATE (ER) 50 MG TAB.ER.24H PO SCH (09:00)
[2022-09-11] MEDS: lisinopriL 20 MG TAB PO SCH (09:47)
[2022-09-11] MEDS: metFORMIN 500 MG TAB PO SCH (09:47)
[2022-09-11] MEDS: APIXABAN 5 MG TAB PO SCH (09:47)
[2022-09-11] MEDS: POTASSIUM CHLORIDE ER 10 MEQ TAB.ER.PRT PO SCH (09:47)
[2022-09-11] MEDS: ASPIRIN 81 MG PO SCH (09:48)
[2022-09-11] MEDS: AMIODARONE 200 MG TAB PO SCH (09:48)
[2022-09-11] MEDS: FUROSEMIDE 10 MG/ML 4 ML VIAL IV SCH (09:48)
[2022-09-11] MEDS: ALPRAZolam 0.25 MG TAB PO PRN (10:09)
[2022-09-11 10:10] LABS: Calcium 8.6 mg/dL (8.4-10.2); Potassium 3.2 mmol/L (3.5-5.1)
[2022-09-11 11:15] VITALS: BP 153/105; PULSE 102
--- NOTE | 2022-09-11 12:51 | P.PN ---
Subjective Progress Note Date: 09/11/22 History of present illness: Patient is a pleasant 87 field female with significant past medical history of hypertension, paroxysmal atrial fibrillation, status post-A. fib ablation, permanent pacemaker with recent gen change 08/15/22, diabetes who presented to the emergency department with worsening shortness of breath. She follows with Dr. Caceres in the office. She presented to the emergency department with complaints of worsening shortness of breath. She was recently admitted 08/28/22 with similar complaints and plan was for outpatient cardioversion in the next 3- 4 weeks. EKG shows A. fib with RVR, 113 bpm. Chest x-ray shows cardiomegaly and mild pulmonary vascular congestion. Echo from 07/23/22 with EF 50%, mild mitral regurgitation, moderate pulmonary hypertension, RVSP 51.6. Absence rev iewed: Troponin negative 1, BNP 5660, creatinine 1.08, potassium 4.3, mag 1.7. She was started on a Cardizem drip. She is on Eliquis for anticoagulation and denies any bleeding issues. This morning she reports that her breathing is feeling better, she is feeling cold and has a mild headache. She states that her swelling has improved. Denies any chest pain or pressure, dizziness or syncope. 09/11 A/Ox3, she is asking if she can go home today. She reports breathing is better and she feels at her baseline. Denies any chest pain. Creatinine 1.22. PHYSICAL EXAMINATION: This is a 87 year-old female in no apparent distress at the time of my examination. HEENT: Head is atraumatic, normocephalic. Pupils are equal, round. Sclerae anicteric. Conjunctivae are clear. Mucous membranes of the mouth are moist. Neck is supple. There is no jugular venous distention. No carotid bruit is heard. CHEST EXAMINATION: Lungs are clear to auscultation. No chest wall tenderness is noted on palpation or with deep breathing. HEART EXAMINATION: Irregular rate and rhythm. S1, S2 heard. No murmurs, gallops or rub. ABDOMEN: Soft, nontender. Bowel sounds are heard. No organomegaly noted. EXTREMITIES: 2+ peripheral pulses with trace peripheral edema BLE and no calf tenderness noted. NEUROLOGIC EXAMINATION: Patient is awake, alert and oriented x3. IMPRESSION AND PLAN: Atrial fibrillation Sick sinus syndrome status post pacemaker Diabetes CHF Dyspnea PLAN: We will continue Lasix 40 mg daily at discharge. Continue amiodarone 400 mg twice a day 1 week, then 200 mg twice a day 1 week, then 200 mg daily. Continue metoprolol at 150mg po daily. OK for discharge to home from cardiology standpoint. Follow up in office with Dr. Quiroga within 1 week. I am dictating on behalf of Dr. Alejandro Mortensen's history/physical and assessment/plan. Objective - Vital Signs Vital signs: Vital Signs Temp 97.9 F 09/11/22 04:00 Pulse 92 09/11/22 04:00 Resp 18 09/11/22 04:00 BP 124/63 09/11/22 04:00 Pulse Ox 98 09/11/22 04:00 FiO2 Intake & Output 09/10/22 09/11/22 09/11/22 18:59 06:59 18:59 Intake Total 118 200 Balance 118 200 Weight 93.7 kg Intake: Oral 118 200 Other: Voiding Method Toilet # Voids 2 0 1 - Labs CBC & Chem 7: 09/09/22 17:38 09/11/22 09:11
[2022-09-11] MEDS ORDERED: POTASSIUM BICARBONATE/CIT AC 20 MEQ TABLET.EFF PO ONE (13:30)
--- NOTE | 2022-09-11 13:41 | P.DS ---
Providers Date of admission: 09/09/22 20:35 Expected date of discharge: 09/11/22 Attending physician: Josh Escamilla MD Consults: 09/09/22 20:34 Consult Physician Routine Consulting Provider: Alejandro Mortensen Consult Reason/Comments: afib, chf Do you want consulting provider notified?: Yes Primary care physician: [facility] Course: Discharge diagnoses; A. fib with RVR currrently anticoagulated with eliquis History of sick sinus syndrome status post dual-chamber pacemaker Acute on chronic CHF with preserved ejection fraction Hypertension Hyperlipidemia History of CVA/TIA History of osteoarthritis Moderate pulmonary hypertension Diabetes Mellitus type 2 A1C of 8.0 recently started on metformin outpatient. Hospital course; This is a pleasant 87 years old female with past medical history of diabetes mellitus, hypertension, atrial fibrillation on eliquis, history of CVA/TIA, osteoarthritis, status post pacemaker who presented to the ER because of shortn ess of breath that started yesterday. Patient has history of A. fib and heart failure with preserved ejection presented was only recently in the hospital a week ago and was discharged after her medications were adjusted by cardiology. Patient stated that she got short of breath suddenly and shortness of breath was present on rest as well as exertion. She was complaining of swelling of legs as well. Denied any chest pain at time. Was complaining of palpitations. Initial lab work in the ER showed white count of 5.3, hemoglobin 13.4, patient count 206, sodium 142, potassium 4.3, BUN 33, creatinine 1.08, EKG done in the ER showed patient to be in A. fib with RVR. She was admitted for further evaluation and treatment 09/11. Patient seen and examined. Cardiology evaluated the patient recommended discharging patient on Lasix 40 mg daily at discharge. Continue amiodarone 400 mg twice a day 1 week, then 200 mg twice a day 1 week, then 200 mg daily. Continue metoprolol at 150mg po daily. Cardizem was discontinued PHYSICAL EXAMINATION: GENERAL: The patient is alert and oriented x3, not in any acute distress. Well developed, well nourished. HEENT: Pupils are round and equally reacting to light. EOMI. No scleral icterus. No conjunctival pallor. Normocephalic, atraumatic. No pharyngeal erythema. No thyromegaly. CARDIOVASCULAR: S1 and S2 present. No murmurs, rubs, or gallops. PULMONARY: Chest is clear to auscultation, no wheezing or crackles. ABDOMEN: Soft, nontender, nondistended, normoactive bowel sounds. No palpable organomegaly. MUSCULOSKELETAL: No joint swelling or deformity. EXTREMITIES: No cyanosis, clubbing, or pedal edema. NEUROLOGICAL: Gross neurological examination did not reveal any focal deficits. SKIN: No rashes. Patient Condition at Discharge: Good Plan - Discharge Summary Discharge Rx Participant: No New Discharge Prescriptions: No Action Nitroglycerin Sl Tabs [Nitrostat] 0.4 mg SUBLINGUAL Q5M PRN PRN Reason: Chest Pain Montelukast [Singulair] 10 mg PO HS Aspirin [Adult Low Dose Aspirin EC] 81 mg PO DAILY Metoprolol Succinate (ER) [Toprol XL] 100 mg PO DAILY Apixaban [Eliquis] 5 mg PO BID #180 tab Potassium Chloride [Klor-Con 8] 8 meq PO DAILY dilTIAZem HCL 60 mg PO TID ALPRAZolam [Xanax] 0.25 mg PO BID PRN PRN Reason: Anxiety Docusate [Colace] 100 mg PO DAILY@1999 #30 cap lisinopriL 20 mg PO BID Magnesium Citrate 250 mg PO DAILY metFORMIN HCL 500 mg PO DAILY Hydrocortisone Oint [Hydrocortisone 1% Oint] 1 applic TOPICAL BID each Discharge Medication List Montelukast [Singulair] 10 mg PO HS 01/31/14 [History] Nitroglycerin Sl Tabs [Nitrostat] 0.4 mg SUBLINGUAL Q5M PRN 01/31/14 [History] Aspirin [Adult Low Dose Aspirin EC] 81 mg PO DAILY 08/01/17 [History] Metoprolol Succinate (ER) [Toprol XL] 100 mg PO DAILY 10/14/20 [History] lisinopriL 20 mg PO BID 10/14/20 [History] Apixaban [Eliquis] 5 mg PO BID #180 tab 10/19/20 [Rx] Potassium Chloride [Klor-Con 8] 8 meq PO DAILY 07/23/22 [History] Magnesium Citrate 250 mg PO DAILY 08/12/22 [History] dilTIAZem HCL 60 mg PO TID 08/12/22 [History] ALPRAZolam [Xanax] 0.25 mg PO BID PRN 08/27/22 [History] metFORMIN HCL 500 mg PO DAILY 08/27/22 [History] Docusate [Colace] 100 mg PO DAILY@1999 #30 cap 08/30/22 [Rx] Hydrocortisone Oint [Hydrocortisone 1% Oint] 1 applic TOPICAL BID each 08/30/22 [Rx] Follow up Appointment(s)/Referral(s): Phoenix Manzo DO [Primary Care Provider] - 1-2 days
== END 2022-09-11 15:31 | disposition home or self-care (01) | DRG 308 ==
LOC: EC 16:00 → 3SCARD 20:35
PROVIDERS: ADMIT Internal Medicine; ATTEND Internal Medicine
DX: I48.0 Paroxysmal atrial fibrillation (principal); I50.33 Acute on chronic diastolic (congestive) heart failure; E78.5 Hyperlipidemia, unspecified; I11.0 Hypertensive heart disease with heart failure; M19.90 Unspecified osteoarthritis, unspecified site; E11.9 Type 2 diabetes mellitus without complications; Z86.73 Personal history of transient ischemic attack (TIA), and cerebral infarction without residual deficits; Z95.0 Presence of cardiac pacemaker; I27.20 Pulmonary hypertension, unspecified; Z79.84 Long term (current) use of oral hypoglycemic drugs; Z79.899 Other long term (current) drug therapy; Z79.82 Long term (current) use of aspirin; Z90.710 Acquired absence of both cervix and uterus; Z82.3 Family history of stroke; Z88.0 Allergy status to penicillin; Z88.2 Allergy status to sulfonamides; Z79.01 Long term (current) use of anticoagulants
CPT/HCPCS: 36415; 71046; 80048; 80053; 83735; 83880; 84484; 85025; 93005; 96361; 96374; 96375; 99291

== ENCOUNTER 2022-10-04 05:43 | Day surgery (SDC) | payer MEDICARE ==
[2022-10-04] MEDS ORDERED: LACTATED RINGERS 1,000 ML IV ONE (06:43)
[2022-10-04 06:57] LABS: Glucose,Whole Blood 195 mg/dL (70-110)
[2022-10-04] MEDS ORDERED: LIDOCAINE 2% INJ 20 MG/ML (2 ML VIAL) ONE (07:11)
[2022-10-04] MEDS ORDERED: PROPOFOL 10 MG/ML 20 ML VIAL IV ONE (07:11)
[2022-10-04] MEDS ORDERED: BENZOCAINE SPRAY 1 CAN TOPICAL ONE (07:16)
[2022-10-04 07:26] LABS: Potassium 3.5 mmol/L (3.5-5.1)
--- NOTE | 2022-10-04 07:38 | P.PCN ---
Date of Procedure: 10/04/22 Description of Procedure: Indication: Atrial fibrillation Procedure Description: After explaining the procedure to the patient, it's risk and complications, blood pressure, heart rate and O2 saturation were monitored. The throat was sprayed with Cetacaine. Patient received sedation per anesthesia department. The probe was introduced into the esophagus without difficulty. Images were obtained. Following that, the probe was removed. There was no immediate complication. Findings: Left atrial size is dilated, spontaneous contrast was noted. Left atrial appendage is normal. Left ventricle systolic function is borderline normal, ejection fraction 50-55%. The aortic valve revealed fibrocalcific changes of the aortic cusps was preserved opening. Tricuspid valve is normal, pulmonic valve is normal. A wire was noted in the right ventricle. Mild mitral annulus calcification was noted. No pericardial effusion was noted. Descending thoracic aorta appears to be normal. Contrast bubble study revealed no shunting across the intra-atrial septum. Doppler: Pulse wave and color Doppler were obtained, an revealed moderate mitral and tricuspid regurgitation with mild aortic regurgitation, there was no shunting across the intra-atrial septum Conclusion: 1. Dilated left atrium with spontaneous contrast and normal appearance of the left atrial appendage 2. Normal in size with borderline systolic function 3. Moderate mitral and tricuspid regurgitation 4. Mild aortic regurgitation 5. No shunting across the interatrial septum Cardioversion: After performing a SHEY and obtaining sedated state a synchronized biphasic cardioversion using 150 J was performed with jainism of sinus mechanism, there is no immediate complications.
[2022-10-04] MEDS ORDERED: SODIUM CHLORIDE 0.9% 1,000 ML IV SCH (07:45)
[2022-10-04 08:09] VITALS: TEMP 97.2
[2022-10-04 08:17] VITALS: RESP 16
[2022-10-04] MEDS ORDERED: metFORMIN 500 MG TAB PO SCH (09:00)
[2022-10-04] MEDS ORDERED: NON FORMULARY DRUG (Magnesium Citrate [Magnesium Citrate] 125 MG Capsule) PO SCH (09:00)
[2022-10-04 09:13] VITALS: BP 120/104
[2022-10-04 09:32] VITALS: PULSE 52
[2022-10-04] MEDS ORDERED: lisinopriL 20 MG TAB PO SCH (21:00)
[2022-10-04] MEDS ORDERED: MONTELUKAST 10 MG TAB PO SCH (21:00)
[2022-10-04] MEDS ORDERED: APIXABAN 5 MG TAB PO SCH (21:00)
[2022-10-05] MEDS ORDERED: METOPROLOL SUCCINATE (ER) 50 MG TAB.ER.24H PO SCH (09:00)
[2022-10-05] MEDS ORDERED: FUROSEMIDE 40 MG TAB PO SCH (09:00)
== END 2022-10-04 09:38 | disposition home or self-care (01) ==
LOC: OR 05:43
PROVIDERS: ATTEND Internal Medicine Interventional Cardiology
DX: I08.3 Combined rheumatic disorders of mitral, aortic and tricuspid valves (principal); I48.0 Paroxysmal atrial fibrillation; I70.0 Atherosclerosis of aorta; E11.9 Type 2 diabetes mellitus without complications; I11.0 Hypertensive heart disease with heart failure; I50.9 Heart failure, unspecified; E78.5 Hyperlipidemia, unspecified; J45.909 Unspecified asthma, uncomplicated; M19.90 Unspecified osteoarthritis, unspecified site; Z86.73 Personal history of transient ischemic attack (TIA), and cerebral infarction without residual deficits; Z95.0 Presence of cardiac pacemaker; Z79.01 Long term (current) use of anticoagulants; Z79.51 Long term (current) use of inhaled steroids; Z79.899 Other long term (current) drug therapy; Z88.0 Allergy status to penicillin; Z88.2 Allergy status to sulfonamides; Z79.82 Long term (current) use of aspirin; Z88.8 Allergy status to other drugs, medicaments and biological substances
CPT/HCPCS: 93312; 93320; 93325; 92960; 80048; J2704; J2001

== ENCOUNTER 2022-10-12 08:50 | Inpatient (IN) | payer MEDICARE ==
[2022-10-12 09:58] LABS: Albumin 3.5 g/dL (3.5-5.0); Calcium 8.4 mg/dL (8.4-10.2); Magnesium 1.5 mg/dL (1.6-2.3); Potassium 2.8 mmol/L (3.5-5.1); Total Bilirubin 1.7 mg/dL (0.2-1.3); Total Protein 5.7 g/dL (6.3-8.2)
[2022-10-12] MEDS ORDERED: METOPROLOL TARTRATE 5 MG/5 ML VIAL IVP STA (10:07)
--- NOTE | 2022-10-12 10:07 | ED ---
Arrhythmia/Palpitations HPI - General Chief Complaint: Arrhythmia/Palpitations Stated Complaint: Increased heart rate Time Seen by Provider: 10/12/22 09:00 Source: patient, family Mode of arrival: wheelchair Limitations: no limitations - History of Present Illness Initial Comments: 87 year old female past medical history of A. fib on anticoagulation, congestive heart failure, CVA who presents to the emergency department with headache and palpitations. She had a cardioversion done on the by Dr. Caceres. Did not have any changes in her medication. Continues to take metoprolol, amiodarone and Eliquis. Did take her medications this morning. Denies chest pain. No fevers. No lower extremity swelling. No other alleviating, precipitating or modifying factors - Related Data Home Medications Medication Instructions Recorded Confirmed Montelukast [Singulair] 10 mg PO HS 01/31/14 10/12/22 Nitroglycerin Sl Tabs [Nitrostat] 0.4 mg SUBLINGUAL Q5M PRN 01/31/14 10/12/22 lisinopriL 20 mg PO BID 10/14/20 10/12/22 Magnesium Citrate 250 mg PO BID 08/12/22 10/12/22 ALPRAZolam [Xanax] 0.25 mg PO BID PRN 08/27/22 10/12/22 metFORMIN HCL 500 mg PO DAILY 08/27/22 10/12/22 Docusate [Colace] 100 mg PO DAILY 10/12/22 10/12/22 Metoprolol Succinate (ER) [Toprol 100 mg PO DAILY 10/12/22 10/12/22 XL] Previous Rx's Medication Instructions Recorded Apixaban [Eliquis] 5 mg PO BID #180 tab 10/19/20 Amiodarone [Cordarone] 200 mg PO BID #60 tab 10/13/22 Metoprolol Succinate (ER) [Toprol 50 mg PO HS #30 tab 10/13/22 XL] Potassium Chloride ER [K-Dur 20] 20 meq PO DAILY #7 tab 10/13/22 Allergies Allergy/AdvReac Type Severity Reaction Status Date / Time Penicillins Allergy Unknown Verified 10/12/22 11:42 Childhood Sulfa (Sulfonamide Allergy Unknown Verified 10/12/22 11:42 Antibiotics) Childhood EKG PATCHES AdvReac Unknown skin red Uncoded 10/12/22 11:42 and sore Review of Systems ROS Statement: Those systems with pertinent positive or pertinent negative responses have been documented in the HPI. ROS Other: All systems not noted in ROS Statement are negative. Past Medical History Past Medical History: Atrial Fibrillation, Asthma, Chest Pain / Angina, Heart Failure, CVA/TIA, Diabetes Mellitus, Hypertension, Osteoarthritis (OA), Skin Disorder Additional Past Medical History / Comment(s): poor historian, borderline diabetic per pt., stroke 2010-no residual per pt., constipation, sometimes skin irritation under breasts-not currently, recent adm. to [facility] for SOB w/exertion & fluid retention lower legs which she states is now resolved History of Any Multi-Drug Resistant Organisms: None Reported Past Surgical History: Hysterectomy, Pacemaker Additional Past Surgical History / Comment(s): pacemaker generator change July 2022 Past Anesthesia/Blood Transfusion Reactions: No Reported Reaction Additional Past Anesthesia/Blood Transfusion Reaction / Comment(s): . Type of Cardiac Device: Permanent Pacemaker Device Placement Date:: 02/26/15 Past Psychological History: No Psychological Hx Reported Smoking Status: Never smoker Past Alcohol Use History: None Reported Past Drug Use History: None Reported - Past Family History Mother Family Medical History: CVA/TIA, Hypertension Additional Family Medical History / Comment(s): of cardiac aneurysm Sister(s) Family Medical History: Cancer, Hypertension Additional Family Medical History / Comment(s): breast cancer General Exam Limitations: no limitations General appearance: alert, in no apparent distress Head exam: Present: atraumatic, normocephalic, normal inspection Eye exam: Present: normal appearance, PERRL, EOMI. Absent: scleral icterus, conjunctival injection, periorbital swelling ENT exam: Present: normal exam, mucous membranes moist Neck exam: Present: normal inspection. Absent: tenderness, meningismus, lymp hadenopathy Respiratory exam: Present: normal lung sounds bilaterally. Absent: respiratory distress, wheezes, rales, rhonchi, stridor Cardiovascular Exam: Present: tachycardia, irregular rhythm, normal heart sounds. Absent: systolic murmur, diastolic murmur, rubs, gallop, clicks GI/Abdominal exam: Present: soft, normal bowel sounds. Absent: distended, tenderness, guarding, rebound, rigid Extremities exam: Present: normal inspection, full ROM, normal capillary refill. Absent: tenderness, pedal edema, joint swelling, calf tenderness Back exam: Present: normal inspection Neurological exam: Present: alert, oriented X3, CN II-XII intact Psychiatric exam: Present: normal affect, normal mood Skin exam: Present: warm, dry, intact, normal color. Absent: rash Course Vital Signs 10/12/22 10/12/22 10/12/22 09:01 09:15 10:19 Temperature 97.5 F L Pulse Rate 118 H 122 H 129 H Respiratory 18 20 18 Rate Blood Pressure 109/66 127/81 115/85 O2 Sat by Pulse 97 95 97 Oximetry 10/12/22 10/12/22 10/12/22 10:46 11:00 11:36 Temperature Pulse Rate 99 98 108 H Respiratory 20 20 18 Rate Blood Pressure 102/52 120/99 128/93 O2 Sat by Pulse 96 95 95 Oximetry EKG Findings - EKG Comments: EKG Findings:: EKG interpreted by myself demonstrates A. fib with intermittent pacing. Rate of 116. QRS 98. QTC of 416. No ST segment elevation or d epression Medical Decision Making - Medical Decision Making Was pt. sent in by a medical professional or institution (, PA, SHOE PATTERNMAKER, urgent care, hospital, or custodial...) When possible be specific @ -No Did you speak to anyone other than the patient for history (EMS, parent, family, police, friend...)? What history was obtained from this source @ -Daughter Did you review nursing and triage notes (agree or disagree)? Why? @ -I reviewed and agree with nursing and triage notes Were old charts reviewed (outside hosp., previous admission, EMS record, old EKG, old radiological studies, urgent care reports/EKG's, custodial records)? Report findings @ - I reviewed the cardioversion note Differential Diagnosis (chest pain, altered mental status, abdominal pain women, abdominal pain men, vaginal bleeding, weakness, fever, dyspnea, syncope, headache, dizziness, GI bleed, back pain, seizure, CVA, palpatations, mental health, musculoskeletal)? @ -afib, aflutter, svt, anxiety, vtach, electrolyte abnormality EKG interpreted by me (3pts min.). @ -Interpreted by me - please see EKG heading for further interpretation X-rays interpreted by me (1pt min.). @ -interpreted by me - normal CT interpreted by me (1pt min.). @ -None done U/S interpreted by me (1pt. min.). @ -None done What testing was considered but not performed or refused? (CT, X-rays, U/S, labs)? Why? @ -None What meds were considered but not given or refused? Why? @ -None Did you discuss the management of the patient with other professionals (professionals i.e. Dr., PA, SHOE PATTERNMAKER, lab, RT, psych nurse, social media strategist, business strategy manager, teacher, commissioned security officer, pillowcase cleaner)? Give summary @ -Dr. Abarca from cardiology and Dr. Villatoro who will admit the patient Was smoking cessation discussed for >3mins.? @ -No Was critical care preformed (if so, how long)? @ -yes, 32 minutes Were there social determinants of health that impacted care today? How? (Homelessness, low income, unemployed, alcoholism, drug addiction, transportation, low edu. Level, literacy, decrease access to med. care, fci, rehab)? @ -No Was there de-escalation of care discussed even if they declined (Discuss DNR or withdrawal of care, Hospice)? DNR status @ -No What co-morbidities impacted this encounter? (DM, HTN, Smoking, COPD, CAD, Cancer, CVA, ARF, Chemo, Hep., AIDS, mental health diagnosis, sleep apnea, morbid obesity)? @ -chronic afib Was patient admitted / discharged? Hospital course, mention meds given and route, prescriptions, significant lab abnormalities, going to OR and other pertinent info. @ -Upon arrival patient was placed in room 18. Thorough history and physical exam was performed. Patient is back in A. fib. She was given 5 mg of IV Lopressor. Laboratory studies are conducted. Potassium 2.8. Magnesium 1.5. These are both were placed. Called and spoke with Dr. Abarca. Patient will be admitted to dr. villatoro Undiagnosed new problem with uncertain prognosis? @ -No Drug Therapy requiring intensive monitoring for toxicity (Heparin, Nitro, Insulin, Cardizem)? @ -No Were any procedures done? @ -No Diagnosis/symptom? @ -afib with rvr, acute hypokalemia, acute hypomag Acute, or Chronic, or Acute on Chronic? @ -acute, recurrent Uncomplicated (without systemic symptoms) or Complicated (systemic symptoms)? @ -complicated Side effects of treatment? @ -hypotension, bradycardia Exacerbation, Progression, or Severe Exacerbation? @ -No Poses a threat to life or bodily function? How? (Chest pain, [place], [place], pneumonia, PE, COPD, DKA, ARF, appy, cholecystitis, CVA, Diverticulitis, Homicidal, Suicidal, threat to staff... and all critical care pts) @ -Yes, unsafe for patient to sustain high heart rate which could lead to - Lab Data Result diagrams: 10/13/22 07:15 10/13/22 07:15 Lab Results 10/12/22 10/12/22 10/12/22 Range/Units 09:28 09:28 09:28 WBC 4.5 (3.8-10.6) k/uL RBC 4.62 (3.80-5.40) m/uL Hgb 13.3 (11.4-16.0) gm/dL Hct 40.2 (34.0-46.0) % MCV 87.0 (80.0-100.0) fL MCH 28.8 (25.0-35.0) pg MCHC 33.1 (31.0-37.0) g/dL RDW 15.3 (11.5-15.5) % Plt Count 150 (150-450) k/uL MPV 8.2 Neutrophils % (Manual) 74 % Lymphocytes % (Manual) 17 % Monocytes % (Manual) 7 % Eosinophils % (Manual) 1 % Basophils % (Manual) 1 % Neutrophils # (Manual) 3.33 (1.3-7.7) k/uL Lymphocytes # (Manual) 0.77 L (1.0-4.8) k/uL Monocytes # (Manual) 0.32 (0-1.0) k/uL Eosinophils # (Manual) 0.05 (0-0.7) k/uL Basophils # (Manual) 0.05 (0-0.2) k/uL Nucleated RBCs 0 (0-0) /100 WBC Manual Slide Review Performed RBC Morphology Normal PT 12.1 H (9.0-12.0) sec INR 1.2 H (<1.2) APTT 32.1 H (22.0-30.0) sec Sodium 137 (137-145) mmol/L Potassium 2.8 L (3.5-5.1) mmol/L Chloride 92 L (98-107) mmol/L Carbon Dioxide 37 H (22-30) mmol/L Anion Gap 8 mmol/L BUN 17 (7-17) mg/dL Creatinine 1.01 (0.52-1.04) mg/dL Est GFR (CKD-EPI)AfAm 58 (>60 ml/min/1.73 sqM) Est GFR (CKD-EPI)NonAf 51 (>60 ml/min/1.73 sqM) Glucose 180 H (74-99) mg/dL Calcium 8.4 (8.4-10.2) mg/dL Magnesium 1.5 L (1.6-2.3) mg/dL Total Bilirubin 1.7 H (0.2-1.3) mg/dL AST 25 (14-36) U/L ALT 34 (4-34) U/L Alkaline Phosphatase 64 (38-126) U/L Troponin I (0.000-0.034) ng/mL Total Protein 5.7 L (6.3-8.2) g/dL Albumin 3.5 (3.5-5.0) g/dL 10/12/22 Range/Units 09:28 WBC (3.8-10.6) k/uL RBC (3.80-5.40) m/uL Hgb (11.4-16.0) gm/dL Hct (34.0-46.0) % MCV (80.0-100.0) fL MCH (25.0-35.0) pg MCHC (31.0-37.0) g/dL RDW (11.5-15.5) % Plt Count (150-450) k/uL MPV Neutrophils % (Manual) % Lymphocytes % (Manual) % Monocytes % (Manual) % Eosinophils % (Manual) % Basophils % (Manual) % Neutrophils # (Manual) (1.3-7.7) k/uL Lymphocytes # (Manual) (1.0-4.8) k/uL Monocytes # (Manual) (0-1.0) k/uL Eosinophils # (Manual) (0-0.7) k/uL Basophils # (Manual) (0-0.2) k/uL Nucleated RBCs (0-0) /100 WBC Manual Slide Review RBC Morphology PT (9.0-12.0) sec INR (<1.2) APTT (22.0-30.0) sec Sodium (137-145) mmol/L Potassium (3.5-5.1) mmol/L Chloride (98-107) mmol/L Carbon Dioxide (22-30) mmol/L Anion Gap mmol/L BUN (7-17) mg/dL Creatinine (0.52-1.04) mg/dL Est GFR (CKD-EPI)AfAm (>60 ml/min/1.73 sqM) Est GFR (CKD-EPI)NonAf (>60 ml/min/1.73 sqM) Glucose (74-99) mg/dL Calcium (8.4-10.2) mg/dL Magnesium (1.6-2.3) mg/dL Total Bilirubin (0.2-1.3) mg/dL AST (14-36) U/L ALT (4-34) U/L Alkaline Phosphatase (38-126) U/L Troponin I 0.017 (0.000-0.034) ng/mL Total Protein (6.3-8.2) g/dL Albumin (3.5-5.0) g/dL Disposition Clinical Impression: Atrial fibrillation with RVR Disposition: ADMITTED IP TO THIS [facility] Condition: Stable Is patient prescribed a controlled substance at d/c from ED?: No Time of Disposition: 10:54 Decision to Admit Reason: Admit from EC Decision Date: 10/12/22 Decision Time: 10:54
[2022-10-12] MEDS ORDERED: MAGNESIUM SULFATE-D5W PMX 1 GM in DEXTROSE/WATER 1 100ML.BAG IVPB ONE ×2 (10:10→11:45)
[2022-10-12 10:13] LABS: INR 1.2 (<1.2); Partial Thromboplastin Time 32.1 sec (22.0-30.0); Prothrombin Time 12.1 sec (9.0-12.0)
[2022-10-12 10:16] LABS: HCT 40.2 % (34.0-46.0); HGB 13.3 gm/dL (11.4-16.0); MCH 28.8 pg (25.0-35.0); MCHC 33.1 g/dL (31.0-37.0); Mean Platelet Volume 8.2; Platelet Count 150 k/uL (150-450); RBC 4.62 m/uL (3.80-5.40); RDW 15.3 % (11.5-15.5); WBC 4.5 k/uL (3.8-10.6)
[2022-10-12] MEDS ORDERED: NALOXONE 0.4 MG/ML 1 ML VIAL IV PRN (10:56)
[2022-10-12] MEDS ORDERED: POTASSIUM CHLORIDE ER 20 MEQ TAB.ER PO STA (11:33)
[2022-10-12] MEDS ORDERED: Potassium Replacement Protocol 1 EACH MISC MISCELLANE PRN (11:40)
[2022-10-12] MEDS: POTASSIUM CHLORIDE ER 20 MEQ TAB.ER PO SCH ×2 (12:01→20:25)
[2022-10-12] MEDS ORDERED: NITROGLYCERIN SL TABS 0.4 MG TAB SUBLINGUAL PRN (12:24)
[2022-10-12] MEDS ORDERED: ALPRAZolam 0.25 MG TAB PO PRN (12:24)
[2022-10-12] MEDS ORDERED: DEXTROSE 50% SYRINGE 50 ML IVP PRN ×2 (12:27)
[2022-10-12 12:33] LABS: Basophils # (M) 0.05 k/uL (0-0.2); Eosinophils # (M) 0.05 k/uL (0-0.7); Lymphocytes # (M) 0.77 k/uL (1.0-4.8); Monocytes # (M) 0.32 k/uL (0-1.0); Neutrophils # (M) 3.33 k/uL (1.3-7.7); Neutrophils % (M) 74 %; Nucleated Red Blood Cells 0 /100 WBC (0-0); RBC Morphology Normal; Total Cells Counted 100
[2022-10-12 12:35] LABS: Glucose,Whole Blood 158 mg/dL (70-110)
[2022-10-12] MEDS: INSULIN ASPART (NovoLOG) 100 UNIT/ML VIAL SQ SCH ×3 (12:41→20:25)
[2022-10-12] MEDS: DILTIAZEM ORAL 30 MG TAB PO SCH ×3 (12:42→20:25)
--- NOTE | 2022-10-12 12:56 | P.CRDCN ---
History of Present Illness History of present illness: HISTORY OF PRESENT ILLNESS: This is a 87-year-old female with a past medical history significant for paroxysmal atrial fibrillation, previous atrial fibrillation ablation, recent cardioversion, permanent pacemaker with recent generator change in July 2022, and diabetes. Patient follows in the office with Dr. Caceres. We have been asked to see the patient in consultation for A. fib with RVR. Patient examined at the bedside in the emergency room. Patient underwent SHEY and cardioversion on 10/04/2022. Patient states she has been feeling well since her cardioversion. She noticed this morning when she took her vitals that her pulse rate was 130. She states this is the first time she has noticed her heart rate being fast since her cardioversion. She denied any palpitations. Denied any shortness of breath. Denied any chest pain. She presented to the hospital for further evaluation. The patient was found to be in A. fib with RVR. At the time of examination the patient remains in atrial fibrillation with a heart rate between [id number]. * EKG reveals A. fib with RVR * Laboratory data: WBC 4.5. Hemoglobin 13.3. Platelet count 150. Sodium 137. Potassium 2.8. BUN 17. Creatinine 1.01. Magnesium 1.5. Troponin negative 1. * Current home cardiac medications include Eliquis 5mg BID, amiodarone 200 mg daily, metoprolol succinate 100 mg daily, and lisinopril 20 mg twice a day * Most recent echocardiogram obtained in June 2022 reveals ejection fraction 50%, mild TR, mild MR REVIEW OF SYSTEMS: At the time of my exam: CONSTITUTIONAL: Denies fever or chills. HEENT: Denies blurred vision, vision changes, or eye pain. Denies hemoptysis CARDIOVASCULAR: Denies chest pain. Denies orthopnea. Denies PND. Denies pa lpitations RESPIRATORY: Denies shortness of breath. GASTROINTESTINAL: Denies abdominal pain. Denies nausea or vomiting. HEMATOLOGIC: Denies bleeding disorders. GENITOURINARY: Denies any blood in urine. SKIN: Denies pruitis. Denies rash. PHYSICAL EXAM: VITAL SIGNS: Reviewed. GENERAL: Well-developed in no acute distress. HEENT: Head is normocephalic. Pupils are equal, round. Sclerae anicteric. Mucous membranes of the mouth are moist. Neck supple. No JVD or thyromegaly LUNGS: Respirations even and unlabored. Lungs essentially clear to auscultation bilaterally. HEART: Tachycardic. Irregular rate and rhythm. S1 and S2 heard. ABDOMEN: Soft. Nondistended. Nontender. EXTREMITIES: Normal range of motion. No clubbing or cyanosis. Peripheral pulses intact. No lower extremity edema NEUROLOGIC: Awake and alert. Oriented x 3. ASSESSMENT: Paroxysmal atrial fibrillation with RVR Recent SHEY and cardioversion, 10/04/2022 History of A. fib ablation Permanent pacemaker with generator change, July 2022 Hypertension Diabetes PLAN: No need to repeat echocardiogram as this was performed in June 2022 Continue oral anticoagulation Resume home dose of metoprolol succinate 100 mg daily Increase home dose of amiodarone to 200 mg twice a day instead of daily Add Cardizem 30 mg 3 times a day Continue telemetry monitoring At this time we will focus on rate control. No plans for repeat cardioversion Further recommendations pending patient's course Nurse practitioner note has been reviewed by physician. Signing provider agrees with the documented findings, assessment, and plan of care. Past Medical History Past Medical History: Atrial Fibrillation, Asthma, Chest Pain / Angina, Heart Failure, CVA/TIA, Diabetes Mellitus, Hypertension, Osteoarthritis (OA), Skin Disorder Additional Past Medical History / Comment(s): poor historian, borderline diabetic per pt., stroke 2010-no residual per pt., constipation, sometimes skin irritation under breasts-not currently, recent adm. to [facility] for SOB w/exertion & fluid retention lower legs which she states is now resolved History of Any Multi-Drug Resistant Organisms: None Reported Past Surgical History: Hysterectomy, Pacemaker Additional Past Surgical History / Comment(s): pacemaker generator change July 2022 Past Anesthesia/Blood Transfusion Reactions: No Reported Reaction Additional Past Anesthesia/Blood Transfusion Reaction / Comment(s): . Type of Cardiac Device: Permanent Pacemaker Device Placement Date:: 02/26/15 Past Psychological History: No Psychological Hx Reported Smoking Status: Never smoker Past Alcohol Use History: None Reported Past Drug Use History: None Reported - Past Family History Mother Family Medical History: CVA/TIA, Hypertension Additional Family Medical History / Comment(s): of cardiac aneurysm Sister(s) Family Medical History: Cancer, Hypertension Additional Family Medical History / Comment(s): breast cancer Medications and Allergies Home Medications Medication Instructions Recorded Confirmed Type Montelukast [Singulair] 10 mg PO HS 01/31/14 10/12/22 History Nitroglycerin Sl Tabs [Nitrostat] 0.4 mg SUBLINGUAL Q5M PRN 01/31/14 10/12/22 History lisinopriL 20 mg PO BID 10/14/20 10/12/22 History Apixaban [Eliquis] 5 mg PO BID #180 tab 10/19/20 10/12/22 Rx Magnesium Citrate 250 mg PO BID 08/12/22 10/12/22 History ALPRAZolam [Xanax] 0.25 mg PO BID PRN 08/27/22 10/12/22 History metFORMIN HCL 500 mg PO DAILY 08/27/22 10/12/22 History Amiodarone [Cordarone] 200 mg PO DAILY 10/12/22 10/12/22 History Docusate [Colace] 100 mg PO DAILY 10/12/22 10/12/22 History Metoprolol Succinate (ER) [Toprol 100 mg PO DAILY 10/12/22 10/12/22 History Xl] Potassium Chloride [Klor-Con 8] 8 meq PO DAILY 10/12/22 10/12/22 History Allergies Allergy/AdvReac Type Severity Reaction Status Date / Time Penicillins Allergy Unknown Verified 10/12/22 11:42 Childhood Sulfa (Sulfonamide Allergy Unknown Verified 10/12/22 11:42 Antibiotics) Childhood EKG PATCHES AdvReac Unknown skin red Uncoded 10/12/22 11:42 and sore Physical Exam Vitals: Vital Signs Temp Pulse Resp BP Pulse Ox 10/12/22 11:36 108 H 18 128/93 95 10/12/22 11:00 98 20 120/99 95 10/12/22 10:46 99 20 102/52 96 10/12/22 10:19 129 H 18 115/85 97 10/12/22 09:15 122 H 20 127/81 95 10/12/22 09:01 97.5 F L 118 H 18 109/66 97 Intake and Output 10/11/22 10/12/22 10/12/22 22:59 06:59 14:59 Other: Weight 92.986 kg Results 10/12/22 09:28 10/12/22 09:28 Cardiac Enzymes 10/12/22 10/12/22 Range/Units 09:28 09:28 AST 25 (14-36) U/L Troponin I 0.017 (0.000-0.034) ng/mL Coagulation 10/12/22 Range/Units 09:28 PT 12.1 H (9.0-12.0) sec APTT 32.1 H (22.0-30.0) sec CBC 10/12/22 Range/Units 09:28 WBC 4.5 (3.8-10.6) k/uL RBC 4.62 (3.80-5.40) m/uL Hgb 13.3 (11.4-16.0) gm/dL Hct 40.2 (34.0-46.0) % Plt Count 150 (150-450) k/uL Comprehensive Metabolic Panel 10/12/22 Range/Units 09:28 Sodium 137 (137-145) mmol/L Potassium 2.8 L (3.5-5.1) mmol/L Chloride 92 L (98-107) mmol/L Carbon Dioxide 37 H (22-30) mmol/L BUN 17 (7-17) mg/dL Creatinine 1.01 (0.52-1.04) mg/dL Glucose 180 H (74-99) mg/dL Calcium 8.4 (8.4-10.2) mg/dL AST 25 (14-36) U/L ALT 34 (4-34) U/L Alkaline Phosphatase 64 (38-126) U/L Total Protein 5.7 L (6.3-8.2) g/dL Albumin 3.5 (3.5-5.0) g/dL Current Medications Generic Name Dose Route Start Last Admin Trade Name Freq PRN Reason Stop Dose Admin Alprazolam 0.25 mg 10/12/22 12:24 Alprazolam 0.25 Mg Tab PO BID PRN Anxiety Amiodarone HCl 200 mg 10/12/22 21:00 Amiodarone 200 Mg Tab PO BID LORI Apixaban 5 mg 10/12/22 21:00 Apixaban 5 Mg Tab PO BID LORI Protocol Dextrose/Water 25 ml 10/12/22 12:27 Dextrose 50% Syringe 50 Ml IVP PER PROTOCOL PRN Hypoglycemia Protocol Dextrose/Water 50 ml 10/12/22 12:27 Dextrose 50% Syringe 50 Ml IVP PER PROTOCOL PRN Hypoglycemia Protocol Diltiazem HCl 30 mg 10/12/22 12:00 10/12/22 12:42 Diltiazem Oral 30 Mg Tab PO 30 mg TID [facility] Administration Docusate Sodium 100 mg 10/13/22 09:00 Docusate 100 Mg Cap PO DAILY [facility] Potassium Chloride 10 meq/ IV 100 mls @ 100 mls/hr 10/12/22 11:45 Solution IVPB 10/12/22 13:44 Q1H [facility] Insulin Aspart 0 unit 10/12/22 12:30 10/12/22 12:41 Insulin Aspart (Novolog) 100 Unit/Ml Vial SQ 2 unit ACHS LORI Administration Protocol Lisinopril 20 mg 10/12/22 21:00 Lisinopril 20 Mg Tab PO BID [facility] Magnesium Oxide 200 mg 10/12/22 21:00 Magnesium Oxide 400 Mg Tab PO BID [facility] Metoprolol Succinate 100 mg 10/13/22 09:00 Metoprolol Succinate (Er) 100 Mg Tab.Er.24h PO DAILY [facility] Miscellaneous Information 1 each 10/12/22 11:40 Potassium Replacement Protocol 1 Each Misc MISCELLANE DAILY PRN Per Protocol Protocol Montelukast Sodium 10 mg 10/12/22 21:00 Montelukast 10 Mg Tab PO HS [facility] Naloxone HCl 0.2 mg 10/12/22 10:56 Naloxone 0.4 Mg/Ml 1 Ml Vial IV Q2M PRN Opioid Reversal Nitroglycerin 0.4 mg 10/12/22 12:24 Nitroglycerin Sl Tabs 0.4 Mg Tab SUBLINGUAL Q5M PRN Chest Pain Potassium Chloride 20 meq 10/12/22 11:45 10/12/22 12:01 Potassium Chloride Er 20 Meq Tab.Er PO 10/12/22 21:01 20 meq BID [facility] Administration Potassium Chloride 10 meq 10/13/22 09:00 Potassium Chloride Er 10 Meq Tab.Er.Prt PO DAILY [facility] Intake and Output 10/11/22 10/12/22 10/12/22 22:59 06:59 14:59 Other: Weight 92.986 kg Patient Weight 10/13/22 06:59 Weight 92.986 kg 10/12/22 09:28 10/12/22 09:28
[2022-10-12] MEDS: POTASSIUM CHLORIDE 10 MEQ in WATER FOR INJECTION 1 100ML.BAG IVPB SCH ×2 (13:52→16:05)
[2022-10-12 16:26] LABS: Glucose,Whole Blood 131 mg/dL (70-110)
[2022-10-12 20:07] LABS: Glucose,Whole Blood 233 mg/dL (70-110)
[2022-10-12] MEDS: AMIODARONE 200 MG TAB PO SCH (20:25)
[2022-10-12] MEDS: APIXABAN 5 MG TAB PO SCH (20:25)
[2022-10-12] MEDS: lisinopriL 20 MG TAB PO SCH (20:25)
[2022-10-12] MEDS: MAGNESIUM OXIDE 400 MG TAB PO SCH (20:25)
[2022-10-12] MEDS ORDERED: MONTELUKAST 10 MG TAB PO SCH (21:00)
--- NOTE | 2022-10-12 23:20 | P.HPIM ---
History of Present Illness H&P Date: 10/12/22 Chief Complaint: Elevated heart rate Patient is a 87-year-old female with a known history of atrial fibrillation on anticoagulation with Eliquis and recent cardioversion on 10/04/2022, hypertension, hyperlipidemia, history of pacemaker placement and chronic CHF with preserved EF presents to ER with complaints of rapid heart rate. Patient states that she woke up this morning and checked her blood sugar and blood pressure which she does regularly and found that her heart rate went up to 130s. Patient did have mild palpitations. Denies any chest pain or shortness of breath. No leg swelling. No nausea vomiting abdominal pain or diarrhea. No dizziness or lightheadedness. Patient presented to ER. EKG showed atrial fibrillation with heart rate in 120s. Laboratory data showed WBC 4.5 hemoglobin 13.3 and platelets 150, sodium 137 potassium 2.8 chloride 92. Bicarb 37 BUN 17 and creatinine 1.01 and blood sugar 180 magnesium 1.5 and total bilirubin level is 1.7 and albumin 3.5. Patient is currently on room air. Review of Systems Constitutional: Patient denies any fever or chills . no Generalized weakness. Abdomen: Patient denied any nausea or vomiting or abd. pain Cardiovascular: Patient denies any chest pain or short of breath. Patient does have palpitations. No leg swelling. Respiratory: patient denied any cough . no sputum production. No shortness of breath Neurologic: Patient denied any numbness or tingling headache. Musculoskeletal: Patient denies any complaints of joint swelling or deformity. Skin: Negative Psychiatric: Negative Endocrine: No heat or cold intolerance. No recent weight gain. Genitourinary: No dysuria or hematuria. All other 14 point ROS negative except the above Past Medical History Past Medical History: Atrial Fibrillation, Asthma, Chest Pain / Angina, Heart Failure, CVA/TIA, Diabetes Mellitus, Hypertension, Osteoarthritis (OA), Skin Disorder Additional Past Medical History / Comment(s): poor historian, borderline diabetic per pt., stroke 2010-no residual per pt., constipation, sometimes skin irritation under breasts-not currently, recent adm. to [facility] for SOB w/exertion & fluid retention lower legs which she states is now resolved History of Any Multi-Drug Resistant Organisms: None Reported Past Surgical History: Hysterectomy, Pacemaker Additional Past Surgical History / Comment(s): pacemaker generator change July 2022 Past Anesthesia/Blood Transfusion Reactions: No Reported Reaction Additional Past Anesthesia/Blood Transfusion Reaction / Comment(s): . Type of Cardiac Device: Permanent Pacemaker Device Placement Date:: 02/26/15 Past Psychological History: No Psychological Hx Reported Smoking Status: Never smoker Past Alcohol Use History: None Reported Past Drug Use History: None Reported - Past Family History Mother Family Medical History: CVA/TIA, Hypertension Additional Family Medical History / Comment(s): of cardiac aneurysm Sister(s) Family Medical History: Cancer, Hypertension Additional Family Medical History / Comment(s): breast cancer Medications and Allergies Home Medications Medication Instructions Recorded Confirmed Type Montelukast [Singulair] 10 mg PO HS 01/31/14 10/12/22 History Nitroglycerin Sl Tabs [Nitrostat] 0.4 mg SUBLINGUAL Q5M PRN 01/31/14 10/12/22 History lisinopriL 20 mg PO BID 10/14/20 10/12/22 History Apixaban [Eliquis] 5 mg PO BID #180 tab 10/19/20 10/12/22 Rx Magnesium Citrate 250 mg PO BID 08/12/22 10/12/22 History ALPRAZolam [Xanax] 0.25 mg PO BID PRN 08/27/22 10/12/22 History metFORMIN HCL 500 mg PO DAILY 08/27/22 10/12/22 History Amiodarone [Cordarone] 200 mg PO DAILY 10/12/22 10/12/22 History Docusate [Colace] 100 mg PO DAILY 10/12/22 10/12/22 History Metoprolol Succinate (ER) [Toprol 100 mg PO DAILY 10/12/22 10/12/22 History Xl] Potassium Chloride [Klor-Con 8] 8 meq PO DAILY 10/12/22 10/12/22 History Allergies Allergy/AdvReac Type Severity Reaction Status Date / Time Penicillins Allergy Unknown Verified 10/12/22 11:42 Childhood Sulfa (Sulfonamide Allergy Unknown Verified 10/12/22 11:42 Antibiotics) Childhood EKG PATCHES AdvReac Unknown skin red Uncoded 10/12/22 11:42 and sore Physical Exam Vitals: Vital Signs Temp Pulse Resp BP Pulse Ox 10/12/22 11:00 98 20 120/99 95 10/12/22 10:46 99 20 102/52 96 10/12/22 10:19 129 H 18 115/85 97 10/12/22 09:15 122 H 20 127/81 95 10/12/22 09:01 97.5 F L 118 H 18 109/66 97 Intake and Output 10/11/22 10/12/22 10/12/22 22:59 06:59 14:59 Other: Weight 92.986 kg PHYSICAL EXAMINATION: Patient is lying in the bed comfortably, no acute distress, awake alert and oriented.. HEENT: Normocephalic. Neck is supple. Pupils reactive. Nostrils clear. Oral cavity is moist. Neck reveals no JVD, carotid bruits, or thyromegaly. CHEST EXAMINATION: Trachea is central. Symmetrical expansion. Lung barajas clear to auscultation and percussion. CARDIAC: Normal S1, S2 with no gallops. No murmurs. Irregularly irregular rhythm. ABDOMEN: Soft. Bowel sounds present. Nontender. No organomegaly. No abdominal bruits. Extremities: reveal no edema. No clubbing or cyanosis Neurologically awake, alert, oriented x3 with well-coordinated movements. No focal deficits noted Skin: No rash or skin lesions. Psychiatric: Coperative. Nonsuicidal, Musculoskeletal: No joint swelling or deformity. Normal range of motion. Results CBC & Chem 7: 10/12/22 09:28 10/12/22 09:28 Labs: Abnormal Lab Results - Last 24 Hours (Table) 10/12/22 10/12/22 Range/Units 09:28 09:28 PT 12.1 H (9.0-12.0) sec INR 1.2 H (<1.2) APTT 32.1 H (22.0-30.0) sec Potassium 2.8 L (3.5-5.1) mmol/L Chloride 92 L (98-107) mmol/L Carbon Dioxide 37 H (22-30) mmol/L Glucose 180 H (74-99) mg/dL Magnesium 1.5 L (1.6-2.3) mg/dL Total Bilirubin 1.7 H (0.2-1.3) mg/dL Total Protein 5.7 L (6.3-8.2) g/dL Thrombosis Risk Factor Assmnt - DVT/VTE Prophylaxis DVT/VTE Prophylaxis: Pharmacologic Prophylaxis ordered Assessment and Plan Assessment: Paroxysmal atrial fibrillation with rapid ventricular rate Severe hypokalemia and hypomagnesemia Recent history of cardioversion on 10/04/2022 History of sick sinus syndrome status post dual-chamber pacemaker placement Chronic HFpEF Moderate pulmonary hypertension Hypertension Hyperlipidemia History of CVA/TIA Diabetes type 2 [id number]-eycwnnomr DVT prophylaxis patient is already on Eliquis Plan: Patient will be continued on telemetry monitoring. Was given a dose of metoprolol 2.5 mg IV push in the ER. Heart rate improved to 96. Cardiology was consulted. Patient was started on Cardizem 30 mg 3 times daily and continue with metoprolol XL 100 mg daily. Replace electrolytes and follow-up repeat potassium level. Continue with anticoagulation with Eliquis and other blood pressure medications. Follow-up closely. Patient did improve symptomatically. Discussed with the patient and her son at bedside in detail. Time with Patient: Greater than 30
[2022-10-13] MEDS: POTASSIUM CHLORIDE ER 20 MEQ TAB.ER PO SCH ×4 (04:52→09:34)
[2022-10-13] MEDS: INSULIN ASPART (NovoLOG) 100 UNIT/ML VIAL SQ SCH ×2 (06:13→11:57)
[2022-10-13 06:14] LABS: Glucose,Whole Blood 102 mg/dL (70-110)
[2022-10-13] MEDS: MAGNESIUM OXIDE 400 MG TAB PO SCH (07:45)
[2022-10-13] MEDS: DILTIAZEM ORAL 30 MG TAB PO SCH (07:45)
[2022-10-13] MEDS: AMIODARONE 200 MG TAB PO SCH (07:45)
[2022-10-13] MEDS: lisinopriL 20 MG TAB PO SCH (07:45)
[2022-10-13] MEDS: APIXABAN 5 MG TAB PO SCH (07:45)
[2022-10-13 08:12] LABS: Calcium 8.4 mg/dL (8.4-10.2); Magnesium 1.9 mg/dL (1.6-2.3); Potassium 3.4 mmol/L (3.5-5.1)
[2022-10-13 08:31] LABS: Basophils % (A) 0 %; Eosinophils # (A) 0.3 k/uL (0-0.7); Eosinophils % (A) 6 %; HCT 38.4 % (34.0-46.0); Lymphocytes # (A) 0.7 k/uL (1.0-4.8); Lymphocytes % (A) 16 %; MCH 30.3 pg (25.0-35.0); MCHC 33.8 g/dL (31.0-37.0); MCV 89.6 fL (80.0-100.0); Mean Platelet Volume 7.9; Monocytes # (A) 0.3 k/uL (0-1.0); Monocytes % (A) 6 %; Neutrophils # (A) 2.8 k/uL (1.3-7.7); Neutrophils % (A) 67 %; Platelet Count 156 k/uL (150-450); RBC 4.28 m/uL (3.80-5.40); RDW 15.3 % (11.5-15.5); WBC 4.2 k/uL (3.8-10.6)
[2022-10-13] MEDS ORDERED: METOPROLOL SUCCINATE (ER) 100 MG TAB.ER.24H PO SCH (09:00)
[2022-10-13] MEDS ORDERED: DOCUSATE 100 MG CAP PO SCH (09:00)
[2022-10-13] MEDS ORDERED: POTASSIUM CHLORIDE ER 10 MEQ TAB.ER.PRT PO SCH (09:00)
[2022-10-13 09:08] VITALS: RESP 16
[2022-10-13 11:22] VITALS: BP 147/78; PULSE 56; TEMP 98
[2022-10-13 11:43] LABS: Glucose,Whole Blood 153 mg/dL (70-110)
--- NOTE | 2022-10-13 12:22 | P.PN ---
Subjective HISTORY OF PRESENT ILLNESS: This is a 87-year-old female with a past medical history significant for paroxysmal atrial fibrillation, previous atrial fibrillation ablation, recent cardioversion, permanent pacemaker with recent generator change in July 2022, and diabetes. Patient follows in the office with Dr. Caceres. We have been asked to see the patient in consultation for A. fib with RVR. Patient examined at the bedside in the emergency room. Patient underwent SHEY and cardioversion on 10/04/2022. Patient states she has been feeling well since her cardioversion. She noticed this morning when she took her vitals that her pulse rate was 130. She states this is the first time she has noticed her heart rate being fast since her cardioversion. She denied any palpitations. Denied any shortness of breath. Denied any chest pain. She presented to the hospital for further evaluation. The patient was found to be in A. fib with RVR. At the time of examination the patient remains in atrial fibrillation with a heart rate between [id number]. * EKG reveals A. fib with RVR * Laboratory data: WBC 4.5. Hemoglobin 13.3. Platelet count 150. Sodium 137. Potassium 2.8. BUN 17. Creatinine 1.01. Magnesium 1.5. Troponin negative 1. * Current home cardiac medications include Eliquis 5mg BID, amiodarone 200 mg daily, metoprolol succinate 100 mg daily, and lisinopril 20 mg twice a day * Most recent echocardiogram obtained in June 2022 reveals ejection fraction 50%, mild TR, mild MR 10/13/2022 Patient examined this morning at the bedside. Patient denies chest pain or pressure. She denies shortness of breath. Telemetry this morning reveals paced rhythm with underlying sinus mechanism. Vital signs are stable. PHYSICAL EXAM: VITAL SIGNS: Reviewed. GENERAL: Well-developed in no acute distress. HEENT: Head is normocephalic. Pupils are equal, round. Sclerae anicteric. Mucous membranes of the mouth are moist. Neck supple. No JVD or thyromegaly LUNGS: Respirations even and unlabored. Lungs essentially clear to auscultation bilaterally. HEART: Regular rate and rhythm. S1 and S2 heard. ABDOMEN: Soft. Nondistended. Nontender. EXTREMITIES: Normal range of motion. No clubbing or cyanosis. Peripheral pulses intact. No lower extremity edema NEUROLOGIC: Awake and alert. Oriented x 3. ASSESSMENT: Paroxysmal atrial fibrillation with RVR Recent SHEY and cardioversion, 10/04/2022 History of A. fib ablation Permanent pacemaker with generator change, July 2022 Hypertension Diabetes PLAN: Discontinue oral Cardizem Continue metoprolol succinate 100 mg in the morning Add an additional dose of 50 mg at night Continue current dose of amiodarone twice a day Recommend K-Dur 20 meq daily at the time of discharge Patient may be discharged home today from a cardiac standpoint with close outpatient follow-up Nurse practitioner note has been reviewed by physician. Signing provider agrees with the documented findings, assessment, and plan of care. Objective - Vital Signs Vital signs: Vital Signs Temp 98 F 10/13/22 11:20 Pulse 56 L 10/13/22 11:20 Resp 16 10/13/22 11:20 BP 147/78 10/13/22 11:20 Pulse Ox 96 10/13/22 11:20 FiO2 Intake & Output 10/12/22 10/13/22 10/13/22 18:59 06:59 18:59 Intake Total 598 420 Output Total 300 Balance 598 -300 420 Weight 92.986 kg Intake: Oral 598 420 Output: Urine 300 Other: Voiding Method Toilet # Voids 1 1 2 - Labs CBC & Chem 7: 10/13/22 07:15 10/13/22 07:15 Labs: Abnormal Lab Results - Last 24 Hours (Table) 10/12/22 10/12/22 10/12/22 Range/Units 09:28 12:34 16:25 Lymphocytes # (1.0-4.8) k/uL Lymphocytes # (Manual) 0.77 L (1.0-4.8) k/uL Potassium (3.5-5.1) mmol/L Chloride (98-107) mmol/L Carbon Dioxide (22-30) mmol/L BUN (7-17) mg/dL Creatinine (0.52-1.04) mg/dL Glucose (74-99) mg/dL POC Glucose (mg/dL) 158 H 131 H (70-110) mg/dL Hemoglobin A1c (0.0-6.0) % 10/12/22 10/12/22 10/13/22 Range/Units 20:06 23:40 07:15 Lymphocytes # (1.0-4.8) k/uL Lymphocytes # (Manual) (1.0-4.8) k/uL Potassium 3.1 L (3.5-5.1) mmol/L Chloride (98-107) mmol/L Carbon Dioxide (22-30) mmol/L BUN (7-17) mg/dL Creatinine (0.52-1.04) mg/dL Glucose (74-99) mg/dL POC Glucose (mg/dL) 233 H (70-110) mg/dL Hemoglobin A1c 7.8 H (0.0-6.0) % 10/13/22 10/13/22 10/13/22 Range/Units 07:15 07:15 11:42 Lymphocytes # 0.7 L (1.0-4.8) k/uL Lymphocytes # (Manual) (1.0-4.8) k/uL Potassium 3.4 L (3.5-5.1) mmol/L Chloride 93 L (98-107) mmol/L Carbon Dioxide 35 H (22-30) mmol/L BUN 19 H (7-17) mg/dL Creatinine 1.10 H (0.52-1.04) mg/dL Glucose 115 H (74-99) mg/dL POC Glucose (mg/dL) 153 H (70-110) mg/dL Hemoglobin A1c (0.0-6.0) %
[2022-10-13] MEDS ORDERED: METOPROLOL SUCCINATE (ER) 50 MG TAB.ER.24H PO SCH (21:00)
[2022-10-14] MEDS ORDERED: POTASSIUM CHLORIDE ER 20 MEQ TAB.ER PO SCH (09:00)
== END 2022-10-13 13:45 | disposition home or self-care (01) | DRG 309 ==
LOC: EC 08:50 → 3SCARD 10:56
PROVIDERS: ADMIT Hospitalist; ATTEND Hospitalist
DX: I48.0 Paroxysmal atrial fibrillation (principal); I50.32 Chronic diastolic (congestive) heart failure; I27.20 Pulmonary hypertension, unspecified; I49.5 Sick sinus syndrome; I11.0 Hypertensive heart disease with heart failure; E11.9 Type 2 diabetes mellitus without complications; I08.1 Rheumatic disorders of both mitral and tricuspid valves; E78.5 Hyperlipidemia, unspecified; E87.6 Hypokalemia; E83.42 Hypomagnesemia; Z82.49 Family history of ischemic heart disease and other diseases of the circulatory system; Z95.0 Presence of cardiac pacemaker; Z86.73 Personal history of transient ischemic attack (TIA), and cerebral infarction without residual deficits; Z88.2 Allergy status to sulfonamides; Z91.048 Other nonmedicinal substance allergy status; Z88.0 Allergy status to penicillin; Z79.01 Long term (current) use of anticoagulants; Z79.899 Other long term (current) drug therapy; Z79.84 Long term (current) use of oral hypoglycemic drugs
CPT/HCPCS: 36415; 80048; 80053; 83036; 83735; 84132; 84484; 85025; 85610; 85730; 93005; 96365; 96375; 99291

== ENCOUNTER → 2022-10-27 | Outpatient (CLI) | payer MEDICARE ==
[2022-10-27 16:33] LABS: ALT 22 U/L (8-44); AST 23 U/L (13-35); African American GFR (CKD) 52.6 (60.0-200.0); Albumin 4.1 g/dL (3.8-4.9); Albumin/Globulin Ratio 1.86 (1.60-3.17); Alkaline Phosphatase 73 U/L (41-126); BUN/Creat Ratio 17.27 Ratio (12.00-20.00); Calcium 9.3 mg/dL (8.7-10.3); Carbon Dioxide 26.5 mmol/L (20.0-27.5); Chloride 100 mmol/L (96-109); Globulin 2.2 g/dL (1.6-3.3); Glucose 211 mg/dL (70-110); Non-African American GFR(CKD) 45.4 (60.0-200.0); Potassium 4.2 mmol/L (3.5-5.5); Sodium 140 mmol/L (135-145); Total Protein 6.3 g/dL (6.2-8.2)
== END | disposition home or self-care (01) ==
LOC: LABWHC1 08:51
PROVIDERS: ATTEND Nurse Practitioner Adult Health
DX: I48.11 Longstanding persistent atrial fibrillation (principal); I50.32 Chronic diastolic (congestive) heart failure
CPT/HCPCS: 36415; 80053; 83880; 84443

== ENCOUNTER → 2022-12-26 | Outpatient (CLI) | payer MEDICARE ==
[2022-12-26 08:59] LABS: African American GFR (CKD) 50 (>60 ml/min/1.73 sqM); Anion Gap 5 mmol/L; Blood Urea Nitrogen 28 mg/dL (7-17); Calcium 9.1 mg/dL (8.4-10.2); Carbon Dioxide 34 mmol/L (22-30); Chloride 98 mmol/L (98-107); Glucose 206 mg/dL (74-99); Non-African American GFR(CKD) 43 (>60 ml/min/1.73 sqM); Potassium 4.8 mmol/L (3.5-5.1); Sodium 137 mmol/L (137-145)
[2022-12-26 09:08] LABS: NT-Pro-B-Type Natriuretic Pept 1310 pg/mL
[2022-12-26 09:16] LABS: T4, Free (Free Thyroxine) 2.03 ng/dL (0.78-2.19)
== END | disposition home or self-care (01) ==
LOC: LABWHC1 08:04
PROVIDERS: ATTEND Nurse Practitioner Adult Health
DX: I48.21 Permanent atrial fibrillation (principal); I50.32 Chronic diastolic (congestive) heart failure
CPT/HCPCS: 36415; 80048; 83880; 84439; 84443

== ENCOUNTER → 2022-12-28 | Outpatient (CLI) | payer MEDICARE ==
--- NOTE | 2022-12-30 08:22 | MM ---
Reason for Exam: Screening (asymptomatic). Last screening mammogram was performed 12 month(s) ago. Patient History: Menarche at age 13. First Full-Term at age 24. Left ovary removed at age 38. Right ovary removed at age 38. Hysterectomy at age 38. Postmenopausal. Patient used Estrogen for 10 years. Sister had breast cancer, age 82. Prior Study Comparison: 06/11/2014 Screening Mammogram, [facility]. 08/25/2020 Bilateral Screening Mammogram, [facility]. 12/27/2021 Bilateral MG 3D screening mammo w/cad, [facility]. Tissue Density: There are scattered fibroglandular densities. Findings: Analyzed By CAD. There is no suspicious group of microcalcifications or new suspicious mass in either breast. Bilateral vascular calcifications. Left axillary cardiac pacemaking device. Chronic nodularity within the right breast. Overall Assessment: Benign, BI-RAD 2 Management: Screening Mammogram of both breasts in 1 year. A clinical breast exam by your physician is recommended on an annual basis and results should be correlated with mammographic findings. Note on Sherice scores and lifetime risk: 1. A Sherice score greater than 3% is considered moderate risk. If this is the case, consider specialist referral to assess eligibility for a risk reducing agent. If overall lifetime risk for the development of breast cancer is 20% or higher, the patient may qualify for future screening with alternating mammogram and breast MRI. Electronically signed and approved by: Martell Solis D.O.
== END | disposition home or self-care (01) ==
LOC: RADMAMWWP 10:34
PROVIDERS: ATTEND Obstetrics & Gynecology
DX: Z12.31 Encounter for screening mammogram for malignant neoplasm of breast (principal); Z78.0 Asymptomatic menopausal state; Z80.3 Family history of malignant neoplasm of breast
CPT/HCPCS: 77063; 77067

== ENCOUNTER 2023-02-03 07:47 | Day surgery (SDC) | payer MEDICARE ==
[~2023-02-03 07:47] MED LIST: LACTATED RINGERS 1,000 ML IV SCH
[2023-02-03 08:28] VITALS: TEMP 97.2
[2023-02-03] MEDS ORDERED: PROPOFOL 10 MG/ML 20 ML VIAL IV ONE (09:01)
--- NOTE | 2023-02-03 09:22 | P.PCN ---
Date of Procedure: 02/03/23 Procedure(s) Performed: BRIEF HISTORY: Patient is a 87-year-old pleasant white female scheduled for an elective colonoscopy as a part of screening for colon cancer. PROCEDURE PERFORMED: Colonoscopy. PREOPERATIVE DIAGNOSIS: .Screening for colon cancer IV sedation per Anesthesia. PROCEDURE: After informed consent was obtained, the patient, was brought into the endoscopy unit. IV sedation was administered by Anesthesia under continuous monitoring. Digital rectal examination was normal. Initially the Olympus CF-160 flexible video colonoscope was then inserted in the rectum, gradually advanced into the cecum without any difficulty. Careful examination was performed as the scope was gradually being withdrawn. Ileocecal valve and the appendiceal orifice were visualized and appeared normal. Prep was excellent. Mucosa of the cecum, ascending colon, transverse colon, descending colon, sigmoid colon, and rectum appeared normal. Scattered diffuse diverticulosis. Retroflexion was performed in the rectum and no lesions were seen. The patient tolerated the procedure well. IMPRESSION: Normal-appearing colon from rectum to cecum with no evidence of colorectal neoplasia Scattered diffuse diverticulosis . RECOMMENDATIONS: Findings of this examination were discussed with the patient as well as a family. She was advised to be a high-fiber diet and take fiber supplements a regular basis..
[2023-02-03 09:50] VITALS: PULSE 64; RESP 20
[2023-02-03 09:56] VITALS: BP 154/71
== END 2023-02-03 10:05 ==
LOC: ORWHC2ENDO 07:47
PROVIDERS: ATTEND Internal Medicine Gastroenterology
DX: Z12.11 Encounter for screening for malignant neoplasm of colon (principal); K57.30 Diverticulosis of large intestine without perforation or abscess without bleeding; I11.0 Hypertensive heart disease with heart failure; I49.5 Sick sinus syndrome; I48.91 Unspecified atrial fibrillation; I50.9 Heart failure, unspecified; E78.5 Hyperlipidemia, unspecified; G40.89 Other seizures; E11.9 Type 2 diabetes mellitus without complications; Z88.0 Allergy status to penicillin; Z79.84 Long term (current) use of oral hypoglycemic drugs; Z88.2 Allergy status to sulfonamides; Z79.01 Long term (current) use of anticoagulants; Z95.0 Presence of cardiac pacemaker; Z79.899 Other long term (current) drug therapy; Z79.83 Long term (current) use of bisphosphonates
CPT/HCPCS: J2704; G0121

== ENCOUNTER → 2023-04-12 | Outpatient (CLI) | payer MEDICARE ==
[2023-04-12 09:54] LABS: ALT 28 U/L (4-34); AST 27 U/L (14-36); African American GFR (CKD) 52 (>60 ml/min/1.73 sqM); Albumin 4.1 g/dL (3.5-5.0); Albumin/Globulin Ratio 1.5; Alkaline Phosphatase 73 U/L (38-126); Anion Gap 11 mmol/L; Blood Urea Nitrogen 33 mg/dL (7-17); Calcium 9.5 mg/dL (8.4-10.2); Carbon Dioxide 31 mmol/L (22-30); Chloride 97 mmol/L (98-107); Globulin 2.7 g/dL; Glucose 167 mg/dL (74-99); Non-African American GFR(CKD) 45 (>60 ml/min/1.73 sqM); Potassium 4.4 mmol/L (3.5-5.1); Sodium 139 mmol/L (137-145); Total Bilirubin 0.9 mg/dL (0.2-1.3); Total Protein 6.8 g/dL (6.3-8.2)
[2023-04-12 10:02] LABS: NT-Pro-B-Type Natriuretic Pept 1410 pg/mL
== END | disposition home or self-care (01) ==
LOC: LABWHC1 08:12
PROVIDERS: ATTEND Internal Medicine Interventional Cardiology
DX: I50.32 Chronic diastolic (congestive) heart failure (principal)
CPT/HCPCS: 36415; 80053; 83880

== ENCOUNTER → 2023-06-26 | Outpatient (CLI) | payer MEDICARE ==
[2023-06-26 12:00] LABS: Basophils # (A) 0.06 X 10*3/uL (0.00-0.10); Basophils % (A) 1.3 %; Eosinophils # (A) 0.25 X 10*3/uL (0.04-0.35); Eosinophils % (A) 5.5 %; HGB 14.2 g/dL (12.0-15.0); Lymphocytes # (A) 0.78 X 10*3/uL (0.90-5.00); Lymphocytes % (A) 17.2 %; MCV 87.9 FL (80.0-97.0); Mean Platelet Volume 10.1 FL (9.5-12.2); Monocytes # (A) 0.47 X 10*3/uL (0.20-1.00); Monocytes % (A) 10.4 %; NRBC Per 100 WBC 0 X 10*3/uL (0.00-0.01); Neutrophils # (A) 2.96 X 10*3/uL (1.80-7.70); Neutrophils % (A) 65.4 %; Platelet Count 207 X 10*3/uL (140-440); RBC 4.89 X 10*6/uL (4.10-5.20); RDW 13.1 % (11.5-14.5); WBC 4.53 X 10*3/uL (4.50-10.00)
[2023-06-26 12:28] LABS: ALT 26 U/L (8-44); AST 23 U/L (13-35); Albumin 4.3 g/dL (3.8-4.9); Albumin/Globulin Ratio 1.79 Ratio (1.60-3.17); Alkaline Phosphatase 74 U/L (41-126); BUN/Creat Ratio 16.67 Ratio (12.00-20.00); Calcium 9.6 mg/dL (8.7-10.3); Carbon Dioxide 28.4 mmol/L (21.6-31.8); Chloride 102 mmol/L (96-109); Globulin 2.4 g/dL (1.6-3.3); Glucose 168 mg/dL (70-110); LDL Cholesterol,Calculated 72.3 mg/dL (0.0-131.0); Potassium 4.2 mmol/L (3.5-5.5); Sodium 143 mmol/L (135-145); T4, Free (Free Thyroxine) 1.87 ng/dL (0.80-1.80); Total Bilirubin 0.7 mg/dL (0.3-1.2); Total Protein 6.7 g/dL (6.2-8.2)
== END | disposition home or self-care (01) ==
LOC: LABWHC1 08:11
PROVIDERS: ATTEND Internal Medicine Critical Care Medicine
DX: I48.91 Unspecified atrial fibrillation (principal); I63.9 Cerebral infarction, unspecified; I42.9 Cardiomyopathy, unspecified; E11.9 Type 2 diabetes mellitus without complications; M19.90 Unspecified osteoarthritis, unspecified site
CPT/HCPCS: 36415; 80053; 80061; 82306; 83036; 84439; 84443; 85025

== ENCOUNTER → 2024-02-06 | Outpatient (CLI) | payer MEDICARE ==
[2024-02-06 15:07] LABS: HCT 38.4 % (37.2-46.3); HGB 13.5 g/dL (12.0-15.0); MCH 31.5 pg (27.0-32.0); MCHC 35.2 g/dL (32.0-37.0); MCV 89.5 FL (80.0-97.0); RBC 4.29 X 10*6/uL (4.10-5.20); RDW 13.3 % (11.5-14.5); WBC 4.83 X 10*3/uL (4.50-10.00)
[2024-02-06 15:08] LABS: Basophils # (A) 0.05 X 10*3/uL (0.00-0.10); Eosinophils # (A) 0.21 X 10*3/uL (0.04-0.35); Eosinophils % (A) 4.3 %; Lymphocytes # (A) 0.83 X 10*3/uL (0.90-5.00); Lymphocytes % (A) 17.2 %; Mean Platelet Volume 10.2 FL (9.5-12.2); Monocytes # (A) 0.49 X 10*3/uL (0.20-1.00); Monocytes % (A) 10.1 %; NRBC Per 100 WBC 0 X 10*3/uL (0.00-0.01); Neutrophils # (A) 3.24 X 10*3/uL (1.80-7.70); Neutrophils % (A) 67.2 %; Platelet Count 192 X 10*3/uL (140-440)
[2024-02-06 16:04] LABS: ALT 28 U/L (8-44); AST 22 U/L (13-35); Albumin 4.2 g/dL (3.8-4.9); Albumin/Globulin Ratio 1.62 Ratio (1.60-3.17); Alkaline Phosphatase 71 U/L (41-126); BUN/Creat Ratio 18.83 Ratio (12.00-20.00); Blood Urea Nitrogen 22.6 mg/dL (9.0-27.0); Calcium 9.2 mg/dL (8.7-10.3); Carbon Dioxide 29.4 mmol/L (21.6-31.8); Chloride 98 mmol/L (96-109); Chol/HDL Ratio 4.27 Ratio; Globulin 2.6 g/dL (1.6-3.3); Glucose 170 mg/dL (70-110); Potassium 3.6 mmol/L (3.5-5.5); Sodium 139 mmol/L (135-145); T4, Free (Free Thyroxine) 1.66 ng/dL (0.80-1.80); Total Bilirubin 0.8 mg/dL (0.3-1.2); Total Protein 6.8 g/dL (6.2-8.2)
== END | disposition home or self-care (01) ==
LOC: LABWHC1 08:12
PROVIDERS: ATTEND Internal Medicine Critical Care Medicine
DX: Z00.00 Encounter for general adult medical examination without abnormal findings
CPT/HCPCS: 36415; 80053; 80061; 82306; 83036; 84439; 84443; 85025

== ENCOUNTER → 2024-02-09 | Outpatient (CLI) | payer MEDICARE ==
--- NOTE | 2024-02-13 09:23 | MM ---
Reason for Exam: Screening (asymptomatic). Last mammogram was performed 1 year(s) and 1 month(s) ago. Patient History: Menarche at age 13. First Full-Term at age 24. Left ovary removed at age 38. Right ovary removed at age 38. Hysterectomy at age 38. Postmenopausal. Patient used Estrogen for 10 years. Sister had breast cancer, age 82. Prior Study Comparison: 08/25/2020 Bilateral Screening Mammogram, [facility]. 12/27/2021 Bilateral MG 3D screening mammo w/cad, [facility]. 12/28/2022 Bilateral MG 3D screening mammo w/cad, [facility]. Tissue Density: There are scattered areas of fibroglandular density. Findings: Analyzed By CAD. The pattern is symmetrical. Benign vascular calcifications present bilaterally. No suspicious groups of microcalcifications, spiculated or lobular masses, architectural distortion or other secondary signs of malignancy are mammographically apparent. Overall Assessment: Benign, BI-RAD 2 Management: Screening Mammogram of both breasts in 1 year. A negative mammogram report should not preclude additional follow up of suspicious palpable abnormalities. Patient should continue monthly self breast exam. A clinical breast exam by your physician is recommended on an annual basis and results should be correlated with mammographic findings. Note on Sherice scores and lifetime risk: 1. A Sherice score greater than 3% is considered moderate risk. If this is the case, consider specialist referral to assess eligibility for a risk reducing agent. 2. If overall lifetime risk for the development of breast cancer is 20% or higher, the patient may qualify for future screening with alternating mammogram and breast MRI. [facility], , 02/13/2024 9:19 AM. Electronically signed and approved by: Gamal Fine D.O. Radiologis
== END | disposition home or self-care (01) ==
LOC: RADMAMWWP 13:27
PROVIDERS: ATTEND Internal Medicine Critical Care Medicine
DX: Z12.31 Encounter for screening mammogram for malignant neoplasm of breast
CPT/HCPCS: 77063; 77067

== ENCOUNTER → 2024-03-12 | Outpatient (CLI) | payer MEDICARE ==
[2024-03-12 15:40] LABS: NT-Pro-B-Type Natriuretic Pept 1751 pg/mL (0-450)
[2024-03-12 15:48] LABS: ALT 38 U/L (8-44); AST 32 U/L (13-35); Albumin 4.3 g/dL (3.8-4.9); Albumin/Globulin Ratio 1.59 Ratio (1.60-3.17); Alkaline Phosphatase 68 U/L (41-126); Blood Urea Nitrogen 19.8 mg/dL (9.0-27.0); Calcium 9.3 mg/dL (8.7-10.3); Carbon Dioxide 28.3 mmol/L (21.6-31.8); Chloride 100 mmol/L (96-109); Globulin 2.7 g/dL (1.6-3.3); Glucose 121 mg/dL (70-110); Potassium 3.8 mmol/L (3.5-5.5); Sodium 142 mmol/L (135-145); Total Bilirubin 0.7 mg/dL (0.3-1.2)
== END | disposition home or self-care (01) ==
LOC: LABWHC1 08:57
PROVIDERS: ATTEND Internal Medicine Interventional Cardiology
CPT/HCPCS: 36415; 80053; 83880; 84443

== ENCOUNTER → 2024-10-16 | Outpatient (CLI) | payer MEDICARE ==
[2024-10-16 15:51] LABS: ALT 21 U/L (8-44); AST 23 U/L (13-35); Albumin 4.1 g/dL (3.8-4.9); Albumin/Globulin Ratio 1.64 Ratio (1.60-3.17); Alkaline Phosphatase 54 U/L (41-126); Blood Urea Nitrogen 24.2 mg/dL (9.0-27.0); Calcium 9.3 mg/dL (8.7-10.3); Carbon Dioxide 25.8 mmol/L (21.6-31.8); Chloride 101 mmol/L (96-109); Globulin 2.5 g/dL (1.6-3.3); Glucose 129 mg/dL (70-110); Sodium 142 mmol/L (135-145); Total Bilirubin 0.7 mg/dL (0.3-1.2); Total Protein 6.6 g/dL (6.2-8.2)
== END | disposition home or self-care (01) ==
LOC: LABWHC1 09:21
PROVIDERS: ATTEND Nurse Practitioner Adult Health
DX: I48.11 Longstanding persistent atrial fibrillation (principal); E11.9 Type 2 diabetes mellitus without complications
CPT/HCPCS: 36415; 80053; 83036; 84443